=== PATIENT | male | born 1950 | race Caucasian/White ===

== ENCOUNTER 2018-01-26 15:20 | Observation (INO) | payer OTHER ==
[~2018-01-26] VITALS: Ht 182.9 cm; Wt 95.2 kg
[~2018-01-26 15:20] MED LIST: ALBU90OI INH; AMLO10 PO; ASPI81CH PO; BIOTIN5000 MCG PO; BUDE6HFA INH; CALCA400CH PO; CYAN1000I IM; CYCL10 PO; Calcium + Vita1 EACH PO; Ferosul325 MG PO; GUAI600T33 PO; Hair, Skin & N1 EACH PO; MIRT15 PO; Norco 10-325 T1 EACH PO; SERT100 PO; SILD50TA; SIMV40 PO; TOCO1000 PO; TRAZ100 PO; VENL75ER PO; ZYRTEC10 M1 PO; Zanaflex4 M1 PO
[2018-01-26 15:56] LABS: BASOPHILS ABSOLUTE AUTO 0.12 K/mm3 (0.00-0.23); BASOPHILS PERCENT AUTO 1 % (0-2); EOSINOPHILS ABSOLUTE AUTO 0.51 K/mm3 (0.00-0.68); EOSINOPHILS PERCENT AUTO 5 % (0-6); Hematocrit 38.9 % (37.0-53.0); Hemoglobin 13.7 g/dL (13.5-17.5); IMMATURE GRAN ABSOLUTE AUTO 0.05 K/mm3 (0.00-0.10); IMMATURE GRAN PERCENT AUTO 1 % (0-1); LYMPHOCYTES PERCENT AUTO 22 % (21-46); MONOCYTES ABSOLUTE AUTO 0.86 K/mm3 (0.16-1.47); MONOCYTES PERCENT AUTO 9 % (4-13); Mean Corpuscular HGB 34.3 pg (26.0-34.0); Mean Corpuscular HGB Conc 35.2 g/dL (31.5-36.5); Mean Corpuscular Volume 98 fL (80-100); NEUTROPHILS ABSOLUTE AUTO 5.82 K/mm3 (1.96-9.15); NEUTROPHILS PERCENT AUTO 62 % (41-73); Platelet Count 236 K/mm3 (150-400); RDW Coefficient Variation 14.5 % (11.7-14.2); RDW Standard Deviation 51.6 fL (35.1-46.3); Red Blood Cell Count 3.99 M/mm3 (4.30-5.90); White Blood Cell Count 9.46 K/mm3 (4.00-11.30)
[2018-01-26 16:11] LABS: Alanine Aminotransfer (ALT/SGP 28 U/L (12-78); Albumin, Blood 4.1 g/dL (3.4-5.0); Albumin/Globulin Ratio 1.2 (0.8-1.8); Alk Phos 76 U/L (50-136); Anion Gap 10 mmol/L (6-16); Aspartate Aminotrans (AST/SGOT 26 U/L (12-37); Bilirubin, Total 0.3 mg/dL (0.1-1.0); Blood Urea Nitrogen 21 mg/dL (8-24); Bun/Creatinine Ratio 23.1 (12.0-20.0); CO2, Blood 24 mmol/L (21-32); Calcium, Blood 8.9 mg/dL (8.5-10.1); Chloride, Blood 108 mmol/L (98-108); Creatinine, Blood 0.91 mg/dL (0.60-1.20); Ethanol (Alcohol), Blood, Med 243 mg/dL; Globulin, Blood 3.3 g/dL (2.2-4.0); Glomerular Filtration Rate >60 (60-); Glucose, Blood 99 mg/dL (70-99); Potassium, Blood 4.2 mmol/L (3.5-5.5); Salicylate 3.5 mg/dL (2.8-20.0); Sodium, Blood 142 mmol/L (136-145); Thyroxine (T4) 10.5 ug/dL (4.5-12.1); Total Protein, Blood 7.4 g/dL (6.4-8.2)
[2018-01-26 16:14] LABS: Thyroid Stimulating Hormone 0.916 uIU/mL (0.360-4.800)
[2018-01-26 16:19] LABS: Acetaminophen, Random <2.0 ug/mL (10.0-30.0)
[2018-01-26] MEDS ORDERED: DULO60 PO (17:04)
[2018-01-26] MEDS ORDERED: ACETAMINOPHEN500 MG PO (17:04)
[2018-01-26] MEDS ORDERED: MELA3 PO (17:05)
[2018-01-26] MEDS ORDERED: Advil200 M1 PO (17:05)
[2018-01-26] MEDS ORDERED: THIA100 PO (17:06)
[2018-01-26] MEDS ORDERED: METCAR500 PO (17:06)
[2018-01-26 23:21] LABS: Source, Urine Clean Catch
[2018-01-26 23:23] LABS: Appearance, Urine Clear (Clear); Bilirubin, Urine Neg (Neg); Blood, Urine Neg (Neg); Color, Urine Yellow (P-Yellow); Glucose Qualitative, Urine Neg (Neg); Ketones, Urine Neg (Neg); Leukocyte Esterase, Urine Neg (Neg); Nitrite, Urine Neg (Neg); Protein, Urine 1+ (Neg); Specific Gravity, Urine 1.025 (1.003-1.022); Urobilinogen, Urine NORM (Normal)
[2018-01-26 23:35] LABS: U Amphetamine Screen Not Detected; U Barbituate Screen Not Detected; U Benzodiazapine Screen Not Detected; U Buprenorphine Screen Not Detected; U Cannabinoids Screen Not Detected; U Cocaine Screen Not Detected; U Methadone Screen Not Detected; U Methamphetamine Screen Not Detected; U Opiates Screen Not Detected; U Oxycodone Screen Not Detected; U Phencyclidine Screen Not Detected; U Propoxyphene Screen Not Detected
[2018-01-27 00:26] LABS: BASOPHILS ABSOLUTE AUTO 0.05 K/mm3 (0.00-0.23); BASOPHILS PERCENT AUTO 1 % (0-2); EOSINOPHILS ABSOLUTE AUTO 0.34 K/mm3 (0.00-0.68); EOSINOPHILS PERCENT AUTO 5 % (0-6); Hematocrit 35.9 % (37.0-53.0); Hemoglobin 12.4 g/dL (13.5-17.5); IMMATURE GRAN ABSOLUTE AUTO 0.01 K/mm3 (0.00-0.10); IMMATURE GRAN PERCENT AUTO 0 % (0-1); LYMPHOCYTES PERCENT AUTO 23 % (21-46); MONOCYTES PERCENT AUTO 9 % (4-13); Mean Corpuscular HGB 34.2 pg (26.0-34.0); Mean Corpuscular HGB Conc 34.5 g/dL (31.5-36.5); Mean Corpuscular Volume 99 fL (80-100); Mean Platelet Volume 9.5 fL (9.1-12.4); NEUTROPHILS ABSOLUTE AUTO 3.97 K/mm3 (1.96-9.15); NEUTROPHILS PERCENT AUTO 61 % (41-73); Platelet Count 184 K/mm3 (150-400); RDW Coefficient Variation 14.4 % (11.7-14.2); RDW Standard Deviation 52.8 fL (35.1-46.3); Red Blood Cell Count 3.63 M/mm3 (4.30-5.90); White Blood Cell Count 6.47 K/mm3 (4.00-11.30)
[2018-01-27 00:48] LABS: Alanine Aminotransfer (ALT/SGP 24 U/L (12-78); Albumin, Blood 3.6 g/dL (3.4-5.0); Albumin/Globulin Ratio 1.2 (0.8-1.8); Alk Phos 66 U/L (50-136); Anion Gap 11 mmol/L (6-16); Aspartate Aminotrans (AST/SGOT 19 U/L (12-37); Bilirubin, Total 0.4 mg/dL (0.1-1.0); Blood Urea Nitrogen 23 mg/dL (8-24); Bun/Creatinine Ratio 24.9 (12.0-20.0); CO2, Blood 24 mmol/L (21-32); Calcium, Blood 8.3 mg/dL (8.5-10.1); Chloride, Blood 107 mmol/L (98-108); Creatinine, Blood 0.92 mg/dL (0.60-1.20); Ethanol (Alcohol), Blood, Med 39 mg/dL; Globulin, Blood 2.9 g/dL (2.2-4.0); Glomerular Filtration Rate >60 (60-); Glucose, Blood 106 mg/dL (70-99); Potassium, Blood 3.7 mmol/L (3.5-5.5); Sodium, Blood 142 mmol/L (136-145); Total Protein, Blood 6.5 g/dL (6.4-8.2)
== END 2018-01-27 11:00 | disposition home or self-care (01) ==
LOC: ER 15:20 → EOR 15:21
PROVIDERS: Emergency Medicine
DX: T48.1X2A Poisoning by skeletal muscle relaxants [neuromuscular blocking agents], intentional self-harm, initial encounter (principal); F32.9 Major depressive disorder, single episode, unspecified; J44.9 Chronic obstructive pulmonary disease, unspecified; I10 Essential (primary) hypertension; F17.200 Nicotine dependence, unspecified, uncomplicated; Z79.899 Other long term (current) drug therapy; Z88.8 Allergy status to other drugs, medicaments and biological substances
CPT/HCPCS: 80053; 84436; 84443; 85025; 93005; 93010; 99285; G0378; G0480

== ENCOUNTER 2019-04-23 07:59 | Emergency (ER) | payer SELFPAY ==
[~2019-04-23] VITALS: Ht 182.9 cm; Wt 79.4 kg
[~2019-04-23 07:59] MED LIST changes: +ACET500 PO; +ACETAMINOPHEN500 MG PO; +ANTABUSE PO; +ASCO500 PO; +Advil200 M1 PO; +Aspir 8181 MG PO; +BUDE.25 NEB; +CELE200 PO; +CHOL10002 PO; +Clotrimazole15 GM TOP; +DOCU100 PO; +DULO60 PO; +ERGO400 PO; +FISH OIL 500 M1 EAC2 PO; -Hair, Skin & N1 EACH PO; +Hydroxyzine HCl50 MG PO; +Inderal 20 mg T20 MG PO; +LIDO700A20 TOP; +LITH300C PO; +MAGOXI400 PO; +MELA3 PO; +METCAR500 PO; +Naltrexone HCl50 MG PO; +POLY500 PO; +POTCHL10ER PO; +PSYSENPA PO; +Prilosec Otc20 MG PO; +SENN187 PO; -SILD50TA; +SILD50TA PO; +SULI150 PO; +THERA1 EACH PO; +THIA100 PO; +Tessalon200 MG; +Triamcinolone A15 GM TOP; +ZYRTEC10 MG PO; +[UNRECOGNIZED DRUG - OTHER] TOP
[2019-04-23 08:35] LABS: BASOPHILS ABSOLUTE AUTO 0.04 K/mm3 (0.00-0.23); BASOPHILS PERCENT AUTO 1 % (0-2); EOSINOPHILS ABSOLUTE AUTO 0.18 K/mm3 (0.00-0.68); EOSINOPHILS PERCENT AUTO 3 % (0-6); Hematocrit 30.8 % (37.0-53.0); Hemoglobin 10.2 g/dL (13.5-17.5); IMMATURE GRAN ABSOLUTE AUTO 0.01 K/mm3 (0.00-0.10); IMMATURE GRAN PERCENT AUTO 0 % (0-1); LYMPHOCYTES ABSOLUTE AUTO 0.65 K/mm3 (0.84-5.20); LYMPHOCYTES PERCENT AUTO 11 % (21-46); MONOCYTES ABSOLUTE AUTO 0.51 K/mm3 (0.16-1.47); MONOCYTES PERCENT AUTO 9 % (4-13); Mean Corpuscular HGB 32.2 pg (26.0-34.0); Mean Corpuscular HGB Conc 33.1 g/dL (31.5-36.5); Mean Corpuscular Volume 97 fL (80-100); Mean Platelet Volume 9.9 fL (9.1-12.4); NEUTROPHILS ABSOLUTE AUTO 4.48 K/mm3 (1.96-9.15); NEUTROPHILS PERCENT AUTO 76 % (41-73); Platelet Count 206 K/mm3 (150-400); RDW Coefficient Variation 13.1 % (11.7-14.2); RDW Standard Deviation 47.2 fL (35.1-46.3); Red Blood Cell Count 3.17 M/mm3 (4.30-5.90); White Blood Cell Count 5.87 K/mm3 (4.00-11.30)
[2019-04-23 08:47] LABS: U Amphetamine Screen Not Detected; U Barbituate Screen Not Detected; U Benzodiazapine Screen DETECTED; U Buprenorphine Screen Not Detected; U Cannabinoids Screen DETECTED; U Cocaine Screen Not Detected; U Methadone Screen Not Detected; U Methamphetamine Screen Not Detected; U Opiates Screen Not Detected; U Oxycodone Screen DETECTED; U Phencyclidine Screen Not Detected; U Propoxyphene Screen Not Detected
[2019-04-23] MEDS ORDERED: MUSE1000 MCG UR (08:54)
[2019-04-23] MEDS ORDERED: DISU250 PO (08:55)
[2019-04-23 09:15] LABS: Acetaminophen, Random <2.0 ug/mL (10.0-30.0); Ethanol (Alcohol), Blood, Med <3 mg/dL; Salicylate 3.5 mg/dL (2.8-20.0)
[2019-04-23 09:16] LABS: Alanine Aminotransfer (ALT/SGP 31 U/L (12-78); Albumin, Blood 3.5 g/dL (3.4-5.0); Albumin/Globulin Ratio 1.4 (0.8-1.8); Alk Phos 58 U/L (50-136); Anion Gap 5 mmol/L (6-16); Aspartate Aminotrans (AST/SGOT 23 U/L (12-37); Bilirubin, Total 0.9 mg/dL (0.1-1.0); Blood Urea Nitrogen 12 mg/dL (8-24); Bun/Creatinine Ratio 10.5 (12.0-20.0); CO2, Blood 28 mmol/L (21-32); Calcium, Blood 8.5 mg/dL (8.5-10.1); Chloride, Blood 103 mmol/L (98-108); Creatinine, Blood 1.14 mg/dL (0.60-1.20); Globulin, Blood 2.5 g/dL (2.2-4.0); Glomerular Filtration Rate >60 (60-); Glucose, Blood 130 mg/dL (70-99); Potassium, Blood 3.5 mmol/L (3.5-5.5); Sodium, Blood 136 mmol/L (136-145)
[2019-04-23 09:20] LABS: Thyroid Stimulating Hormone 0.901 uIU/mL (0.360-4.800)
[2019-04-23] MEDS ORDERED: FERSU300 PO (10:27)
[2019-04-23] MEDS ORDERED: Metamucil Smooth1 EA PO (10:29)
[2019-04-23] MEDS ORDERED: SENN187 PO (10:29)
[2019-04-23] MEDS ORDERED: Viagra100 MG PO (10:30)
== END 2019-04-23 14:46 | disposition short-term general hospital (02) ==
LOC: ER 07:59
PROVIDERS: Emergency Medicine
DX: T39.392A Poisoning by other nonsteroidal anti-inflammatory drugs [NSAID], intentional self-harm, initial encounter (principal); T42.4X2A Poisoning by benzodiazepines, intentional self-harm, initial encounter; F32.9 Major depressive disorder, single episode, unspecified; J44.9 Chronic obstructive pulmonary disease, unspecified; I10 Essential (primary) hypertension; F17.200 Nicotine dependence, unspecified, uncomplicated
CPT/HCPCS: 80053; 84443; 85025; 93005; 93010; 99285-25; G0480

== ENCOUNTER 2019-05-19 19:17 | Observation (INO) | payer OTHER, SELFPAY ==
[~2019-05-19] VITALS: Ht 182.9 cm; Wt 79.0 kg
[~2019-05-19 19:17] MED LIST changes: +DISU250 PO; +FERSU300 PO; +MUSE1000 MCG UR; +Metamucil Smooth1 EA PO; +Viagra100 MG PO
[2019-05-19 20:05] LABS: BASOPHILS ABSOLUTE AUTO 0.06 K/mm3 (0.00-0.23); BASOPHILS PERCENT AUTO 1 % (0-2); EOSINOPHILS ABSOLUTE AUTO 0.26 K/mm3 (0.00-0.68); EOSINOPHILS PERCENT AUTO 3 % (0-6); Hematocrit 36.3 % (37.0-53.0); Hemoglobin 12.1 g/dL (13.5-17.5); IMMATURE GRAN ABSOLUTE AUTO 0.02 K/mm3 (0.00-0.10); IMMATURE GRAN PERCENT AUTO 0 % (0-1); LYMPHOCYTES ABSOLUTE AUTO 1.57 K/mm3 (0.84-5.20); LYMPHOCYTES PERCENT AUTO 20 % (21-46); MONOCYTES ABSOLUTE AUTO 0.65 K/mm3 (0.16-1.47); MONOCYTES PERCENT AUTO 8 % (4-13); Mean Corpuscular HGB 33.2 pg (26.0-34.0); Mean Corpuscular HGB Conc 33.3 g/dL (31.5-36.5); Mean Corpuscular Volume 100 fL (80-100); NEUTROPHILS ABSOLUTE AUTO 5.42 K/mm3 (1.96-9.15); NEUTROPHILS PERCENT AUTO 68 % (41-73); Platelet Count 254 K/mm3 (150-400); RDW Coefficient Variation 14.6 % (11.7-14.2); RDW Standard Deviation 54.1 fL (35.1-46.3); Red Blood Cell Count 3.64 M/mm3 (4.30-5.90); White Blood Cell Count 7.98 K/mm3 (4.00-11.30)
[2019-05-19 20:28] LABS: Alanine Aminotransfer (ALT/SGP 16 U/L (12-78); Albumin, Blood 3.9 g/dL (3.4-5.0); Albumin/Globulin Ratio 1.3 (0.8-1.8); Alk Phos 70 U/L (50-136); Anion Gap 9 mmol/L (6-16); Aspartate Aminotrans (AST/SGOT 15 U/L (12-37); Bilirubin, Total 0.5 mg/dL (0.1-1.0); Blood Urea Nitrogen 12 mg/dL (8-24); Bun/Creatinine Ratio 11.2 (12.0-20.0); CO2, Blood 25 mmol/L (21-32); Calcium, Blood 8.8 mg/dL (8.5-10.1); Chloride, Blood 111 mmol/L (98-108); Creatinine, Blood 1.07 mg/dL (0.60-1.20); Glomerular Filtration Rate >60 (60-); Glucose, Blood 124 mg/dL (70-99); Lithium <0.20 mmol/L (0.60-1.20); Potassium, Blood 3.2 mmol/L (3.5-5.5); Salicylate 4.2 mg/dL (2.8-20.0); Sodium, Blood 145 mmol/L (136-145); Total Protein, Blood 6.9 g/dL (6.4-8.2)
[2019-05-19 21:19] LABS: International Normalized Ratio 1.03; Prothrombin Time Results 10.9 Sec (9.7-11.5)
[2019-05-19] MEDS ORDERED: Vivitrol380 MG INJ (21:21)
--- NOTE | 2019-05-19 23:10 | NUR ---
ADMIT RECEIVED FROM ER VIA GURNEY. PT IS ABLE TO AMBULATE FROM GURNEY TO BED WITHOUT DIFFICULTY. ORIENTED AND COOPERATIVE. FLAT AFFECT NOTED. DENIES SUICIDE IDEATION AT THIS TIME. STATES "I FEEL SAFE HERE WITH YOU GUYS." PT INFORMED OF THE FACT THAT THE CAMERA IS ON IN THE ROOM. DENIES C/O NAUSEA. DENIES C/O ACUTE PAIN. STATES "I ALWAYS HURT ALL OVER." DENIES NEED FOR PAIN MANAGEMENT AT THIS TIME. MONITOR SHOWS NSR, RATE 70s. BP STABLE. RESPIRATIONS EVEN AND UNLABORED. 96% ON RA. OCCASIONAL MOIST NPC. SEE ADMIT ASSESSMENT FOR FULL ASSESSMENT.
[2019-05-19 23:26] LABS: U Amphetamine Screen Not Detected; U Barbituate Screen Not Detected; U Benzodiazapine Screen Not Detected; U Buprenorphine Screen Not Detected; U Cannabinoids Screen DETECTED; U Cocaine Screen Not Detected; U Methadone Screen Not Detected; U Methamphetamine Screen Not Detected; U Opiates Screen Not Detected; U Oxycodone Screen Not Detected; U Phencyclidine Screen Not Detected; U Propoxyphene Screen Not Detected
[2019-05-19 23:47] LABS: International Normalized Ratio 1.14; Prothrombin Time Results 11.9 Sec (9.7-11.5)
[2019-05-20 00:07] LABS: Acetaminophen, Random 86.3 ug/mL (10.0-30.0)
[2019-05-20 00:08] LABS: Albumin, Blood 3.4 g/dL (3.4-5.0); Albumin/Globulin Ratio 1.2 (0.8-1.8); Bilirubin, Direct 0.1 mg/dL (0.0-0.3); Bilirubin, Indirect 0.2 mg/dL (0.1-0.7); Bilirubin, Total 0.3 mg/dL (0.1-1.0); Globulin, Blood 2.9 g/dL (2.2-4.0); Total Protein, Blood 6.3 g/dL (6.4-8.2)
[2019-05-20] MEDS ORDERED: ASCO500 PO (03:19)
[2019-05-20] MEDS ORDERED: PSYSENPA PO (03:31)
[2019-05-20] MEDS ORDERED: DOCU100 PO (03:32)
[2019-05-20 04:27] LABS: Albumin, Blood 3.1 g/dL (3.4-5.0); Albumin/Globulin Ratio 1.1 (0.8-1.8); Bilirubin, Direct 0.1 mg/dL (0.0-0.3); Bilirubin, Indirect 0.4 mg/dL (0.1-0.7); Bilirubin, Total 0.5 mg/dL (0.1-1.0); Globulin, Blood 2.8 g/dL (2.2-4.0); Total Protein, Blood 5.9 g/dL (6.4-8.2)
[2019-05-20 05:28] LABS: Acetaminophen, Random 28.9 ug/mL (10.0-30.0); Salicylate 3.5 mg/dL (2.8-20.0)
--- NOTE | 2019-05-20 06:11 | NUR ---
SHIFT SUMMARY NO ACUTE CHANGES DURING NOC. SLEPT INTERMITTENTLY. UP WITH STANDBY ASSIST- TOLERATES WELL. DENIES C/O NAUSEA OR ACUTE PAIN. CONTINUES WITH C/O CHRONIC JOINT PAIN. VSS. RESPIRATIONS EVEN AND UNLABORED. ACETYLCYSTEINE INFUSING PER ORDER. POISON CONTROL HAS CALLED TWICE DURING SHIFT FOR UPDATES AND RECOMMENDATIONS. VOIDING WITHOUT DIFFICULTY. TAKING PO WITHOUT DIFFICULTY. CONTINUES TO DENY SUICIDAL IDEATION AT THIS TIME. WILL REPORT TO DAY SHIFT RN WHEN AVAILABLE.
--- NOTE | 2019-05-20 07:38 | NUR ---
ASSUMED CARE OF PT. PT IS ALERT AND ORIENTED. DENIES PAIN AT THIS TIME. WHEN ASKED IF HE STILL HAS SUICIDAL IDEATION PT STATED " I DON'T KNOW." PT LOOKED SAD WHEN ASKED ABOUT HOW HIS MOM IS DOING. HE STATED IT TAKES ABOUT [address] TO SEE HIS MOTHER AND THEN HE DOESN'T LIKE TO "FLY" PT IS FOLLOWING COMMANDS.
--- NOTE | 2019-05-20 08:03 | NUR ---
PT SEEN BY DR. ROSALES. UPDATED HIM OF PT'S STATUS. PT WILL BE TRANSFERED TO MEDICAL FLOOR ON SUICIDAL WATCH AND ON TELEMETRY.
[2019-05-20 08:30] LABS: International Normalized Ratio 1.22; Prothrombin Time Results 12.7 Sec (9.7-11.5)
[2019-05-20 08:40] LABS: Alanine Aminotransfer (ALT/SGP 17 U/L (12-78); Albumin, Blood 3.1 g/dL (3.4-5.0); Albumin/Globulin Ratio 1.1 (0.8-1.8); Alk Phos 58 U/L (50-136); Anion Gap 8 mmol/L (6-16); Aspartate Aminotrans (AST/SGOT 14 U/L (12-37); Bilirubin, Direct 0.2 mg/dL (0.0-0.3); Bilirubin, Indirect 0.4 mg/dL (0.1-0.7); Bilirubin, Total 0.6 mg/dL (0.1-1.0); Blood Urea Nitrogen 12 mg/dL (8-24); Bun/Creatinine Ratio 13.8 (12.0-20.0); CO2, Blood 25 mmol/L (21-32); Calcium, Blood 8.2 mg/dL (8.5-10.1); Chloride, Blood 112 mmol/L (98-108); Creatinine, Blood 0.87 mg/dL (0.60-1.20); Globulin, Blood 2.7 g/dL (2.2-4.0); Glomerular Filtration Rate >60 (60-); Glucose, Blood 109 mg/dL (70-99); Potassium, Blood 3.5 mmol/L (3.5-5.5); Salicylate 3.5 mg/dL (2.8-20.0); Sodium, Blood 145 mmol/L (136-145); Total Protein, Blood 5.8 g/dL (6.4-8.2)
--- NOTE | 2019-05-20 09:41 | NUR ---
DR. ROSALES WAS CALLED REGARDING PT'S POTASSIUM LEVEL OF 3.1 AFTER RECEIVING 40MEQ PO AROUND 2 AM THIS MORNING. ORDERS RECEIVED. PT HAD STATED AFTER HAVING A BM THIS MORNING THAT HE HAD DIARRHEA.
--- NOTE | 2019-05-20 11:18 | NUR ---
PT HAD REFUSED BREAKFAST THIS MORNING. PT SOMEWHAT TEARFUL WHEN ASKED IF HE WANTS TO TALK TO HIS MOTHER OVER THE PHONE. INSTRUCTIED PATIENT TO COLLECT URINE AND STOOL SPECIMEN FOR UC-TOX & C-DIFF. PT HAD 3 BMs SINCE THIS MORNING.
[2019-05-20 12:23] LABS: U Amphetamine Screen Not Detected; U Barbituate Screen Not Detected; U Benzodiazapine Screen DETECTED; U Buprenorphine Screen Not Detected; U Cannabinoids Screen DETECTED; U Cocaine Screen Not Detected; U Methadone Screen Not Detected; U Methamphetamine Screen Not Detected; U Opiates Screen Not Detected; U Oxycodone Screen Not Detected; U Phencyclidine Screen Not Detected; U Propoxyphene Screen Not Detected
--- NOTE | 2019-05-20 16:16 | NUR ---
PT COMPLAINTS OF R/L SHOULDER PAIN & KNEES. PT STATED HE USES 3 LIDOCAINE PATCHES FOR 12 HOURS AND "POT" DR. ROSALES WAS NOTIFIED REGARDING PT'S COMPLAINTS. ORDERS RECEIVED.
[2019-05-20 16:18] LABS: Acetaminophen, Random <2.0 ug/mL (10.0-30.0); Alanine Aminotransfer (ALT/SGP 14 U/L (12-78); Aspartate Aminotrans (AST/SGOT 15 U/L (12-37)
--- NOTE | 2019-05-20 17:34 | NUR ---
RECIEVED TELEPHONE REPORT FROM PROJECT DEVELOPMENT COORDINATOR. PER REPORT PT STATED HIS MOTHER IS DYING AND IS MOVING TO BE WITH ANOTHER RELATIVE AND THE PT CAN NOT BE WITH HER, THE PT DECIDED TO TAKE 25 500MG TYLENOL WITH THE INTENT OF SELF TERMINATION (PER REPORT). PT ALERT AND ORIENTED AND HAS BEEN GOING TO THE BATHROOM INDEPENDENTLY. PT IS ON SI PRECAUTIONS, ROOM CHECK COMPLETE WITH PIG MACHINE OPERATOR ALEX. WAITING FOR PT ARRIVAL ON MEDICAL FLOOR.
--- NOTE | 2019-05-20 18:07 | NUR ---
SHIFT SUMMARY: DR. ROSALES WAS NOTIFIED PT IS NOT ON A 2MD HOLD. PT HAS EXPRESSED TO NIGHT NURSE THAT HE MIGT COMMIT SUICIDE WHEN HE IS ALONE AT HOME. PT HAS NOT EXPRESSED THIS INFO TO THIS NURSE. PT HAS NOT EXPRESSED ANY THOUGHTS OF SUICIDE TODAY. TYLENOL LEVEL IS <2.0. AST 15, ALT 14. ACETYLCYSTEINE INFUSION WAS DISCONTINUED PER POISON CONTROL RECOMMENDATION. PLAN IS TO PLACE PT ON 2MD HOLD PER DR. ROSALES UNTIL DR. SALAZAR OR ADRIAN BRIONES SEE'S PT ON THURSDAY. PT WAS TO ROOM 344. REPORT GIVEN TO FERNANDA SALAZAR IN MEDICAL FLOOR.
--- NOTE | 2019-05-20 18:17 | NUR ---
SPOKE TO CS ASSOCIATE- THEY ARE AWARE OF THE PT MOVE FROM ICU AND HE IS ON THE MONITORS. PT IS AWARE OF THE MONITOR AND REASON FOR IT. PT ASSISTED TO THE BATHROOM UPON ARRIVAL NO C/O PAIN.
--- NOTE | 2019-05-21 05:36 | NUR ---
PATIENT SLEPT WELL IS POSSIBLE THIS SHIFT, HE DID COMPLAIN OF SHOULDER AND KNEE PAIN AND RN APPLIED THE OINTMENT PER EMAR. PATIENT RECEIVED SLEEP AIDES PER EMAR ALSO. LATER HER REQUESTED EAR PLUGS. PATIENT HAS BEEN PLEASANT AND COOPERATIVE AND HAS AGREED NOT TO HARM HIMSELF THIS SHIFT AND HAS KEPT HIS WORD. HE WS UP TO THE BRP SEVERAL TIMES AND IS VOIDING WELL. SI ASSESSMENTS WERE COMPLETED; CALL GUNN AT BEDSIDE.
--- NOTE | 2019-05-21 16:51 | NUR ---
PATIENT A/OX4, REMAINS TEARFUL AT TIMES THIS SHIFT. AWAITING TELEPSYCH CONSULT THIS EVENING. PATIENT ON SI PRECUATIONS WITH VIDEO MONITORING. LIDOCAINE OINTMENT Q6 HOURS TO TREAT CHRONIC KNEE AND SHOULDER PAIN. CALLS APPROPRIATELY FOR ASSISTANCE. UP INDEPENDENTLY IN ROOM. CALM AND COOPERATIVE WITH CARE.
--- NOTE | 2019-05-22 06:38 | NUR ---
PATIENT IS PLEASANT AND COOPERATIVE TONIGHT, PATIENT HAD TELECONSULT W PSYCH WHICH HAD TECHNICAL PROBLEMS AND WILL BE RESCHEDULED IT COULD NOT BE COMPLETED. PATIENT WAS UPSET ABOUT THE MISCOMMUNICATION AND HAD TROUBLE SLEEPING AFTER THIS . PER PCU TECH PATIENT REMAINS IN NSR @83 BPM THIS MORNIG. PASSED REPORT TO DAY NURSE.
--- NOTE | 2019-05-22 16:53 | NUR ---
PATIENT HAD TELEPSYCH CONSULT TODAY AND WAS CLEARED OF SI PRECAUTIONS. PATIENT LIVES AT [facility] AND PLANS TO D/C BACK THERE SOON TOMORROW. PATIENT IS A/OX4, UP INDEPENDENTLY IN ROOM. LIDOCAINE OINTMENT QID TO SHOULDERS AND KNEES. VSS THIS SHIFT, ON RA. PATIENT REMAINS TEARFUL AT TIMES WHEN TALKING ABOUT HIS PAST AND HIS MOTHER, BUT DENIES ANY THOUGHTS OF HARMING HIMSELF.
--- NOTE | 2019-05-22 20:11 | NUR ---
PATIENT RESTING IN BED AND IN GOOD SPIRITS TONIGHT; LOPOKING FORWARD TO D/C TOMORROW. ASSESSMENTS COMPLETE AND BEDTIME MEDS GIVEN; LIDOCAINE OINTMENT APPLIED PER EMAR. CALL GUNN WITHIN REACH
--- NOTE | 2019-05-23 14:08 | NUR ---
LATE ENTRY: PATIENT EVALUATED BY TELEPSYCH ON 05/22/19 AT 1245. TELEPHONE ORDER RECEIVED FROM DR. ROSALES ON 05/22/19 AT 1552 TO D/C HIGH RISK SI PRECAUTIONS. ORDERS WERE COMPLETED ON PROCESS INTERVENTION, BUT ACTUAL DC HIGH RISK PRECAUTIONS WERE ENTERED NEXT DAY.
--- NOTE | 2019-05-23 16:40 | NUR ---
DISCHARGE NOTE ZEYAD DENIED SI THIS SHIFT. SI PRECAUTIONS DISCONTINUED EARLY THIS MORNING BY DR ROSALES, HH DISCONTINUED PRIOR TO DC. GOING HOME [facility]IA [employer]. INDEP IN ROOM. PIV REMOVED, NO NEW MEDS. PCP APPT MADE FOR PT. HE IS RETURNING TO [facility]. PAINFUL JOINTS, LIDOCAINE PATCHES APPLIED. INDEP TO BR. TOOK PILLS PRESCRIBED. DISCHARGE PAPERWORK REVIEWED.
== END 2019-05-23 15:02 | disposition home or self-care (01) ==
LOC: ER 19:17 → ICUW 19:18 → MEDS 05-20 18:12 → ENPENDDIS 05-23 14:16 → MEDS 05-23 15:02
PROVIDERS: Hospitalist; Internal Medicine; Physician Assistant; ADMIT Hospitalist
DX: T39.1X2A Poisoning by 4-Aminophenol derivatives, intentional self-harm, initial encounter (principal); F43.12 Post-traumatic stress disorder, chronic; J44.9 Chronic obstructive pulmonary disease, unspecified; F12.10 Cannabis abuse, uncomplicated; E87.6 Hypokalemia; F17.210 Nicotine dependence, cigarettes, uncomplicated; Z88.8 Allergy status to other drugs, medicaments and biological substances; Z88.6 Allergy status to analgesic agent; Z79.899 Other long term (current) drug therapy; Z79.51 Long term (current) use of inhaled steroids
CPT/HCPCS: 36415; 80048; 80053; 80076; 80178; 84132; 84450; 84460; 85025; 85610; 93005; 93010; 94640; 94760; 96365; 96376; 99285-25; G0378; G0480; J0132; J7060; J7070

== ENCOUNTER 2019-12-25 16:26 | Observation (INO) | payer OTHER ==
[~2019-12-25] VITALS: Ht 182.9 cm; Wt 81.7 kg
[~2019-12-25 16:26] MED LIST changes: -ALBU90OI INH; -Aspir 8181 MG PO; -BUDE6HFA INH; -CHOL10002 PO; -FISH OIL 500 M1 EAC2 PO; -MAGOXI400 PO; -Prilosec Otc20 MG PO; -SULI150 PO; -THERA1 EACH PO; -TRAZ100 PO; -Triamcinolone A15 GM TOP; +Vivitrol380 MG INJ; -ZYRTEC10 MG PO; -[UNRECOGNIZED DRUG - OTHER] TOP
[2019-12-25 16:55] LABS: Source, Urine Clean Catch
[2019-12-25 17:02] LABS: Bilirubin, Urine Neg (Neg); Blood, Urine Neg (Neg); Glucose Qualitative, Urine Neg (Neg); Ketones, Urine Neg (Neg); Leukocyte Esterase, Urine Neg (Neg); Nitrite, Urine Neg (Neg); Protein, Urine Neg (Neg); Specific Gravity, Urine 1.005 (1.003-1.022); Urobilinogen, Urine NORM (Normal)
[2019-12-25 17:04] LABS: BASOPHILS ABSOLUTE AUTO 0.07 K/mm3 (0.00-0.23); BASOPHILS PERCENT AUTO 1 % (0-2); EOSINOPHILS ABSOLUTE AUTO 0.18 K/mm3 (0.00-0.68); EOSINOPHILS PERCENT AUTO 3 % (0-6); Hematocrit 37.8 % (37.0-53.0); IMMATURE GRAN ABSOLUTE AUTO 0.02 K/mm3 (0.00-0.10); IMMATURE GRAN PERCENT AUTO 0 % (0-1); LYMPHOCYTES ABSOLUTE AUTO 0.94 K/mm3 (0.84-5.20); LYMPHOCYTES PERCENT AUTO 14 % (21-46); MONOCYTES ABSOLUTE AUTO 0.48 K/mm3 (0.16-1.47); MONOCYTES PERCENT AUTO 7 % (4-13); Mean Corpuscular HGB 33.8 pg (26.0-34.0); Mean Corpuscular HGB Conc 34.4 g/dL (31.5-36.5); Mean Corpuscular Volume 98 fL (80-100); Mean Platelet Volume 9.5 fL (9.1-12.4); NEUTROPHILS ABSOLUTE AUTO 4.95 K/mm3 (1.96-9.15); NEUTROPHILS PERCENT AUTO 75 % (41-73); Platelet Count 221 K/mm3 (150-400); RDW Coefficient Variation 13.6 % (11.7-14.2); RDW Standard Deviation 49.4 fL (35.1-46.3); Red Blood Cell Count 3.85 M/mm3 (4.30-5.90); White Blood Cell Count 6.64 K/mm3 (4.00-11.30)
[2019-12-25 17:16] LABS: U Amphetamine Screen Not Detected; U Barbituate Screen Not Detected; U Benzodiazapine Screen Not Detected; U Buprenorphine Screen Not Detected; U Cannabinoids Screen DETECTED; U Cocaine Screen Not Detected; U Methadone Screen Not Detected; U Methamphetamine Screen Not Detected; U Opiates Screen Not Detected; U Oxycodone Screen Not Detected; U Phencyclidine Screen Not Detected; U Propoxyphene Screen Not Detected
[2019-12-25 17:19] LABS: Appearance, Urine Clear (Clear); Color, Urine Yellow (P-Yellow)
[2019-12-25 17:30] LABS: Acetaminophen, Random <2.0 ug/mL (10.0-30.0); Alanine Aminotransfer (ALT/SGP 22 U/L (12-78); Albumin, Blood 3.9 g/dL (3.4-5.0); Albumin/Globulin Ratio 1.2 (0.8-1.8); Alk Phos 76 U/L (50-136); Anion Gap 5 mmol/L (6-16); Aspartate Aminotrans (AST/SGOT 23 U/L (12-37); Bilirubin, Total 0.3 mg/dL (0.1-1.0); Blood Urea Nitrogen 13 mg/dL (8-24); Bun/Creatinine Ratio 14.1 (12.0-20.0); CO2, Blood 29 mmol/L (21-32); Calcium, Blood 8.6 mg/dL (8.5-10.1); Chloride, Blood 106 mmol/L (98-108); Creatinine, Blood 0.92 mg/dL (0.60-1.20); Ethanol (Alcohol), Blood, Med 108 mg/dL; Globulin, Blood 3.2 g/dL (2.2-4.0); Glomerular Filtration Rate >60 (60-); Glucose, Blood 102 mg/dL (70-99); Potassium, Blood 3.6 mmol/L (3.5-5.5); Salicylate 4.5 mg/dL (2.8-20.0); Sodium, Blood 140 mmol/L (136-145); Thyroxine (T4) 8.1 ug/dL (4.5-12.1); Total Protein, Blood 7.1 g/dL (6.4-8.2)
[2019-12-25 17:33] LABS: Thyroid Stimulating Hormone 0.359 uIU/mL (0.360-4.800)
[2019-12-25] MEDS ORDERED: TRAZ100 PO (19:20)
[2019-12-25] MEDS ORDERED: ALBU90OI INH (19:20)
[2019-12-25] MEDS ORDERED: THERA1 EACH PO (19:20)
[2019-12-25] MEDS ORDERED: BUDE6HFA INH (19:21)
[2019-12-25] MEDS ORDERED: Aspir 8181 MG PO (19:22)
[2019-12-25] MEDS ORDERED: VITAMIN D325 MCG PO (19:22)
[2019-12-25] MEDS ORDERED: Prilosec Otc20 MG PO (19:23)
[2019-12-25] MEDS ORDERED: Fish Oil 10001000 MG PO (19:23)
[2019-12-25] MEDS ORDERED: SULI150 PO (19:24)
[2019-12-25] MEDS ORDERED: Aqua Care237 ML TOP (19:24)
[2019-12-25] MEDS ORDERED: MAGOXI400 PO (19:25)
[2019-12-25] MEDS ORDERED: Triamcinolone A15 GM TOP (19:26)
[2019-12-25] MEDS ORDERED: SENN187 PO (19:27)
[2019-12-25] MEDS ORDERED: ASCO500 PO (19:28)
[2019-12-25] MEDS ORDERED: ZYRTEC10 MG PO (19:28)
[2019-12-25] MEDS ORDERED: MELA3 PO (19:29)
[2019-12-25] MEDS ORDERED: LIDO5TO TOP (19:30)
== END 2019-12-25 19:50 | disposition home or self-care (01) ==
LOC: ER 16:26 → EOR 16:27
PROVIDERS: Emergency Medicine; ADMIT Emergency Medicine
DX: R45.851 Suicidal ideations (principal); F32.9 Major depressive disorder, single episode, unspecified; L03.116 Cellulitis of left lower limb; J44.9 Chronic obstructive pulmonary disease, unspecified; I10 Essential (primary) hypertension; E03.9 Hypothyroidism, unspecified; F17.200 Nicotine dependence, unspecified, uncomplicated; Z79.899 Other long term (current) drug therapy; Z79.82 Long term (current) use of aspirin; Z88.6 Allergy status to analgesic agent; Z88.8 Allergy status to other drugs, medicaments and biological substances; I25.10 Atherosclerotic heart disease of native coronary artery without angina pectoris; F43.10 Post-traumatic stress disorder, unspecified
CPT/HCPCS: 80053; 81003; 84436; 84443; 85025; 99285; A9270-GY; G0378; G0480

== ENCOUNTER 2020-01-19 18:39 | Emergency (ER) | payer OTHER ==
[~2020-01-19] VITALS: Ht 182.9 cm; Wt 77.1 kg
[~2020-01-19 18:39] MED LIST changes: +ALBU90OI INH; +Aqua Care237 ML TOP; +Aspir 8181 MG PO; +BUDE6HFA INH; +Fish Oil 10001000 MG PO; +LIDO5TO TOP; +MAGOXI400 PO; +Prilosec Otc20 MG PO; +SULI150 PO; +THERA1 EACH PO; +TRAZ100 PO; +Triamcinolone A15 GM TOP; +VITAMIN D325 MCG PO; +ZYRTEC10 MG PO
[2020-01-19 19:16] LABS: BASOPHILS ABSOLUTE AUTO 0.07 K/mm3 (0.00-0.23); BASOPHILS PERCENT AUTO 1 % (0-2); EOSINOPHILS ABSOLUTE AUTO 0.41 K/mm3 (0.00-0.68); EOSINOPHILS PERCENT AUTO 4 % (0-6); Hematocrit 35.8 % (37.0-53.0); Hemoglobin 12.3 g/dL (13.5-17.5); IMMATURE GRAN ABSOLUTE AUTO 0.03 K/mm3 (0.00-0.10); IMMATURE GRAN PERCENT AUTO 0 % (0-1); LYMPHOCYTES ABSOLUTE AUTO 1.96 K/mm3 (0.84-5.20); LYMPHOCYTES PERCENT AUTO 21 % (21-46); MONOCYTES ABSOLUTE AUTO 0.66 K/mm3 (0.16-1.47); MONOCYTES PERCENT AUTO 7 % (4-13); Mean Corpuscular HGB 34.7 pg (26.0-34.0); Mean Corpuscular HGB Conc 34.4 g/dL (31.5-36.5); Mean Corpuscular Volume 101 fL (80-100); Mean Platelet Volume 9.6 fL (9.1-12.4); NEUTROPHILS ABSOLUTE AUTO 6.18 K/mm3 (1.96-9.15); NEUTROPHILS PERCENT AUTO 66 % (41-73); Platelet Count 242 K/mm3 (150-400); RDW Coefficient Variation 13.6 % (11.7-14.2); RDW Standard Deviation 50.9 fL (35.1-46.3); Red Blood Cell Count 3.54 M/mm3 (4.30-5.90); White Blood Cell Count 9.31 K/mm3 (4.00-11.30)
[2020-01-19 19:37] LABS: Alanine Aminotransfer (ALT/SGP 17 U/L (12-78); Albumin, Blood 3.7 g/dL (3.4-5.0); Albumin/Globulin Ratio 1.3 (0.8-1.8); Alk Phos 58 U/L (50-136); Anion Gap 9 mmol/L (6-16); Aspartate Aminotrans (AST/SGOT 14 U/L (12-37); Bilirubin, Total 0.3 mg/dL (0.1-1.0); Blood Urea Nitrogen 12 mg/dL (8-24); Bun/Creatinine Ratio 12.2 (12.0-20.0); CO2, Blood 23 mmol/L (21-32); Calcium, Blood 8.9 mg/dL (8.5-10.1); Chloride, Blood 110 mmol/L (98-108); Creatinine, Blood 0.98 mg/dL (0.60-1.20); Globulin, Blood 2.9 g/dL (2.2-4.0); Glomerular Filtration Rate >60 (60-); Glucose, Blood 101 mg/dL (70-99); Potassium, Blood 3.5 mmol/L (3.5-5.5); Sodium, Blood 142 mmol/L (136-145); Total Protein, Blood 6.6 g/dL (6.4-8.2); Troponin I <0.015 ng/mL (0.000-0.040)
[2020-01-19] MEDS ORDERED: BENZ100A PO (20:58)
== END 2020-01-19 21:14 | disposition home or self-care (01) ==
LOC: ER 18:39
PROVIDERS: Emergency Medicine
DX: J06.9 Acute upper respiratory infection, unspecified (principal); Z88.8 Allergy status to other drugs, medicaments and biological substances; Z79.899 Other long term (current) drug therapy; Z79.82 Long term (current) use of aspirin; F31.9 Bipolar disorder, unspecified; F43.10 Post-traumatic stress disorder, unspecified; I10 Essential (primary) hypertension; J44.9 Chronic obstructive pulmonary disease, unspecified; E03.9 Hypothyroidism, unspecified; I25.10 Atherosclerotic heart disease of native coronary artery without angina pectoris; F17.200 Nicotine dependence, unspecified, uncomplicated
CPT/HCPCS: 36415; 71045; 80053; 83880; 84484; 85025; 93005; 93010; 99284-25

== ENCOUNTER 2020-07-13 15:48 | Emergency (ER) | payer OTHER, MEDICARE ==
[~2020-07-13] VITALS: Ht 182.9 cm; Wt 81.7 kg
[~2020-07-13 15:48] MED LIST changes: +BENZ100A PO
== END 2020-07-13 21:31 | disposition home or self-care (01) ==
LOC: ER 15:48
DX: F32.9 Major depressive disorder, single episode, unspecified (principal); F43.10 Post-traumatic stress disorder, unspecified; I10 Essential (primary) hypertension; J44.9 Chronic obstructive pulmonary disease, unspecified; E03.9 Hypothyroidism, unspecified; I25.10 Atherosclerotic heart disease of native coronary artery without angina pectoris; Z88.8 Allergy status to other drugs, medicaments and biological substances; Z79.51 Long term (current) use of inhaled steroids; Z79.82 Long term (current) use of aspirin; Z79.899 Other long term (current) drug therapy
CPT/HCPCS: 99284

== ENCOUNTER 2020-08-23 06:57 | Emergency (ER) | payer OTHER, MEDICARE ==
[~2020-08-23] VITALS: Ht 182.9 cm; Wt 83.9 kg
[2020-08-23 07:55] LABS: BASOPHILS ABSOLUTE AUTO 0.05 K/mm3 (0.00-0.23); BASOPHILS PERCENT AUTO 1 % (0-2); EOSINOPHILS ABSOLUTE AUTO 0.24 K/mm3 (0.00-0.68); EOSINOPHILS PERCENT AUTO 3 % (0-6); Hemoglobin 10.6 g/dL (13.5-17.5); IMMATURE GRAN ABSOLUTE AUTO 0.02 K/mm3 (0.00-0.10); IMMATURE GRAN PERCENT AUTO 0 % (0-1); LYMPHOCYTES PERCENT AUTO 10 % (21-46); MONOCYTES ABSOLUTE AUTO 0.58 K/mm3 (0.16-1.47); MONOCYTES PERCENT AUTO 8 % (4-13); Mean Corpuscular HGB 32.5 pg (26.0-34.0); Mean Corpuscular HGB Conc 33.1 g/dL (31.5-36.5); Mean Corpuscular Volume 98 fL (80-100); Mean Platelet Volume 9.6 fL (9.1-12.4); NEUTROPHILS ABSOLUTE AUTO 5.75 K/mm3 (1.96-9.15); NEUTROPHILS PERCENT AUTO 78 % (41-73); Platelet Count 199 K/mm3 (150-400); RDW Coefficient Variation 13.9 % (11.7-14.2); RDW Standard Deviation 50.6 fL (35.1-46.3); Red Blood Cell Count 3.26 M/mm3 (4.30-5.90); White Blood Cell Count 7.34 K/mm3 (4.00-11.30)
[2020-08-23 08:16] LABS: Alanine Aminotransfer (ALT/SGP 21 U/L (12-78); Albumin, Blood 3.6 g/dL (3.4-5.0); Albumin/Globulin Ratio 1.3 (0.8-1.8); Alk Phos 69 U/L (50-136); Anion Gap 5 mmol/L (6-16); Aspartate Aminotrans (AST/SGOT 17 U/L (12-37); Bilirubin, Total 0.3 mg/dL (0.1-1.0); Blood Urea Nitrogen 16 mg/dL (8-24); Bun/Creatinine Ratio 15.2 (12.0-20.0); CO2, Blood 29 mmol/L (21-32); Calcium, Blood 8.4 mg/dL (8.5-10.1); Chloride, Blood 111 mmol/L (98-108); Creatinine, Blood 1.05 mg/dL (0.60-1.20); Globulin, Blood 2.7 g/dL (2.2-4.0); Glomerular Filtration Rate >60 (60-); Glucose, Blood 97 mg/dL (70-99); Sodium, Blood 145 mmol/L (136-145); Total Protein, Blood 6.3 g/dL (6.4-8.2)
[2020-08-23 08:31] LABS: Source, Urine Clean Catch
[2020-08-23 08:40] LABS: Bilirubin, Urine Neg (Neg); Blood, Urine Neg (Neg); Glucose Qualitative, Urine Neg (Neg); Ketones, Urine Neg (Neg); Leukocyte Esterase, Urine Neg (Neg); Nitrite, Urine Neg (Neg); Protein, Urine Neg (Neg); Urobilinogen, Urine NORM (Normal)
[2020-08-23 08:41] LABS: Appearance, Urine Clear (Clear); Color, Urine Yellow (P-Yellow)
[2020-08-23 08:56] LABS: U Amphetamine Screen Not Detected; U Barbituate Screen Not Detected; U Benzodiazapine Screen Not Detected; U Buprenorphine Screen Not Detected; U Cannabinoids Screen DETECTED; U Cocaine Screen Not Detected; U Methadone Screen Not Detected; U Methamphetamine Screen Not Detected; U Opiates Screen Not Detected; U Oxycodone Screen Not Detected; U Phencyclidine Screen Not Detected; U Propoxyphene Screen Not Detected
== END 2020-08-23 11:28 | disposition short-term general hospital (02) ==
LOC: ER 06:57
PROVIDERS: Emergency Medicine
DX: F32.9 Major depressive disorder, single episode, unspecified (principal); I10 Essential (primary) hypertension; J44.9 Chronic obstructive pulmonary disease, unspecified; Z88.8 Allergy status to other drugs, medicaments and biological substances; Z79.82 Long term (current) use of aspirin; Z79.899 Other long term (current) drug therapy
CPT/HCPCS: 80053; 81003; 85025; 99285; G0480

== ENCOUNTER 2020-09-23 16:58 | Observation (INO) | payer OTHER, MEDICARE ==
[~2020-09-23] VITALS: Ht 182.9 cm; Wt 81.7 kg
[2020-09-23 17:56] LABS: BASOPHILS ABSOLUTE AUTO 0.09 K/mm3 (0.00-0.23); BASOPHILS PERCENT AUTO 1 % (0-2); EOSINOPHILS ABSOLUTE AUTO 0.21 K/mm3 (0.00-0.68); EOSINOPHILS PERCENT AUTO 2 % (0-6); Hematocrit 36.5 % (37.0-53.0); Hemoglobin 12.1 g/dL (13.5-17.5); IMMATURE GRAN ABSOLUTE AUTO 0.02 K/mm3 (0.00-0.10); IMMATURE GRAN PERCENT AUTO 0 % (0-1); LYMPHOCYTES ABSOLUTE AUTO 1.89 K/mm3 (0.84-5.20); LYMPHOCYTES PERCENT AUTO 21 % (21-46); MONOCYTES PERCENT AUTO 9 % (4-13); Mean Corpuscular HGB 32.4 pg (26.0-34.0); Mean Corpuscular HGB Conc 33.2 g/dL (31.5-36.5); Mean Corpuscular Volume 98 fL (80-100); Mean Platelet Volume 9.6 fL (9.1-12.4); NEUTROPHILS PERCENT AUTO 67 % (41-73); Platelet Count 270 K/mm3 (150-400); RDW Coefficient Variation 13.9 % (11.7-14.2); RDW Standard Deviation 50.3 fL (35.1-46.3); Red Blood Cell Count 3.74 M/mm3 (4.30-5.90); White Blood Cell Count 9.01 K/mm3 (4.00-11.30)
[2020-09-23 18:25] LABS: Alanine Aminotransfer (ALT/SGP 21 U/L (12-78); Albumin, Blood 4.1 g/dL (3.4-5.0); Albumin/Globulin Ratio 1.3 (0.8-1.8); Alk Phos 74 U/L (50-136); Anion Gap 10 mmol/L (6-16); Aspartate Aminotrans (AST/SGOT 25 U/L (12-37); Bilirubin, Total 0.3 mg/dL (0.1-1.0); Blood Urea Nitrogen 25 mg/dL (8-24); Bun/Creatinine Ratio 21.9 (12.0-20.0); CO2, Blood 21 mmol/L (21-32); Calcium, Blood 9.2 mg/dL (8.5-10.1); Chloride, Blood 111 mmol/L (98-108); Creatinine, Blood 1.14 mg/dL (0.60-1.20); Globulin, Blood 3.1 g/dL (2.2-4.0); Glomerular Filtration Rate >60 (60-); Glucose, Blood 81 mg/dL (70-99); Potassium, Blood 3.9 mmol/L (3.5-5.5); Sodium, Blood 142 mmol/L (136-145); Total Protein, Blood 7.2 g/dL (6.4-8.2)
[2020-09-23 18:28] LABS: Thyroid Stimulating Hormone 0.624 uIU/mL (0.360-4.800)
[2020-09-23 18:48] LABS: Influenza A, PCR Negative (NEGATIVE); Influenza B, PCR Negative (NEGATIVE); Resp Syncytial Virus, PCR Negative (NEGATIVE); SARS-Cov-2 (COVID-19) PCR, MMC Negative (NEGATIVE)
[2020-09-24 10:07] LABS: U Amphetamine Screen Not Detected; U Barbituate Screen Not Detected; U Benzodiazapine Screen Not Detected; U Buprenorphine Screen Not Detected; U Cannabinoids Screen DETECTED; U Cocaine Screen Not Detected; U Methadone Screen Not Detected; U Methamphetamine Screen Not Detected; U Opiates Screen Not Detected; U Oxycodone Screen Not Detected; U Phencyclidine Screen Not Detected; U Propoxyphene Screen Not Detected
== END 2020-09-24 13:00 ==
LOC: ER 16:58 → EOR 16:59
PROVIDERS: ADMIT Emergency Medicine
DX: F31.9 Bipolar disorder, unspecified (principal); F43.10 Post-traumatic stress disorder, unspecified; F17.210 Nicotine dependence, cigarettes, uncomplicated; R45.851 Suicidal ideations; I10 Essential (primary) hypertension; J44.9 Chronic obstructive pulmonary disease, unspecified; E03.9 Hypothyroidism, unspecified; I25.10 Atherosclerotic heart disease of native coronary artery without angina pectoris; F10.10 Alcohol abuse, uncomplicated; Z20.828 Contact with and (suspected) exposure to other viral communicable diseases; Z79.82 Long term (current) use of aspirin; Z79.899 Other long term (current) drug therapy; Z88.8 Allergy status to other drugs, medicaments and biological substances; Z96.612 Presence of left artificial shoulder joint; Y90.6 Blood alcohol level of 120-199 mg/100 ml
CPT/HCPCS: 0241U; 36415; 80053; 84443; 85025; 99285; G0378; G0480

== ENCOUNTER 2022-03-12 10:00 | Observation (INO) | payer OTHER ==
[~2022-03-12] VITALS: Ht 182.9 cm; Wt 77.1 kg
[2022-03-12] MEDS ORDERED: SILDENAFIL CITR50 MG PO (11:27)
[2022-03-12] MEDS ORDERED: ALBU90OI INH (11:28)
[2022-03-12] MEDS ORDERED: Sen-O-Tab8.6 MG PO (11:28)
[2022-03-12] MEDS ORDERED: ZYRTEC10 M2 PO (11:29)
[2022-03-12] MEDS ORDERED: VITAMIN D5000 UNIT PO (11:29)
[2022-03-12] MEDS ORDERED: FAMO40 PO (11:29)
[2022-03-12] MEDS ORDERED: Hair, Skin & N1 EACH PO (11:30)
[2022-03-12] MEDS ORDERED: TAMS.4ER PO (11:30)
[2022-03-12] MEDS ORDERED: FLUT1DIS5 INH (11:30)
[2022-03-12] MEDS ORDERED: GORMEL TEN228 G1 TOP (11:37)
[2022-03-12] MEDS ORDERED: MAGNESIUM OXID400 M1 PO (11:38)
[2022-03-12] MEDS ORDERED: ZOLOFT100 M1 PO (11:38)
[2022-03-12] MEDS ORDERED: Trazodone HCl300 MG PO (11:39)
[2022-03-12] MEDS ORDERED: Acetaminophen650 M1 PO (11:39)
[2022-03-12] MEDS ORDERED: DISU250 PO (11:39)
[2022-03-12] MEDS ORDERED: IBUP600 PO (11:40)
[2022-03-12] MEDS ORDERED: Vitamin B Comple1 EA PO (11:40)
[2022-03-12] MEDS ORDERED: BUPRENORPHINE TD (11:40)
[2022-03-12 11:44] LABS: BASOPHILS ABSOLUTE AUTO 0.05 K/mm3 (0.00-0.23); BASOPHILS PERCENT AUTO 1 % (0-2); EOSINOPHILS ABSOLUTE AUTO 0.17 K/mm3 (0.00-0.68); EOSINOPHILS PERCENT AUTO 2 % (0-6); Hematocrit 39.9 % (37.0-53.0); Hemoglobin 13.5 g/dL (13.5-17.5); IMMATURE GRAN ABSOLUTE AUTO 0.01 K/mm3 (0.00-0.10); IMMATURE GRAN PERCENT AUTO 0 % (0-1); LYMPHOCYTES PERCENT AUTO 18 % (21-46); MONOCYTES ABSOLUTE AUTO 0.59 K/mm3 (0.16-1.47); MONOCYTES PERCENT AUTO 8 % (4-13); Mean Corpuscular HGB 31.8 pg (26.0-34.0); Mean Corpuscular HGB Conc 33.8 g/dL (31.5-36.5); Mean Corpuscular Volume 94 fL (80-100); Mean Platelet Volume 9.4 fL (9.1-12.4); NEUTROPHILS ABSOLUTE AUTO 5.55 K/mm3 (1.96-9.15); NEUTROPHILS PERCENT AUTO 72 % (41-73); Platelet Count 215 K/mm3 (150-400); RDW Coefficient Variation 13.6 % (11.7-14.2); RDW Standard Deviation 47.2 fL (35.1-46.3); Red Blood Cell Count 4.25 M/mm3 (4.30-5.90); White Blood Cell Count 7.77 K/mm3 (4.00-11.30)
[2022-03-12 12:13] LABS: Ethanol (Alcohol), Blood, Med <3 mg/dL; Salicylate 4.8 mg/dL (2.8-20.0)
[2022-03-12 12:23] LABS: Alanine Aminotransfer (ALT/SGP 16 U/L (12-78); Albumin, Blood 3.9 g/dL (3.4-5.0); Albumin/Globulin Ratio 1.4 (0.8-1.8); Alk Phos 66 U/L (50-136); Anion Gap 6 mmol/L (6-16); Aspartate Aminotrans (AST/SGOT 11 U/L (12-37); Bilirubin, Total 0.4 mg/dL (0.1-1.0); Blood Urea Nitrogen 20 mg/dL (8-24); Bun/Creatinine Ratio 19.8 (12.0-20.0); CO2, Blood 25 mmol/L (21-32); Calcium, Blood 9.5 mg/dL (8.5-10.1); Chloride, Blood 109 mmol/L (98-108); Creatinine, Blood 1.01 mg/dL (0.60-1.20); Globulin, Blood 2.8 g/dL (2.2-4.0); Glomerular Filtration Rate 78 (60-); Glucose, Blood 121 mg/dL (70-99); Potassium, Blood 4.4 mmol/L (3.5-5.5); Sodium, Blood 140 mmol/L (136-145); Total Protein, Blood 6.7 g/dL (6.4-8.2)
[2022-03-12 12:26] LABS: Acetaminophen, Random <2.0 ug/mL (10.0-30.0)
[2022-03-12 12:27] LABS: Influenza A, PCR NEGATIVE (NEGATIVE); Influenza B, PCR NEGATIVE (NEGATIVE); Resp Syncytial Virus, PCR NEGATIVE (NEGATIVE); SARS-Cov-2 (COVID-19) PCR, MMC NEGATIVE (NEGATIVE)
[2022-03-12 12:43] LABS: Source, Urine Clean Catch
[2022-03-12 12:48] LABS: Appearance, Urine Clear (Clear); Bilirubin, Urine Neg (Neg); Blood, Urine Neg (Neg); Color, Urine Yellow (P-Yellow); Glucose Qualitative, Urine Neg (Neg); Ketones, Urine Neg (Neg); Leukocyte Esterase, Urine Neg (Neg); Nitrite, Urine Neg (Neg); Protein, Urine 1+ (Neg); Specific Gravity, Urine 1.025 (1.003-1.022); Urobilinogen, Urine NORM (Normal)
[2022-03-12 13:03] LABS: U Amphetamine Screen Not Detected; U Barbituate Screen Not Detected; U Benzodiazapine Screen Not Detected; U Buprenorphine Screen Not Detected; U Cannabinoids Screen DETECTED; U Cocaine Screen Not Detected; U Methadone Screen Not Detected; U Methamphetamine Screen Not Detected; U Opiates Screen Not Detected; U Oxycodone Screen Not Detected; U Phencyclidine Screen Not Detected; U Propoxyphene Screen Not Detected
== END 2022-03-12 20:51 ==
LOC: ER 10:00 → EOR 10:01
PROVIDERS: Physician Assistant; Student in an Organized Health Care Education/Training Program; ADMIT Emergency Medicine
DX: F32.2 Major depressive disorder, single episode, severe without psychotic features (principal); F43.12 Post-traumatic stress disorder, chronic; J44.9 Chronic obstructive pulmonary disease, unspecified; I10 Essential (primary) hypertension; F17.210 Nicotine dependence, cigarettes, uncomplicated; G89.4 Chronic pain syndrome; Z88.8 Allergy status to other drugs, medicaments and biological substances; Z79.899 Other long term (current) drug therapy; Z20.822 Contact with and (suspected) exposure to COVID-19
CPT/HCPCS: 0241U; 36415; 80053; 85025; 93005; 93010; 99285-25; A9270; G0378; G0480; Q3014

== ENCOUNTER 2022-03-18 15:54 | Observation (INO) | payer OTHER ==
[~2022-03-18] VITALS: Ht 182.9 cm; Wt 76.2 kg
[~2022-03-18 15:54] MED LIST changes: +Acetaminophen650 M1 PO; +BUPRENORPHINE TD; +FAMO40 PO; +FLUT1DIS5 INH; +GORMEL TEN228 G1 TOP; +Hair, Skin & N1 EACH PO; +IBUP600 PO; +MAGNESIUM OXID400 M1 PO; +SILDENAFIL CITR50 MG PO; +Sen-O-Tab8.6 MG PO; +TAMS.4ER PO; +Trazodone HCl300 MG PO; +VITAMIN D5000 UNIT PO; +Vitamin B Comple1 EA PO; +ZOLOFT100 M1 PO; +ZYRTEC10 M2 PO
[2022-03-18 17:44] LABS: BASOPHILS ABSOLUTE AUTO 0.04 K/mm3 (0.00-0.23); BASOPHILS PERCENT AUTO 1 % (0-2); EOSINOPHILS ABSOLUTE AUTO 0.16 K/mm3 (0.00-0.68); EOSINOPHILS PERCENT AUTO 3 % (0-6); Hematocrit 34.5 % (37.0-53.0); IMMATURE GRAN ABSOLUTE AUTO 0.02 K/mm3 (0.00-0.10); IMMATURE GRAN PERCENT AUTO 0 % (0-1); LYMPHOCYTES ABSOLUTE AUTO 1.38 K/mm3 (0.84-5.20); LYMPHOCYTES PERCENT AUTO 24 % (21-46); MONOCYTES ABSOLUTE AUTO 0.47 K/mm3 (0.16-1.47); MONOCYTES PERCENT AUTO 8 % (4-13); Mean Corpuscular HGB Conc 34.8 g/dL (31.5-36.5); Mean Corpuscular Volume 92 fL (80-100); NEUTROPHILS ABSOLUTE AUTO 3.74 K/mm3 (1.96-9.15); NEUTROPHILS PERCENT AUTO 64 % (41-73); Platelet Count 197 K/mm3 (150-400); RDW Coefficient Variation 13.6 % (11.7-14.2); Red Blood Cell Count 3.75 M/mm3 (4.30-5.90); White Blood Cell Count 5.81 K/mm3 (4.00-11.30)
[2022-03-18 18:04] LABS: Acetaminophen, Random <2.0 ug/mL (10.0-30.0); Salicylate 4.4 mg/dL (2.8-20.0)
[2022-03-18 18:12] LABS: Magnesium, Blood 2.1 mg/dL (1.6-2.4); Phosphorus, Blood 3.8 mg/dL (2.5-4.9)
[2022-03-18 18:42] LABS: Alanine Aminotransfer (ALT/SGP 18 U/L (12-78); Albumin, Blood 3.8 g/dL (3.4-5.0); Albumin/Globulin Ratio 1.4 (0.8-1.8); Alk Phos 61 U/L (50-136); Anion Gap 5 mmol/L (6-16); Aspartate Aminotrans (AST/SGOT 14 U/L (12-37); Bilirubin, Total 0.2 mg/dL (0.1-1.0); Blood Urea Nitrogen 17 mg/dL (8-24); Bun/Creatinine Ratio 18.6 (12.0-20.0); CO2, Blood 26 mmol/L (21-32); Calcium, Blood 9.3 mg/dL (8.5-10.1); Chloride, Blood 112 mmol/L (98-108); Creatinine, Blood 0.91 mg/dL (0.60-1.20); Ethanol (Alcohol), Blood, Med <3 mg/dL; Globulin, Blood 2.7 g/dL (2.2-4.0); Glomerular Filtration Rate 88 (60-); Glucose, Blood 112 mg/dL (70-99); Potassium, Blood 3.8 mmol/L (3.5-5.5); Sodium, Blood 143 mmol/L (136-145); Total Protein, Blood 6.5 g/dL (6.4-8.2)
[2022-03-18 20:13] LABS: Influenza A Negative (NEGATIVE); Influenza B Negative (NEGATIVE)
[2022-03-18 20:18] LABS: SARS-Cov-2 (COVID-19) PCR, MMC NEGATIVE (NEGATIVE)
[2022-03-19 03:33] LABS: Source, Urine Clean Catch
[2022-03-19 03:41] LABS: Bilirubin, Urine Neg (Neg); Blood, Urine Neg (Neg); Glucose Qualitative, Urine Neg (Neg); Ketones, Urine Neg (Neg); Leukocyte Esterase, Urine Neg (Neg); Nitrite, Urine Neg (Neg); Protein, Urine Neg (Neg); Specific Gravity, Urine 1.015 (1.003-1.022); Urobilinogen, Urine NORM (Normal)
[2022-03-19 03:42] LABS: Appearance, Urine Clear (Clear); Color, Urine Yellow (P-Yellow)
[2022-03-19 03:53] LABS: U Amphetamine Screen Not Detected; U Barbituate Screen Not Detected; U Benzodiazapine Screen Not Detected; U Buprenorphine Screen Not Detected; U Cannabinoids Screen Not Detected; U Cocaine Screen Not Detected; U Methadone Screen Not Detected; U Methamphetamine Screen Not Detected; U Opiates Screen Not Detected; U Oxycodone Screen Not Detected; U Phencyclidine Screen Not Detected; U Propoxyphene Screen Not Detected
== END 2022-03-19 21:26 | disposition home or self-care (01) ==
LOC: ER 15:54 → EOR 15:55
PROVIDERS: Physician Assistant; ADMIT Student in an Organized Health Care Education/Training Program
DX: F32.9 Major depressive disorder, single episode, unspecified (principal); T43.592A Poisoning by other antipsychotics and neuroleptics, intentional self-harm, initial encounter; F34.1 Dysthymic disorder; F10.10 Alcohol abuse, uncomplicated; I10 Essential (primary) hypertension; F43.10 Post-traumatic stress disorder, unspecified; F17.200 Nicotine dependence, unspecified, uncomplicated; Z88.8 Allergy status to other drugs, medicaments and biological substances; Z79.899 Other long term (current) drug therapy; Z20.822 Contact with and (suspected) exposure to COVID-19
CPT/HCPCS: 36415; 51701; 80053; 81003; 83690; 83735; 84100; 85025; 87804; 87807; 99285-25; A9270; G0378; G0480; Q3014; U0004

== ENCOUNTER 2022-08-26 15:28 | Inpatient (IN) | payer OTHER ==
[~2022-08-26] VITALS: Ht 177.8 cm; Wt 79.0 kg
[2022-08-26 17:45] LABS: BASOPHILS ABSOLUTE AUTO 0.03 K/mm3 (0.00-0.23); BASOPHILS PERCENT AUTO 0 % (0-2); EOSINOPHILS ABSOLUTE AUTO 0.03 K/mm3 (0.00-0.68); EOSINOPHILS PERCENT AUTO 0 % (0-6); Hematocrit 32.3 % (37.0-53.0); Hemoglobin 11.5 g/dL (13.5-17.5); IMMATURE GRAN ABSOLUTE AUTO 0.03 K/mm3 (0.00-0.10); IMMATURE GRAN PERCENT AUTO 0 % (0-1); LYMPHOCYTES ABSOLUTE AUTO 0.59 K/mm3 (0.84-5.20); LYMPHOCYTES PERCENT AUTO 5 % (21-46); MONOCYTES ABSOLUTE AUTO 0.65 K/mm3 (0.16-1.47); MONOCYTES PERCENT AUTO 6 % (4-13); Mean Corpuscular HGB Conc 35.6 g/dL (31.5-36.5); Mean Corpuscular Volume 93 fL (80-100); Mean Platelet Volume 9.8 fL (9.1-12.4); NEUTROPHILS ABSOLUTE AUTO 9.69 K/mm3 (1.96-9.15); NEUTROPHILS PERCENT AUTO 88 % (41-73); Platelet Count 188 K/mm3 (150-400); RDW Coefficient Variation 13.2 % (11.7-14.2); RDW Standard Deviation 44.6 fL (35.1-46.3); Red Blood Cell Count 3.48 M/mm3 (4.30-5.90); White Blood Cell Count 11.02 K/mm3 (4.00-11.30)
[2022-08-26 18:07] LABS: Albumin, Blood 3.9 g/dL (3.4-5.0); Albumin/Globulin Ratio 1.4 (0.8-1.8); Bilirubin, Total 0.5 mg/dL (0.1-1.0); Bun/Creatinine Ratio 18.9 (12.0-20.0); Calcium, Blood 9.5 mg/dL (8.5-10.1); Creatinine, Blood 1.06 mg/dL (0.60-1.20); Globulin, Blood 2.8 g/dL (2.2-4.0); Potassium, Blood 4.8 mmol/L (3.5-5.5); Total Protein, Blood 6.7 g/dL (6.4-8.2)
[2022-08-27 00:38] LABS: Source, Urine Foley catheter
[2022-08-27 00:40] LABS: Blood, Urine Neg (Neg); Glucose Qualitative, Urine Neg (Neg); Ketones, Urine 3+ (Neg); Leukocyte Esterase, Urine 1+ (Neg); Nitrite, Urine Neg (Neg); Protein, Urine 2+ (Neg); Urobilinogen, Urine 1+ (Normal)
[2022-08-27 00:55] LABS: Appearance, Urine Clear (Clear); Bacteria Not Seen /hpf; Bilirubin, Urine 1+ (Neg); Calcium Oxalate Crystals Few /hpf; Color, Urine Amber (P-Yellow); Red Blood Cells, Urine Not Seen /hpf (0-2); Squamous Epithelial Cells Rare /hpf (Few); White Blood Cells, Urine 0-2 /hpf (0-5)
[2022-08-27 05:08] LABS: Hematocrit 31.4 % (37.0-53.0); Hemoglobin 10.6 g/dL (13.5-17.5); Mean Corpuscular HGB 31.9 pg (26.0-34.0); Mean Corpuscular HGB Conc 33.8 g/dL (31.5-36.5); Mean Corpuscular Volume 95 fL (80-100); Mean Platelet Volume 9.5 fL (9.1-12.4); Platelet Count 150 K/mm3 (150-400); RDW Standard Deviation 45.1 fL (35.1-46.3); Red Blood Cell Count 3.32 M/mm3 (4.30-5.90); White Blood Cell Count 6.86 K/mm3 (4.00-11.30)
[2022-08-27 05:36] LABS: Calcium, Blood 8.8 mg/dL (8.5-10.1); Creatinine, Blood 1.09 mg/dL (0.60-1.20)
--- NOTE | 2022-08-27 05:58 | NUR ---
NEW ADMIT--SIDER SUMMARY PT ADMIT F/RT HIP FX. ASSUMED CARE AT 2200 AFTER PT ARRIVAL. FOUND PT AOX/4; PLEASANT AND COOPERATIVE. PT PEPORTED 05/28 PAIN R/T RT HIP FX, BONE ON BONE JOINTS IN KNEES/LEFT SHOULDER, AND RIGHT ELBOW. ORTHO CONSULT CALLED BY ED. PT HAS BEEN NPO SINCE MIDNIGHT. COVID SWAB COMPLETE. PT C/O NAUSEA--NEW ORDER FOR ZOFRAN; IMPROVED W/MEDS. MED PAIN P/EMAR. PT REQUESTED NEWMAN CATH BECAUSE TOO PAINFUL TO USE URINAL TO VOID. INSERTED CATH; SENT SAMPLE TO LAB; CULT NOT INDICATED. PT ORIENTED TO ROOM. CALL LIGHT IN REACH
[2022-08-27 06:21] LABS: Influenza A, PCR NEGATIVE (NEGATIVE); Influenza B, PCR NEGATIVE (NEGATIVE); Resp Syncytial Virus, PCR NEGATIVE (NEGATIVE); SARS-Cov-2 (COVID-19) PCR, MMC NEGATIVE (NEGATIVE)
--- NOTE | 2022-08-27 15:02 | NUR ---
PT TO SURG @ THIS TIME
--- NOTE | 2022-08-27 17:33 | NUR ---
POST OP ARRIVAL TO ROOM 217. ALERT, ORIENTED, PLEASANT & RESPECTFUL. MILD PAIN TO R HIP & R ELBOW. LUNGS CLEAR. VSS w/ LOW GRADE TEMP. PPP. R HIP w/ GAUZE & FOAM TAPE x 2. NO DRNG NOTED. R HIP SOFT. WILL MEDICATE FOR PAIN.
--- NOTE | 2022-08-27 18:15 | NUR ---
2L NC APPLIED AFTER IV PAIN MEDS ADMINISTERED. FEELING NAUSEATED BUT HAD ZOFRAN IN OR/PACU.
[2022-08-28 04:44] LABS: BASOPHILS ABSOLUTE AUTO 0.03 K/mm3 (0.00-0.23); BASOPHILS PERCENT AUTO 0 % (0-2); EOSINOPHILS ABSOLUTE AUTO 0.06 K/mm3 (0.00-0.68); EOSINOPHILS PERCENT AUTO 1 % (0-6); Hematocrit 26.5 % (37.0-53.0); Hemoglobin 8.9 g/dL (13.5-17.5); IMMATURE GRAN ABSOLUTE AUTO 0.04 K/mm3 (0.00-0.10); IMMATURE GRAN PERCENT AUTO 1 % (0-1); LYMPHOCYTES ABSOLUTE AUTO 0.97 K/mm3 (0.84-5.20); LYMPHOCYTES PERCENT AUTO 12 % (21-46); MONOCYTES ABSOLUTE AUTO 0.89 K/mm3 (0.16-1.47); MONOCYTES PERCENT AUTO 11 % (4-13); Mean Corpuscular HGB 31.9 pg (26.0-34.0); Mean Corpuscular HGB Conc 33.6 g/dL (31.5-36.5); Mean Corpuscular Volume 95 fL (80-100); Mean Platelet Volume 9.7 fL (9.1-12.4); NEUTROPHILS ABSOLUTE AUTO 6.09 K/mm3 (1.96-9.15); NEUTROPHILS PERCENT AUTO 75 % (41-73); Platelet Count 139 K/mm3 (150-400); RDW Standard Deviation 45.2 fL (35.1-46.3); Red Blood Cell Count 2.79 M/mm3 (4.30-5.90); White Blood Cell Count 8.08 K/mm3 (4.00-11.30)
[2022-08-28 05:05] LABS: Bun/Creatinine Ratio 20.7 (12.0-20.0); Calcium, Blood 8.8 mg/dL (8.5-10.1); Creatinine, Blood 1.16 mg/dL (0.60-1.20); Magnesium, Blood 1.9 mg/dL (1.6-2.4); Potassium, Blood 4.4 mmol/L (3.5-5.5)
--- NOTE | 2022-08-28 05:18 | NUR ---
COVERING MACHINE OPERATOR SUMMARY PT IS POD 0 FOR R HIP REPAIR. DRESSINGS C/D/I. PT AAOX4. PT REFUSING TO GET OUT OF BED OR DO ANY RANGE OF MOTION EXERCISES. WHEN ASKED WHY PT REPLIES "I DONT WANT TO RISK FALLING AGAIN". EDUCATED PT ON NEED TO AMBULATE AFTER SURGERY AND POSSIBLE COMPLICATIONS THAT CAN COME FROM NOT GETTING OUT OF BED POST OP. PT REPLIES "YEAH THATS WHAT EVERYONE HAS SAID". ENCOURAGED PT TO WORK WITH PHYSICAL THERAPY LATER TODAY WHEN THE COME TO WORK WITH HIM AND REASSURED HIM THAT THEY WILL TAKE ALL PRECAUTIONS NECESSARY SO THAT HE DOES NOT FALL AND INJURY HIMSELF MORE. PT A LITTLE MORE RECEPTIVE TO ATTEMPTING TO AMBULATE LATER TODAY. CONTINUING IV ABX. MEDICATED FOR PAIN X3 WITH OXYCODONE 5 MG. VSS, WILL CONTINUE TO MONITOR.
--- NOTE | 2022-08-28 17:50 | NUR ---
SHIFT SUMMARY POD 1 R HIP NAILING. X2 AQUACELS IN PLACE, CHANGED THIS AM, C/D/I. PATIENT WORKED WITH PT & OT TODAY, TOLERATED FAIRLY. 1P MOD ASSIST TO CHAIR/BSC W/ FWW & GB, TTWB R LEG. PATIENT REPORTS MODERATE PAIN, MEDICATED PER EMAR WITH RELIEF. EATING & DRINKING WELL. NEWMAN IN PLACE, DRAINING TO GRAVITY. CALLS APPROPRIATLY, WILL REPORT TO ONCOMING RN AT 1900.
[2022-08-29 04:43] LABS: BASOPHILS ABSOLUTE AUTO 0.03 K/mm3 (0.00-0.23); BASOPHILS PERCENT AUTO 1 % (0-2); EOSINOPHILS PERCENT AUTO 3 % (0-6); Hematocrit 23.5 % (37.0-53.0); Hemoglobin 8.2 g/dL (13.5-17.5); IMMATURE GRAN ABSOLUTE AUTO 0.01 K/mm3 (0.00-0.10); IMMATURE GRAN PERCENT AUTO 0 % (0-1); LYMPHOCYTES ABSOLUTE AUTO 1.12 K/mm3 (0.84-5.20); LYMPHOCYTES PERCENT AUTO 19 % (21-46); MONOCYTES ABSOLUTE AUTO 0.63 K/mm3 (0.16-1.47); MONOCYTES PERCENT AUTO 11 % (4-13); Mean Corpuscular HGB 32.4 pg (26.0-34.0); Mean Corpuscular HGB Conc 34.9 g/dL (31.5-36.5); Mean Corpuscular Volume 93 fL (80-100); Mean Platelet Volume 9.8 fL (9.1-12.4); NEUTROPHILS ABSOLUTE AUTO 3.89 K/mm3 (1.96-9.15); NEUTROPHILS PERCENT AUTO 66 % (41-73); Platelet Count 132 K/mm3 (150-400); RDW Coefficient Variation 12.7 % (11.7-14.2); RDW Standard Deviation 43.6 fL (35.1-46.3); Red Blood Cell Count 2.53 M/mm3 (4.30-5.90); White Blood Cell Count 5.88 K/mm3 (4.00-11.30)
--- NOTE | 2022-08-29 05:06 | NUR ---
POD2 FOR A RIGHT HIP PINNING. AQUACEL DRESSINGS ARE C/D/I. SENSATION AND CIRCULATION REMAIN INTACT. PT CAN MOVE RLE ON COMMAND BUT REPORTS INTENSE PAIN. VSS. PT SLEPT WELL T/O THE NIGHT. MEDICATED FOR PAIN WITH PRN'S AND COLD THERAPY. NEWMAN REMAINS IN PLACE PER ORDER AND PT REQUEST, THE PT STATES HE IS TOO PAINFUL TO USE THE URINAL AT THIS TIME. MINIMAL PO INTAKE T/O THE NIGHT, NO N/V REPORTED. REPORTS PASSING FLATTUS AND NEEDING TO HAVE A BM "SOON". PT REPORTS FEELING DECONDITIONED. PLAN FOR PT TO WORK WITH PT/OT UNTIL DISCHARGE TO SNF. THE PATIENT IS CURRENTLY SLEEPING, IN NO DISTRESS, CALL LIGHT IN REACH.
--- NOTE | 2022-08-29 16:10 | NUR ---
DISCUSSED REMOVAL OF NEWMAN CATHETER. PT STATES THAT HE IS IN TOO MUCH PAIN TO USE URINAL AND WILL NOT LET ME REMOVE AT THIS TIME. PT UNRECEPTIVE TO ANY DISCUSSION
[2022-08-29 16:55] LABS: Hematocrit 23.9 % (37.0-53.0); Hemoglobin 8.2 g/dL (13.5-17.5)
--- NOTE | 2022-08-29 17:01 | NUR ---
PT OOB TO CHAIR WITH 2 PERSON ASSIST. PT DECLINED PT THIS SHIFT- STATES HE AGREED TO WORK WITH OT ONLY. PT RESISTIVE TO ATTEMPTS OF EDUCATION -POLITELY DECLINES INFORMATION AND STATES "I SAID NO". PT REPORTS PAIN IS CONSISTENTLY 5/10 AND STATES THAT LEVEL IS ACCEPTABLE FOR HIM. NEWMAN WITH CLEAR YELLOW OUTPUT
--- NOTE | 2022-08-30 04:54 | NUR ---
SHIFT SUMMARY NO ACUTE CHANGES TO REPORT THIS SHIFT, PT HAS RESTED T/O THE SHIFT. POD 2 R HIP PINNING, DRESSING CLEAN AND INTACT. PT MEDICATED FOR PAIN PER EMAR. PT DENIES NEEDS T/O THE SHIFT. PT REFUSING NEWMAN REMOVAL POST OP. CATHETER PATENT AND DRAINING. BED IN LOWEST POSITION, CALL LIGHT WITHIN REACH.
[2022-08-30 05:31] LABS: Hematocrit 23.8 % (37.0-53.0); Hemoglobin 8.4 g/dL (13.5-17.5)
--- NOTE | 2022-08-30 15:56 | NUR ---
SHIFT SUMMARY PT A&OX4, VSS/RA. POD3 R HIP NAILING, AQUACEL DRY/INTACT. NEWMAN REMOVED THIS AM/STILL AWAITING POST-OP VOID/BLADDER SCAN 30 MLS-ENC PO FLUIDS AND RESTARTED IVF. MINERVA PO. AMB SBA FWW/GB. UP TO CHAIR, AMB TO BRP. PAIN MANAGED WELL WITH OXY 10 MG/TYLENOL/TORADOL. WILL REPORT TO ONCOMING NOC FERNANDA.
--- NOTE | 2022-08-30 17:25 | NUR ---
ASSUMED CARE OF PATIENT AND RECEIVED REPORT. VSS, PAIN MANAGED PER EMR. NEWMAN REMOVED EARLIER TODAY, HE HAS YET TO VOID. PUSHING FLUIDS, HE IS NOW RECEIVING IV FLUIDS AND WILL MONITOR FOR OUTPUT.
--- NOTE | 2022-08-30 19:03 | NUR ---
BLADDER MANAGEMENT PT HAS BEEN UNABLE TO VOID SINCE NEWMAN CATH WAS REMOVED THIS AM. FLUIDS ENCOURAGED. BLADDER SCAN VOLUME THIS EVENING IS 153ML, DR. PALMA NOTIFIED. FLUID BOLUS ORDERED AND CONTINUOUS NORMAL SALINE ORDERED. WILL CONTINUE TO PUSH FLUIDS.
--- NOTE | 2022-08-31 06:05 | NUR ---
SHIFT SUMMARY PT A&OX4, AND COOPERATIVE. MEDICATING FOR PAIN PER EMAR. 500ML BOLUS ORDERED AT BEGINNING OF SHIFT TO ENCOURAGE POST NEWMAN REMOVAL VOID; PT VOIDING YELLOW/CLEAR NOW. TOLERATING PO INTAKE, ENCOURAGING FLUIDS. AQUACEL X2 C/D/I. CALLS APPROPRIATELY, CALL LIGHT WITHIN REACH.
--- NOTE | 2022-08-31 15:45 | NUR ---
SHIFT SUMMARY PT A&OX4, VSS/RA. POD4 R HIP NAILING, AQUACEL DRY/INTACT. PAIN MANAGED WITH OXY 10 MG, TYLENOL, TORADOL. AMB SBA FWW/GB, UP TO CHAIR, AMB TO BRP. MINERVA PO, INTAKE IMPROVED TODAY. VOIDING WELL. WILL REPORT TO ONCOMING NOC RN.
--- NOTE | 2022-09-01 05:38 | NUR ---
SHIFT SUMMARY PT A&OX4, PLEASANT AND COOPERATIVE. NO ACUTE CHANGES, VSS. MEDICATING FOR PAIN PER EMAR. TOLERATIVE PO INTAKE. VOIDING WITHOUT ISSUE. SBA FWW/GB. AQUACEL X2 C/D/I. CALLS APPROPRIATELY, CALL LIGHT WITHIN REACH.
--- NOTE | 2022-09-01 17:22 | NUR ---
SHIFT SUMMARY NO ACUTE CHANGES THIS SHIFT. POD 5 RIGHT HIP NAILING. X2 AQUACELS IN PLACE, C/D/I. PATIENT AMBULATING WELL W/ FWW & GB, 1 ASSIST, TO BATHROOM & UP IN CHAIR T/O SHIFT. PAIN MANAGED PER EMAR. EATING, DRINKING, & VOIDING WELL. CALLS APPROPRIATELY, WILL REPORT TO ONCOMNG RN AT 1900.
--- NOTE | 2022-09-01 18:16 | NUR ---
PATIENT REMOVED ANA HOSE, REFUSES TO WEAR THEM AT THIS TIME.
--- NOTE | 2022-09-02 05:05 | NUR ---
POD6 FOR A RIGHT HIP NAILING. DRESSINGS ARE C/D/I. SENSATION AND CIRCULATION REMAIN INTACT IN THE RLE. VSS. MEDICATED FOR PAIN WITH OXY AND TYLENOL. THE PT SLEPT VERY LITTLE T/O THE NIGHT DUE TO DISCOMFORT, OFFERED NONPHARMACOLOGICAL METHODS FOR COMFORT WITH NO IMPROVEMENT. AMBULATED TO THE BATHROOM MULTIPLE TIMES T/O THE NIGHT, VOIDING W/O DIFFICULTY. TOLLERATING PO INTAKE, PASSING FLATTUS. PLAN FOR PT TO DISCHARGE EITHER TO SNF OR [facility]. AWAITING FOR AVAILABILITY. THE PATIENT IS CURRENTLY RESTING IN HIS ROOM, IN NO DISTRESS, CALL LIGHT IN REACH.
--- NOTE | 2022-09-02 18:39 | NUR ---
SHIFT SUMMARY NO ACUTE CHANGES THIS SHIFT. POD 6 RIGHT HIP PINNING, AQUACELS IN LPACE, LIGHT SHADOWING, DRY & INTACT. 1P ASSIST W/ FWW & GB. ETING, DRINKING, & VOIDING WELL. PAIN MANAGED PER EMAR. AWAITING SNF PLACEMENT. WARREN APPROPRIATELY, CALL LIGHT IN REACH.
--- NOTE | 2022-09-03 04:53 | NUR ---
POD7 FOR A RIGHT HIP NAILING. CIRCULATION AND SENSATION REMAINS INTACT IN THE RLE. VSS. THE PT HAS SLEPT WELL T/O THE NIGHT, NO ACUTE EVENTS NOTED. MEDICATED FOR PAIN WITH OXY AND TYLENOL T/O THE NIGHT. AMBULATED MULTIPLE TIMES TO THE BATHROOM TO VOID AND PASS FLATTUS, NO BM'S NOTED. TOLLERTING PO INTAKE W/O N/V. PLAN FOR PT TO DISCHARGE TO SNF/[facility]. THE PATIENT IS CURRENTLY SLEEPING, IN NO DISTRESS, CALL LIGHT IN REACH.
--- NOTE | 2022-09-04 05:01 | NUR ---
SHIFT SUMMARY NO ACUTE CHANGES OVERNIGHT, PT HAS RESTED T/O SHIFT. PT IS A LITTLE BIT ANXIOUS, BUT OTHERWISE HE IS COOPERATIVE WITH CARE. DRESSING INTACT TO RIGHT HIP. VITALS STABLE. PT IS STILL WAITING FOR PLACEMENT AT THIS TIME.
--- NOTE | 2022-09-04 16:32 | NUR ---
SHIFT SUMMARY PT A&OX4, VSS/RA, MINERVA PO-INTAKE IMPROVED, VOIDING, AMB SBA/FWW/GB IN ROOM/TO BRP/IN HALLWAY (X5 TODAY), UP TO CHAIR T/O SHIFT. PAIN MANAGED WITH 10 MG OXY AND TYLENOL. TCDB & I.S. EDU/ENC/PT DEMONSTRATED. BOWEL CARE PROVIDED, PT REP PASSING FLATUS, DENIES BM TODAY. POD8 R HIP NAILING, AQUACEL DRESSING CHANGED TODAY, TTWB. WILL REPORT TO ONCOMING NOC RN.
--- NOTE | 2022-09-05 05:25 | NUR ---
DEGREASING WHEEL OPERATOR SUMMARY NO ACUTE CHANGES THIS SHIFT. PT AAOX4 AND PLEASANT. CALLS APPROPRIATELY FOR ASSISTANCE. MEDICATED FOR R HIP PAIN X2 WITH 2 TABS OXYCODONE. PT HAS BEEN ABLE TO REST WELL THROUGH THE NIGHT. PT DOING WELL WITH AMBULATION, ABLE TO WALK WITH FWW AND STANDBY ASSIST. PT STILL HAS NOT HAD A BM TONIGHT BUT DOES REPORT PASSING GAS. PT DENIED ADDITIONAL BOWEL MEDS ASIDE FROM WHAT IS SCHEDULED TONIGHT. STATED "I MIGHT TRY MORE STUFF TOMORROW". VSS, WILL CONTINUE TO MONITOR.
--- NOTE | 2022-09-05 11:20 | NUR ---
0830 PT DECLINES BOWEL CARE OTHER THAN COLACE AT THIS TIME. PT STATES HE IS PASSING A LOT OF GAS AND DOES NOT WANT TO TAKE ANYTHING FURTHER AT THIS TIME
--- NOTE | 2022-09-05 12:49 | NUR ---
pt up to restroom, states he is passing lots of gas but no bm. pt declines any bowel care prn meds or prune juice at this time
--- NOTE | 2022-09-05 15:37 | NUR ---
PT REQUESTS ZOFRAN FOR NAUSEA. PT BELCHING AND STATES HE IS PASSING FLATUS. DISCUSSED BOWEL CARE WITH PATIENT AND PATIENT ADAMANTLY DECLINES AND TELLS ME HE DISCUSSED IT WITH HIS PHYSICIAN THIS MORNING AND HE IS "ABSOLUTELY NOT GOING TO TAKE ANYTHING AT THIS TIME, WILL WAIT UNTIL HIS DOCTOR RETURNS TO DISCUSS IT WITH HIM"
--- NOTE | 2022-09-05 18:00 | NUR ---
PT UP IN CHAIR MUCH OF SHIFT, REPORTS PAIN TO RIGHT HIP AND CHRONIC PAIN OF BACK. PT PLEASANT, DECCLINES EDUCATION REGARDING BOWEL CARE AND DECLINES OFFERS OF MEDS OR PRUNE JUICE FOR BOWEL CARE. RIGHT HIP DRESSING CLEAN, DRY AND INTACT. PT AWAITING PLACEMENT
--- NOTE | 2022-09-06 04:44 | NUR ---
SHIFT SUMMARY POD 10-R HIP REPAIR, AQUACEL DRESSING C/D/I. AOX4. PLEASENT [facility]. REPORTS 6/10 PAIN IN R HIP, BACK, SHOULDERS & T/O BODY-MEDICATED 2X c 10MG ROXICODONE & PT ABLE TO REST SOUNDLY. REPORTS MILD UPSET STOMACH, DENIES N/V STATES NO BM IN ROUGHLY 1 WK, MEDICATED c SCHEDULED BOWEL CARE MEDS. HYPOACTIVE BT. REPORTS PASSING GAS. VSS. AWAITING SAFE DC PLAN. WILL MONITOR UNTIL DAY NURSE ASSUMES CARE.
--- NOTE | 2022-09-06 19:47 | NUR ---
SHIFT SUMMARY POD10 R HIP REPAIR, A/O X4, VSS, TOLERATING PO, SBA c FWW/GB, PAIN MANAGED PER EMAR. PT REPORTED NOT HAVING A BM FOR 11 DAYS TODAY, AGGRESSIVE BOWEL CARE PROVIDED THOUGH PT WAS UNABLE TO HAVE A BM TODAY, OIL ENEMA ORDERED WHICH WAS CHANGED TO PRN SO THAT IT REMAINS AVAILABLE THE PATIENT HAS REPORTED WANTED TO HOLD OFF AT THIS TIME. NO OTHER EVENTS THIS SHIFT, CALL LIGHT IN REACH, REPORT GIVEN TO LUZ RN
--- NOTE | 2022-09-07 04:46 | NUR ---
POD11 FOR A RIGHT HIP NAILING. AQUACELS ARE C/D/I. UPPER AQUACEL CHANGED. CIRCULATION AND SENSATION REMAINS INTACT IN RLE. PT AMBULATED TO THE BATHROOM MULTIPLE TIMES, VOIDING W/O DIFFICULTY, PASSING FLATTUS. NO BM NOTED. PT THUROGHLY EDUCATED ABOUT BOWEL CARE AND THE RISK THAT IS POSED IF HE DOES NOT HAVE A BM. PT REFUSED ENNEMA AND SUPOSITIORY, OFFERED FOR PT TO TRY THESE TX ON DAY SHIFT WITH A MALE NURSE. TOLLERATED MINIMAL PO INTAKE. DENIES N/V, BUT REPORTS BURPING EXCESSIVELY. PAIN MANAGED WITH PATCH AND TYLENOL. PLAN FOR PT TO D/C TO SNF, AWAITING BED OPENING. THE PATIENT IS CURRENTLY SLEEPING, IN NO DISTRESS, CALL LIGHT IN REACH
--- NOTE | 2022-09-07 19:15 | NUR ---
SHIFT SUMMARY POD11 R HIP FX REPAIR, A/OX4, VSS, TOLERATING PO, AMBULATING c FWW/GB/SBA, MULTIPLE LARGE BM THIS SHIFT. PT REPORTED INCREASE IN PAIN, DISCUSSED WITH AND ULTRAM ADDED ORDERED. NO OTHER EVENTS THIS SHIFT, CALL LIGHT IN REACH, REPORT GIVEN TO LUZ MICHAEL.
--- NOTE | 2022-09-08 04:06 | NUR ---
POD11 FOR A RIGHT HIP NAILING. AQUACEL DRESSINGS ARE C/D/I. CIRCULATION AND SENSATION REMAINS INTACT IN THE RLE. VSS. THE PT SLEPT ON AND OFF TONIGHT. MEDICATED FOR PAIN WITH ULTRAM, C/O NAUSEA WITH THIS. MEDICATED PER EMAR. THE PT AMBULATED TO THE BATHROOM MULTIPLE TIMES TO VOID. PASSING FLATTUS W/O DIFFICULTY. NO BM'S NOTED THIS SHIFT. TOLLERATING PO INTAKE. PLAN FOR PT TO D/C TO SNF WHEN A BED IS AVAILABLE. THE PT IS CURRENTLY SLEEPING, IN NO DISTRESS, CALL LIGHT IN REACH.
[2022-09-08 10:38] LABS: SARS-Cov-2 (COVID-19) PCR, MMC NEGATIVE (NEGATIVE)
--- NOTE | 2022-09-08 15:27 | NUR ---
DISCHARGE SUMMARY PATIENT ALERT AND ORIENTED. SBA WITH FWW TO AMBULATE TO TOILET AND IN VALLES. AQUACELS TO RIGHT HIP C/D/I. PAIN CONTROLLED WITH PO PAIN MEDS AND HOME TOPICAL PATCH. SEE EMAR. TOLERATING REGULAR DIET AND LIQUIDS. VOIDING WELL. BM THIS SHIFT. REPORT CALLED TO [facility] RN. MEDICAL TRANSPORT IS SCHEDULED FOR 1600.
--- NOTE | 2022-09-08 17:45 | NUR ---
PATIENT LEFT UNIT AT 1730 VIA [facility] TRANSPORT FOR [facility].
== END 2022-09-08 17:41 | DRG 481 ==
LOC: ER 15:28 → SURS 18:21 → MEDS 18:21 → SURS 18:21 → MEDS 21:52 → SURS 08-27 15:21
PROVIDERS: Emergency Medicine; Family Medicine; Internal Medicine; Orthopaedic Surgery; Student in an Organized Health Care Education/Training Program; ADMIT Internal Medicine
PROC: 0QS634Z Reposition Right Upper Femur with Internal Fixation Device, Percutaneous Approach (ICD-10-PCS; principal; 2022-08-27 15:30)
DX: M80.051A Age-related osteoporosis with current pathological fracture, right femur, initial encounter for fracture (principal); D68.62 Lupus anticoagulant syndrome; S72.141A Displaced intertrochanteric fracture of right femur, initial encounter for closed fracture; N40.0 Benign prostatic hyperplasia without lower urinary tract symptoms; F43.12 Post-traumatic stress disorder, chronic; M19.90 Unspecified osteoarthritis, unspecified site; K59.00 Constipation, unspecified; D63.8 Anemia in other chronic diseases classified elsewhere; J44.9 Chronic obstructive pulmonary disease, unspecified; M25.521 Pain in right elbow; F31.9 Bipolar disorder, unspecified; I10 Essential (primary) hypertension; F17.210 Nicotine dependence, cigarettes, uncomplicated; Z20.822 Contact with and (suspected) exposure to COVID-19; W10.8XXA Fall (on) (from) other stairs and steps, initial encounter; F12.10 Cannabis abuse, uncomplicated; Z96.612 Presence of left artificial shoulder joint; Z96.653 Presence of artificial knee joint, bilateral; Z79.51 Long term (current) use of inhaled steroids; Z88.8 Allergy status to other drugs, medicaments and biological substances; Z79.899 Other long term (current) drug therapy; Z79.52 Long term (current) use of systemic steroids
CPT/HCPCS: 0241U; 36415; 73502; 80048; 80053; 81001; 83735; 85014; 85018; 85025; 85027; 93005; 93010; 94640; 94664; 94667; 94760; 96374; 96375; 96376; 97110; 97116; 97162; 97166; 97530; 97535; 98960; 99285-25; A9270; C1713; C1769; J0690; J1100; J1170; J1885; J2250; J2270; J2405; J2704; J3010; J3370; J7030; J7120; U0004

== ENCOUNTER 2022-09-19 05:17 | Observation (INO) | payer OTHER ==
[~2022-09-19] VITALS: Ht 182.9 cm; Wt 74.8 kg
[2022-09-19 05:39] LABS: BASOPHILS ABSOLUTE AUTO 0.04 K/mm3 (0.00-0.23); BASOPHILS PERCENT AUTO 1 % (0-2); EOSINOPHILS PERCENT AUTO 1 % (0-6); Hematocrit 31.1 % (37.0-53.0); Hemoglobin 10.8 g/dL (13.5-17.5); IMMATURE GRAN ABSOLUTE AUTO 0.02 K/mm3 (0.00-0.10); IMMATURE GRAN PERCENT AUTO 0 % (0-1); LYMPHOCYTES ABSOLUTE AUTO 0.75 K/mm3 (0.84-5.20); LYMPHOCYTES PERCENT AUTO 10 % (21-46); MONOCYTES ABSOLUTE AUTO 0.73 K/mm3 (0.16-1.47); MONOCYTES PERCENT AUTO 10 % (4-13); Mean Corpuscular HGB 33.1 pg (26.0-34.0); Mean Corpuscular HGB Conc 34.7 g/dL (31.5-36.5); Mean Corpuscular Volume 95 fL (80-100); Mean Platelet Volume 9.4 fL (9.1-12.4); NEUTROPHILS ABSOLUTE AUTO 6.07 K/mm3 (1.96-9.15); NEUTROPHILS PERCENT AUTO 79 % (41-73); Platelet Count 258 K/mm3 (150-400); RDW Coefficient Variation 14.1 % (11.7-14.2); RDW Standard Deviation 49.4 fL (35.1-46.3); Red Blood Cell Count 3.26 M/mm3 (4.30-5.90); White Blood Cell Count 7.71 K/mm3 (4.00-11.30)
[2022-09-19 06:12] LABS: Acetaminophen, Random <2.0 ug/mL (10.0-30.0); Ethanol (Alcohol), Blood, Med <3 mg/dL
[2022-09-19 06:20] LABS: Alanine Aminotransfer (ALT/SGP 17 U/L (12-78); Albumin, Blood 3.7 g/dL (3.4-5.0); Albumin/Globulin Ratio 1.3 (0.8-1.8); Alk Phos 145 U/L (50-136); Anion Gap 9 mmol/L (6-16); Aspartate Aminotrans (AST/SGOT 19 U/L (12-37); Bilirubin, Total 0.8 mg/dL (0.1-1.0); Blood Urea Nitrogen 17 mg/dL (8-24); Bun/Creatinine Ratio 17.9 (12.0-20.0); CO2, Blood 20 mmol/L (21-32); Calcium, Blood 9.4 mg/dL (8.5-10.1); Chloride, Blood 110 mmol/L (98-108); Creatinine, Blood 0.95 mg/dL (0.60-1.20); Globulin, Blood 2.9 g/dL (2.2-4.0); Glomerular Filtration Rate 84 (60-); Glucose, Blood 103 mg/dL (70-99); Potassium, Blood 3.6 mmol/L (3.5-5.5); Salicylate 3.8 mg/dL (2.8-20.0); Sodium, Blood 139 mmol/L (136-145); Total Protein, Blood 6.6 g/dL (6.4-8.2)
[2022-09-19 06:22] LABS: Influenza A, PCR NEGATIVE (NEGATIVE); Influenza B, PCR NEGATIVE (NEGATIVE); Resp Syncytial Virus, PCR NEGATIVE (NEGATIVE); SARS-Cov-2 (COVID-19) PCR, MMC NEGATIVE (NEGATIVE)
[2022-09-19 23:02] LABS: Source, Urine Voided
[2022-09-19 23:08] LABS: Appearance, Urine Clear (Clear); Bilirubin, Urine Neg (Neg); Blood, Urine Neg (Neg); Color, Urine Yellow (P-Yellow); Glucose Qualitative, Urine Neg (Neg); Ketones, Urine 2+ (Neg); Leukocyte Esterase, Urine Neg (Neg); Nitrite, Urine Neg (Neg); Protein, Urine 2+ (Neg); Specific Gravity, Urine 1.025 (1.003-1.022); Urobilinogen, Urine NORM (Normal)
[2022-09-19 23:21] LABS: U Amphetamine Screen Not Detected; U Barbituate Screen Not Detected; U Benzodiazapine Screen Not Detected; U Buprenorphine Screen DETECTED; U Cannabinoids Screen DETECTED; U Cocaine Screen Not Detected; U Methadone Screen Not Detected; U Methamphetamine Screen Not Detected; U Opiates Screen Not Detected; U Oxycodone Screen Not Detected; U Phencyclidine Screen Not Detected; U Propoxyphene Screen Not Detected
[2022-09-19 23:31] LABS: Granular Casts 0-2 /lpf (0); Hyaline Casts 0-2 /lpf (0-2)
[2022-09-19 23:32] LABS: Bacteria Few /hpf; Red Blood Cells, Urine 0-2 /hpf (0-2); Squamous Epithelial Cells Rare /hpf (Few); White Blood Cells, Urine 0-2 /hpf (0-5)
== END 2022-09-20 22:53 | disposition short-term general hospital (02) ==
LOC: ER 05:17 → EOR 05:18
PROVIDERS: Emergency Medicine; ADMIT Student in an Organized Health Care Education/Training Program
DX: F32.A Depression, unspecified (principal); F10.91 Alcohol use, unspecified, in remission; F43.10 Post-traumatic stress disorder, unspecified; I10 Essential (primary) hypertension; J44.9 Chronic obstructive pulmonary disease, unspecified; F17.200 Nicotine dependence, unspecified, uncomplicated; Z88.8 Allergy status to other drugs, medicaments and biological substances; Z79.899 Other long term (current) drug therapy; Z20.822 Contact with and (suspected) exposure to COVID-19
CPT/HCPCS: 0241U; 51798; 80053; 81001; 83690; 85025; 96372-59; 96374; 99285-25; A9270; G0378; G0480; J1885; J2405; J7030; Q3014

== ENCOUNTER → 2023-01-09 | Outpatient (CLI) | payer OTHER ==
[2023-01-09 15:56] LABS: BASOPHILS ABSOLUTE AUTO 0.05 K/mm3 (0.00-0.23); BASOPHILS PERCENT AUTO 1 % (0-2); EOSINOPHILS ABSOLUTE AUTO 0.21 K/mm3 (0.00-0.68); EOSINOPHILS PERCENT AUTO 3 % (0-6); Hematocrit 33.9 % (37.0-53.0); Hemoglobin 11.3 g/dL (13.5-17.5); IMMATURE GRAN ABSOLUTE AUTO 0.04 K/mm3 (0.00-0.10); IMMATURE GRAN PERCENT AUTO 1 % (0-1); LYMPHOCYTES ABSOLUTE AUTO 0.74 K/mm3 (0.84-5.20); LYMPHOCYTES PERCENT AUTO 10 % (21-46); MONOCYTES ABSOLUTE AUTO 0.64 K/mm3 (0.16-1.47); MONOCYTES PERCENT AUTO 9 % (4-13); Mean Corpuscular HGB 31.6 pg (26.0-34.0); Mean Corpuscular HGB Conc 33.3 g/dL (31.5-36.5); Mean Corpuscular Volume 95 fL (80-100); Mean Platelet Volume 9.6 fL (9.1-12.4); NEUTROPHILS ABSOLUTE AUTO 5.72 K/mm3 (1.96-9.15); NEUTROPHILS PERCENT AUTO 77 % (41-73); Platelet Count 300 K/mm3 (150-400); RDW Coefficient Variation 13.4 % (11.7-14.2); RDW Standard Deviation 47.1 fL (35.1-46.3); Red Blood Cell Count 3.58 M/mm3 (4.30-5.90)
[2023-01-09 17:09] LABS: Lithium <0.20 mmol/L (0.60-1.20)
[2023-01-09 17:42] LABS: Alanine Aminotransfer (ALT/SGP 19 U/L (12-78); Albumin/Globulin Ratio 0.8 (0.8-1.8); Alk Phos 83 U/L (50-136); Anion Gap 2 mmol/L (6-16); Aspartate Aminotrans (AST/SGOT 15 U/L (12-37); Bilirubin, Total 0.5 mg/dL (0.1-1.0); Blood Urea Nitrogen 15 mg/dL (8-24); Bun/Creatinine Ratio 18.7 (12.0-20.0); CHOL/HDL RATIO 3.8; CO2, Blood 30 mmol/L (21-32); Calcium, Blood 9.3 mg/dL (8.5-10.1); Chloride, Blood 104 mmol/L (98-108); Cholesterol 126 mg/dL (50-200); Globulin, Blood 3.7 g/dL (2.2-4.0); Glomerular Filtration Rate 93 (60-); Glucose, Blood 111 mg/dL (70-99); HDL Cholesterol 33 mg/dL (>39); LDL/HDL RATIO 2.3; Low Density Lipoprotein Chol 77 mg/dL (0-110); Potassium, Blood 4.3 mmol/L (3.5-5.5); Sodium, Blood 136 mmol/L (136-145); Thyroid Stimulating Hormone 0.219 uIU/mL (0.360-4.800); Total Protein, Blood 6.7 g/dL (6.4-8.2); Triglycerides 80 mg/dL (30-160); Very Low Density Lipoprot Chol 16 mg/dL (6-32)
== END | disposition home or self-care (01) ==
LOC: LAB SHORT 14:49
PROVIDERS: Family Medicine
DX: Z13.6 Encounter for screening for cardiovascular disorders (principal); E55.9 Vitamin D deficiency, unspecified; Z79.899 Other long term (current) drug therapy
CPT/HCPCS: 80053; 80061; 80178; 82306; 84443; 85025

== ENCOUNTER 2023-01-21 12:57 | Observation (INO) | payer OTHER ==
[~2023-01-21] VITALS: Ht 182.9 cm; Wt 74.8 kg
[2023-01-21 15:10] LABS: BASOPHILS ABSOLUTE AUTO 0.07 K/mm3 (0.00-0.23); BASOPHILS PERCENT AUTO 1 % (0-2); EOSINOPHILS ABSOLUTE AUTO 0.05 K/mm3 (0.00-0.68); EOSINOPHILS PERCENT AUTO 1 % (0-6); Hematocrit 33.4 % (37.0-53.0); Hemoglobin 11.3 g/dL (13.5-17.5); IMMATURE GRAN ABSOLUTE AUTO 0.06 K/mm3 (0.00-0.10); IMMATURE GRAN PERCENT AUTO 1 % (0-1); LYMPHOCYTES ABSOLUTE AUTO 1.11 K/mm3 (0.84-5.20); LYMPHOCYTES PERCENT AUTO 10 % (21-46); MONOCYTES ABSOLUTE AUTO 0.68 K/mm3 (0.16-1.47); MONOCYTES PERCENT AUTO 6 % (4-13); Mean Corpuscular HGB 31.1 pg (26.0-34.0); Mean Corpuscular HGB Conc 33.8 g/dL (31.5-36.5); Mean Corpuscular Volume 92 fL (80-100); NEUTROPHILS ABSOLUTE AUTO 8.67 K/mm3 (1.96-9.15); NEUTROPHILS PERCENT AUTO 81 % (41-73); Platelet Count 485 K/mm3 (150-400); RDW Coefficient Variation 14.2 % (11.7-14.2); RDW Standard Deviation 47.8 fL (35.1-46.3); Red Blood Cell Count 3.63 M/mm3 (4.30-5.90); White Blood Cell Count 10.64 K/mm3 (4.00-11.30)
[2023-01-21 15:48] LABS: Alanine Aminotransfer (ALT/SGP 28 U/L (12-78); Albumin/Globulin Ratio 0.8 (0.8-1.8); Alk Phos 85 U/L (50-136); Anion Gap 16 mmol/L (6-16); Aspartate Aminotrans (AST/SGOT 32 U/L (12-37); Bilirubin, Total 0.6 mg/dL (0.1-1.0); Blood Urea Nitrogen 19 mg/dL (8-24); Bun/Creatinine Ratio 23.8 (12.0-20.0); CO2, Blood 17 mmol/L (21-32); Calcium, Blood 9.6 mg/dL (8.5-10.1); Chloride, Blood 106 mmol/L (98-108); Globulin, Blood 3.8 g/dL (2.2-4.0); Glomerular Filtration Rate 93 (60-); Glucose, Blood 85 mg/dL (70-99); Potassium, Blood 4.3 mmol/L (3.5-5.5); Sodium, Blood 139 mmol/L (136-145); Total Protein, Blood 6.8 g/dL (6.4-8.2)
[2023-01-21 15:49] LABS: Ethanol (Alcohol), Blood, Med <3 mg/dL
[2023-01-21 15:58] LABS: Creatine Kinase MB 6.2 ng/mL (0.0-3.6); Creatine Kinase MB Index 2.7 (0.0-4.0)
[2023-01-21 16:24] LABS: Source, Urine Clean Catch
[2023-01-21 16:29] LABS: Appearance, Urine Clear (Clear); Bilirubin, Urine Neg (Neg); Blood, Urine 2+ (Neg); Color, Urine Yellow (P-Yellow); Glucose Qualitative, Urine Neg (Neg); Ketones, Urine 4+ (Neg); Leukocyte Esterase, Urine Neg (Neg); Nitrite, Urine Neg (Neg); Protein, Urine 2+ (Neg); Urobilinogen, Urine NORM (Normal)
[2023-01-21 17:02] LABS: Squamous Epithelial Cells Rare /hpf (Few); White Blood Cells, Urine 0-2 /hpf (0-5)
[2023-01-21 17:03] LABS: Bacteria Few /hpf; Hyaline Casts 0-2 /lpf (0-2)
[2023-01-21 17:07] LABS: U Amphetamine Screen Not Detected; U Barbituate Screen Not Detected; U Benzodiazapine Screen Not Detected; U Buprenorphine Screen DETECTED; U Cannabinoids Screen Not Detected; U Cocaine Screen Not Detected; U Methadone Screen Not Detected; U Methamphetamine Screen Not Detected; U Opiates Screen Not Detected; U Oxycodone Screen Not Detected; U Phencyclidine Screen Not Detected; U Propoxyphene Screen Not Detected
[2023-01-21 17:13] LABS: Influenza A, PCR NEGATIVE (NEGATIVE); Influenza B, PCR NEGATIVE (NEGATIVE); Resp Syncytial Virus, PCR NEGATIVE (NEGATIVE); SARS-Cov-2 (COVID-19) PCR, MMC NEGATIVE (NEGATIVE)
[2023-01-22] MEDS ORDERED: BUPRENO-NALOX1 EAC2 SL (17:08)
[2023-01-22] MEDS ORDERED: DULO30 PO (17:08)
[2023-01-22] MEDS ORDERED: MIRT15 PO (17:12)
[2023-01-22] MEDS ORDERED: TRAZ100 PO (17:13)
[2023-01-22] MEDS ORDERED: NICOTINE LOZENGE2 MG MM (17:20)
[2023-01-22] MEDS ORDERED: MIRALAX11910 PO (17:21)
[2023-01-22] MEDS ORDERED: HYDHCL25 PO (17:22)
[2023-01-22] MEDS ORDERED: GUAI600T33 PO (17:22)
[2023-01-22] MEDS ORDERED: TOPICAINE113 GM TOP (17:27)
[2023-01-22] MEDS ORDERED: Aspir 8181 MG PO (17:28)
[2023-01-22] MEDS ORDERED: ASCO500 PO (17:29)
[2023-01-22] MEDS ORDERED: THERA-D2000 UNIT PO (17:30)
[2023-01-23 09:36] LABS: Influenza A, PCR NEGATIVE (NEGATIVE); Influenza B, PCR NEGATIVE (NEGATIVE); Resp Syncytial Virus, PCR NEGATIVE (NEGATIVE); SARS-Cov-2 (COVID-19) PCR, MMC NEGATIVE (NEGATIVE)
== END 2023-01-23 14:38 ==
LOC: ER 12:57 → EOR 12:58
PROVIDERS: Emergency Medicine; ADMIT Student in an Organized Health Care Education/Training Program
DX: F41.9 Anxiety disorder, unspecified (principal); F31.9 Bipolar disorder, unspecified; J44.9 Chronic obstructive pulmonary disease, unspecified; I10 Essential (primary) hypertension; F17.200 Nicotine dependence, unspecified, uncomplicated; Z20.822 Contact with and (suspected) exposure to COVID-19
CPT/HCPCS: 0241U; 80053; 81001; 82140; 82550; 82553; 85025; 99285; A9270; G0378; G0480; J0572; Q3014

== ENCOUNTER 2024-04-29 09:47 | Observation (INO) | payer OTHER ==
[~2024-04-29] VITALS: Ht 182.9 cm; Wt 81.7 kg
[~2024-04-29 09:47] MED LIST changes: +BUPRENO-NALOX1 EAC2 SL; +DULO30 PO; +HYDHCL25 PO; +MIRALAX11910 PO; +NICOTINE LOZENGE2 MG MM; +THERA-D2000 UNIT PO; +TOPICAINE113 GM TOP
[2024-04-29] MEDS ORDERED: Ipratropium/Albuterol SulF 2.5-0.5MG/3 ML Amp INH ONE (10:25)
[2024-04-29 10:40] LABS: BASOPHILS ABSOLUTE AUTO 0.06 K/mm3 (0.00-0.23); BASOPHILS PERCENT AUTO 1 % (0-2); EOSINOPHILS PERCENT AUTO 3 % (0-6); Hematocrit 34.6 % (37.0-53.0); Hemoglobin 11.4 g/dL (13.5-17.5); IMMATURE GRAN ABSOLUTE AUTO 0.02 K/mm3 (0.00-0.10); IMMATURE GRAN PERCENT AUTO 0 % (0-1); LYMPHOCYTES ABSOLUTE AUTO 0.74 K/mm3 (0.84-5.20); LYMPHOCYTES PERCENT AUTO 9 % (21-46); MONOCYTES ABSOLUTE AUTO 0.82 K/mm3 (0.16-1.47); MONOCYTES PERCENT AUTO 10 % (4-13); Mean Corpuscular HGB 32.2 pg (26.0-34.0); Mean Corpuscular HGB Conc 32.9 g/dL (31.5-36.5); Mean Corpuscular Volume 98 fL (80-100); NEUTROPHILS ABSOLUTE AUTO 6.18 K/mm3 (1.96-9.15); NEUTROPHILS PERCENT AUTO 77 % (41-73); Platelet Count 195 K/mm3 (150-400); RDW Coefficient Variation 15.1 % (11.7-14.2); RDW Standard Deviation 54.7 fL (35.1-46.3); Red Blood Cell Count 3.54 M/mm3 (4.30-5.90); White Blood Cell Count 8.02 K/mm3 (4.00-11.30)
[2024-04-29 10:57] LABS: Albumin, Blood 3.5 g/dL (3.4-5.0); Albumin/Globulin Ratio 1.1 (0.8-1.8); Bilirubin, Total 0.5 mg/dL (0.1-1.0); Bun/Creatinine Ratio 8.5 (12.0-20.0); Calcium, Blood 8.9 mg/dL (8.5-10.1); Creatinine, Blood 0.71 mg/dL (0.60-1.20); Globulin, Blood 3.2 g/dL (2.2-4.0); Total Protein, Blood 6.7 g/dL (6.4-8.2)
[2024-04-29 11:14] LABS: Influenza A, PCR NEGATIVE (NEGATIVE); Influenza B, PCR NEGATIVE (NEGATIVE); Resp Syncytial Virus, PCR NEGATIVE (NEGATIVE); SARS-Cov-2 (COVID-19) PCR, MMC NEGATIVE (NEGATIVE)
[2024-04-29] MEDS ORDERED: PredniSONE 20 MG Tab PO ONE (12:45)
[2024-04-29] MEDS ORDERED: Prednisone20 MG PO (13:52)
[2024-04-29] MEDS ORDERED: Acetaminophen 325 MG TABLET PO PRN (15:20)
[2024-04-29] MEDS ORDERED: Famotidine 20 MG Tab PO PRN (15:20)
[2024-04-29] MEDS ORDERED: HyDROXyzine HCl 25 MG Tab PO PRN (15:25)
[2024-04-29] MEDS ORDERED: Mometasone/Formoterol MDI 200/5 mcg 13 GM INH SCH (15:35)
[2024-04-29 16:46] VITALS: BP 141/82
[2024-04-29] MEDS ORDERED: ChlordiazePOXIDE 25 MG Cap PO PRN ×2 (17:05)
[2024-04-29] MEDS ORDERED: LORazepam 2 MG/ML 1ML Injection IV PRN ×2 (17:05)
[2024-04-29] MEDS ORDERED: Ipratropium/Albuterol SulF 2.5-0.5MG/3 ML Amp INH SCH (17:35)
[2024-04-29] MEDS ORDERED: Albuterol 2.5 MG/3 ML VIAL INH PRN (17:40)
[2024-04-29 19:34] VITALS: BP 146/83
[2024-04-29] MEDS ORDERED: Magnesium Oxide 400 MG Tab PO SCH (21:00)
[2024-04-29] MEDS ORDERED: Tamsulosin HCl 0.4 MG Cap PO SCH (21:00)
[2024-04-29] MEDS ORDERED: DULoxetine HCL 30 MG Cap DR PO SCH (21:00)
[2024-04-29] MEDS ORDERED: GuaiFENesin 600 MG TabCR PO SCH (21:00)
[2024-04-29] MEDS ORDERED: Buprenorphine HCL/Naloxone HCL 2-0.5MG 1 EA SL SCH (21:00)
[2024-04-29] MEDS ORDERED: Sennosides 8.6 MG Tab PO SCH (21:00)
[2024-04-29] MEDS ORDERED: TraZODone HCl 100 MG Tab PO SCH (21:00)
[2024-04-30 03:11] VITALS: BP 142/84
--- NOTE | 2024-04-30 06:11 | NUR ---
Shift Summary Pt AOx4, cooperative with care, pleasant, 1 SBA with FWW. Pt states he has no intention of hurting himself while here but he feels that he is tired of life and when he goes back home he feels he will immediatly turn back to alcohol and drugs. He slept well t/o the night, no c/o of pain or discomfort. He was able to void without issues even though he declined his Flomax. Per report he needed to be straight cathed in ED d/t retention.
[2024-04-30 08:19] VITALS: BP 117/76
[2024-04-30] MEDS ORDERED: Enoxaparin 40 MG/0.4 ML SYR SC SCH (09:00)
[2024-04-30] MEDS ORDERED: Aspirin 81 MG TabEC PO SCH (09:00)
[2024-04-30] MEDS ORDERED: Polyethylene Glycol 3350 17 gm PO SCH (09:00)
[2024-04-30] MEDS ORDERED: Thiamine HCl 100 MG Tab PO SCH (09:00)
[2024-04-30] MEDS ORDERED: Cholecalciferol 1000 Unit Tablet (=25MCG) PO SCH (09:00)
[2024-04-30] MEDS ORDERED: Loratadine 10 MG Tab PO SCH (09:00)
[2024-04-30] MEDS ORDERED: Nicotine 14 MG PATCH TOP SCH (09:00)
[2024-04-30] MEDS ORDERED: Folic Acid 1 MG TAB PO SCH (09:00)
[2024-04-30] MEDS ORDERED: Ascorbic Acid 500 MG Tab PO SCH (09:00)
[2024-04-30] MEDS ORDERED: Multivitamins/Minerals TAB PO SCH (09:00)
--- NOTE | 2024-04-30 12:24 | NUR ---
PATIENT SAYS HE WANTS TO KILL HIMSELF IF FORCED TO RETURN HOME BY HIMSELF. SAYS HE HAS A PLAN BUT REFUSES TO DISCUSS WITH THIS RN. 1;1 SITTER OUTSIDE OF ROOM.
[2024-04-30 15:48] VITALS: BP 134/79
[2024-04-30 19:33] VITALS: BP 133/75
[2024-05-01 03:36] VITALS: BP 146/94
--- NOTE | 2024-05-01 04:10 | NUR ---
NOC SHIFT SUMMARY PT APPEARED TO SLEEP WELL. SITTER AT BEDSIDE FOR SUICIDE PRECAUTIONS. PT COOPERATIVE WITH CARES. NO S/S OF ALCOHOL WITHDRAWL. FALL PRECAUTIONS IN PLACE, BED ALARM ON, CALL LIGHT WITHIN REACH.
[2024-05-01 07:50] VITALS: BP 157/100
[2024-05-01 07:54] VITALS: BP 150/82
--- NOTE | 2024-05-01 08:54 | NUR ---
PATIENT HAS FLAT AFFECT THIS AM.
[2024-05-01 16:24] VITALS: BP 115/76
--- NOTE | 2024-05-01 19:09 | NUR ---
SHIFT SUMMARY; PATEINT HAD NO ACUTE CHANGES IN CONDITION TODAY. HIS VS ARE STABLE. HE STILLS HAS SUICIDAL THOUGHTS. [facility] IN [place] TURNED HIM DOWN HE WAS ON O2 AND WOULD NEED A 1:1 SITTER.
[2024-05-01 20:30] VITALS: BP 132/73
--- NOTE | 2024-05-02 04:28 | NUR ---
NOC SHIFT SUMMMARY PT APPEARED TO SLEEP WELL ON BRICKLAYER PAVING BRICK. 1:[address] FOR SI PRECAUTIONS. NO S/S OF ALCOHOL WITHDRAWL. FALL PRECAUTIONS IN PLACE, CALL LIGHT WITHIN REACH.
[2024-05-02 05:24] VITALS: BP 149/90
[2024-05-02 07:27] VITALS: BP 147/88
--- NOTE | 2024-05-02 11:00 | NUR ---
PT STATES BOTHERS HIM TO KEEP ASKING QUESTIONS, STATES WOULD NOT KILL SELF AND DO THIS TO US.
[2024-05-02 11:09] LABS: Source, Urine Clean Catch
[2024-05-02 11:15] LABS: Appearance, Urine Clear (Clear); Bilirubin, Urine Neg (Neg); Blood, Urine Neg (Neg); Color, Urine Yellow (P-Yellow); Glucose Qualitative, Urine Neg (Neg); Ketones, Urine Neg (Neg); Leukocyte Esterase, Urine Neg (Neg); Nitrite, Urine Neg (Neg); Protein, Urine Neg (Neg); Specific Gravity, Urine 1.015 (1.003-1.022); Urobilinogen, Urine 1+ (Normal)
--- NOTE | 2024-05-02 11:31 | NUR ---
PT STATES SHOULD BE RECEIVING [address] TOVAR, VERIFY DOSING FROM MD FOR SUBOXONE. CALLED [facility]. STATES LAST DOSING OF DECEMBER 2023 WAS 4/1.0 MG SUBOXONE, SUBLINGUAL TABLETS. TID. CALLED DR TOVAR BACK. OKAY USE HOME DOSE GIVEN AT 4 MG. PLACED ORDERS
[2024-05-02 11:50] LABS: U Amphetamine Screen Not Detected; U Barbituate Screen Not Detected; U Benzodiazapine Screen Not Detected; U Buprenorphine Screen DETECTED; U Cannabinoids Screen Not Detected; U Cocaine Screen Not Detected; U Methadone Screen Not Detected; U Methamphetamine Screen Not Detected; U Opiates Screen Not Detected; U Oxycodone Screen Not Detected; U Phencyclidine Screen Not Detected
[2024-05-02] MEDS ORDERED: Buprenorphine HCL/Naloxone HCL 2-0.5MG 1 EA SL SCH (14:00)
[2024-05-02] MEDS ORDERED: LORazepam 1 MG Tab PO PRN (15:15)
[2024-05-02 15:52] VITALS: BP 140/90
--- NOTE | 2024-05-02 17:41 | NUR ---
PT PLEASANT TODAY. REFUSED TO DISCUSS THE S/I WITH ME TODAY. DID GET HIS SABOXONE INCREASED TO HIS BASELINE TODAY. FEELS IS BETTER. VSS. NO NEW CONCERNS NOTED. HAS BEEN UP WATCHING TV THIS AFTERNOON. BED IN LOW POSITION, CALL LITE IN REACH, CALLS APPROP
[2024-05-02 20:58] VITALS: BP 128/89
--- NOTE | 2024-05-03 04:32 | NUR ---
SHIFT SUMMARY ADMITTED FOR SI. DNR CODE. [facility]. HX OF ETOH. A&O X3-4. HIGH SI, SITTER IN PLACE. 3 LPM O2 IS BASELINE. 1 ASSIST W/FWW. NO IV ACCESS. CARDIAC DIET. SUBOXONE IS SCHEDULED. [facility] PATIENT. NO NEW CONCERNS THIS SHIFT.
[2024-05-03 04:57] VITALS: BP 134/85
[2024-05-03 07:32] VITALS: BP 129/84
[2024-05-03 15:21] VITALS: BP 137/84
--- NOTE | 2024-05-03 17:26 | NUR ---
PT HAS HAD NO ACUTE CHANGES AT THIS TIME. PT CONTINUES TO NEEDS SITTER FOR SI IDEATIONS. PT IS AOX4 AND COOPERATIVE OF CARE. PT ABLE TO USE URINAL AND IS A ONE ASSIST WITH FRONT WHEEL WALKER. PT REPORTS FEELING VERY SAD. WILL CONTINUE TO MONITOR.
[2024-05-03 20:01] VITALS: BP 138/78
[2024-05-03] MEDS ORDERED: GuaiFENesin 600 MG TabCR PO SCH (21:00)
[2024-05-04 04:17] VITALS: BP 146/84
--- NOTE | 2024-05-04 05:15 | NUR ---
SHIFT SUMMARY 74 YR M ADMITTED ON 04/29/24. DNR. NO ACUTE CHANGES THIS SHIFT. PT IS PLEASANT AND COOPERATIVE WITH CARE. PLAN IS FOR PT TO HAVE A [place] TRANSFER TODAY. COVID TEST DONE AND SENT TO LAB. PT CURRENTLY HAS A 1:1 SITTER FOR SI.
[2024-05-04 05:36] LABS: Influenza A, PCR NEGATIVE (NEGATIVE); Influenza B, PCR NEGATIVE (NEGATIVE); Resp Syncytial Virus, PCR NEGATIVE (NEGATIVE); SARS-Cov-2 (COVID-19) PCR, MMC NEGATIVE (NEGATIVE)
[2024-05-04 07:38] VITALS: BP 166/88
[2024-05-04 08:49] VITALS: BP 166/88
[2024-05-04 11:57] VITALS: BP 166/88
[2024-05-04 16:12] VITALS: BP 154/81
--- NOTE | 2024-05-04 16:13 | NUR ---
PT AOX4 AND COOPERATIVE OF CARE. PT DID NOT WANT TO BE ASKED ABOUT IF HE STILL FELT HE WAS A DANGER TO HIMSELF. LATER IN THE DAY HE SAID HE DID NOT FEEL HE WAS GOING TO HARM HIMSELF OR ACT ON IT HE DID SAY HE HAS THOUGHT ABOUT IT AND THAT IS WHY HE IS HERE. PT ALSO SAID HE JUST FEELS REALLY SAD. PT HAS BEEN COOPERATIVE. DISCHARGE TO A PSYCH FACILITY. PLANS GOT DELAYED DUE TO PT NEEDING O2 AND NEEDING SECURE TRANSPORT. [facility] WORKING [facility] GET [facility] TO [place] TOMORROW. PT IS FEELING A LITTLE FRUSTRATED WITH ALL OF THE DELAYS. PT ABLE TO MAKE HIS NEEDS KNOWN AND IS ABLE TO USE URINAL INDEPENDENTLY AND HAS BEEN UP IN CHAIR FOR MEALS. CALL LIGHT IS WITHIN REACH AND SITTER IS MONITORING.
[2024-05-04 19:52] VITALS: BP 138/77
--- NOTE | 2024-05-05 03:31 | NUR ---
SHIFT SUMMARY 74 YR M ADMITTED ON 04/29/24. DNR. NO ACUTE CHANGES THIS SHIFT. PT HAS BEEN CALM AND COOPERATIVE ALL SHIFT. AFTER 2100 MED PASS HE WENT TO SLEEP AND HAS SLEPT FOR MOST OF THIS SHIFT. NO C/O PAIN OR DISCOMFORT. PLAN IS FOR SECURE TRANSPORT TO PSYCHE FACILITY TODAY. PT IS HOPEFUL TRANSPORTATION WILL GO THROUGH AND TRANSFER CAN BE COMPLETED.
[2024-05-05 05:14] VITALS: BP 143/89
[2024-05-05 07:12] VITALS: BP 158/83
--- NOTE | 2024-05-05 11:55 | NUR ---
PT D/C @1145 VIA WHEELCHAIR WITH [facility] IN [place]. TRANSPORT ONLY HAD HALF 02 TANK FOR TRANSPORT. [facility] PROVIDED TRANSPORT WITH FULL TANK AND INSTRUCTED TO BE BROUGHT BACK AT EARLIEST CONVENIENCE. 1:1 SITTER BUBBLE SHEETS PLACED IN FRONT OF CHART. ALL BELONGINGS SENT WITH PT. NO QUESTIONS AT TIME OF D/C.
== END 2024-05-05 11:45 ==
LOC: ER 09:47 → MEDS 09:48 → ENPENDDIS 05-04 11:59 → MEDS 05-05 11:45
PROVIDERS: Emergency Medicine; Internal Medicine; ADMIT Family Medicine
DX: R45.851 Suicidal ideations (principal); F33.9 Major depressive disorder, recurrent, unspecified; J44.9 Chronic obstructive pulmonary disease, unspecified; I10 Essential (primary) hypertension; F43.10 Post-traumatic stress disorder, unspecified; F17.210 Nicotine dependence, cigarettes, uncomplicated; F10.10 Alcohol abuse, uncomplicated; Z99.89 Dependence on other enabling machines and devices; Z88.8 Allergy status to other drugs, medicaments and biological substances
CPT/HCPCS: 0241U; 51701; 71045; 80053; 81003; 83880; 84484; 85025; 93005; 93010; 94640; 94664; 94760; 96372; 99285-25; A9270; G0378; J0572; J1650; J7512

== ENCOUNTER 2024-05-28 18:26 | Observation (INO) | payer OTHER ==
[~2024-05-28] VITALS: Ht 182.9 cm; Wt 83.9 kg
[~2024-05-28 18:26] MED LIST changes: +FAMO20 PO; -FAMO40 PO; +MIRT30 PO; +Prednisone20 MG PO
[2024-05-28] MEDS ORDERED: ASCO500 PO (19:49)
[2024-05-28] MEDS ORDERED: BUPRENORPHN-NA1 EAC2 PO (19:51)
[2024-05-28] MEDS ORDERED: Seroquel Xr50 MG (19:52)
[2024-05-28 20:14] LABS: Influenza A, PCR NEGATIVE (NEGATIVE); Influenza B, PCR NEGATIVE (NEGATIVE); Resp Syncytial Virus, PCR NEGATIVE (NEGATIVE); SARS-Cov-2 (COVID-19) PCR, MMC NEGATIVE (NEGATIVE)
[2024-05-28 20:38] LABS: Source, Urine Clean Catch
[2024-05-28 20:41] LABS: BASOPHILS ABSOLUTE AUTO 0.06 K/mm3 (0.00-0.23); BASOPHILS PERCENT AUTO 1 % (0-2); EOSINOPHILS ABSOLUTE AUTO 0.31 K/mm3 (0.00-0.68); EOSINOPHILS PERCENT AUTO 5 % (0-6); Hematocrit 30.7 % (37.0-53.0); Hemoglobin 10.1 g/dL (13.5-17.5); IMMATURE GRAN ABSOLUTE AUTO 0.02 K/mm3 (0.00-0.10); IMMATURE GRAN PERCENT AUTO 0 % (0-1); LYMPHOCYTES ABSOLUTE AUTO 0.83 K/mm3 (0.84-5.20); LYMPHOCYTES PERCENT AUTO 12 % (21-46); MONOCYTES ABSOLUTE AUTO 0.49 K/mm3 (0.16-1.47); MONOCYTES PERCENT AUTO 7 % (4-13); Mean Corpuscular HGB 31.6 pg (26.0-34.0); Mean Corpuscular HGB Conc 32.9 g/dL (31.5-36.5); Mean Corpuscular Volume 96 fL (80-100); NEUTROPHILS ABSOLUTE AUTO 5.01 K/mm3 (1.96-9.15); NEUTROPHILS PERCENT AUTO 75 % (41-73); Platelet Count 205 K/mm3 (150-400); RDW Coefficient Variation 14.3 % (11.7-14.2); RDW Standard Deviation 50.5 fL (35.1-46.3); White Blood Cell Count 6.72 K/mm3 (4.00-11.30)
[2024-05-28 20:49] LABS: Appearance, Urine Clear (Clear); Bilirubin, Urine Neg (Neg); Blood, Urine Neg (Neg); Glucose Qualitative, Urine Neg (Neg); Ketones, Urine Neg (Neg); Leukocyte Esterase, Urine Neg (Neg); Nitrite, Urine Neg (Neg); Protein, Urine Neg (Neg); Urobilinogen, Urine NORM (Normal)
[2024-05-28 20:53] LABS: Acetaminophen, Random <2.0 ug/mL (10.0-30.0); Alanine Aminotransfer (ALT/SGP 27 U/L (12-78); Albumin, Blood 3.3 g/dL (3.4-5.0); Albumin/Globulin Ratio 1.1 (0.8-1.8); Alk Phos 96 U/L (50-136); Anion Gap 10 mmol/L (3-11); Aspartate Aminotrans (AST/SGOT 19 U/L (12-37); Bilirubin, Total 0.3 mg/dL (0.1-1.0); Blood Urea Nitrogen 7 mg/dL (8-24); Bun/Creatinine Ratio 10.6 (12.0-20.0); CO2, Blood 28 mmol/L (21-32); Calcium, Blood 8.3 mg/dL (8.5-10.1); Chloride, Blood 104 mmol/L (98-108); Creatinine, Blood 0.66 mg/dL (0.60-1.20); Ethanol (Alcohol), Blood, Med 47 mg/dL; Glomerular Filtration Rate 97 (60-); Glucose, Blood 104 mg/dL (70-99); Potassium, Blood 4.5 mmol/L (3.5-5.5); Salicylate 4.1 mg/dL (2.8-20.0); Sodium, Blood 137 mmol/L (136-145); Total Protein, Blood 6.3 g/dL (6.4-8.2)
[2024-05-28 20:55] LABS: Color, Urine Pale Yellow (P-Yellow)
[2024-05-28] MEDS ORDERED: Mirtazapine 15 MG SoluTab PO SCH (21:00)
[2024-05-28] MEDS ORDERED: QUEtiapine Fumarate 50 MG TAB PO SCH (21:00)
[2024-05-28] MEDS ORDERED: Acetaminophen 325 MG TABLET PO PRN (21:00)
[2024-05-28] MEDS ORDERED: Magnesium Oxide 400 MG Tab PO SCH (21:00)
[2024-05-28] MEDS ORDERED: Buprenorphine HCL/Naloxone HCL 2-0.5MG 1 EA SL SCH (21:00)
[2024-05-28] MEDS ORDERED: GuaiFENesin 600 MG TabCR PO SCH (21:00)
[2024-05-28] MEDS ORDERED: Sennosides 8.6 MG Tab PO SCH (21:00)
[2024-05-28] MEDS ORDERED: Mometasone/Formoterol MDI 200/5 mcg 13 GM INH SCH (21:05)
[2024-05-28] MEDS ORDERED: Albuterol HFA200 ACT/6.7 GM INH INH PRN (21:05)
[2024-05-28 21:07] LABS: U Amphetamine Screen Not Detected; U Barbituate Screen Not Detected; U Benzodiazapine Screen Not Detected; U Buprenorphine Screen DETECTED; U Cannabinoids Screen Not Detected; U Cocaine Screen Not Detected; U Methadone Screen Not Detected; U Methamphetamine Screen Not Detected; U Opiates Screen Not Detected; U Oxycodone Screen Not Detected; U Phencyclidine Screen Not Detected
[2024-05-28 23:34] VITALS: BP 131/87
--- NOTE | 2024-05-29 02:16 | NUR ---
PT ARRIVED TO THE FLOOR WITH NO SUICIDE PRECAUTION ORDER OR [address] TOUSSAINT'S NOTE IN THE ED STATED THAT THE PT WAS TO BE PLACED ON AN INVOLUNTARY PSYCHIATRIC HOLD, THERE WAS ALSO NO 2MD HOLD PAPERWORK. I CALLED DR. NOONAN TO INFORM HIM OF THE SITUATION, HE PUT IN AN ORDER FOR MODERATE SUICIDE PRECAUTIONS AND SUGGESTED WE WAIT ON DOING A HOLD UNTIL EVALUATED BY PSYCHIATRY. I ALSO FOLLOWED UP WITH THE NURSE WHO HAD THE PT IN THE ED TO SEE IF SHE HAD ANY KNOWLEDGE OF HOLD PAPER WORK; SHE SAID THAT SHE DID NOT.
[2024-05-29 04:19] VITALS: BP 173/96
--- NOTE | 2024-05-29 05:01 | NUR ---
SHIFT SUMMARY PT ARRIVED VIA GURNEY AND TRANSPORTER STAFF FROM THE ER AT 2322 TO MEDICAL FLOOR ROOM#350. PHONE HANDOFF REPORT RECEIVED AT 2300 FROM ER NURSE TRICIA. INITIAL ASSESSMENT AT ADMISSION COMPLETED BY GIULIANA NELSON RN. PT'S ROOM CLEARED, CHECKED FOR SAFETY, AND PT IS WEARING PAPER SCUB TOP. CIGARETTE PACK AND CHUCKING MACHINE OPERATOR, PLUS TWO HOME MEDICATION INHALERS LOCKED IN PT'S PERSONAL DRAWER OUTSIDE THE HOSPITAL ROOM. PT'S WALLET IS IN THE ROOM'S CLOSET AND LOCKED. PT IS INDEPENDENT AT BASELINE, NOW WEAKER WITH SOB AND STANDBY ASSIST. PT REQUESTS TO STANDUP BY THE BEDSIDE TO USE URINAL D/T OCCATIONAL RETENTION. PT IS A&O X4, ABLE TO MAKE HIS NEEDS KNOWN. PT DENIES ANXIETY, SI/HI/AVH. PT HAS 1:1 SITTER D/T DX SI. PT STATED TO THIS CONTENT PRODUCTION SPECIALIST:" I JUST WANT TO END IT ALL, I DON'T WANT TO LIVE." PT DID NOT ELLABORATE ABOUT PLAN. PT IS ON O2 4L VIA NC. O2 SAT'S >94%. PER ER NURSE REPORT, AT HOME 2L VIA NC, BUT D/T "LONG CORD WITHIN THE ROOMS, 4LITERS SO THE O2 REACHES THE NOSTRILS"(PT REPORT TO ER NURSE.) PT REFUSED THE MEDICATION RECONCILIATION, D/T " I CAN'T REMEMBER MY MEDICATIONS OR WHEN I TOOK THEM." NO ACUTE EVENTS DURING THIS SHIFT. PT RESTING IN BED, EYES CLOSED. UP TO URINATE X1-2 BY THE BEDSIDE URINAL. CONTINUING 1:1 OBSERVATION. BED AT THE LOWEST POSITION, SHORT CORD CALL LIGHT BY THE BEDSIDE PLUGIN.
[2024-05-29 07:28] LABS: BASOPHILS ABSOLUTE AUTO 0.04 K/mm3 (0.00-0.23); BASOPHILS PERCENT AUTO 1 % (0-2); EOSINOPHILS PERCENT AUTO 5 % (0-6); Hematocrit 31.2 % (37.0-53.0); Hemoglobin 10.3 g/dL (13.5-17.5); IMMATURE GRAN ABSOLUTE AUTO 0.04 K/mm3 (0.00-0.10); IMMATURE GRAN PERCENT AUTO 1 % (0-1); LYMPHOCYTES ABSOLUTE AUTO 0.71 K/mm3 (0.84-5.20); LYMPHOCYTES PERCENT AUTO 11 % (21-46); MONOCYTES ABSOLUTE AUTO 0.49 K/mm3 (0.16-1.47); MONOCYTES PERCENT AUTO 8 % (4-13); Mean Corpuscular HGB 31.9 pg (26.0-34.0); Mean Corpuscular Volume 97 fL (80-100); Mean Platelet Volume 9.6 fL (9.1-12.4); NEUTROPHILS ABSOLUTE AUTO 4.91 K/mm3 (1.96-9.15); NEUTROPHILS PERCENT AUTO 76 % (41-73); Platelet Count 181 K/mm3 (150-400); RDW Coefficient Variation 14.3 % (11.7-14.2); Red Blood Cell Count 3.23 M/mm3 (4.30-5.90); White Blood Cell Count 6.49 K/mm3 (4.00-11.30)
[2024-05-29 07:31] VITALS: BP 123/91
[2024-05-29 08:00] LABS: Albumin, Blood 3.3 g/dL (3.4-5.0); Albumin/Globulin Ratio 1.2 (0.8-1.8); Bilirubin, Total 0.6 mg/dL (0.1-1.0); Bun/Creatinine Ratio 11.1 (12.0-20.0); Calcium, Blood 8.6 mg/dL (8.5-10.1); Creatinine, Blood 0.72 mg/dL (0.60-1.20); Globulin, Blood 2.8 g/dL (2.2-4.0); Potassium, Blood 4.4 mmol/L (3.5-5.5); Thyroid Stimulating Hormone 0.705 uIU/mL (0.360-4.800); Total Protein, Blood 6.1 g/dL (6.4-8.2)
--- NOTE | 2024-05-29 08:45 | NUR ---
PATIENT FLAT AFFECT. SAYS HE IS TIRED OF LIVING. CANNOT DO ANYTHING AND HAS NOT BEEN EATING. SAYS HE DOESN'T FEEL LIKE EATING. HAS PLAN TO USE SCISSORS IF SENT HOME TO COMMIT SUICIDE. PATIENT SAYS HE HAS NO PLANS LONG HE IS HERE IN HOSPITAL BUT WILL KILL HIMSELF IF HE GOES HOME.
[2024-05-29] MEDS ORDERED: Aspirin 81 MG Chew PO SCH (09:00)
[2024-05-29] MEDS ORDERED: Polyethylene Glycol 3350 17 gm PO SCH (09:00)
[2024-05-29] MEDS ORDERED: Loratadine 5 MG/5 ML 5MLUDC PO SCH (09:00)
[2024-05-29] MEDS ORDERED: Folic Acid 1 MG TAB PO SCH (09:00)
[2024-05-29] MEDS ORDERED: Tamsulosin HCl 0.4 MG Cap PO SCH (09:00)
[2024-05-29] MEDS ORDERED: Ascorbic Acid 500 MG Tab PO SCH (09:00)
[2024-05-29] MEDS ORDERED: Multivitamins/Minerals TAB PO SCH (09:00)
[2024-05-29] MEDS ORDERED: Thiamine HCl 100 MG Tab PO SCH (09:00)
[2024-05-29] MEDS ORDERED: DULoxetine HCL 30 MG Cap DR PO SCH (09:00)
[2024-05-29] MEDS ORDERED: Cholecalciferol 1000 Unit Tablet (=25MCG) PO SCH (09:00)
[2024-05-29] MEDS ORDERED: Nicotine Polacrilex 2 MG Gum PO PRN ×2 (10:10→13:37)
--- NOTE | 2024-05-29 15:55 | NUR ---
SHIFT SUMMARY; PATIENT REMAINS ON SI WATCH. PER PATIENT HE WILL NOT DO ANYTHING AT HOSPOITAL BUT PLANS TO USE SCISSORS AT HOME TO COMMIT SUICIDE. HE SAYS HE FEELS DEPRESSED AND CANNOT GERMÁN ANYMORE TIME ON THIS EARTH. PATIENT COMPLAINS OF NICOTINE WITHDRAWL AND ASKS FOR NICORETTE GUM. OK PER . PATIENT IS COOPERATIVE WITH CARE USES CALL LIGHT APPROPRIATELY. NO ACUTE CHANGE IN CONDITION NOTED DURING DAY.
[2024-05-29 17:11] VITALS: BP 109/77
[2024-05-29 20:21] VITALS: BP 156/82
[2024-05-29] MEDS ORDERED: Albuterol 2.5 MG/3 ML VIAL INH PRN (20:35)
[2024-05-30 02:58] VITALS: BP 116/76
[2024-05-30] MEDS ORDERED: Vitamin B-12100 MCG PO (04:09)
[2024-05-30] MEDS ORDERED: [UNRECOGNIZED DRUG - OTHER] PO (04:11)
[2024-05-30] MEDS ORDERED: FINA5 PO (04:13)
[2024-05-30] MEDS ORDERED: FLONASE ALLERG9.9 M2 (04:14)
[2024-05-30] MEDS ORDERED: Vitamin B Comple1 EA PO (04:16)
[2024-05-30] MEDS ORDERED: NICOTINE LOZENGE2 MG MM (04:17)
[2024-05-30] MEDS ORDERED: NARCAN4 M1 (04:17)
[2024-05-30] MEDS ORDERED: MIRALAX17 GM PO (04:18)
[2024-05-30] MEDS ORDERED: PRED20 PO (04:18)
[2024-05-30] MEDS ORDERED: QUET25 PO (04:19)
[2024-05-30] MEDS ORDERED: SPIRIVA RESPIMAT4 G3 INH (04:20)
--- NOTE | 2024-05-30 05:42 | NUR ---
SHIFT SUMMARY PT A&OX4 AND ANSWERS QUESTIONS APPROPRIATELY. PT RECEIVED HS MEDICATIONS ALONG WITH PRN MEDS. PT HAS 1:1 SITTER FOR SUICIDE RISK. PT STATES DURING ASSESSMENT THAT HE STILL FELT SUICIDAL, BUT DID NOT HAVE A PLAN TO ENACT. NO IMMEDIATE RISK ASSESSED AT THIS TIME. PT SPENT PART OF SHIFT IN BED BEFORE MOVING TO A RECLINER. PT RESPIRATIONS EVEN AND UNLABORED. VSS, NO COMPLAINTS OF CP/PRESSURE OR SOB. PT REPOSITIONED INDEPENDENTLY. PT LEFT IN A POSITION OF SAFETY WITH PROPER FALL PRECAUTIONS, CALL LIGHT IN REACH.
[2024-05-30 07:24] VITALS: BP 134/75
[2024-05-30] MEDS ORDERED: Loratadine 10 MG Tab PO SCH (09:00)
[2024-05-30 15:33] VITALS: BP 159/80
--- NOTE | 2024-05-30 17:33 | NUR ---
SHIFT SUMMARY: PT IS A/O X 4, SBA, PLEASANT AND COOPERATIVE WITH CARE. PT REPORTS "I ALWAYS HAVE THOUGHTS OF SUICIDE." PT DENIES HAVING A PLAN OR WANTING TO ACT ON A PLAN OF SUICIDE. PT REPORTED " LONG I AM HERE SAFE AND BEING TAKEN CARE OF I DON'T FEEL THE NEED TO KILL MYSELF." PT CHRONIC PAIN MANAGED WITH CURRENT SUBOXONE DOSE. PT UTILIZIZING NICORETTE GUM FOR NICOTINE REPLACEMENT. CIGARETTES AND OPERATIONS ADMINISTRATOR LOCKED UP IN DRAWER. PT DID NOT HAVE VISITORS. REMAINS WITH A 1:1 SITTER. SI ASSESSMENT WAS LOW SI THIS MORNING.
[2024-05-30 19:20] VITALS: BP 116/77
[2024-05-31 03:45] VITALS: BP 122/82
--- NOTE | 2024-05-31 06:09 | NUR ---
SHIFT SUMMARY PT A&OX4 AND ANSWERS QUESTIONS APPROPRIATELY. VSS, NO COMPLAINTS OF CP.PRESSURE OR SOB. PT RECEIVED HS MEDICATIONS. WHEN COMPLETING THE SUICIDE RISK ASSESSMENT, PT REPORTS NO CHANGE IN QUESTIONS. PT IS COOPERATIVE WITH CARE. PT SPENT MOST OF SHIFT IN BED WITH RESPIRATIONS EVEN AND UNLABORED. NO ACUTE EVENTS AT THIS TIME. PT LEFT IN A POSITION OF SAFETY WITH FALL PRECAUTIONS IN PLACE. PT INDEPENDENTLY REPOSITIONED. CALL LIGHT IN REACH.
[2024-05-31 07:32] VITALS: BP 132/82
[2024-05-31 15:18] VITALS: BP 108/76
[2024-05-31] MEDS ORDERED: ATOR40TA PO (16:18)
--- NOTE | 2024-05-31 18:30 | NUR ---
SHIFT SUMMARY: PT IS A/O X 4 SBA, PLEASANT AND COOPERATIVE. PT ON 3 LPM VIA NC WHICH IS HIS BASELINE O2 NEEDS. PAIN MANAGED WITH CURRENT DOSE OF SUBOXONE. PT RESTED IN BED THROUGHOUT THE DAY. OFFERED TO TAKE PT ON WALK IN SCU UNIT BUT HE REFUSED. PT HAS HAD NO SIGNS OF SUICIDE IDEATION.
[2024-05-31 19:34] VITALS: BP 109/68
--- NOTE | 2024-05-31 20:04 | NUR ---
PT SITTING UP IN BED WATCHING TV. 1:1 SITTER, PT DENIES HAVING A PLAN FOR SUICIDE AT THIS TIME. REPORTS "FEELING SAFE" WHILE IN FACILITY.
[2024-05-31] MEDS ORDERED: GuaiFENesin 600 MG TabCR PO SCH (21:00)
[2024-06-01 02:21] VITALS: BP 123/87
--- NOTE | 2024-06-01 04:49 | NUR ---
SUMMARY NO ACUTE CHANGES THIS SHIFT. PT IS CALM AND COOPERATIVE WITH CARES. PLEASANT AND POLITE. 3L NC AT BASELINE PT DID C/O SOB WITH AMBULATION TO BATHROOM, SAT 82% WHEN BACK AT REST. REMINDED PT TO BREATH THROUGH NOSE PT SAT RETURNED TO 95% AFTER 5-7 BREATHS, PT DECLINED NEED FOR RT TREATMENT, PT REPORTED NO LONGER SOB. SBA TO BATHROOM, BM THIS SHIFT, ORIENTED X4, ABLE TO MAKE NEEDS KNOWN. REPORTS CHRONIC PAIN AT 6/10 TO NECK AND BACK TREATED PER EMAR. 1:1 SITTER CONTINUED
[2024-06-01 07:41] VITALS: BP 133/93
[2024-06-01 14:45] VITALS: BP 107/67
--- NOTE | 2024-06-01 17:49 | NUR ---
SHIFT SUMMARY PT A&OX4, VSS, ON 3LO2 NC, SBA, TOLERATING PO, VOIDING, AND DENIED PAIN. NO ACUTE CHANGES THIS SHIFT. SHORT CALL LIGHT WITHIN REACH AND 1:1 SITTER PRESENT.
[2024-06-01 19:54] VITALS: BP 118/71
--- NOTE | 2024-06-01 22:03 | NUR ---
PT IS ALERT AND ORIENTED X4, CURRENTLY LYING IN BED WATCHING TV, DENIES CHEST PAIN OR PRESSURE, PT STATES " I ALWAYS FEEL LIKE KILLING MYSELF BUT I WOULD NEVER DO IT HERE" PT REPORTS THAT HE IS AFRAID OF LEAVING FACILITY FOR FEAR OF IDEATION WITH PLAN REOCCURRING. REPORTS SOME NUMBNESS/TINGLING IN BLE. SBA TO BATHROOM. 3L NC, THIS IS HIS BASELINE. REPORTS INTERMITTENT SOB, THAT IS RELIEVED BY FOCUSED BREATHING IN THOUGH NOSE AND OUT OF MOUTH. PT IS CALM AND COOPERATIVE, PLEASANT. 1:1 SITTER CONTINUED
[2024-06-02 02:59] VITALS: BP 117/81
[2024-06-02 07:18] VITALS: BP 131/81
--- NOTE | 2024-06-02 13:52 | NUR ---
THIS NURSE CALLED [facility] AND GAVE NURSE TO NURSE REPORT TO FLORA.
[2024-06-02 14:18] LABS: SARS-Cov-2 (COVID-19) PCR, MMC NEGATIVE (NEGATIVE)
[2024-06-02 14:37] VITALS: BP 131/81
[2024-06-02 16:18] VITALS: BP 128/79
--- NOTE | 2024-06-02 16:40 | NUR ---
DISCHARGE NOTE PT DIS[facility] TO [facility] AT 1635. PT A&OX4, VSS, AMB W/ SBA, ON 3L O2 NC, TOLERATING PO, VOIDING, AND DENIED PAIN. BELONGINGS AND DISCHARGE PACKET GIVEN TO SECURE TRANSPORT. PT ESCOURTED OUT VIA GURNEY BY TRANSPORT.
== END 2024-06-02 16:38 ==
LOC: ER 18:26 → EOR 18:27 → MEDS 18:27
PROVIDERS: Emergency Medicine; ADMIT Internal Medicine
DX: R45.851 Suicidal ideations (principal); F10.20 Alcohol dependence, uncomplicated; K59.00 Constipation, unspecified; G89.29 Other chronic pain; J44.9 Chronic obstructive pulmonary disease, unspecified; I10 Essential (primary) hypertension; N40.0 Benign prostatic hyperplasia without lower urinary tract symptoms; F17.210 Nicotine dependence, cigarettes, uncomplicated; Z11.52 Encounter for screening for COVID-19; Z99.81 Dependence on supplemental oxygen; Z66 Do not resuscitate; Z88.8 Allergy status to other drugs, medicaments and biological substances; Y90.2 Blood alcohol level of 40-59 mg/100 ml
CPT/HCPCS: 0241U; 36415; 71045; 80053; 80320; 81003; 84443; 85025; 93005; 93010; 94640; 94664; 94760; 99285-25; A9270; G0378; G0480; J0572; U0002

== ENCOUNTER 2024-06-15 06:56 | Observation (INO) | payer OTHER ==
[~2024-06-15] VITALS: Ht 175.3 cm; Wt 83.0 kg
[~2024-06-15 06:56] MED LIST changes: +ATOR40TA PO; +BUPRENORPHN-NA1 EAC2 PO; +FINA5 PO; +FLONASE ALLERG9.9 M2; +MIRALAX17 GM PO; +NARCAN4 M1; +PRED20 PO; +QUET25 PO; +SPIRIVA RESPIMAT4 G3 INH; +Seroquel Xr50 MG; +Vitamin B-12100 MCG PO; +[UNRECOGNIZED DRUG - OTHER] PO
[2024-06-15] MEDS ORDERED: Ipratropium/Albuterol SulF 2.5-0.5MG/3 ML Amp INH ONE (07:20)
[2024-06-15] MEDS ORDERED: NS 1,000 ML IV SCH (07:20)
[2024-06-15 07:27] LABS: Base Excess Venous 1.8 mmol/L; Bicarbonate Venous 25.5 mmol/L (24.0-30.0); PCO2 Venous 49.1 mmHg (38-42); pH Blood Venous 7.36 (7.34-7.37)
[2024-06-15 07:34] LABS: BASOPHILS ABSOLUTE AUTO 0.06 K/mm3 (0.00-0.23); BASOPHILS PERCENT AUTO 1 % (0-2); EOSINOPHILS ABSOLUTE AUTO 0.33 K/mm3 (0.00-0.68); EOSINOPHILS PERCENT AUTO 6 % (0-6); Hematocrit 30.9 % (37.0-53.0); Hemoglobin 10.5 g/dL (13.5-17.5); IMMATURE GRAN ABSOLUTE AUTO 0.01 K/mm3 (0.00-0.10); IMMATURE GRAN PERCENT AUTO 0 % (0-1); LYMPHOCYTES ABSOLUTE AUTO 0.98 K/mm3 (0.84-5.20); LYMPHOCYTES PERCENT AUTO 19 % (21-46); MONOCYTES ABSOLUTE AUTO 0.55 K/mm3 (0.16-1.47); MONOCYTES PERCENT AUTO 11 % (4-13); Mean Corpuscular HGB 32.3 pg (26.0-34.0); Mean Corpuscular Volume 95 fL (80-100); Mean Platelet Volume 9.4 fL (9.1-12.4); NEUTROPHILS ABSOLUTE AUTO 3.26 K/mm3 (1.96-9.15); NEUTROPHILS PERCENT AUTO 63 % (41-73); Platelet Count 214 K/mm3 (150-400); RDW Standard Deviation 49.2 fL (35.1-46.3); Red Blood Cell Count 3.25 M/mm3 (4.30-5.90); White Blood Cell Count 5.19 K/mm3 (4.00-11.30)
[2024-06-15 07:56] LABS: Albumin, Blood 3.6 g/dL (3.4-5.0); Albumin/Globulin Ratio 1.2 (0.8-1.8); Bilirubin, Total 0.3 mg/dL (0.1-1.0); Bun/Creatinine Ratio 14.9 (12.0-20.0); Calcium, Blood 8.4 mg/dL (8.5-10.1); Creatinine, Blood 0.8 mg/dL (0.60-1.20); Globulin, Blood 2.9 g/dL (2.2-4.0); Magnesium, Blood 2.3 mg/dL (1.6-2.4); Potassium, Blood 4.6 mmol/L (3.5-5.5); Total Protein, Blood 6.5 g/dL (6.4-8.2)
[2024-06-15 09:08] LABS: Source, Urine Clean Catch
[2024-06-15 09:25] LABS: Appearance, Urine Clear (Clear); Bilirubin, Urine Neg (Neg); Blood, Urine Neg (Neg); Color, Urine Yellow (P-Yellow); Glucose Qualitative, Urine Neg (Neg); Ketones, Urine Neg (Neg); Leukocyte Esterase, Urine Neg (Neg); Nitrite, Urine Neg (Neg); Protein, Urine Neg (Neg); Specific Gravity, Urine 1.015 (1.003-1.022); Urobilinogen, Urine NORM (Normal)
--- NOTE | 2024-06-15 12:57 | NUR ---
Pt resting on gurney. Affect flat minimal response. Expresses wanting to . HE drifts off during review of his needs. Pt states he has been falling more frequently. Review of pt with clinical social worker and physician. pt Needs hold. awaiting psyciatric assessment.
[2024-06-15] MEDS ORDERED: Nicotine Polacrilex 2 MG Gum PO PRN (13:15)
[2024-06-15] MEDS ORDERED: Acetaminophen 500 MG Tab PO PRN (13:55)
[2024-06-15] MEDS ORDERED: Buprenorphine HCL/Naloxone HCL 2-0.5MG 1 EA SL SCH (14:00)
[2024-06-15] MEDS ORDERED: Polyethylene Glycol 3350 17 gm PO PRN (14:00)
[2024-06-15 14:09] LABS: Influenza A, PCR NEGATIVE (NEGATIVE); Influenza B, PCR NEGATIVE (NEGATIVE); Resp Syncytial Virus, PCR NEGATIVE (NEGATIVE); SARS-Cov-2 (COVID-19) PCR, MMC NEGATIVE (NEGATIVE)
--- NOTE | 2024-06-15 20:55 | NUR ---
NEW ADMIT. PATIENT ADMITTED TO ROOM 350. PATIENT ARRIVED TO ROOM 350 BY WHEELCHAIR AND 1 PERSON TRANSPORT. PATIENT ABLE TO AMBULATE FROM WHEEL CHAIR TO HOSPITAL BED WITH SBA AND FWW. THIS RN TO ASSUME PATIENT CARE.
[2024-06-15 20:59] VITALS: BP 115/84
[2024-06-15] MEDS ORDERED: Docusate Sodium/Senna 1 Tab PO SCH (21:00)
[2024-06-15] MEDS ORDERED: DULoxetine HCL 30 MG Cap DR PO SCH (21:00)
[2024-06-15] MEDS ORDERED: Mirtazapine 30 MG Tab PO SCH (21:00)
[2024-06-15] MEDS ORDERED: QUEtiapine Fumarate 50 MG TAB PO SCH (21:00)
[2024-06-15] MEDS ORDERED: Albuterol HFA200 ACT/6.7 GM INH INH PRN (21:45)
[2024-06-15] MEDS ORDERED: Tiotropium Bromide 2.5 MCG/ACT MIST INHAL (10 ACT/4 GM) INH SCH (21:50)
[2024-06-15] MEDS ORDERED: Mometasone/Formoterol MDI 200/5 mcg 13 GM INH SCH (21:50)
[2024-06-16 03:10] VITALS: BP 128/85
--- NOTE | 2024-06-16 04:23 | NUR ---
SHIFT SUMMARY. PATIENT IS A&OX4. PATIENT IS ABLE TO MAKE HIS NEEDS KNOWN. PATIENT HAS 1:1 SITTER FOR HIGH SI. PATIENT IS PLEASANT AND COOPERATIVE WITH CARE-CAN BE SHORT AT TIMES. PATIENT IS ABLE TO MAKE HIS NEEDS KNOWN. PATIENT HAS BEEN RESTING T/O NIGHT WITH RESPIRATIONS EQUAL AND UNLABORED. PATIENT TAKES PILL WHOLE WITH WATER W/O DIFFICULTY. PATIENT HAS CIWAS-REPORTS DRINKING AROUND 11 BEERS A DAY. PATIENT IS IN PAPER SCRUBS AND HIS PERSONAL SHIRT. ROOM MITIGATED FOR SI. BED IS LOCKED IN THE LOWEST POSITION WITH CALL LIGHT IN REACH. CARE IS ONGOING.
[2024-06-16 07:31] VITALS: BP 143/81
[2024-06-16] MEDS ORDERED: Aspirin 325 MG Tab PO SCH (09:00)
[2024-06-16] MEDS ORDERED: Multivitamins 1 Tab PO SCH (09:00)
[2024-06-16] MEDS ORDERED: Tamsulosin HCl 0.4 MG Cap PO SCH (09:00)
[2024-06-16] MEDS ORDERED: Enoxaparin 40 MG/0.4 ML SYR SC SCH (09:00)
[2024-06-16] MEDS ORDERED: Thiamine HCl 100 MG Tab PO SCH (09:00)
[2024-06-16 15:20] VITALS: BP 130/99
--- NOTE | 2024-06-16 18:28 | NUR ---
SHIFT SUMMARY PT IS A&O X4 AND INDEPENDENT IN ROOM. PT HAS A 1:1 SITTER IN ROOM D/T SUICIDAL IDEALTATIONS. PT STATED TO THIS NURSE THAT HE WANTED TO LEAVE. THIS NURSE CALLED PHYSICAN AND RECIEVED A HOLD ORDER D/T PT MENTAL ISSUE AT THE TIME. PAPER WORK WAS SIGNED BY PHYSICIAN AND GONE OVER WITH THE PT GETACHEWUN 1750. PT STATES TO THIS NURSE THAT HE ALWAYS HAS THOUGHTS OF SUICIDE BUT IS TO MUCH OF A COWARD TO GO THROUGH WITH THEM OTHERWISE HE WOULD OF BEEN YEARS AGO.
[2024-06-16 20:12] VITALS: BP 139/88
[2024-06-17 03:34] VITALS: BP 140/85
--- NOTE | 2024-06-17 04:42 | NUR ---
SHIFT SUMMARY. PATIENT A&OX4, INDEPENDENT IN ROOM AND ABLE TO MAKE HIS NEEDS KNOWN. PATIENT HAS 1:1 SITTER FOR SI. PATIENT CALLS AND MAKES HIS NEEDS KNOWN. PATIENT UP TO RESTROOM TONIGHT. SLEPT OFF AND ON T/O NIGHT. PATIENT C/O NOT GETTING ENOUGH OXYGEN TONIGHT-O2 SET AT 3L'S VIA NASAL CANNULA; 3L'S IS PATIENTS BASELINE. NO ACUTE CHANGES NOTED. BED IS LOCKED IN THE LOWEST POSITION WITH SHORT CALL IN PLACE. CARE IS ONGOING.
[2024-06-17 07:39] VITALS: BP 136/86
[2024-06-17 15:45] VITALS: BP 122/81
--- NOTE | 2024-06-17 17:26 | NUR ---
SHIFT SUMMARY PT CONT LEVEL OF CARE WITH NO ACUTE CHANGES NOTED. PT IS A&O X4 AND INDEPENDENT IN ROOM. PT CONT WITH 1:1 SITTER D/T SUICIDAL IDEALTATIONS. PT STATED TO THIS NURSE THAT HE CONSTANTLY HAS THOUGHTS OF SUICIDE BUT IS TO MUCH OF A COWARD TO FINISH OUT THE THOUGHTS. PT HAS BEEN COORAPATIVE WITH CARE THIS SHIFT.
[2024-06-17 19:46] VITALS: BP 107/77
[2024-06-18 04:46] VITALS: BP 127/75
--- NOTE | 2024-06-18 06:49 | NUR ---
NO ACUTE CHANGES. PT SLEPT MOST OF SHIFT. SITTER IN PLACE. PT IS RESPECTUFL AND PLEASANT DURING INTERACTIONS, IND WITH CARES. PT ASKED QUESTIONS REGARDING HIS DNR STATUS AND WHAT IT MEANT, WHEN ASKED IF HE WOULD LIKE TO CHANGE HIS STATUS HE SAID HE WOULD THINK ABOUT IT.
[2024-06-18 07:47] VITALS: BP 139/85
[2024-06-18] MEDS ORDERED: Aspirin 81 MG TabEC PO SCH (09:00)
[2024-06-18 15:44] VITALS: BP 116/83
--- NOTE | 2024-06-18 17:58 | NUR ---
SHIFT SUMMARY: PT A/O X4. PLEASANT AND COOPERATIVE WITH CARE. PT C/O MUCOUS AND WET COUGH. DR. DYSON AWARE AND ORDERED MUCINEX TO START TONIGHT. 1:[address] SUICIDE PRECAUTIONS IN PLACE. CALL LIGHT IN REACH.
[2024-06-18 19:40] VITALS: BP 112/80
[2024-06-18] MEDS ORDERED: GuaiFENesin 600 MG TabCR PO SCH (21:00)
[2024-06-19 03:03] VITALS: BP 113/70
--- NOTE | 2024-06-19 06:54 | NUR ---
NO ACUTE CHANGES DURING SHIFT. SI PRECAUTIONS FOLLOWED. TALKING WITH PT HE STATES SI IS ALWAYS IN HIS THOUGHTS BUT LACKS THE COURAGE TO DO SO.
[2024-06-19 07:57] VITALS: BP 134/94
[2024-06-19] MEDS ORDERED: Buprenorphine HCL/Naloxone HCL 2-0.5MG 1 EA SL SCH ×2 (14:30→21:00)
[2024-06-19 15:39] VITALS: BP 122/89
--- NOTE | 2024-06-19 18:29 | NUR ---
SHIFT SUMMARY: PT A/O X4. PLEASANT AND COOPERATIVE WITH CARE. PT C/O INCREASED PAIN THIS SHIFT. [facility] NOT OPEN TODAY OR TOMORROW TO CONFIRM DOSAGE. NURSE NOTIFY IN PLACE TO CALL FOR VERIFICATION ON THURSDAY D/T THURSDAY BEING A HOLIDAY. SPOKE WITH PT FRIEND/PRACTICE LEAD WHO HELPS WITH MEDICATIONS. STATES PT WAS ON 8MG OF SUBOXONE A "[facility]." SUBOXONE DOSAGE INCREASED TO 6MG TID. SPOKE WITH JESSY AIR THIS SHIFT FACILITY SPOKE WITH STAFF ON MASTER CONTROL SUPERVISOR ASKING FOR DAILY BEHAVIORAL NOTES. PROVIDEBETHELE STATED NOTES NEEDED TO COME FROM PARTS DESIGNER OR HIGHER. NO NOTES IN CHART SINCE 06/15. 1:[address] CALL LIGHT IN REACH.
[2024-06-19 19:32] VITALS: BP 116/85
[2024-06-20 03:34] VITALS: BP 134/83
--- NOTE | 2024-06-20 04:34 | NUR ---
Pt awake alert and oriented x4 at this time. Pt stated, "I slept a little off and on." pt c/o pain. Medicated with tylenol per orders. affect pleasant. no distress noted.
[2024-06-20 07:34] VITALS: BP 125/77
[2024-06-20 14:49] VITALS: BP 134/84
--- NOTE | 2024-06-20 18:01 | NUR ---
SHIFT SUMMARY: PT A/O X4. PLEASANT AND COOPERATIVE. NO ACUTE CHANGES THIS SHIFT. 1:[address] FOR SI. CALL LIGHT IN REACH.
[2024-06-20 20:38] VITALS: BP 115/59
[2024-06-21 01:49] VITALS: BP 122/85
--- NOTE | 2024-06-21 06:02 | NUR ---
SHIFT SUMMARY PATIENT IS ON SI. APPEARED IN POSITIVE MOOD, VERY POLITE AND SOCIAL. ALERT AND ORIENTATED TIMES 4. AND ABLE TO MAKE NEEDS KNOWN. REQUESTED HIS NICOTINE GUM. LATER IN THE NIGHT ASKED FOR A POP-TART AND ABOUT AN HOUR LATER A DIET PEPSI. WHILE ENTERING ROOMO TO DO SI ASSESSMENT PATIENT APPEARED TO BE SLEEPING SITTING AT THE END OF HIS BED. WHEN I TURNED ON THE BATHROOM LIGHT HE AWOKE AND STATED THAT HE WAS VERY TIRED AND WANTED TO LAY DOWN FOR THE NIGHT. ASSISTED PATIENT WITH SHEETS AND BLANKET. BED IN LOW POSITION, RAILS TIMES TWO, AND CALL LIGHT WITHIN REACH.
--- NOTE | 2024-06-21 06:46 | NUR ---
SUICIDE RISK ASSESSMENT PT STATES HE HAS THOUGHTS ABOUT SUICIDE BUT DOES NOT HAVE A PLAN. HE FURTHER MORE STATED HE HASNT PLANNED OR STARTED ANY PLAN BECAUSE HE DOES NOT KNOW WHAT HIS PLAN WOULD BE OR IF HE COULD CARRY IT OUT. STATED HE SLEPT WELL. NOTIFIED PROVIDER OF CHANGE FROM HIGH TO MODERATE LEVEL.
[2024-06-21 06:57] VITALS: BP 137/91
[2024-06-21 15:14] VITALS: BP 112/81
--- NOTE | 2024-06-21 18:37 | NUR ---
SHIFT SUMMARY: PT A/O X4. PLEASANT AND COOPERATIVE WITH CARE. PT C/O SOB THROUGHOUT SHIFT. RT CALLED AND ASSESSED PT. PT RECEIVED INHALER AND BREATHING TREATMENT THIS SHIFT. REMAINS ON 3L NC. PT REQUESTING XRAYS OF BOTH KNEES AND SHOULDER. 1:[address] CALL LIGHT IN REACH.
[2024-06-21 19:33] VITALS: BP 127/82
[2024-06-22 04:20] VITALS: BP 122/93
[2024-06-22 07:33] VITALS: BP 111/77
--- NOTE | 2024-06-22 07:52 | NUR ---
SIFT SUMMARY WAS AWAKE SEVERAL TIMES. GAVE A PRN TYLENOL FOR MUSCLE PAIN. 1:1 SITTER ALL NIGHT.
--- NOTE | 2024-06-22 14:11 | NUR ---
SUICIDE ASSESSMENT RISK LEVEL LOW PATIENT ASSESSED SUICIDE RISK PER PROTOCOL. SCORED LOW ON SCALE. STATES HAS HAD SUICIDAL IDEATION WITH NO PLAN AND NO INTENTIONS OF ENDING LIFE SINCE LAST ASSESSED. WILL NOTIFY PROVIDER.
[2024-06-22 15:57] VITALS: BP 134/80
--- NOTE | 2024-06-22 16:27 | NUR ---
SHIFT SUMMARY PATIENT A/OX2, ABLE TO MAKE NEEDS KNOWN. SCORED LOW ON SUICIDE ASSESSMENT THIS AFTERNOON. PATIENT BECOMES EASILY AGITATE WITH QUESTIONING, BUT COOPERATIVE WITH STAFF. COMPLAINING OF CHRONIC BACK AND SHOULDER PAIN, MEDICATED PER DEC. MEDICALLY STABLE, 1:1 SITTER AT BEDSIDE. NO OTHER CONCERNS THIS SHIFT.
[2024-06-22 19:51] VITALS: BP 104/68
[2024-06-23 03:57] VITALS: BP 135/73
--- NOTE | 2024-06-23 05:33 | NUR ---
FOR MY SHIFT AND THE SHIFT BEFORE ME. WE GOT A LOWER SCORE ON HIS RISK LEVEL. PER PROTOCOL, I NOTIFIED HOSPITALIST DR. COLLINS. NO NEW ORDERS GIVEN.
--- NOTE | 2024-06-23 06:00 | NUR ---
SHIFT SUMMARY PATIENT WAS AWAKE MOST OF THE NIGHT, IS NOW ASKING FOR SOMETHING TO HELP HIM SLEEP. 1:1 SITTER ALL SHIFT. HAD 2 USES OF INHALER BY RT.
[2024-06-23 07:21] VITALS: BP 114/81
--- NOTE | 2024-06-23 08:56 | NUR ---
PLEASANT TO CARE, STEADY GAIT TO BATHROOM, 1:1 AT BEDSIDE, CALL LIGHT WITH IN REACH
[2024-06-23 14:15] VITALS: BP 101/81
--- NOTE | 2024-06-23 18:14 | NUR ---
PLEASANT AND COOPERATIVE TO CARE, 1:1 AT BEDSIDE, DENEIS WANTING TO ACT ON SI THOUGHTS, DENEIS HAVING A PLAN. MEDICATED WITH NICOTINE GUM, CLEARLY MAKES NEEDS KNOWN, 2 MD HOLD TO STOP TOMORROW. GOOD APPETITE THROUGH OUT THE DAY, REFUSED DINNER THIS PM, CALL LIGHT WITH IN REACH, WILL RELAY TO PM RN
[2024-06-23 19:40] VITALS: BP 125/88
[2024-06-24 05:05] VITALS: BP 117/69
--- NOTE | 2024-06-24 06:05 | NUR ---
Shift Summary No acute changes. Pt still endorses thinking about suicide which he says is his basline, but he has no plans to carry it out. He is content to wait for inpt placement for now. AOx4, moves independently in the room, 1:[address] t/o the shift.
[2024-06-24 07:51] VITALS: BP 131/93
[2024-06-24 14:59] VITALS: BP 115/77
--- NOTE | 2024-06-24 17:48 | NUR ---
PATIENT IS ALERT AND ORIENTED AND COOPERATIVE WITH CARE, MODERATE SI. WAITING FOR PLACEMENT TO INPATIENT PSYCH. THE PATIENT'S HOLD IS UP TODAY. NO NEW CONCERNS.
[2024-06-24 21:13] VITALS: BP 110/88
[2024-06-25 05:58] VITALS: BP 123/82
--- NOTE | 2024-06-25 06:15 | NUR ---
Shift Summary Pt woke up tonight with a sore throat, no fever. His productive cough was more frequent tonight than last night. Otherwise no new concerns, awaiting placement at in psych. Per dayshift his involuntary hold is over but pt has no desire to leave at this time.
[2024-06-25 07:22] VITALS: BP 126/77
[2024-06-25] MEDS ORDERED: DEXTROMETHORPHAN/BENZOCAINE 1 EACH LOZENGE MT PRN (12:30)
[2024-06-25 14:12] LABS: SARS-Cov-2 (COVID-19) PCR, MMC POSITIVE (NEGATIVE)
[2024-06-25 15:35] VITALS: BP 126/74
--- NOTE | 2024-06-25 17:01 | NUR ---
THE PATIENT IS ALERT AND ORIENTED AND COOPERATIVE WITH CARE. 1:[address] THE PSYCHIATRIST SAW THE PATIENT TODAY. APPARENTLY THE PLAN IS TO WAIT FOR INPATIENT PSYCH, IF THATS POSSIBLE. THE PATIENT TESTED POSITIVE FOR COVID TODAY. C/O SORE THROAT AND GENERALIZED WEAKNESS. ON 3L O2 VIA NC WHICH IS HIS BASELINE. WILL CONTINUE TO MONITOR
[2024-06-25 19:44] VITALS: BP 121/87
[2024-06-26 02:41] VITALS: BP 99/72
[2024-06-26 07:16] VITALS: BP 112/79
[2024-06-26 15:43] VITALS: BP 129/81
--- NOTE | 2024-06-26 17:42 | NUR ---
VSS, A-Ox4, denies SOB, states 8 out of 10 pain that was well managed with prn tylenol, ambulates independently, 1-1 sitter for SI, on 3L NC home setting. Lungs clear, heart regular, bowel sounds normative. Pt can make needs known, call lei in hand, bed in lowest position.
[2024-06-26 20:01] VITALS: BP 127/81
[2024-06-27 03:49] VITALS: BP 119/79
[2024-06-27 07:33] VITALS: BP 131/81
[2024-06-27] MEDS ORDERED: Acetaminophen 325 MG TABLET PO PRN (11:40)
[2024-06-27 15:37] VITALS: BP 145/83
[2024-06-27] MEDS ORDERED: Naproxen 500 MG Tab PO SCH (17:00)
--- NOTE | 2024-06-27 18:23 | NUR ---
VSS, A-Ox4, denies SOB, states 8 out of 10 pain that was well managed with prn tylenol and scheduled naproxen, ambulates independently, on 3L NC home setting, 1-1 sitter for SI. Lung diminished with inspirotory wheeze, heart regular, bowel sounds normative. Pt can make needs known, call lei in hand, bed in lowest position.
[2024-06-27 20:59] VITALS: BP 129/68
[2024-06-27 22:44] VITALS: BP 113/77
--- NOTE | 2024-06-28 05:38 | NUR ---
SHIFT SUMMARY. PATIENT IS A&OX4. PATIENT SBA THIS SHIFT DUE TO UNSTEADY GAIT R/T PATIENT BEING TIRED. PATIENT REPORTS THAT HE IS TIRED, FALLING ASLEEP WHILE SITTING UP-PATIENT DID NOT WANT TO LAY DOWN-THIS RN EDUCATED PATIENT ABOUT RISK FOR INJURY IF HE WAS TO FALL ASLEEP WHILE SITTING UP AND FALLS OFF THE BED, INTO SIDE TABLE-PATIENT LAYED DOWN AND WAS ABLE TO REST FOR 1 HOUR. PATIENT IS PLEASAT AND COOPERATIVE WITH CARE. PATIENT IS ON 2L'S O2 VIA NASAL CANNULA. PATIENT HAS COUGH-COVID POSITIVE. PATIENT IS IN ISOLATION. PATIENT HAS A 1:1 SITTER FOR SI. PATIENT IS AWAITING AVALIABILITY FOR INPATIENT PSYCH TREATMENT-PATIENTS PREFERENCE IS IN [place]. BED IS LOCKED IN THE LOWEST POSITION WITH CALL LIGHT IN REACH. CARE IS ONGOING.
[2024-06-28 09:01] VITALS: BP 128/77
[2024-06-28 15:26] VITALS: BP 140/94
--- NOTE | 2024-06-28 18:13 | NUR ---
VSS, A-Ox4, denies SOB, states 7 out of 10 pain that was well managed with prn tylenol and scheduled naproxen, ambulates independently, 2L NC home setting. Lung diminished with inspirotry wheeze, heart regular, bowel sounds normative. Pt can make needs known, call lei in hand, bed in lowest position.
[2024-06-28 19:29] VITALS: BP 154/83
[2024-06-29 02:21] VITALS: BP 107/67
--- NOTE | 2024-06-29 04:59 | NUR ---
SHIFT SUMMARY PATIENT HAD NO ACUTE CHANGES. AXOX 4 AND INDEPENDENT IN ROOM. PIV INTACT. DENIES CHEST PAIN, SOB, AND N/V. VSS/AFEBRILE. RT IN ROOM TO ASSESS PATIENT. CEPACOL LOZENGER GIVEN X ONE PER EMAR. SITTER 1:1 FOR SI. NO EVENTS. ON 2L O2 NC AND BASELINE. COOPERATIVE WITH CARE. CALL LIGHT IN REACH. BED IN LOWEST POSITION. WILL CONTINUE TO MONITOR UNTIL DAY SHIFT NURSE ASSUMES CARE.
[2024-06-29 07:58] VITALS: BP 148/76
[2024-06-29 16:05] VITALS: BP 152/82
--- NOTE | 2024-06-29 17:23 | NUR ---
SUMMARY- PT A/O X4, INDEPENDANT IN ROOM. 1:1 SUPERVISION FOR S.I, ADMITS TO ALWAYS HAVING SUICIDAL THOUGHTS BUT STATES HE WOULDN'T EVER TAKE HIS OWN LIFE.PT IS PLEASANT, VERBAL AND COMMUNICATIVE WITH STAFF. MAKES NEEDS KNOWN. VOIDING IN THE BATHROOM. TOLERATING FOOD AND FLUIDS. CEPACHOL FOR SORE THROAT. SUBAOXONE TID FOR SORE CHRONIC JOINT MUSCLE PAIN. PT HAS CRACKLES IN LUNG BASES, ON OXYGEN 2L WHICH IS PT'S BASELINE. PLAN FOR DC [facility] [place] [facility] [place].
[2024-06-29 19:33] VITALS: BP 136/97
[2024-06-30 03:27] VITALS: BP 125/93
--- NOTE | 2024-06-30 05:02 | NUR ---
SHIFT SUMMARY ALERT AND ORIENTED TIMES 4. INDEPENDANT AND ABLE TO AMBULATE TO USE BATHROOM. ABLE TO MAKE NEEDS KNOWN. COVID POSITIVE AND ACCEPTED TO [facility] BUT NEEDS TO BE CLEAR OF COVID. BED ON HOLD FOR NOW. BED IN LOW POSITION, RAILS TIMES 2, SITTER AT ROOM ENTRANCE
[2024-06-30 07:48] VITALS: BP 133/81
[2024-06-30 16:38] VITALS: BP 126/73
--- NOTE | 2024-06-30 17:21 | NUR ---
SHIFT SUMMARY: PT IS A&OX4/INDEPENDENT, 1:1 SITTER FOR SI, PATIENT CONTINUES TO HAVE SI, HE SAYS THAT HE WANTS AND IS READY TO . HE SAYS THAT HE HAS ATTEMPTED SUICIDE 15 TIMES AND IS A COWARD FOR TO FOLLOWING THOUGH AND CALLING. HE IS PLEASANT AND COOPERATIVE WITH CARE. HE IS SITTING ON THE SIDE OF HIS BED, CALL LIGHT AVAILABLE, BUT MAKES HIS NEEDS KNOWN BY LETTING THE SITTER OR STAFF KNOW. NO SIGNS OR SYMPTOMS OF DISTRESS, PLAN IS TO GET HIM TO [facility] POSSIBILY TOMORROW 07/01/24. AWAITING A BED AND THEN A PCR COVID TEST, PLAN OF CARE ONGOING.
[2024-06-30] MEDS ORDERED: ARIPiprazole 5 MG Tab PO SCH ×2 (18:00)
[2024-06-30 20:34] VITALS: BP 139/90
[2024-06-30] MEDS ORDERED: QUEtiapine Fumarate 25 MG Tab PO SCH (21:00)
[2024-07-01 05:26] VITALS: BP 139/93
--- NOTE | 2024-07-01 05:52 | NUR ---
SHIFT SUMMARY PATIENT IS ALERT AND ORIENTED TIMES 4. PATIENT IS POLITE AND RECEPTIVE TO CARE. PATIENT TOOK HS MEDICATIONS PER EMAR. HE APPEARED TO SLEEP THROUGH THE NIGHT WITHOUT ISSUE. WAS ABLE TO MAKE NEEDS KNOWN TO STAFF. PATIENT DENIED PAIN. BED IN LOW POSITION, RAILS TIMES 3, AND CALL LIGHT WITHIN REACH.
[2024-07-01 07:20] VITALS: BP 111/64
[2024-07-01 08:53] VITALS: BP 113/71
[2024-07-01 15:28] VITALS: BP 110/72
--- NOTE | 2024-07-01 18:20 | NUR ---
SHIFT SUMMARY: NO EVENTS OR CHANGES WITH THE PATIENT THROUGHOUT THE SHIFT. NO BEDS AVAILABLE AT [facility]. HE IS SITTING ON EDGE OF BED, 1:1 SITTER, MAKES NEEDS KNOWN, PLEASANT AND COOPERATIVE, NO SIGNS OR SYMPTOMS OF DISTRESS, PLAN OF CARE ONGOING.
[2024-07-01 19:27] VITALS: BP 113/85
[2024-07-02 04:36] VITALS: BP 141/89
--- NOTE | 2024-07-02 05:52 | NUR ---
SHIFT SUMMARY PATIENT IS ALERT AND ORIENTED TIMES 4. PATIENT TOOK HS MEDICATION PER EMAR. PATIENT RECEPTIVE TO CARE. PATIENT REQUESTED MORE COUGH DROPS AND TALKED TO NURSE ABOUT BOOKS HE ENJOYED READING. ABLE TO AMBULATE TO BATHROOM ON HIS OWN. PATIENT HAS TENDENCY TO FALL ASLEEP WHILE SITTING ON THE SIDE OF HIS BED., BUT IS EASILY REDIRECTED TO LAY BACK DOWN SAFELY. BED IN LOW POSITION, WITH RAILS TIMES TWO. SITTER AT ROOM ENTRANCE.
[2024-07-02 07:34] VITALS: BP 125/79
[2024-07-02 15:45] VITALS: BP 132/69
--- NOTE | 2024-07-02 16:44 | NUR ---
SHIFT SUMMARY: NO EVENTS OR CHANGES WITH THE PATIENT THROUGHOUT THE SHIFT. HE CONTINUES TO HAVE SI, PENDING PLACEMENT FOR BED AVAILABLITY AT [facility]. PATIENT SITTING OF EDGE OF BED, MAKES HIS NEED KNOWN BY INTERACTING WITH 1:1 SITTER, NO SIGNS OR SYMPTOMS OF DISTRESS, PLAN OF CARE ONGOING.
[2024-07-02 19:25] VITALS: BP 105/81
--- NOTE | 2024-07-02 22:18 | NUR ---
PT CONTINUES ON 1:1 OBSERVATION AT THE SCU UNIT/MEDICAL FLOOR [id number]. PT STATES: "I ALWAYS HAVE"- WHEN THIS WOOD CAR BUILDER ASKED THE PT IF HE HAS SUICIDAL IDEATION. PT DENIES HI/AVH DURING THIS SHIFT.
--- NOTE | 2024-07-03 03:28 | NUR ---
SHIFT SUMMARY PT CONTINUES ON CLOSE OBSERVATION, AND HAS 1:1 NON-CLINICAL SITTER FOR SAFETY. PT DENIES HI/AVH, AND WHEN ASKED ABOUT CURRENT THOUGHTS OF SI, PT STATES " I ALWAYS HAVE THEM," TO THIS AGENT CONTRACT CLERK. ROOM SAFETY CHECKS DONE DURING THIS SHIFT. O2 @2LITERS VIA NASAL CANNULA. SOME COUGHING NOTED AT HS. LUNG SOUNDS CLEAR FOR AUSCULTATION RUL AND RLL, DIMINISHED LL'S. 2100 SCHEDULED SUBUXONE IS EFFECTIVE FOR CHRONIC PAIN "TAKES IT DOWN TO 01/26," PER PT REPORT. PT AWAKE SITTING BY THE SIDE OF THE BED MOST OF THE NIGHT. THEN NODDING OFF/NAPPING AND LEANING UPPER BODY SIDEWAYS TOWARDS HEAD OF THE BED. NO ACUTE DISTRESS/EVENTS DURING THIS SHIFT. BED AT THE LOWEST POSITION, PT ABLE TO MAKE HIS NEEDS KNOWN. SITTER BY THE DOORWAY.
[2024-07-03 04:43] VITALS: BP 127/86
[2024-07-03 05:18] LABS: Hematocrit 29.9 % (37.0-53.0); Hemoglobin 9.9 g/dL (13.5-17.5)
[2024-07-03 05:45] LABS: Bun/Creatinine Ratio 15.3 (12.0-20.0); Calcium, Blood 9.4 mg/dL (8.5-10.1); Creatinine, Blood 0.92 mg/dL (0.60-1.20); Potassium, Blood 4.5 mmol/L (3.5-5.5)
[2024-07-03 07:09] VITALS: BP 134/83
[2024-07-03 15:55] VITALS: BP 121/89
--- NOTE | 2024-07-03 17:07 | NUR ---
SHIFT SUMMARY PATIENT IS ALERT AND ORIENTED. PATIENT HAS HAD NO ACUTE EVENTS THIS SHIFT. VITAL SIGNS REVIEWED. PATIENT HAS REMAINED IN SI PRECAUTIONS THIS SHIFT. PATIENT HAS COMPLAINED OF PAIN, MEDICATED PER EMAR. PATIENT HAS NOT COMPLAINED OF SOB, NAUSEA, OR VOMITTING THIS SHIFT. PATIENT HAS BEEN IND IN ROOM WITH NO ISSUES.
[2024-07-03] MEDS ORDERED: ARIPiprazole 10 MG Tab PO SCH (18:00)
[2024-07-03 20:59] VITALS: BP 141/75
--- NOTE | 2024-07-03 21:40 | NUR ---
SUICIDE RISK ASSESSMENT COMPLETED FOR THIS SHIFT. SEE INTERVENTIONS. 1:1 SITTER/CLOSE OBSERVATION CONTINUING DURING THIS SHIFT.
[2024-07-04 05:48] VITALS: BP 151/84
[2024-07-04 07:17] VITALS: BP 123/83
[2024-07-04 14:49] VITALS: BP 132/81
--- NOTE | 2024-07-04 19:21 | NUR ---
[id number] SUMMARY: A&Ox4. PLEASANT AND COOPERATIVE WITH CARE. CALLS APPROPRIATELY AND IS ABLE TO ADVOCATE NEEDS EFFECTIVELY. CONTINUES TO C/O DIETARY CHOICES AND REFUSING MOST MEALS. DID REQUEST RICE CRISPY CEREAL TODAY. MEDS WHOLE WITH FLUIDS. IV ABx DCd. ANTICIPATE DC TO U TOMORROW ONCE BED BECOMES AVAILABLE HE IS MEDICALLY STABLE FOR DC. BLEs STILL WITH SCRATCHES; BACITRACIN APPLIED. NO ACUTE CONCERNS T/O THE DAY. BED IN LOWEST POSITION. CALL LIGHT WITHIN REACH. ALL NEEDS MET. REPORT TO ONCOMING RN.
--- NOTE | 2024-07-04 19:24 | NUR ---
[id number] REPORT A&Ox4. PLEASANT AND COOPERATIVE WITH CARE. CALLS APPROPRIATELY AND IS ABLE TO ADVOCATE NEEDS EFFECTIVELY. 1:1 SITTER FOR CONTINUED SUICIDAL IDEATION. PRECAUTIONS IN PLACE. MEDS WHOLE WITH FLUIDS. CONTINENT OF BOTH BOWEL AND BLADDER. NO ACUTE CONCERNS OR EVENTS THIS SHIFT. BED IN LOWEST POSITION. CALL LIGHT WITHIN REACH. ALL NEEDS MET. REPORT TO ONCOMING RN.
[2024-07-04 20:52] VITALS: BP 138/86
[2024-07-05 05:22] VITALS: BP 117/76
--- NOTE | 2024-07-05 06:03 | NUR ---
SUMMARY: PT A/OX4, CALLS APPROPRIATELY TO SPECIFY NEEDS AND IS PLEASANT AND COOPERATIVE W/CARE. HE REMAINS ON SI PRECAUTIONS W/1:1 SITTER IN PROGRESS BUT DENIES CURRENT PLAN OR IDEATION. HE'S UP AD TIM IN ROOM W/TOILET ASSIST PROVIDED PER PROTOCOL. PT REMAINS ON 2L O2 VIA NC PER HOME SETTING AND NO S/S RESP DISTRESS. TYLENOL AND CEPACOL LOZANGES RECEIVED PRN FOR RELIEF OF SHOULDER PAIN AND SORE THROAT. NO ACUTE CHANGES, VSS/AFEBRILE. PLAN FOR INPATIENT PSYCH AT [facility] [place] UPON D/C. [place] AND REPORT TO DAY RN.
[2024-07-05 07:40] VITALS: BP 134/91
[2024-07-05 15:27] VITALS: BP 136/89
--- NOTE | 2024-07-05 18:23 | NUR ---
PATIENT A&OX4 AND COOPERATIVE OF CARES. HE IS ABLE TO VERBALIZE HIS NEEDS. PATIENT REQUESTS PRN CEPACOL Q4H. AMBULATES INDEPENDENTLY IN ROOM. PATIENT HAS 1:1 SITTER FOR SI. PATIENT C/O PAIN TO SHOULDERS AND BACK, PAIN TREATED PER EMAR. PATIENT ON 2L NC. BED IS IN LOW POSITION AND CALL LIGHT IS WITHIN REACH.
[2024-07-05 19:21] VITALS: BP 152/94
[2024-07-05 19:23] VITALS: BP 133/91
[2024-07-05] MEDS ORDERED: Saline Nasal Spray 45 ML PRN (22:10)
[2024-07-05] MEDS ORDERED: LISI5 PO (23:20)
[2024-07-06 02:13] VITALS: BP 126/76
--- NOTE | 2024-07-06 04:19 | NUR ---
SUMMARY: PT ALERT ORIENTED X 4. ABLE TO VERBALIZE NEEDS. GETS UP INDEPENDENTLY TO THE BATHROOM WITH A 1:1 SITTER. VSS AT THIS TIME. REMAINS ON O2 AT 2L VIA NC. C/O GENERALIZED PAIN. MEDICATED WITH TYLENOL. SLEEPING AT THIS TIME
[2024-07-06 07:30] VITALS: BP 159/85
[2024-07-06 15:25] VITALS: BP 119/85
[2024-07-06] MEDS ORDERED: NICO2 PO (15:31)
[2024-07-06] MEDS ORDERED: ABILIFY MYCITE15 M2 PO (15:34)
[2024-07-06] MEDS ORDERED: B-1100 M1 PO (15:35)
--- NOTE | 2024-07-06 18:34 | NUR ---
DAY SHIFT SUMMARY A&Ox4. PLEASANT AND COOPERATIVE WITH CARE. CALLS APPROPRIATELY AND IS ABLE TO ADVOCATE NEEDS EFFECTIVELY. NO IV ACCESS. MAINTAINING SPO2 >92% ON 2LPM/NC. CONTINUES WITH 1:1 SITTER FOR HIGH SI RISK. CALL WITH [facility] TODAY; ANTICIPATE DC TOMORROW. CONTINUES TO REQUEST APAP q4h AND COUGH DROPS q4h ROUTINELY. CONTINENT OF BOWEL AND BLADDER. INDEPENDENT WITH AMBULATION. NO ACUTE CONCERNS THIS SHIFT. BED IN LOWEST POSITION. CALL LIGHT WITHIN REACH. ALL NEEDS MET. [id number] AT ALL TIMES WITH 1:1 SITTER AT DOOR. REPORT TO ONCOMING RN.
[2024-07-06 19:20] VITALS: BP 131/81
[2024-07-07 03:34] VITALS: BP 125/91
--- NOTE | 2024-07-07 06:47 | NUR ---
SHIFT SUMMARY: Pt is admitted for SI and is a DNR. is alert and able to make needs known. ADLs have been IND. Pain has been managed with scheduled and PRN medication. Currently a 1:[address] for SI precautions. During conversation with him he states that he has ideations all the time but does not have a plan.
--- NOTE | 2024-07-07 15:10 | NUR ---
DISCHARGE SUMMARY: PT DISCHARGED AT 1436. [facility]. WENT HOME WITH AN O2 TANK AT 3L. SELF AMBULATED INTO RESTROOM AND CHANGED INTO CLOTHES, PACKED UP ALL BELONGINGS. EDUCATED ON CURRENT PLAN OF CARE AND TO FOLLOW UP [facility]CP OR [facility] IF [facility] AN [facility]ERGENCY. PT WAS AOX4, NO LABORED BREATHING, AND HEART S1S2 AUDIBLE REGULAR RHYTHM. SELF AMBULATED INTO WHEELCHAIR.
--- NOTE | 2024-07-07 15:18 | NUR ---
THIS SUPERVISOR WATERWORKS HAS REVIEWED AND AGREES WITH ALL NOTES AND ASSESSMENTS BY FERNANDA KHALIL.
== END 2024-07-07 14:40 | disposition home health service (06) ==
LOC: ER 06:56 → MEDS 06:57 → ER 19:31 → EOR 19:31 → MEDS 19:31 → EOR 20:58 → MEDS 20:58 → ENPENDDIS 07-06 18:36 → MEDS 07-07 14:40
PROVIDERS: Internal Medicine; Student in an Organized Health Care Education/Training Program; ADMIT Internal Medicine
DX: F33.9 Major depressive disorder, recurrent, unspecified (principal); F43.12 Post-traumatic stress disorder, chronic; F10.20 Alcohol dependence, uncomplicated; J44.9 Chronic obstructive pulmonary disease, unspecified; I10 Essential (primary) hypertension; G89.29 Other chronic pain; J96.11 Chronic respiratory failure with hypoxia; N40.0 Benign prostatic hyperplasia without lower urinary tract symptoms; F17.210 Nicotine dependence, cigarettes, uncomplicated; Z66 Do not resuscitate; D68.62 Lupus anticoagulant syndrome; Z88.8 Allergy status to other drugs, medicaments and biological substances; Z79.82 Long term (current) use of aspirin; Z79.899 Other long term (current) drug therapy
CPT/HCPCS: 0241U; 36415; 51701; 51798; 70450; 71046; 80048; 80053; 80320; 81003; 82803; 83735; 84145; 85014; 85018; 85025; 93005; 93010; 94640; 94664; 94760; 94762; 96360; 96372; 97161; 99285-25; A9270; G0378; J0572; J1650; J7030; U0002

== ENCOUNTER 2024-07-25 10:07 | Observation (INO) | payer OTHER ==
[~2024-07-25] VITALS: Ht 177.8 cm; Wt 76.6 kg
[~2024-07-25 10:07] MED LIST changes: +ABILIFY MYCITE15 M2 PO; +B-1100 M1 PO; +LISI5 PO; +NICO2 PO
[2024-07-25] MEDS ORDERED: Ipratropium/Albuterol SulF 2.5-0.5MG/3 ML Amp INH ONE ×2 (12:35→16:00)
[2024-07-25 13:34] LABS: U Amphetamine Screen Not Detected; U Barbituate Screen Not Detected; U Benzodiazapine Screen Not Detected; U Buprenorphine Screen DETECTED; U Cannabinoids Screen Not Detected; U Cocaine Screen Not Detected; U Methadone Screen Not Detected; U Methamphetamine Screen Not Detected; U Opiates Screen Not Detected; U Oxycodone Screen Not Detected; U Phencyclidine Screen Not Detected
[2024-07-25 14:52] LABS: BASOPHILS ABSOLUTE AUTO 0.03 K/mm3 (0.00-0.23); BASOPHILS PERCENT AUTO 1 % (0-2); EOSINOPHILS ABSOLUTE AUTO 0.22 K/mm3 (0.00-0.68); EOSINOPHILS PERCENT AUTO 5 % (0-6); Hematocrit 31.2 % (37.0-53.0); Hemoglobin 10.8 g/dL (13.5-17.5); IMMATURE GRAN ABSOLUTE AUTO 0.02 K/mm3 (0.00-0.10); IMMATURE GRAN PERCENT AUTO 0 % (0-1); LYMPHOCYTES ABSOLUTE AUTO 0.89 K/mm3 (0.84-5.20); LYMPHOCYTES PERCENT AUTO 19 % (21-46); MONOCYTES ABSOLUTE AUTO 0.48 K/mm3 (0.16-1.47); MONOCYTES PERCENT AUTO 10 % (4-13); Mean Corpuscular HGB 32.6 pg (26.0-34.0); Mean Corpuscular HGB Conc 34.6 g/dL (31.5-36.5); Mean Corpuscular Volume 94 fL (80-100); Mean Platelet Volume 9.3 fL (9.1-12.4); NEUTROPHILS ABSOLUTE AUTO 3.16 K/mm3 (1.96-9.15); NEUTROPHILS PERCENT AUTO 66 % (41-73); Platelet Count 188 K/mm3 (150-400); RDW Coefficient Variation 14.3 % (11.7-14.2); RDW Standard Deviation 49.1 fL (35.1-46.3); Red Blood Cell Count 3.31 M/mm3 (4.30-5.90)
[2024-07-25 15:15] LABS: Albumin, Blood 3.6 g/dL (3.4-5.0); Albumin/Globulin Ratio 1.3 (0.8-1.8); Bilirubin, Total 0.5 mg/dL (0.1-1.0); Bun/Creatinine Ratio 10.7 (12.0-20.0); Calcium, Blood 8.8 mg/dL (8.5-10.1); Creatinine, Blood 0.75 mg/dL (0.60-1.20); Globulin, Blood 2.8 g/dL (2.2-4.0); Potassium, Blood 4.7 mmol/L (3.5-5.5); Total Protein, Blood 6.4 g/dL (6.4-8.2)
[2024-07-25] MEDS ORDERED: PredniSONE 20 MG Tab PO ONE (16:00)
[2024-07-25 17:41] LABS: Influenza A, PCR NEGATIVE (NEGATIVE); Influenza B, PCR NEGATIVE (NEGATIVE); Resp Syncytial Virus, PCR NEGATIVE (NEGATIVE); SARS-Cov-2 (COVID-19) PCR, MMC NEGATIVE (NEGATIVE)
[2024-07-25] MEDS ORDERED: Guaifenesin/Dextromethorphan Syrup 5 ML UDC PO PRN (18:30)
[2024-07-25] MEDS ORDERED: FLU VACC TS2024-25(6MOS UP)/PF 45 MCG/0.5 ML SYRINGE IM SCH (18:30)
[2024-07-25] MEDS ORDERED: Albuterol 2.5 MG/3 ML VIAL INH PRN (18:30)
[2024-07-25] MEDS ORDERED: Acetaminophen 325 MG TABLET PO PRN (18:30)
[2024-07-25] MEDS ORDERED: Ipratropium/Albuterol SulF 2.5-0.5MG/3 ML Amp INH SCH (18:35)
[2024-07-25] MEDS ORDERED: Ondansetron HCl 2 MG / ML 2ML Vial IV PRN (18:35)
[2024-07-25] MEDS ORDERED: Tiotropium Bromide 2.5 MCG/ACT MIST INHAL (10 ACT/4 GM) INH SCH (18:35)
[2024-07-25] MEDS ORDERED: Ibuprofen 600 MG Tab PO PRN (18:40)
[2024-07-25] MEDS ORDERED: Mometasone/Formoterol MDI 200/5 mcg 13 GM INH SCH (18:45)
[2024-07-25] MEDS ORDERED: Buprenorphine HCL/Naloxone HCL 2-0.5MG 1 EA SL SCH (21:00)
[2024-07-25] MEDS ORDERED: ARIPiprazole 5 MG Tab PO SCH (21:00)
[2024-07-25] MEDS ORDERED: Mirtazapine 30 MG Tab PO SCH (21:00)
[2024-07-26 05:53] VITALS: BP 122/78
[2024-07-26] MEDS ORDERED: Enoxaparin 40 MG/0.4 ML SYR SC SCH (09:00)
[2024-07-26] MEDS ORDERED: Multivitamins 1 Tab PO SCH (09:00)
[2024-07-26] MEDS ORDERED: Aspirin 81 MG Chew PO SCH (09:00)
[2024-07-26] MEDS ORDERED: Tamsulosin HCl 0.4 MG Cap PO SCH (09:00)
[2024-07-26] MEDS ORDERED: Folic Acid 1 MG TAB PO SCH (09:00)
[2024-07-26] MEDS ORDERED: DULoxetine HCL 60 MG Capsule DR PO SCH (09:00)
[2024-07-26] MEDS ORDERED: Thiamine HCl 100 MG Tab PO SCH (09:00)
[2024-07-26] MEDS ORDERED: Loratadine 10 MG Tab PO SCH (09:00)
[2024-07-26 09:39] VITALS: BP 114/78
[2024-07-26] MEDS ORDERED: Buprenorphine HCL/Naloxone HCL 2-0.5MG 1 EA SL ONE (10:05)
[2024-07-26] MEDS ORDERED: GuaiFENesin 600 MG TabCR PO SCH ×2 (12:31→21:00)
[2024-07-26] MEDS ORDERED: Buprenorphine HCL/Naloxone HCL 2-0.5MG 1 EA SL SCH (14:00)
--- NOTE | 2024-07-26 16:49 | NUR ---
Report called to [facility] hunter.
--- NOTE | 2024-07-26 17:03 | NUR ---
TRANSFER SUMMARY PT A&O X4, ABLE TO MAKE NEEDS KNOWN. CAN BE PLEASENT AT TIME BUT WHEN THINGS ARE NOT DONE TO HIS EXPECTATIONS HE DID BECOME AGITATED, DURING AN EPISODE PT STATED HE WANTED TO LEAVE, PT WAS DE-ESCALATED BY STAFF. DURING HISTORY ASSESMENT PT BECAME NONCOMPLIANT AND WOULD NO LONGER ANSWER QUESTION STATING " I AM DONE" "I WILL NOT BE ANSWERING ANY MORE QUESTION". PT WAS ON BASELINE O2 AT 3L NC, LUNGS SOUND CLEAR, NO RESPIRTORY DISTRESS. PT DENIED CHEST P/P, BP WNL, HR 70-80'S THROUGHOUT SHIFT. PT WAS ABLE TO WALK AROUND IN ROOM WITHOUT ABULATORY AID. PT SAW PSYCH DOCTOR THIS AM. PT HAD 1:1 SITTER T/O WHOLE SHIFT. REPORT GIVEN TO [facility] RN. TRANSPORTED VIA MEDICAL STAFF.
== END 2024-07-26 16:48 ==
LOC: ER 10:07 → ERHOLD 10:08 → PCU 10:08
PROVIDERS: Student in an Organized Health Care Education/Training Program; ADMIT Internal Medicine
DX: F31.9 Bipolar disorder, unspecified (principal); R45.851 Suicidal ideations; F43.10 Post-traumatic stress disorder, unspecified; J44.1 Chronic obstructive pulmonary disease with (acute) exacerbation; I25.10 Atherosclerotic heart disease of native coronary artery without angina pectoris; G89.4 Chronic pain syndrome; N40.0 Benign prostatic hyperplasia without lower urinary tract symptoms; F10.20 Alcohol dependence, uncomplicated; F17.210 Nicotine dependence, cigarettes, uncomplicated; Z79.899 Other long term (current) drug therapy; Z79.82 Long term (current) use of aspirin; Z88.8 Allergy status to other drugs, medicaments and biological substances; Z99.81 Dependence on supplemental oxygen; Z86.16 Personal history of COVID-19
CPT/HCPCS: 0241U; 71046; 80053; 83735; 83880; 84443; 84484; 85025; 93005; 93010; 94640; 94664; 94760; 94762; 99285-25; A9270; G0378; J0572; J1650; J7512

== ENCOUNTER 2024-09-24 03:23 | Inpatient (IN) | payer OTHER ==
[~2024-09-24] VITALS: Ht 182.9 cm; Wt 84.6 kg
[2024-09-24] MEDS ORDERED: MethylPREDNISolone Sod Succ 125 MG Vial IV ONE (03:30)
[2024-09-24] MEDS ORDERED: Ipratropium/Albuterol SulF 2.5-0.5MG/3 ML Amp INH ONE ×2 (03:30→04:35)
[2024-09-24 03:49] LABS: BASOPHILS ABSOLUTE AUTO 0.04 K/mm3 (0.00-0.23); BASOPHILS PERCENT AUTO 0 % (0-2); EOSINOPHILS ABSOLUTE AUTO 0.23 K/mm3 (0.00-0.68); EOSINOPHILS PERCENT AUTO 2 % (0-6); Hematocrit 33.9 % (37.0-53.0); Hemoglobin 11.5 g/dL (13.5-17.5); IMMATURE GRAN ABSOLUTE AUTO 0.05 K/mm3 (0.00-0.10); IMMATURE GRAN PERCENT AUTO 1 % (0-1); LYMPHOCYTES ABSOLUTE AUTO 0.68 K/mm3 (0.84-5.20); LYMPHOCYTES PERCENT AUTO 7 % (21-46); MONOCYTES PERCENT AUTO 10 % (4-13); Mean Corpuscular HGB 33.5 pg (26.0-34.0); Mean Corpuscular HGB Conc 33.9 g/dL (31.5-36.5); Mean Corpuscular Volume 99 fL (80-100); Mean Platelet Volume 9.5 fL (9.1-12.4); NEUTROPHILS ABSOLUTE AUTO 8.46 K/mm3 (1.96-9.15); NEUTROPHILS PERCENT AUTO 81 % (41-73); Platelet Count 188 K/mm3 (150-400); RDW Coefficient Variation 13.9 % (11.7-14.2); RDW Standard Deviation 50.6 fL (35.1-46.3); Red Blood Cell Count 3.43 M/mm3 (4.30-5.90); White Blood Cell Count 10.46 K/mm3 (4.00-11.30)
[2024-09-24 04:05] LABS: Bun/Creatinine Ratio 10.9 (12.0-20.0); Calcium, Blood 9.2 mg/dL (8.5-10.1); Creatinine, Blood 0.74 mg/dL (0.60-1.20); Potassium, Blood 4.3 mmol/L (3.5-5.5)
[2024-09-24] MEDS ORDERED: FLU VACC TS2024-25(6MOS UP)/PF 45 MCG/0.5 ML SYRINGE IM ONE (05:55)
[2024-09-24] MEDS ORDERED: Acetaminophen 325 MG TABLET PO PRN (05:55)
[2024-09-24] MEDS ORDERED: Ondansetron HCl 2 MG / ML 2ML Vial IV PRN (05:55)
[2024-09-24] MEDS ORDERED: Ipratropium/Albuterol SulF 2.5-0.5MG/3 ML Amp INH PRN (05:55)
[2024-09-24] MEDS ORDERED: Doxycycline Hyclate 200 MG in Dextrose 5% 500 ML IV ONE (05:55)
[2024-09-24] MEDS ORDERED: CefTRIAXone Sodium 1,000 MG in NS 100 ML IV SCH (06:25)
[2024-09-24 07:02] LABS: Influenza A, PCR NEGATIVE (NEGATIVE); Influenza B, PCR NEGATIVE (NEGATIVE); Resp Syncytial Virus, PCR NEGATIVE (NEGATIVE); SARS-Cov-2 (COVID-19) PCR, MMC NEGATIVE (NEGATIVE)
[2024-09-24] MEDS ORDERED: Tiotropium Bromide 2.5 MCG/ACT MIST INHAL (10 ACT/4 GM) INH SCH (07:55)
[2024-09-24] MEDS ORDERED: MethylPREDNISolone Sod Succ 125 MG Vial IV SCH (08:00)
[2024-09-24] MEDS ORDERED: Mometasone/Formoterol MDI 200/5 mcg 13 GM INH SCH (08:40)
[2024-09-24] MEDS ORDERED: Albuterol HFA200 ACT/6.7 GM INH INH PRN (08:40)
[2024-09-24] MEDS ORDERED: DULoxetine HCL 60 MG Capsule DR PO SCH (09:00)
[2024-09-24] MEDS ORDERED: Aspirin 81 MG Chew PO SCH (09:00)
[2024-09-24] MEDS ORDERED: Enoxaparin 40 MG/0.4 ML SYR SC SCH (09:00)
[2024-09-24] MEDS ORDERED: Buprenorphine HCL/Naloxone HCL 8MG-2MG Tab SL SCH (09:00)
[2024-09-24] MEDS ORDERED: Nicotine Polacrilex 2 MG Gum PO PRN (11:00)
[2024-09-24] MEDS ORDERED: Guaifenesin/Dextromethorphan Syrup 5 ML UDC PO PRN (11:55)
[2024-09-24 16:51] VITALS: BP 121/88
--- NOTE | 2024-09-24 18:14 | NUR ---
NEW ADMIT, CALL LIGHT WITH IN REACH, CLEARLY MAKES NEEDS KNOWN, EASILY SOB WITH ANY ACTIVITY, 1-2PA WITH FWW TO STAND AT EDGE OF BED DUE TO SOB AND WEAKNESS. PSY CONSULT CALLED IN, SPUTUMN CULTURE SENT, SL, ALERT AND ORIENTED TO ALL, CALL LIGHT WITH IN REACH
[2024-09-24] MEDS ORDERED: GuaiFENesin 600 MG TabCR PO SCH (21:00)
[2024-09-24] MEDS ORDERED: Mirtazapine 30 MG Tab PO SCH (21:00)
[2024-09-24] MEDS ORDERED: ARIPiprazole 5 MG Tab PO SCH (21:00)
[2024-09-24] MEDS ORDERED: Tamsulosin HCl 0.4 MG Cap PO SCH (21:00)
[2024-09-24 21:19] VITALS: BP 141/74
[2024-09-25 04:42] VITALS: BP 148/92
--- NOTE | 2024-09-25 05:04 | NUR ---
SHIFT SUMMARY PT A&Ox4. NO C/O PAIN. REMAINS ON 3L OF OXYGEN DURING THE NIGHT. SLEPT UP RIGHT IN BED ON AND OFF T/O NIGHT. PT DOES REPORT BREATHING FEELS A LITTLE IMPROVED BUT LUNGS COURSE THROUGH OUT. NO EVENTS ON TELE. VSS. BED ALARM ON. BED IN LOWEST POSITION AND CALL LIGHT IN REACH.
[2024-09-25 05:10] LABS: BASOPHILS ABSOLUTE AUTO 0.02 K/mm3 (0.00-0.23); BASOPHILS PERCENT AUTO 0 % (0-2); EOSINOPHILS PERCENT AUTO 0 % (0-6); Hematocrit 35.1 % (37.0-53.0); IMMATURE GRAN ABSOLUTE AUTO 0.13 K/mm3 (0.00-0.10); IMMATURE GRAN PERCENT AUTO 1 % (0-1); LYMPHOCYTES ABSOLUTE AUTO 0.58 K/mm3 (0.84-5.20); LYMPHOCYTES PERCENT AUTO 3 % (21-46); MONOCYTES ABSOLUTE AUTO 0.77 K/mm3 (0.16-1.47); MONOCYTES PERCENT AUTO 4 % (4-13); Mean Corpuscular HGB 33.1 pg (26.0-34.0); Mean Corpuscular HGB Conc 34.2 g/dL (31.5-36.5); Mean Corpuscular Volume 97 fL (80-100); NEUTROPHILS ABSOLUTE AUTO 15.92 K/mm3 (1.96-9.15); NEUTROPHILS PERCENT AUTO 92 % (41-73); RDW Coefficient Variation 13.7 % (11.7-14.2); RDW Standard Deviation 48.7 fL (35.1-46.3); Red Blood Cell Count 3.62 M/mm3 (4.30-5.90); White Blood Cell Count 17.42 K/mm3 (4.00-11.30)
[2024-09-25 05:18] LABS: Albumin, Blood 3.1 g/dL (3.4-5.0); Albumin/Globulin Ratio 0.9 (0.8-1.8); Bilirubin, Total 0.4 mg/dL (0.1-1.0); Bun/Creatinine Ratio 24.5 (12.0-20.0); Calcium, Blood 9.4 mg/dL (8.5-10.1); Creatinine, Blood 0.74 mg/dL (0.60-1.20); Globulin, Blood 3.4 g/dL (2.2-4.0); Potassium, Blood 4.5 mmol/L (3.5-5.5); Total Protein, Blood 6.5 g/dL (6.4-8.2)
[2024-09-25 05:31] LABS: Mean Platelet Volume 10.3 fL (9.1-12.4); Platelet Count 226 K/mm3 (150-400)
[2024-09-25 07:08] VITALS: BP 148/89
[2024-09-25] MEDS ORDERED: Tamsulosin HCl 0.4 MG Cap PO SCH (09:00)
[2024-09-25] MEDS ORDERED: LORazepam 2 MG/ML 1ML Injection IV PRN (13:10)
[2024-09-25] MEDS ORDERED: ChlordiazePOXIDE 25 MG Cap PO PRN (13:10)
[2024-09-25] MEDS ORDERED: Buprenorphine HCL/Naloxone HCL 8MG-2MG Tab SL SCH (14:00)
[2024-09-25 14:49] VITALS: BP 124/88
--- NOTE | 2024-09-25 16:38 | NUR ---
ALERT ANDORIENTED X4, CLEARLY MAKES NEEDS KNWON, SOB EASILY WITH INTERACTION, EXERTION TOLERANCE IMRPOVED WITH SOB, 4L O2 WITH EXERTION, 3L O2 AT REST, LS CRACKLES THROUGH OUT, CLEARS CONGESTION. CIWA STARTED 10-02, CALL LIGHT WITH IN REACH, WILL RELAY TO PM RN
--- NOTE | 2024-09-25 19:40 | NUR ---
RECEIVED BEDSIDE REPORT FROM DAYSHIFT RN. NO NEEDS AT THIS TIME. CALL LT IN REACH.
[2024-09-25] MEDS ORDERED: MethylPREDNISolone Sod Succ 125 MG Vial IV SCH (21:00)
[2024-09-25 21:18] VITALS: BP 134/87
--- NOTE | 2024-09-25 23:56 | NUR ---
PT AWAKENS TO NAME, REPLACED A TELE LEAD, ENCOURAGED PT TO WEAR HIS OXYGEN WHILE SLEEPING. NO OTHER NEEDS. CALL LT IN REACH.
--- NOTE | 2024-09-26 02:40 | NUR ---
PT RESTING, EYES CLOSED, RESP EVEN, 4L NC, CALL LT IN REACH.
[2024-09-26 03:48] VITALS: BP 119/83
--- NOTE | 2024-09-26 04:11 | NUR ---
SHIFT SUMMARY: PT ALERT, ORIENTED AND COOPERATIVE WITH CARE. ABLE TO MAKE NEEDS KNOWN. USES CALL LT APPROPRIATELY. ON 4L NC. SINUS RHYTHM AT 75 WITH BBB PER BIBLE TEACHER. NO REPORTS OF CHEST PAIN OR CHEST PRESSURE. CIWA SCORE 3, DENIES WITHDRAWAL SYMPTOMS. ABLE TO TRANSFER SELF INDEPENDENTLY TO [facility]. CONTINUES TO HAVE SOB WHEN UP. RESTED WELL. NO ACUTE CHANGES. WILL CONTINUE TO PROIDE CARE UNTIL SHIFT REPORT TO ONCOMING NURSE. CALL LT IN REACH.
[2024-09-26 05:23] LABS: Hematocrit 33.2 % (37.0-53.0); Mean Corpuscular HGB Conc 33.1 g/dL (31.5-36.5); Mean Corpuscular Volume 100 fL (80-100); Mean Platelet Volume 9.8 fL (9.1-12.4); Platelet Count 231 K/mm3 (150-400); RDW Coefficient Variation 13.8 % (11.7-14.2); RDW Standard Deviation 49.6 fL (35.1-46.3); Red Blood Cell Count 3.33 M/mm3 (4.30-5.90); White Blood Cell Count 12.98 K/mm3 (4.00-11.30)
[2024-09-26 06:02] LABS: Calcium, Blood 9.6 mg/dL (8.5-10.1); Creatinine, Blood 0.75 mg/dL (0.60-1.20); Magnesium, Blood 2.4 mg/dL (1.6-2.4); Potassium, Blood 4.5 mmol/L (3.5-5.5)
--- NOTE | 2024-09-26 06:02 | NUR ---
PT RESTING QUIETLY. 4L VIA NC IN PLACE. CALL LT IN REACH.
[2024-09-26 07:15] VITALS: BP 145/100
[2024-09-26] MEDS ORDERED: NS 250 ML IV PRN (08:45)
[2024-09-26] MEDS ORDERED: Vancomycin HCL 2,000 MG in NS 500 ML IV SCH (11:00)
[2024-09-26 15:46] VITALS: BP 113/85
--- NOTE | 2024-09-26 18:03 | NUR ---
SHIFT SUMMARY PT CONT LEVEL OF CARE WITH NO ACUTE CHANGES NOTED. PT DID VOICE C/O DIFFICULTY BREATHING X1 THIS SHIFT WITH PRN TX GIVEN. PT IS A&O X4 AND ASSIST X1 WITH FWW. PT CONT TO REMAIN ON 4L/NC.
[2024-09-26 19:36] VITALS: BP 107/76
[2024-09-26] MEDS ORDERED: Vancomycin HCL 1,250 MG in NS 250 ML IV SCH (23:00)
--- NOTE | 2024-09-27 04:34 | NUR ---
WELDING MACHINE SETTER SUMMARY: PT A&O X4, X1 ASSIST WITH FWW. MAKES NEEDS KNOWN, USES CALL LIGHT APPROPRIATELY. NO ACUTE CHANGES NOTED T/O SHIFT. PRN ROBITUSSIN DM AND NICOTINE JORGE GIVEN PER ORDERS IN EMAR; EFFECTIVE. NO ADVERSE SIDE EFFECTS NOTED TO IV VANCOMYCIN TX. CWA: 1. SINUS RHYTHM AT 60'S BPM WITH BBB PER SECURITY COMPLIANCE ENGINEER; DENIES CHEST PAIN / CHEST PRESSURE. CIWA SCORE: 1. LAST BM DOCUMENTED ON 09/23/24; TO REPORT TO ONCOMIMG NURSE IN AM. CALL LIGHT IN REACH.
[2024-09-27 05:37] VITALS: BP 132/79
[2024-09-27 07:19] VITALS: BP 130/91
[2024-09-27] MEDS ORDERED: MIRT30 PO (15:31)
[2024-09-27 15:58] VITALS: BP 118/97
--- NOTE | 2024-09-27 18:20 | NUR ---
SHIFT SUMMARY PT AWAKE AT START OF SHIFT, WATCHING TV. A&O, ABLE TO MAKE NEEDS KNOWN. DR CRUZ HERE THIS AM TO SEE PT. PT ADMITTED FOR COPD EXAC, NOW WAITING PLACEMENT. CALLS FOR SNACKS. INDEPENDENT TO BSC NEEDED. DENIES FURTHERS NEEDS AT THIS TIME. CALL LT IN REACH.
[2024-09-27 19:50] VITALS: BP 116/80
[2024-09-28 02:28] VITALS: BP 140/95
--- NOTE | 2024-09-28 04:38 | NUR ---
ACQUISITIONS LOGISTICS ANALYST SUMMARY: PT A&O X4, MAKES NEEDS KNOWN. INDEPENDENT IN ROOM WITH TOILETING NEEDS TO BSC. USES CALL LIGHT APPROPRIATELY. NO ACUTE CHANGES NOTED DURING SHIFT. NO ASE TO ANTIBIOTIC THERAPY FOR COPD EXACERBATION. PT ON CONTINUOUS OXYGEN VIA NC AT 3.5L/MIN. NO S/S OR C/O RESPIRATORY DISTRESS. AWAITING BEHAVIORAL HEALTH PLACEMENT. CALL LIGHT IN REACH.
[2024-09-28 07:29] VITALS: BP 126/84
[2024-09-28] MEDS ORDERED: Amoxicillin/Clavulanate K 875 MG Tab PO SCH (09:00)
[2024-09-28] MEDS ORDERED: PredniSONE 20 MG Tab PO SCH (12:00)
[2024-09-28] MEDS ORDERED: Pantoprazole Sodium 20 MG Tab PO SCH (12:00)
[2024-09-28 14:48] VITALS: BP 131/94
--- NOTE | 2024-09-28 18:06 | NUR ---
SHIFT SUMMARY PATIENT ALERT AND INTERACTIVE. PATIENT UP INDEPENDENTLY IN THE ROOM. PATIENT FREQUENTLY METALLURGICAL LAB TECHNICIAN LIGHT REQUESTING TO ONLY SPEAK TO ME. PATIENT EDUCATED THAT CO WORKERS ARE CAPABLE OF HELPING WITH HIS NEEDS AND CAN REACH ME IF THERE IS A QUESTION. PATIENT COOPERATIVE WITH TAKING HIS MEDICATIONS. PATIENT STATES THAT HE STILL FEELS SHORT OF BREATH WITH ACTIVITY BUT STATES THAT IT IS LIKE THE WAY HE IS AT HOME. PATIENT RESTING MORE AND LESS USE OF CALL LIGHT DURING SECOND HALF OF SHIFT.
[2024-09-28 20:29] VITALS: BP 149/85
[2024-09-29 02:13] VITALS: BP 150/89
--- NOTE | 2024-09-29 04:26 | NUR ---
SHIFT SUMMARY PATIENT HAD NO ACUTE CHANGES. AXOX 4 AND INDEPENDENT IN ROOM. ON 3L O2 NC AND BASELINE. DENIES CHEST PAIN, SOB, AND N/V. VSS/AFEBRILE. PIV INTACT. RT IN FOR BREATHING TX. WATCHED TV FIRST PART OF SHIFT. CALL LIGHT IN REACH. BED IN LOWEST POSITION. WILL CONTINUE TO MONITOR UNTIL DAY SHIFT NURSE ASSUMES CARE.
[2024-09-29 07:03] VITALS: BP 132/85
[2024-09-29 15:06] VITALS: BP 130/83
--- NOTE | 2024-09-29 17:56 | NUR ---
SHIFT SUMMARY PATIENT ALERT AND INTERACTIVE. PATIENT ABLE TO AMBULATE IN ROOM WITH WALKER INDEPENDENTLY. PATIENT CONTINUES TO HAVE PAIN BUT STATES THAT IT IS WELL CONTROLLED WITH CURRENT PAIN REGIMINE. PATIENT HAD SOME NAUSEA AT START OF SHIFT. PATIENT MEDICATED WITH ZOFRAN AND ENCOURAGED TO DO SOME STRONG COUGHING TO GET PHLEM OUT OF THROAT. PATIENT SUCCESSFUL AND STATED THAT IT HELPED. PATIENT ON BASELINE LEVEL OF O2. PSYCHIATRY TO EVALUATE IF PATIENT SAFE TO DISCHARGE HOME. PATIENT HAS HX OF MENTAL HEALTH ISSUES.
[2024-09-29 19:44] VITALS: BP 115/81
[2024-09-30 03:43] VITALS: BP 137/95
--- NOTE | 2024-09-30 04:28 | NUR ---
SHIFT SUMMARY PATIENT HAD NO ACUTE CHANGES. AXOX 4 AND INDEPENDENT IN ROOM. ON 3L O2 NC AND BASELINE. NO RT BREATHING TX NEEDED THIS SHIFT. DENIES CHEST PAIN, SOB, AND N/V. VSS/AFEBRILE. WATCHED TV FIRST PART OF SHIFT. CALL LIGHT IN REACH. BED IN LOWEST POSITION. WILL CONTINUE TO MONITOR UNTIL DAY SHIFT NURSE ASSUMES CARE.
[2024-09-30 06:07] LABS: Hematocrit 34.6 % (37.0-53.0); Hemoglobin 11.3 g/dL (13.5-17.5); Mean Corpuscular HGB 32.8 pg (26.0-34.0); Mean Corpuscular HGB Conc 32.7 g/dL (31.5-36.5); Mean Corpuscular Volume 101 fL (80-100); Mean Platelet Volume 9.5 fL (9.1-12.4); Platelet Count 227 K/mm3 (150-400); RDW Coefficient Variation 13.5 % (11.7-14.2); RDW Standard Deviation 50.3 fL (35.1-46.3); Red Blood Cell Count 3.44 M/mm3 (4.30-5.90); White Blood Cell Count 7.93 K/mm3 (4.00-11.30)
[2024-09-30 06:26] LABS: Bun/Creatinine Ratio 22.2 (12.0-20.0); Calcium, Blood 9.1 mg/dL (8.5-10.1); Creatinine, Blood 0.95 mg/dL (0.60-1.20)
[2024-09-30 07:32] VITALS: BP 149/91
[2024-09-30] MEDS ORDERED: AMOCLA875 PO (11:43)
[2024-09-30] MEDS ORDERED: Q-Tussin100 MG/5 M PO (11:54)
[2024-09-30] MEDS ORDERED: PRED20 PO (11:54)
[2024-09-30] MEDS ORDERED: BUPRENORPHN-NA1 EACH SL (11:54)
[2024-09-30] MEDS ORDERED: PANT20 PO (11:54)
--- NOTE | 2024-09-30 13:03 | NUR ---
DISCHARGE NOTE PATIENT A/OX4, ABLE TO MAKE NEEDS KNOWN. PLEASANT AND COOPERATIVE WITH CARE. CONTINUES WITH CHRONIC O2 USE VIA NASAL CANNULA AT 3LPM, TOLERATING WELL. PRODUCTIVE COUGH NOTED, PRN COUGH SYRUP ADMINISTERED X2 THIS SHIFT. COMPLAINING OF BACK, BILATERAL SHOULDER, AND BILATERAL KNEE PAIN. SCHEDULED SUBOXONE EFFECTIVE IN PAIN MANAGEMENT. DISCHARGE INSTRUCTIONS PROVIDED AND EDUCATED TO ATTEND ALL HOSPITAL FOLLOW APPTS AND TAKE MEDICATIONS PRESRCIBED. PATIENT WITH NO QUESTIONS AT TIME OF DISCHARGE. TRANSPORTATION ARRIVED TO 3RD GRADE TEACHER PATIENT. PIV REMOVED PRIOR TO DISCHARGE. MEDS FAXED TO [facility]. NO OTHER CONCERNS.
== END 2024-09-30 12:54 | disposition home or self-care (01) | DRG 871 ==
LOC: ER 03:23 → MEDS 05:57 → ERHOLD 05:57 → MEDS 15:15 → ENPENDDIS 09-30 10:59 → MEDS 09-30 12:54
PROVIDERS: Emergency Medicine; Internal Medicine; ADMIT Internal Medicine
DX: A41.9 Sepsis, unspecified organism (principal); J18.9 Pneumonia, unspecified organism; J96.21 Acute and chronic respiratory failure with hypoxia; J96.22 Acute and chronic respiratory failure with hypercapnia; J44.1 Chronic obstructive pulmonary disease with (acute) exacerbation; J44.0 Chronic obstructive pulmonary disease with (acute) lower respiratory infection; R45.851 Suicidal ideations; D68.62 Lupus anticoagulant syndrome; G89.29 Other chronic pain; I25.10 Atherosclerotic heart disease of native coronary artery without angina pectoris; E03.9 Hypothyroidism, unspecified; N40.0 Benign prostatic hyperplasia without lower urinary tract symptoms; F31.9 Bipolar disorder, unspecified; I45.10 Unspecified right bundle-branch block; F43.12 Post-traumatic stress disorder, chronic; F10.20 Alcohol dependence, uncomplicated; Z96.612 Presence of left artificial shoulder joint; Z66 Do not resuscitate; F17.210 Nicotine dependence, cigarettes, uncomplicated; B96.3 Hemophilus influenzae [H. influenzae] as the cause of diseases classified elsewhere; B95.61 Methicillin susceptible Staphylococcus aureus infection as the cause of diseases classified elsewhere; Z99.81 Dependence on supplemental oxygen; Z79.82 Long term (current) use of aspirin; Z79.899 Other long term (current) drug therapy; Z88.8 Allergy status to other drugs, medicaments and biological substances; Z71.6 Tobacco abuse counseling; Z98.890 Other specified postprocedural states; Z23 Encounter for immunization
CPT/HCPCS: 0241U; 36415; 71045; 71260; 80048; 80053; 83735; 83880; 84484; 85025; 85027; 85379; 87070; 87077; 87147; 87185; 87186; 87205; 90656; 93005; 93010; 94640; 94664; 94760; 96374-59; 99285-25; A9270; J0696; J1650; J2405; J2470; J2919; J3370; J7040; J7050; J7060; J7512; Q9967

== ENCOUNTER 2024-11-24 07:32 | Inpatient (IN) | payer OTHER ==
[~2024-11-24] VITALS: Ht 182.9 cm; Wt 91.1 kg
[~2024-11-24 07:32] MED LIST changes: +AMOCLA875 PO; +BUPRENORPHN-NA1 EACH SL; +PANT20 PO; +Q-Tussin100 MG/5 M PO
[2024-11-24] MEDS ORDERED: Albuterol 2.5 MG/3 ML VIAL INH ONE (07:40)
[2024-11-24 07:59] LABS: BASOPHILS ABSOLUTE AUTO 0.02 K/mm3 (0.00-0.23); BASOPHILS PERCENT AUTO 0 % (0-2); EOSINOPHILS ABSOLUTE AUTO 0.19 K/mm3 (0.00-0.68); EOSINOPHILS PERCENT AUTO 2 % (0-6); Hematocrit 28.8 % (37.0-53.0); Hemoglobin 9.7 g/dL (13.5-17.5); IMMATURE GRAN ABSOLUTE AUTO 0.04 K/mm3 (0.00-0.10); IMMATURE GRAN PERCENT AUTO 0 % (0-1); LYMPHOCYTES ABSOLUTE AUTO 0.51 K/mm3 (0.84-5.20); LYMPHOCYTES PERCENT AUTO 5 % (21-46); MONOCYTES ABSOLUTE AUTO 0.89 K/mm3 (0.16-1.47); MONOCYTES PERCENT AUTO 9 % (4-13); Mean Corpuscular HGB Conc 33.7 g/dL (31.5-36.5); Mean Corpuscular Volume 98 fL (80-100); Mean Platelet Volume 9.6 fL (9.1-12.4); NEUTROPHILS ABSOLUTE AUTO 7.94 K/mm3 (1.96-9.15); NEUTROPHILS PERCENT AUTO 83 % (41-73); Platelet Count 195 K/mm3 (150-400); RDW Coefficient Variation 13.4 % (11.7-14.2); RDW Standard Deviation 47.8 fL (35.1-46.3); Red Blood Cell Count 2.94 M/mm3 (4.30-5.90); White Blood Cell Count 9.59 K/mm3 (4.00-11.30)
[2024-11-24 08:23] LABS: Ethanol (Alcohol), Blood, Med <3 mg/dL
[2024-11-24 08:24] LABS: Alanine Aminotransfer (ALT/SGP 23 U/L (12-78); Albumin/Globulin Ratio 0.9 (0.8-1.8); Alk Phos 100 U/L (50-136); Anion Gap 10 mmol/L (3-11); Aspartate Aminotrans (AST/SGOT 21 U/L (12-37); Bilirubin, Total 0.7 mg/dL (0.1-1.0); Blood Urea Nitrogen 9 mg/dL (8-24); Bun/Creatinine Ratio 11.9 (12.0-20.0); CO2, Blood 29 mmol/L (21-32); Calcium, Blood 8.6 mg/dL (8.5-10.1); Chloride, Blood 99 mmol/L (98-108); Creatinine, Blood 0.76 mg/dL (0.60-1.20); Globulin, Blood 3.3 g/dL (2.2-4.0); Glomerular Filtration Rate 93 (60-); Glucose, Blood 106 mg/dL (70-99); Potassium, Blood 4.2 mmol/L (3.5-5.5); Sodium, Blood 134 mmol/L (136-145); Total Protein, Blood 6.3 g/dL (6.4-8.2)
[2024-11-24 09:05] LABS: Influenza A, PCR NEGATIVE (NEGATIVE); Influenza B, PCR NEGATIVE (NEGATIVE); Resp Syncytial Virus, PCR NEGATIVE (NEGATIVE); SARS-Cov-2 (COVID-19) PCR, MMC NEGATIVE (NEGATIVE)
[2024-11-24] MEDS ORDERED: CefTRIAXone Sodium 1,000 MG in NS 100 ML IV ONE (09:10)
[2024-11-24] MEDS ORDERED: Azithromycin 500 MG in NS 250 ML IV ONE (09:10)
[2024-11-24] MEDS ORDERED: FLU VACC TS2024-25(6MOS UP)/PF 45 MCG/0.5 ML SYRINGE IM SCH (09:35)
[2024-11-24] MEDS ORDERED: Ondansetron HCl 2 MG / ML 2ML Vial IV PRN (10:25)
[2024-11-24] MEDS ORDERED: ChlordiazePOXIDE 25 MG Cap PO PRN ×2 (10:30)
[2024-11-24] MEDS ORDERED: LORazepam 2 MG/ML 1ML Injection IV PRN (10:30)
[2024-11-24] MEDS ORDERED: Thiamine HCl 100 MG in NS 50 ML IV SCH (11:00)
[2024-11-24] MEDS ORDERED: Folic Acid 1 MG in NS 50 ML IV SCH (11:00)
[2024-11-24] MEDS ORDERED: Acetaminophen 325 MG TABLET PO PRN (11:40)
[2024-11-24] MEDS ORDERED: Ipratropium/Albuterol SulF 2.5-0.5MG/3 ML Amp INH SCH (12:30)
[2024-11-24] MEDS ORDERED: Albuterol 2.5 MG/3 ML VIAL INH PRN (12:50)
[2024-11-24] MEDS ORDERED: Mometasone/Formoterol MDI 200/5 mcg 13 GM INH SCH (12:50)
[2024-11-24 13:39] VITALS: BP 112/79
[2024-11-24 14:08] VITALS: BP 160/91
--- NOTE | 2024-11-24 15:58 | NUR ---
NOTIFIED DR. BANKS THAT THE PATIENT'S SUICIDE ASSESSMENT IS AT LOW RISK AT THIS TIME.
[2024-11-24 16:37] VITALS: BP 108/70
--- NOTE | 2024-11-24 17:58 | NUR ---
PATIENT IS ALERT AND ORIENTED TO SELF AND PLACE. HE THOUGHT THE MONTH WAS MARCH. C/O DIAPHORESIS AND ACHES AND PAINS. STATES HE HAS BEEN BEDBOUND AT HOME FOR NEARLY A WEEK. PATIENT STATES HE HAS CHRONIC SI, LOW RISK AT THIS TIME. INCONTINENT OF URINE, PT ATTEMPTED TO USE THE URINAL AND MISSED. BLE EDEMA, AND TENDERNESS. LAST CIWA AT 1610 WAS 7. ON 4L O2 NC. PATIENT DOESNT WANT HIS DINNER. HE HAS SLEPT BETWEEN VISITS FROM STAFF SINCE HE ARRIVED ON THE UNIT. WILL CONTINUE TO MONITOR
[2024-11-24 20:29] VITALS: BP 136/73
[2024-11-24] MEDS ORDERED: Lactobacil 2-S.Thermo-Bifido 1 1 Cap PO SCH (21:00)
[2024-11-25 04:09] VITALS: BP 120/76
[2024-11-25 06:02] LABS: BASOPHILS ABSOLUTE AUTO 0.03 K/mm3 (0.00-0.23); BASOPHILS PERCENT AUTO 0 % (0-2); EOSINOPHILS ABSOLUTE AUTO 0.06 K/mm3 (0.00-0.68); EOSINOPHILS PERCENT AUTO 1 % (0-6); Hematocrit 28.7 % (37.0-53.0); Hemoglobin 9.8 g/dL (13.5-17.5); IMMATURE GRAN ABSOLUTE AUTO 0.12 K/mm3 (0.00-0.10); IMMATURE GRAN PERCENT AUTO 1 % (0-1); LYMPHOCYTES ABSOLUTE AUTO 0.36 K/mm3 (0.84-5.20); LYMPHOCYTES PERCENT AUTO 3 % (21-46); MONOCYTES ABSOLUTE AUTO 1.03 K/mm3 (0.16-1.47); MONOCYTES PERCENT AUTO 8 % (4-13); Mean Corpuscular HGB 33.7 pg (26.0-34.0); Mean Corpuscular HGB Conc 34.1 g/dL (31.5-36.5); Mean Corpuscular Volume 99 fL (80-100); Mean Platelet Volume 9.6 fL (9.1-12.4); NEUTROPHILS ABSOLUTE AUTO 10.71 K/mm3 (1.96-9.15); NEUTROPHILS PERCENT AUTO 87 % (41-73); Platelet Count 211 K/mm3 (150-400); RDW Coefficient Variation 13.3 % (11.7-14.2); RDW Standard Deviation 48.6 fL (35.1-46.3); Red Blood Cell Count 2.91 M/mm3 (4.30-5.90); White Blood Cell Count 12.31 K/mm3 (4.00-11.30)
--- NOTE | 2024-11-25 06:11 | NUR ---
SHIFT SUMMARY PATIENT HAS BEEN SLEEPING INTERMITTANTLY THROUGHOUT THE NIGHT. VITAL SIGNS HAVE BEEN STABLE. PATIENT ORIENTED X2. HE IS BEING MONITORED FOR ALCOHOL WITHDRAWEL AND HAS SCORED 2 ON THE CIWA SCALE THROUGHOUT THE SHIFT. PATIENT HAS HIS CALL LIGHT WITHIN REACH AND HIS BED ALARM IS SET. ABOUT 0500, HE CALLED TO EXPRESS HIS DESIRE TO CHANGE HIS CODE STATUS FROM DNR TO FULL CODE. PALLIATIVE CARE CONSULT WILL BE ARRANGED. SAFETY PRECAUTIONS ARE BEING MAINTAINED.
[2024-11-25 06:30] LABS: Bun/Creatinine Ratio 12.3 (12.0-20.0); Calcium, Blood 9.2 mg/dL (8.5-10.1); Creatinine, Blood 0.73 mg/dL (0.60-1.20); Potassium, Blood 4.3 mmol/L (3.5-5.5)
[2024-11-25 07:43] VITALS: BP 117/78
[2024-11-25] MEDS ORDERED: CefTRIAXone Sodium 1,000 MG in NS 100 ML IV SCH (09:00)
[2024-11-25] MEDS ORDERED: PredniSONE 20 MG Tab PO SCH (09:00)
[2024-11-25] MEDS ORDERED: Azithromycin 500 MG in NS 250 ML IV SCH (09:00)
[2024-11-25] MEDS ORDERED: Enoxaparin 40 MG/0.4 ML SYR SC SCH (09:00)
--- NOTE | 2024-11-25 09:53 | NUR ---
Spiritual care visit attempted. Entered room and asked pt if it was a good time for a visit with a civil service clerk. Pt declined visit. Promptly exited and wished pt well.
[2024-11-25] MEDS ORDERED: Ibuprofen 600 MG Tab PO PRN (10:55)
[2024-11-25] MEDS ORDERED: DULoxetine HCL 60 MG Capsule DR PO SCH (11:00)
[2024-11-25] MEDS ORDERED: Tiotropium Bromide 2.5 MCG/ACT MIST INHAL (10 ACT/4 GM) INH SCH (11:00)
[2024-11-25] MEDS ORDERED: Pantoprazole Sodium 20 MG Tab PO SCH (11:00)
[2024-11-25] MEDS ORDERED: Buprenorphine HCL/Naloxone HCL 2-0.5MG 1 EA SL SCH (14:00)
[2024-11-25 15:19] VITALS: BP 111/72
[2024-11-25] MEDS ORDERED: Ipratropium/Albuterol SulF 2.5-0.5MG/3 ML Amp INH PRN (19:10)
--- NOTE | 2024-11-25 19:54 | NUR ---
PATIENT REPORTED TO THIS LEATHER COVERER NOT HAVING SI ISSUES TODAY AND IN FACT WANTS TO BE A FULL CODE AT THIS TIME AND DOES NOT WANT TO . PATIENT WITH NO ACUTE EVENTS DURING SHIFT. HE IS ORIENTED TO SELF, SITUATION AND LOCATION, AWARE OF LIMITATIONS. BED IN LOW POSITION, CALL LIGHT IN REACH. HE IS ABLE TO MAKE HIS NEEDS KNOWN.
[2024-11-25 20:26] VITALS: BP 101/71
[2024-11-25] MEDS ORDERED: ARIPiprazole 5 MG Tab PO SCH (21:00)
[2024-11-25] MEDS ORDERED: Mirtazapine 30 MG Tab PO SCH (21:00)
[2024-11-25] MEDS ORDERED: Tamsulosin HCl 0.4 MG Cap PO SCH (21:00)
--- NOTE | 2024-11-26 04:41 | NUR ---
Pt slept well, vs wnl. has not voided this shift, explained to him that if he can't urinate that I could scan him, BS 384, gave him 1 hr to void before i would have to straight cath him. Pt A&O x3, remains on 3.5L of O2, which is his BL, refuses to where continuous oxcimetry. Pt found to be 84% on 3.5L, O2 increased to 5L, now 92%. 78% on RA. BM noted on 11/25, awaiting psych consult. will continue to monitor.
[2024-11-26 04:44] VITALS: BP 131/89
[2024-11-26 05:13] LABS: BASOPHILS ABSOLUTE AUTO 0.02 K/mm3 (0.00-0.23); BASOPHILS PERCENT AUTO 0 % (0-2); EOSINOPHILS ABSOLUTE AUTO 0.03 K/mm3 (0.00-0.68); EOSINOPHILS PERCENT AUTO 0 % (0-6); Hemoglobin 9.6 g/dL (13.5-17.5); IMMATURE GRAN ABSOLUTE AUTO 0.09 K/mm3 (0.00-0.10); IMMATURE GRAN PERCENT AUTO 1 % (0-1); LYMPHOCYTES ABSOLUTE AUTO 0.56 K/mm3 (0.84-5.20); LYMPHOCYTES PERCENT AUTO 5 % (21-46); MONOCYTES ABSOLUTE AUTO 1.04 K/mm3 (0.16-1.47); MONOCYTES PERCENT AUTO 10 % (4-13); Mean Corpuscular HGB 32.8 pg (26.0-34.0); Mean Corpuscular HGB Conc 33.1 g/dL (31.5-36.5); Mean Corpuscular Volume 99 fL (80-100); Mean Platelet Volume 9.4 fL (9.1-12.4); NEUTROPHILS ABSOLUTE AUTO 8.81 K/mm3 (1.96-9.15); NEUTROPHILS PERCENT AUTO 83 % (41-73); Platelet Count 227 K/mm3 (150-400); RDW Coefficient Variation 13.2 % (11.7-14.2); RDW Standard Deviation 47.7 fL (35.1-46.3); Red Blood Cell Count 2.93 M/mm3 (4.30-5.90); White Blood Cell Count 10.55 K/mm3 (4.00-11.30)
[2024-11-26 05:40] LABS: Bun/Creatinine Ratio 19.7 (12.0-20.0); Calcium, Blood 9.3 mg/dL (8.5-10.1); Creatinine, Blood 0.76 mg/dL (0.60-1.20); Potassium, Blood 3.9 mmol/L (3.5-5.5)
[2024-11-26 07:26] VITALS: BP 115/75
[2024-11-26] MEDS ORDERED: Aspirin 81 MG Chew PO SCH (09:00)
[2024-11-26] MEDS ORDERED: Loratadine 10 MG Tab PO SCH (09:00)
[2024-11-26] MEDS ORDERED: Fluticasone 0.05% Nasal Spray SCH (09:00)
[2024-11-26 16:32] VITALS: BP 116/83
--- NOTE | 2024-11-26 17:04 | NUR ---
no changes in pt status. pt was lethargic all day with no c/o pain or sob
[2024-11-26 19:57] VITALS: BP 120/84
[2024-11-27 00:51] VITALS: BP 115/76
[2024-11-27 03:04] VITALS: BP 108/80
[2024-11-27 04:28] LABS: Base Excess Venous 6.4 mmol/L; Bicarbonate Venous 29.5 mmol/L (24.0-30.0); PCO2 Venous 47.3 mmHg (38-42); pH Blood Venous 7.42 (7.34-7.37)
[2024-11-27 05:47] LABS: BASOPHILS ABSOLUTE AUTO 0.01 K/mm3 (0.00-0.23); BASOPHILS PERCENT AUTO 0 % (0-2); EOSINOPHILS ABSOLUTE AUTO 0.04 K/mm3 (0.00-0.68); EOSINOPHILS PERCENT AUTO 0 % (0-6); Hematocrit 30.4 % (37.0-53.0); Hemoglobin 9.9 g/dL (13.5-17.5); IMMATURE GRAN ABSOLUTE AUTO 0.06 K/mm3 (0.00-0.10); IMMATURE GRAN PERCENT AUTO 1 % (0-1); LYMPHOCYTES ABSOLUTE AUTO 0.78 K/mm3 (0.84-5.20); LYMPHOCYTES PERCENT AUTO 7 % (21-46); MONOCYTES ABSOLUTE AUTO 0.89 K/mm3 (0.16-1.47); MONOCYTES PERCENT AUTO 8 % (4-13); Mean Corpuscular HGB 32.8 pg (26.0-34.0); Mean Corpuscular HGB Conc 32.6 g/dL (31.5-36.5); Mean Corpuscular Volume 101 fL (80-100); Mean Platelet Volume 9.4 fL (9.1-12.4); NEUTROPHILS ABSOLUTE AUTO 8.93 K/mm3 (1.96-9.15); NEUTROPHILS PERCENT AUTO 83 % (41-73); Platelet Count 242 K/mm3 (150-400); RDW Coefficient Variation 13.1 % (11.7-14.2); RDW Standard Deviation 49.1 fL (35.1-46.3); Red Blood Cell Count 3.02 M/mm3 (4.30-5.90); White Blood Cell Count 10.71 K/mm3 (4.00-11.30)
--- NOTE | 2024-11-27 05:58 | NUR ---
PT A&O X4, SLEPT WELL, PT WITH NO VOID THROUGH NIGHT, BS COMPLETED SHOWED 389 @ APPROXIMATELY 0130, ENCOURAGED TO DRINK MORE FLUIDS, WHICH HE DID, THEN AT 0430 ATTEMPTED TO VOID STANDING AT BS WITH WATER RUNNING, WAS UNABLE TO VOID, STRAIGHT CATHED FOR 600 ML'S. PT IN BETTER MOOD THIS AM, AND ASKED FOR MORE FLUIDS AND FOOD. O2 @ 3L, ATTEMPTED TO WEAN, BUT PANICKED, SO ULTIMATELY INCREASED BACK TO THE 3L. STILL AWAITING PSYCH EVAL.
[2024-11-27 06:02] LABS: Bun/Creatinine Ratio 24.1 (12.0-20.0); Calcium, Blood 9.6 mg/dL (8.5-10.1); Creatinine, Blood 0.87 mg/dL (0.60-1.20); Potassium, Blood 4.2 mmol/L (3.5-5.5)
[2024-11-27 07:37] VITALS: BP 101/68
[2024-11-27] MEDS ORDERED: Tamsulosin HCl 0.4 MG Cap PO SCH (11:00)
[2024-11-27] MEDS ORDERED: tadalafiL 5 MG Tab PO SCH (12:00)
[2024-11-27 15:28] VITALS: BP 151/87
--- NOTE | 2024-11-27 17:52 | NUR ---
NO CHANGE IS PT STATUS TODAY. PT WAS ABLE TO VOID BY HIMSELF THIS AFTERNOON WITH NO INTERVENTION ON STRAIGHT CATH. PT HAD NO C/O PAIN DURING THE SHIFT. PT HAS NO QUESTIONS OR CONCERNS AT THIS TIME
[2024-11-27 19:07] VITALS: BP 108/74
--- NOTE | 2024-11-27 22:00 | NUR ---
NURSING NOTE PT DEMANDED NICOTINE GUM OR LOZENGE. PT WAS ANXIOUS AND GETTING OUT OF BED. CALLED HOSPITALIST FOR ORDER AND RN RECIEVED ORDER.
[2024-11-27] MEDS ORDERED: Nicotine Polacrilex 2 MG Gum PO PRN (22:10)
[2024-11-28 03:14] VITALS: BP 158/95
[2024-11-28 05:46] LABS: BASOPHILS ABSOLUTE AUTO 0.02 K/mm3 (0.00-0.23); BASOPHILS PERCENT AUTO 0 % (0-2); EOSINOPHILS ABSOLUTE AUTO 0.05 K/mm3 (0.00-0.68); EOSINOPHILS PERCENT AUTO 1 % (0-6); Hematocrit 29.7 % (37.0-53.0); Hemoglobin 9.9 g/dL (13.5-17.5); IMMATURE GRAN ABSOLUTE AUTO 0.11 K/mm3 (0.00-0.10); IMMATURE GRAN PERCENT AUTO 1 % (0-1); LYMPHOCYTES ABSOLUTE AUTO 0.99 K/mm3 (0.84-5.20); LYMPHOCYTES PERCENT AUTO 12 % (21-46); MONOCYTES ABSOLUTE AUTO 0.85 K/mm3 (0.16-1.47); MONOCYTES PERCENT AUTO 10 % (4-13); Mean Corpuscular HGB 32.8 pg (26.0-34.0); Mean Corpuscular HGB Conc 33.3 g/dL (31.5-36.5); Mean Corpuscular Volume 98 fL (80-100); NEUTROPHILS ABSOLUTE AUTO 6.34 K/mm3 (1.96-9.15); NEUTROPHILS PERCENT AUTO 76 % (41-73); Platelet Count 220 K/mm3 (150-400); RDW Coefficient Variation 12.8 % (11.7-14.2); RDW Standard Deviation 46.3 fL (35.1-46.3); Red Blood Cell Count 3.02 M/mm3 (4.30-5.90); White Blood Cell Count 8.36 K/mm3 (4.00-11.30)
[2024-11-28 06:50] LABS: Bun/Creatinine Ratio 20.1 (12.0-20.0); Calcium, Blood 9.5 mg/dL (8.5-10.1); Creatinine, Blood 0.84 mg/dL (0.60-1.20); Potassium, Blood 3.8 mmol/L (3.5-5.5)
[2024-11-28 07:26] VITALS: BP 149/70
--- NOTE | 2024-11-28 07:34 | NUR ---
SHIFT SUMMARY OVERNIGHT, PT HAS BEEN OVERALL PLEASANT AND COOPERATIVE. AT AROUND 2100, HE STARTED PACING ANXIOUSLY AND GETTING OUT OF BED WITHOUT CALLING. HE DEMANDED NICOTINE GUM. RN WAS ABLE TO GET ORDERS FROM HOSPITALIST FOR GUM. PT WAS SATISFIED AND BECAME MORE COMPLIANT AFTERWARDS. HOWEVER, PT REMAINED FORGETFUL, OFTEN GETTING OUT OF BED WITHOUT CALLING. PT HAS BEEN COOPERATIVE ONCE UP, ALLOWING STAFF TO USE GAIT BELT ON HIM. OTHERWISE, PT HAD AN UNEVENTFUL NIGHT.
--- NOTE | 2024-11-28 08:48 | NUR ---
ROUNDING WITH DR. AGUIRRE, DISCUSSING PT'S BLOOD PRESSURE WITH FLOMAX AND TADALAFIL. DR. AGUIRRE WITH ORDERS TO GIVE ONLY THE FLOMAX TODAY, HOLD THE TADALAFIL.
[2024-11-28] MEDS ORDERED: DULoxetine HCL 30 MG Cap DR PO SCH (09:00)
--- NOTE | 2024-11-28 11:04 | NUR ---
LATE ENTRY: PT'S IV INFILTRATED TO THE RIGHT ARM. ARM IS ELEVATED ON THREE PILLOWS, WARM COMPRESS APPLIED. THIS WAS RE-EVALUATED BY RN AND SWELLING HAS REDUCED.FOLIC ACID WAS INFUSING.
[2024-11-28] MEDS ORDERED: GUAI200 PO (12:21)
[2024-11-28] MEDS ORDERED: TADA10TA PO (12:22)
[2024-11-28] MEDS ORDERED: CEFP200 PO (12:23)
--- NOTE | 2024-11-28 15:11 | NUR ---
DISCHARGED WITH [facility]. PT DISCHARGED ON OXYGEN AT 4 LITERS
--- NOTE | 2024-11-28 17:00 | NUR ---
LATE ENTRY: RN COMPLETED DISCHARGE EDUCATION REGARDING MEDICATIONS TO TAKE, APPTS TO KEEP. PT WAS DISCHARGED TO [facility] TRANSP[facility], TO HOME. PERSONAL BELONGINGS RETURNED TO PT. IV'S REMOVED BY HOTEL REGISTRATION CLERK. PT TOLERATED PROCEDURE WELL.
== END 2024-11-28 15:11 | disposition home health service (06) | DRG 871 ==
LOC: ER 07:32 → MEDS 07:33
PROVIDERS: Emergency Medicine; Family Medicine; Student in an Organized Health Care Education/Training Program; ADMIT Internal Medicine
DX: A41.9 Sepsis, unspecified organism (principal); J18.9 Pneumonia, unspecified organism; J96.21 Acute and chronic respiratory failure with hypoxia; J96.22 Acute and chronic respiratory failure with hypercapnia; F10.239 Alcohol dependence with withdrawal, unspecified; J44.0 Chronic obstructive pulmonary disease with (acute) lower respiratory infection; J44.1 Chronic obstructive pulmonary disease with (acute) exacerbation; R45.851 Suicidal ideations; Z66 Do not resuscitate; N40.0 Benign prostatic hyperplasia without lower urinary tract symptoms; G47.00 Insomnia, unspecified; F10.229 Alcohol dependence with intoxication, unspecified; R60.9 Edema, unspecified; F32.9 Major depressive disorder, single episode, unspecified; I10 Essential (primary) hypertension; G89.29 Other chronic pain; F43.10 Post-traumatic stress disorder, unspecified; E03.9 Hypothyroidism, unspecified; I25.10 Atherosclerotic heart disease of native coronary artery without angina pectoris; Z96.612 Presence of left artificial shoulder joint; Z96.653 Presence of artificial knee joint, bilateral; F17.210 Nicotine dependence, cigarettes, uncomplicated; F12.10 Cannabis abuse, uncomplicated; D63.8 Anemia in other chronic diseases classified elsewhere; Z88.8 Allergy status to other drugs, medicaments and biological substances; Z79.899 Other long term (current) drug therapy; Z79.51 Long term (current) use of inhaled steroids; Z79.1 Long term (current) use of non-steroidal anti-inflammatories (NSAID); Z79.82 Long term (current) use of aspirin; Z79.891 Long term (current) use of opiate analgesic; Z79.2 Long term (current) use of antibiotics; Z79.52 Long term (current) use of systemic steroids; Z98.890 Other specified postprocedural states; Z99.81 Dependence on supplemental oxygen; Z90.89 Acquired absence of other organs; Z71.6 Tobacco abuse counseling
CPT/HCPCS: 0241U; 36415; 71045; 80048; 80053; 80320; 82803; 83605; 83735; 83880; 84145; 85025; 87040; 93005; 93010; 93970; 94640; 94644; 94664; 94760; 94762; 96365; 96367; 96372; 96375; 96376; 97116; 97162; 97530; 99285-25; A9270; G0378; J0456; J0572; J0696; J1650; J2060; J2470; J3411; J7050; J7512

== ENCOUNTER 2025-01-01 19:42 | Emergency (ER) | payer OTHER ==
[~2025-01-01] VITALS: Ht 182.9 cm; Wt 93.0 kg
[~2025-01-01 19:42] MED LIST changes: +CEFP200 PO; +GUAI200 PO; +TADA10TA PO
[2025-01-01 19:46] VITALS: BP 130/95
[2025-01-01 20:09] LABS: BASOPHILS ABSOLUTE AUTO 0.05 K/mm3 (0.00-0.23); BASOPHILS PERCENT AUTO 1 % (0-2); EOSINOPHILS ABSOLUTE AUTO 0.33 K/mm3 (0.00-0.68); EOSINOPHILS PERCENT AUTO 5 % (0-6); Hematocrit 31.3 % (37.0-53.0); Hemoglobin 10.7 g/dL (13.5-17.5); IMMATURE GRAN ABSOLUTE AUTO 0.03 K/mm3 (0.00-0.10); IMMATURE GRAN PERCENT AUTO 1 % (0-1); LYMPHOCYTES ABSOLUTE AUTO 1.66 K/mm3 (0.84-5.20); LYMPHOCYTES PERCENT AUTO 25 % (21-46); MONOCYTES ABSOLUTE AUTO 0.75 K/mm3 (0.16-1.47); MONOCYTES PERCENT AUTO 11 % (4-13); Mean Corpuscular HGB 32.4 pg (26.0-34.0); Mean Corpuscular HGB Conc 34.2 g/dL (31.5-36.5); Mean Corpuscular Volume 95 fL (80-100); Mean Platelet Volume 9.2 fL (9.1-12.4); NEUTROPHILS PERCENT AUTO 57 % (41-73); Platelet Count 198 K/mm3 (150-400); RDW Coefficient Variation 13.2 % (11.7-14.2); RDW Standard Deviation 46.3 fL (35.1-46.3); White Blood Cell Count 6.62 K/mm3 (4.00-11.30)
[2025-01-01 20:36] LABS: Albumin, Blood 3.3 g/dL (3.4-5.0); Bilirubin, Total 0.4 mg/dL (0.1-1.0); Bun/Creatinine Ratio 6.7 (12.0-20.0); Calcium, Blood 8.6 mg/dL (8.5-10.1); Creatinine, Blood 0.75 mg/dL (0.60-1.20); Globulin, Blood 3.4 g/dL (2.2-4.0); Potassium, Blood 3.8 mmol/L (3.5-5.5); Total Protein, Blood 6.7 g/dL (6.4-8.2)
== END 2025-01-02 02:25 | disposition home or self-care (01) ==
LOC: ER 19:42
PROVIDERS: Student in an Organized Health Care Education/Training Program
DX: J96.21 Acute and chronic respiratory failure with hypoxia (principal); Z99.81 Dependence on supplemental oxygen; R53.81 Other malaise; F10.129 Alcohol abuse with intoxication, unspecified; I10 Essential (primary) hypertension; Z88.5 Allergy status to narcotic agent; Z88.8 Allergy status to other drugs, medicaments and biological substances; Z88.9 Allergy status to unspecified drugs, medicaments and biological substances; Z79.899 Other long term (current) drug therapy; Z79.51 Long term (current) use of inhaled steroids; Z79.83 Long term (current) use of bisphosphonates; Z79.1 Long term (current) use of non-steroidal anti-inflammatories (NSAID); Z79.82 Long term (current) use of aspirin
CPT/HCPCS: 71045; 80053; 80320; 85025; 99285-25

== ENCOUNTER 2025-02-17 19:45 | Observation (INO) | payer OTHER ==
[~2025-02-17] VITALS: Ht 182.9 cm; Wt 88.8 kg
[2025-02-17 21:11] LABS: Salicylate 3.4 mg/dL (2.8-20.0)
[2025-02-17 21:21] LABS: Acetaminophen, Random 74.9 ug/mL (10.0-30.0); Albumin, Blood 3.2 g/dL (3.4-5.0); Albumin/Globulin Ratio 0.9 (0.8-1.8); Bilirubin, Total 0.7 mg/dL (0.1-1.0); Bun/Creatinine Ratio 10.9 (12.0-20.0); Calcium, Blood 8.8 mg/dL (8.5-10.1); Creatinine, Blood 0.64 mg/dL (0.60-1.20); Globulin, Blood 3.4 g/dL (2.2-4.0); Potassium, Blood 3.6 mmol/L (3.5-5.5); Total Protein, Blood 6.6 g/dL (6.4-8.2)
[2025-02-17 21:27] LABS: BASOPHILS ABSOLUTE AUTO 0.03 K/mm3 (0.00-0.23); BASOPHILS PERCENT AUTO 0 % (0-2); EOSINOPHILS ABSOLUTE AUTO 0.13 K/mm3 (0.00-0.68); EOSINOPHILS PERCENT AUTO 2 % (0-6); Hematocrit 30.7 % (37.0-53.0); Hemoglobin 10.2 g/dL (13.5-17.5); IMMATURE GRAN ABSOLUTE AUTO 0.03 K/mm3 (0.00-0.10); IMMATURE GRAN PERCENT AUTO 0 % (0-1); LYMPHOCYTES ABSOLUTE AUTO 0.76 K/mm3 (0.84-5.20); LYMPHOCYTES PERCENT AUTO 9 % (21-46); MONOCYTES PERCENT AUTO 14 % (4-13); Mean Corpuscular HGB 31.2 pg (26.0-34.0); Mean Corpuscular HGB Conc 33.2 g/dL (31.5-36.5); Mean Corpuscular Volume 94 fL (80-100); Mean Platelet Volume 9.8 fL (9.1-12.4); NEUTROPHILS ABSOLUTE AUTO 6.22 K/mm3 (1.96-9.15); NEUTROPHILS PERCENT AUTO 74 % (41-73); Platelet Count 238 K/mm3 (150-400); RDW Coefficient Variation 13.6 % (11.7-14.2); Red Blood Cell Count 3.27 M/mm3 (4.30-5.90); White Blood Cell Count 8.37 K/mm3 (4.00-11.30)
[2025-02-17 23:56] LABS: Acetaminophen, Random 38.1 ug/mL (10.0-30.0); Albumin, Blood 3.1 g/dL (3.4-5.0); Bilirubin, Total 0.6 mg/dL (0.1-1.0); Bun/Creatinine Ratio 7.6 (12.0-20.0); Calcium, Blood 8.6 mg/dL (8.5-10.1); Creatinine, Blood 0.79 mg/dL (0.60-1.20); Globulin, Blood 3.1 g/dL (2.2-4.0); Potassium, Blood 3.4 mmol/L (3.5-5.5); Salicylate 3.2 mg/dL (2.8-20.0); Total Protein, Blood 6.2 g/dL (6.4-8.2)
[2025-02-18 10:06] LABS: U Amphetamine Screen Not Detected; U Barbituate Screen Not Detected; U Benzodiazapine Screen Not Detected; U Buprenorphine Screen DETECTED; U Cannabinoids Screen Not Detected; U Cocaine Screen Not Detected; U Methadone Screen Not Detected; U Methamphetamine Screen Not Detected; U Opiates Screen Not Detected; U Oxycodone Screen Not Detected; U Phencyclidine Screen Not Detected
[2025-02-18] MEDS ORDERED: MAGNESIUM OXID500 MG PO (12:48)
[2025-02-18] MEDS ORDERED: PHENobarbital Sodium 65MG / ML 1ML Vial IM ONE (13:05)
[2025-02-18] MEDS ORDERED: PHENobarbitaL sodium 130 MG/ML VIAL IV ONE (17:50)
[2025-02-18] MEDS ORDERED: ChlordiazePOXIDE 25 MG Cap PO PRN (18:35)
[2025-02-18] MEDS ORDERED: Ondansetron HCl 2 MG / ML 2ML Vial IV PRN (18:35)
[2025-02-18] MEDS ORDERED: HydrALAZINE HCl 20 MG / ML 1ML Vial IV PRN (18:40)
[2025-02-18] MEDS ORDERED: LORazepam 2 MG/ML 1ML Injection IV PRN (18:40)
[2025-02-18] MEDS ORDERED: Buprenorphine HCL/Naloxone HCL 2-0.5MG 1 EA SL PRN (18:50)
[2025-02-18] MEDS ORDERED: Tiotropium Bromide 2.5 MCG/ACT MIST INHAL (10 ACT/4 GM) INH SCH (18:55)
[2025-02-18] MEDS ORDERED: Ibuprofen 600 MG Tab PO PRN (18:55)
[2025-02-18] MEDS ORDERED: LORazepam 1 MG Tab PO PRN (19:40)
[2025-02-18] MEDS ORDERED: Loperamide HCl 2 MG Cap PO ONE (20:35)
[2025-02-18 20:53] LABS: BASOPHILS ABSOLUTE AUTO 0.02 K/mm3 (0.00-0.23); BASOPHILS PERCENT AUTO 0 % (0-2); EOSINOPHILS ABSOLUTE AUTO 0.31 K/mm3 (0.00-0.68); EOSINOPHILS PERCENT AUTO 4 % (0-6); Hematocrit 29.3 % (37.0-53.0); IMMATURE GRAN ABSOLUTE AUTO 0.02 K/mm3 (0.00-0.10); IMMATURE GRAN PERCENT AUTO 0 % (0-1); LYMPHOCYTES ABSOLUTE AUTO 0.85 K/mm3 (0.84-5.20); LYMPHOCYTES PERCENT AUTO 12 % (21-46); MONOCYTES PERCENT AUTO 13 % (4-13); Mean Corpuscular HGB 31.9 pg (26.0-34.0); Mean Corpuscular HGB Conc 34.1 g/dL (31.5-36.5); Mean Corpuscular Volume 94 fL (80-100); Mean Platelet Volume 9.7 fL (9.1-12.4); NEUTROPHILS ABSOLUTE AUTO 4.98 K/mm3 (1.96-9.15); NEUTROPHILS PERCENT AUTO 70 % (41-73); Platelet Count 225 K/mm3 (150-400); RDW Coefficient Variation 13.9 % (11.7-14.2); RDW Standard Deviation 47.5 fL (35.1-46.3); Red Blood Cell Count 3.13 M/mm3 (4.30-5.90); White Blood Cell Count 7.08 K/mm3 (4.00-11.30)
[2025-02-18] MEDS ORDERED: Magnesium Oxide 400 MG Tab PO SCH (21:00)
[2025-02-18] MEDS ORDERED: Ascorbic Acid 500 MG Tab PO SCH (21:00)
[2025-02-18] MEDS ORDERED: ARIPiprazole 5 MG Tab PO SCH (21:00)
[2025-02-18] MEDS ORDERED: Docusate Sodium 100 MG Cap PO SCH (21:00)
[2025-02-18 21:11] VITALS: BP 149/91
[2025-02-18 21:14] LABS: Bilirubin, Total 0.6 mg/dL (0.1-1.0); Bun/Creatinine Ratio 12.9 (12.0-20.0); Creatinine, Blood 0.7 mg/dL (0.60-1.20); Globulin, Blood 3.1 g/dL (2.2-4.0); Potassium, Blood 3.7 mmol/L (3.5-5.5); Total Protein, Blood 6.1 g/dL (6.4-8.2)
[2025-02-18] MEDS ORDERED: Albuterol HFA200 ACT/6.7 GM INH INH PRN (21:20)
[2025-02-18] MEDS ORDERED: GuaiFENesin 600 MG TabCR PO SCH (21:21)
[2025-02-18] MEDS ORDERED: Mometasone/Formoterol MDI 200/5 mcg 13 GM INH SCH (21:25)
[2025-02-18] MEDS ORDERED: BUPRENORPHN-NA1 EACH PO (22:14)
[2025-02-19 03:26] VITALS: BP 137/88
[2025-02-19 04:08] VITALS: BP 115/74
[2025-02-19 05:21] LABS: BASOPHILS ABSOLUTE AUTO 0.04 K/mm3 (0.00-0.23); BASOPHILS PERCENT AUTO 1 % (0-2); EOSINOPHILS ABSOLUTE AUTO 0.31 K/mm3 (0.00-0.68); EOSINOPHILS PERCENT AUTO 5 % (0-6); Hematocrit 29.7 % (37.0-53.0); Hemoglobin 9.9 g/dL (13.5-17.5); IMMATURE GRAN ABSOLUTE AUTO 0.02 K/mm3 (0.00-0.10); IMMATURE GRAN PERCENT AUTO 0 % (0-1); LYMPHOCYTES ABSOLUTE AUTO 0.83 K/mm3 (0.84-5.20); LYMPHOCYTES PERCENT AUTO 14 % (21-46); MONOCYTES PERCENT AUTO 16 % (4-13); Mean Corpuscular HGB 31.3 pg (26.0-34.0); Mean Corpuscular HGB Conc 33.3 g/dL (31.5-36.5); Mean Corpuscular Volume 94 fL (80-100); Mean Platelet Volume 9.4 fL (9.1-12.4); NEUTROPHILS ABSOLUTE AUTO 3.65 K/mm3 (1.96-9.15); NEUTROPHILS PERCENT AUTO 64 % (41-73); Platelet Count 221 K/mm3 (150-400); RDW Coefficient Variation 13.8 % (11.7-14.2); RDW Standard Deviation 47.4 fL (35.1-46.3); Red Blood Cell Count 3.16 M/mm3 (4.30-5.90); White Blood Cell Count 5.75 K/mm3 (4.00-11.30)
[2025-02-19 05:54] LABS: Albumin, Blood 2.9 g/dL (3.4-5.0); Bilirubin, Total 0.6 mg/dL (0.1-1.0); Bun/Creatinine Ratio 14.1 (12.0-20.0); Calcium, Blood 8.7 mg/dL (8.5-10.1); Creatinine, Blood 0.71 mg/dL (0.60-1.20); Magnesium, Blood 2.1 mg/dL (1.6-2.4); Potassium, Blood 3.5 mmol/L (3.5-5.5); Total Protein, Blood 5.9 g/dL (6.4-8.2)
--- NOTE | 2025-02-19 05:54 | NUR ---
SHIFT SUMMARY PT ADMITTED LAST EVENING AT 2100 FOR ETOH WITHDRAWAL AND SI. SI SITTER AT BEDSIDE. CIWA SCORES 4, 3, 2. PT COOPERATIVE WITH CARE. 3LNC ON PER BASELINE. PT STATES VOID PRIOR TO LEAVING ED- NO VOID SINCE 2099. PT TOOK ONLY A COUPLE OF SIPS OF WATER SINCE COMING TO FLOOR AND PT DENIES FEELING THE URGE TO VOID. BED IN LOWEST POSITION, CALL LIGHT WITHIN REACH, SIDERAILS UP X2.
[2025-02-19 07:52] VITALS: BP 152/83
[2025-02-19] MEDS ORDERED: NS 250 ML IV PRN (08:05)
[2025-02-19] MEDS ORDERED: Aspirin 81 MG Chew PO SCH (09:00)
[2025-02-19] MEDS ORDERED: Tamsulosin HCl 0.4 MG Cap PO SCH (09:00)
[2025-02-19] MEDS ORDERED: Cyanocobalamin 100 MCG Tab PO SCH (09:00)
[2025-02-19] MEDS ORDERED: Folic Acid 1 MG in NS 50 ML IV SCH (09:00)
[2025-02-19] MEDS ORDERED: DULoxetine HCL 30 MG Cap DR PO SCH (09:00)
[2025-02-19] MEDS ORDERED: Thiamine HCl 100 MG in NS 50 ML IV SCH (09:00)
[2025-02-19] MEDS ORDERED: Multivitamins/Minerals TAB PO SCH (09:00)
[2025-02-19] MEDS ORDERED: Enoxaparin 40 MG/0.4 ML SYR SC SCH (09:00)
[2025-02-19] MEDS ORDERED: Loratadine 10 MG Tab PO SCH (09:00)
[2025-02-19] MEDS ORDERED: Fluticasone 0.05% Nasal Spray SCH (09:00)
[2025-02-19] MEDS ORDERED: Potassium Chloride 10 Meq Tablet SA PO ONE (12:25)
[2025-02-19] MEDS ORDERED: Nicotine 7 MG PATCH TOP SCH (13:00)
[2025-02-19 16:07] VITALS: BP 147/79
--- NOTE | 2025-02-19 16:11 | NUR ---
PER COREMAKER EXPERIMENTAL PATIENT WAS REFERRED TO [facility] IN [place] FOR GERIATRIC PSYCHE. PATIENT WAS DENIED DUE TO BEING ON OXYGEN.
--- NOTE | 2025-02-19 16:26 | NUR ---
[facility] TO REPORT PATIENT WAS DENIED INPT PSYCHE DUE TO BEING ON OXYGEN AT BASELINE.
--- NOTE | 2025-02-19 19:53 | NUR ---
SUMMARY BLADDER SCAN COMPLETED EARLY THIS AM, VOLUME GREATER THAN 600. STRAIGHT CATH COMPLETED PER BLADDER MANAGEMENT PROTOCOL. PT WAS CATH'D ONCE IN ER WELL. PT DID HAVE ONE UNMEASURED VOID THIS AFTERNOON. UP TO CHAIR WITH ASSISTANCE. PRN SUBOXONE GIVEN TWICE TODAY BUT PATIENT STATES HE TAKES THIS REGULARLY TID AT HOME. CIWA ASSESSED BUT BELOW 5 T/O DAY. CIWA INTERVENTIONS COMPLETED. PT PENDING PLACEMENT TO GERIATRIC PSYCHE. TWO PLACES HAVE DENIED HIM DUE TO PATIENT BASELINE OXYGEN REQUIREMENT.
[2025-02-19 19:54] VITALS: BP 140/101
[2025-02-20 02:50] VITALS: BP 144/100
--- NOTE | 2025-02-20 05:08 | NUR ---
SHIFT SUMMARY; PATIENT SLEPT IN SHORT INTERVALS, ABLE TO STAND WITH 1 ASSIST USING FWW TO BR WHERE HE HAS HAD MULTIPLE VOIDINGS ALL NIGHT LONG, NO BM'S TONIGHT.1:1 SITTER ALL NIGHT. O2/3L/NC BASELINE. PLEASANT AND COOPERATIVE.
[2025-02-20 05:29] LABS: Hematocrit 27.9 % (37.0-53.0); Hemoglobin 9.5 g/dL (13.5-17.5); Mean Corpuscular HGB Conc 34.1 g/dL (31.5-36.5); Mean Corpuscular Volume 91 fL (80-100); Mean Platelet Volume 9.2 fL (9.1-12.4); Platelet Count 237 K/mm3 (150-400); RDW Coefficient Variation 13.6 % (11.7-14.2); RDW Standard Deviation 45.9 fL (35.1-46.3); Red Blood Cell Count 3.06 M/mm3 (4.30-5.90); White Blood Cell Count 5.77 K/mm3 (4.00-11.30)
[2025-02-20 05:56] LABS: Albumin, Blood 2.9 g/dL (3.4-5.0); Anion Gap 9 mmol/L (3-11); Blood Urea Nitrogen 10 mg/dL (8-24); Bun/Creatinine Ratio 13.4 (12.0-20.0); CO2, Blood 27 mmol/L (21-32); Calcium, Blood 8.8 mg/dL (8.5-10.1); Chloride, Blood 99 mmol/L (98-108); Creatinine, Blood 0.75 mg/dL (0.60-1.20); Glomerular Filtration Rate 94 (60-); Glucose, Blood 121 mg/dL (70-99); Magnesium, Blood 1.8 mg/dL (1.6-2.4); Phosphorus, Blood 2.5 mg/dL (2.5-4.9); Potassium, Blood 3.8 mmol/L (3.5-5.5); Sodium, Blood 131 mmol/L (136-145)
[2025-02-20 06:13] VITALS: BP 152/88
[2025-02-20 07:19] VITALS: BP 138/92
[2025-02-20 11:01] LABS: CORONAVIRUS COVID-19 AG Negative (NEGATIVE)
[2025-02-20 11:05] VITALS: BP 138/92
--- NOTE | 2025-02-20 11:54 | NUR ---
LATE DISCHARGE NOTE: PT WAS TRANSPORTED VIA SECURE TRANSPORT TO [facility]. CHALK EXTRUDING MACHINE OPERATOR II L.S. REMOVED PT'S IV. PT ON 3LPM OXYGEN VIA GA. NO SIGNIFIGANT CIWA CRITERIA NOTED. [facility], DISCHARGE PROCESS TOLERATED WELL. RN CALLED [facility] TO GIVE REPORT [phone]. REPORT GIVEN TO FERNANDA EVANS.
[2025-02-20 12:11] VITALS: BP 138/92
== END 2025-02-20 11:26 ==
LOC: ER 19:45 → EOR 19:46 → MEDS 19:46
PROVIDERS: Internal Medicine; Student in an Organized Health Care Education/Training Program; ADMIT Student in an Organized Health Care Education/Training Program
DX: T39.1X2A Poisoning by 4-Aminophenol derivatives, intentional self-harm, initial encounter (principal); T50.7X2A Poisoning by analeptics and opioid receptor antagonists, intentional self-harm, initial encounter; J44.9 Chronic obstructive pulmonary disease, unspecified; J96.11 Chronic respiratory failure with hypoxia; F31.9 Bipolar disorder, unspecified; I25.10 Atherosclerotic heart disease of native coronary artery without angina pectoris; E87.6 Hypokalemia; E87.1 Hypo-osmolality and hyponatremia; N40.0 Benign prostatic hyperplasia without lower urinary tract symptoms; G89.29 Other chronic pain; F10.239 Alcohol dependence with withdrawal, unspecified; F43.10 Post-traumatic stress disorder, unspecified; F17.210 Nicotine dependence, cigarettes, uncomplicated; Z79.899 Other long term (current) drug therapy; Z88.8 Allergy status to other drugs, medicaments and biological substances; Z99.81 Dependence on supplemental oxygen
CPT/HCPCS: 36415; 51701; 80053; 80069; 80320; 83735; 85025; 85027; 87426-QW; 93005; 93010; 94640; 94664; 94760; 94762; 99285-25; A9270; G0378; G0480; J0572; J1650; J3411

== ENCOUNTER 2025-04-17 06:18 | Emergency (ER) | payer OTHER ==
[~2025-04-17] VITALS: Ht 175.3 cm; Wt 83.9 kg
[~2025-04-17 06:18] MED LIST changes: +MAGNESIUM OXID500 MG PO
[2025-04-17 06:56] LABS: BASOPHILS ABSOLUTE AUTO 0.04 K/mm3 (0.00-0.23); BASOPHILS PERCENT AUTO 1 % (0-2); EOSINOPHILS ABSOLUTE AUTO 0.11 K/mm3 (0.00-0.68); EOSINOPHILS PERCENT AUTO 1 % (0-6); Hematocrit 32.4 % (37.0-53.0); Hemoglobin 10.7 g/dL (13.5-17.5); IMMATURE GRAN ABSOLUTE AUTO 0.04 K/mm3 (0.00-0.10); IMMATURE GRAN PERCENT AUTO 1 % (0-1); LYMPHOCYTES ABSOLUTE AUTO 0.34 K/mm3 (0.84-5.20); LYMPHOCYTES PERCENT AUTO 4 % (21-46); MONOCYTES ABSOLUTE AUTO 0.56 K/mm3 (0.16-1.47); MONOCYTES PERCENT AUTO 6 % (4-13); Mean Corpuscular HGB 30.5 pg (26.0-34.0); Mean Corpuscular Volume 92 fL (80-100); Mean Platelet Volume 9.2 fL (9.1-12.4); NEUTROPHILS ABSOLUTE AUTO 7.76 K/mm3 (1.96-9.15); NEUTROPHILS PERCENT AUTO 88 % (41-73); Platelet Count 247 K/mm3 (150-400); RDW Coefficient Variation 13.9 % (11.7-14.2); RDW Standard Deviation 47.5 fL (35.1-46.3); Red Blood Cell Count 3.51 M/mm3 (4.30-5.90); White Blood Cell Count 8.85 K/mm3 (4.00-11.30)
[2025-04-17 07:14] LABS: Albumin, Blood 3.4 g/dL (3.4-5.0); Albumin/Globulin Ratio 0.9 (0.8-1.8); Bilirubin, Total 0.7 mg/dL (0.1-1.0); Bun/Creatinine Ratio 10.9 (12.0-20.0); Calcium, Blood 9.1 mg/dL (8.5-10.1); Creatinine, Blood 0.91 mg/dL (0.60-1.20); Globulin, Blood 3.7 g/dL (2.2-4.0); Potassium, Blood 4.3 mmol/L (3.5-5.5); Total Protein, Blood 7.1 g/dL (6.4-8.2)
[2025-04-17] MEDS ORDERED: Furosemide 10 MG/ML 4ML Vial IV ONE (07:20)
[2025-04-17 07:59] LABS: Source, Urine Foley catheter
[2025-04-17 08:02] LABS: Appearance, Urine Clear (Clear); Bilirubin, Urine Neg (Neg); Blood, Urine 3+ (Neg); Color, Urine Yellow (P-Yellow); Glucose Qualitative, Urine Neg (Neg); Ketones, Urine 1+ (Neg); Leukocyte Esterase, Urine Neg (Neg); Nitrite, Urine Neg (Neg); Protein, Urine 2+ (Neg); Specific Gravity, Urine 1.015 (1.003-1.022); Urobilinogen, Urine NORM (Normal)
[2025-04-17 08:15] LABS: U Amphetamine Screen Not Detected; U Barbituate Screen Not Detected; U Benzodiazapine Screen Not Detected; U Buprenorphine Screen DETECTED; U Cannabinoids Screen Not Detected; U Cocaine Screen Not Detected; U Methadone Screen Not Detected; U Methamphetamine Screen Not Detected; U Opiates Screen Not Detected; U Oxycodone Screen Not Detected; U Phencyclidine Screen Not Detected
[2025-04-17 08:19] LABS: Bacteria Not Seen /hpf; Squamous Epithelial Cells Rare /hpf (Few); White Blood Cells, Urine 0-2 /hpf (0-5)
[2025-04-17 08:23] LABS: Ethanol (Alcohol), Blood, Med 3 mg/dL; Magnesium, Blood 2.2 mg/dL (1.6-2.4); Salicylate 3.1 mg/dL (2.8-20.0)
[2025-04-17 08:37] LABS: Acetaminophen, Random <2.0 ug/mL (10.0-30.0)
[2025-04-17 15:53] VITALS: BP 133/83
== END 2025-04-17 16:02 | disposition home or self-care (01) ==
LOC: ER 06:18
PROVIDERS: Student in an Organized Health Care Education/Training Program
DX: R60.0 Localized edema (principal); F10.20 Alcohol dependence, uncomplicated; F32.A Depression, unspecified; R45.851 Suicidal ideations; J44.9 Chronic obstructive pulmonary disease, unspecified; J96.10 Chronic respiratory failure, unspecified whether with hypoxia or hypercapnia; I10 Essential (primary) hypertension; E03.9 Hypothyroidism, unspecified; I25.10 Atherosclerotic heart disease of native coronary artery without angina pectoris; N40.0 Benign prostatic hyperplasia without lower urinary tract symptoms; F17.210 Nicotine dependence, cigarettes, uncomplicated; Z91.51 Personal history of suicidal behavior; Z99.81 Dependence on supplemental oxygen; Z88.8 Allergy status to other drugs, medicaments and biological substances; Z79.82 Long term (current) use of aspirin; Z79.51 Long term (current) use of inhaled steroids; Z79.899 Other long term (current) drug therapy
CPT/HCPCS: 51702; 80053; 80320; 81001; 83735; 83880; 84484; 85025; 93005; 93010; 96374-59; 99285-25; G0480; J1938

== ENCOUNTER 2025-04-20 08:53 | Emergency (ER) | payer OTHER ==
[~2025-04-20] VITALS: Ht 180.3 cm; Wt 86.2 kg
[2025-04-20 10:27] LABS: BASOPHILS ABSOLUTE AUTO 0.04 K/mm3 (0.00-0.23); BASOPHILS PERCENT AUTO 0 % (0-2); EOSINOPHILS ABSOLUTE AUTO 0.06 K/mm3 (0.00-0.68); EOSINOPHILS PERCENT AUTO 1 % (0-6); Hematocrit 32.1 % (37.0-53.0); Hemoglobin 10.7 g/dL (13.5-17.5); IMMATURE GRAN ABSOLUTE AUTO 0.06 K/mm3 (0.00-0.10); IMMATURE GRAN PERCENT AUTO 1 % (0-1); LYMPHOCYTES ABSOLUTE AUTO 0.37 K/mm3 (0.84-5.20); LYMPHOCYTES PERCENT AUTO 3 % (21-46); MONOCYTES ABSOLUTE AUTO 0.73 K/mm3 (0.16-1.47); MONOCYTES PERCENT AUTO 7 % (4-13); Mean Corpuscular HGB Conc 33.3 g/dL (31.5-36.5); Mean Corpuscular Volume 94 fL (80-100); NEUTROPHILS ABSOLUTE AUTO 9.50 K/mm3 (1.96-9.15); NEUTROPHILS PERCENT AUTO 88 % (41-73); NRBC ABSOLUTE 0.00 K/mm3 (0.00-0.02); NRBC Auto 0.0 /100 WBC (0.0-0.2); Platelet Count 240 K/mm3 (150-400); RDW Coefficient Variation 13.7 % (11.7-14.2); RDW Standard Deviation 46.3 fL (35.1-46.3)
[2025-04-20 10:58] LABS: Alanine Aminotransfer (ALT/SGP 44.0 U/L (12-78); Albumin, Blood 3.5 g/dL (3.4-5.0); Albumin/Globulin Ratio 1.0 (0.8-1.8); Anion Gap 7.0 mmol/L (3-11); Aspartate Aminotrans (AST/SGOT 93.0 U/L (12-37); Bilirubin, Total 0.7 mg/dL (0.1-1.0); Blood Urea Nitrogen 11.0 mg/dL (8-24); CO2, Blood 30.0 mmol/L (21-32); Calcium, Blood 9.5 mg/dL (8.5-10.1); Chloride, Blood 102.0 mmol/L (98-108); Creatinine, Blood 0.8 mg/dL (0.60-1.20); Globulin, Blood 3.6 g/dL (2.2-4.0); Glucose, Blood 119.0 mg/dL (70-99); Potassium, Blood 4.2 mmol/L (3.5-5.5); Sodium, Blood 135.0 mmol/L (136-145); Total Protein, Blood 7.1 g/dL (6.4-8.2)
[2025-04-20 11:23] LABS: Prothrombin Time Results 11.8 Sec (9.7-11.5)
[2025-04-20 11:55] VITALS: BP 128/75
[2025-05-02] MEDS ORDERED: SENN187 PO (10:03)
== END 2025-04-20 16:46 | disposition home or self-care (01) ==
LOC: ER 08:53
PROVIDERS: Physician Assistant
DX: R60.0 Localized edema (principal); Z88.8 Allergy status to other drugs, medicaments and biological substances; Z88.1 Allergy status to other antibiotic agents; Z79.899 Other long term (current) drug therapy; Z79.82 Long term (current) use of aspirin; J44.9 Chronic obstructive pulmonary disease, unspecified; F43.10 Post-traumatic stress disorder, unspecified; F17.210 Nicotine dependence, cigarettes, uncomplicated
CPT/HCPCS: 71046; 80053; 83880; 85025; 85610; 93005; 93010; 96374; 99284-25; J1938

== ENCOUNTER 2025-04-20 23:38 | Emergency (ER) | payer OTHER ==
[~2025-04-20] VITALS: Ht 182.9 cm; Wt 83.9 kg
[2025-04-21 02:15] LABS: Source, Urine Clean Catch
[2025-04-21 02:22] LABS: BASOPHILS ABSOLUTE AUTO 0.04 K/mm3 (0.00-0.23); BASOPHILS PERCENT AUTO 1 % (0-2); Bilirubin, Urine Neg (Neg); EOSINOPHILS ABSOLUTE AUTO 0.16 K/mm3 (0.00-0.68); EOSINOPHILS PERCENT AUTO 2 % (0-6); Glucose Qualitative, Urine Neg (Neg); Hematocrit 33.3 % (37.0-53.0); Hemoglobin 11.1 g/dL (13.5-17.5); IMMATURE GRAN ABSOLUTE AUTO 0.05 K/mm3 (0.00-0.10); IMMATURE GRAN PERCENT AUTO 1 % (0-1); Ketones, Urine Neg (Neg); LYMPHOCYTES ABSOLUTE AUTO 0.89 K/mm3 (0.84-5.20); LYMPHOCYTES PERCENT AUTO 10 % (21-46); Leukocyte Esterase, Urine Neg (Neg); MONOCYTES ABSOLUTE AUTO 0.71 K/mm3 (0.16-1.47); MONOCYTES PERCENT AUTO 8 % (4-13); Mean Corpuscular HGB Conc 33.3 g/dL (31.5-36.5); Mean Corpuscular Volume 93 fL (80-100); NEUTROPHILS ABSOLUTE AUTO 6.98 K/mm3 (1.96-9.15); NEUTROPHILS PERCENT AUTO 79 % (41-73); NRBC ABSOLUTE 0.00 K/mm3 (0.00-0.02); NRBC Auto 0.0 /100 WBC (0.0-0.2); Platelet Count 252 K/mm3 (150-400); Protein, Urine 1+ (Neg); RDW Coefficient Variation 14.0 % (11.7-14.2); RDW Standard Deviation 48.2 fL (35.1-46.3); Specific Gravity, Urine 1.015 (1.003-1.022); Urobilinogen, Urine NORM (Normal)
[2025-04-21 02:36] LABS: Color, Urine Yellow (P-Yellow)
[2025-04-21 02:43] LABS: Alanine Aminotransfer (ALT/SGP 49.0 U/L (12-78); Albumin, Blood 3.6 g/dL (3.4-5.0); Albumin/Globulin Ratio 0.9 (0.8-1.8); Anion Gap 5.0 mmol/L (3-11); Aspartate Aminotrans (AST/SGOT 106.0 U/L (12-37); Bilirubin, Total 0.8 mg/dL (0.1-1.0); Blood Urea Nitrogen 12.0 mg/dL (8-24); CO2, Blood 34.0 mmol/L (21-32); Calcium, Blood 9.4 mg/dL (8.5-10.1); Chloride, Blood 99.0 mmol/L (98-108); Creatinine, Blood 1.03 mg/dL (0.60-1.20); Globulin, Blood 4.0 g/dL (2.2-4.0); Glucose, Blood 113.0 mg/dL (70-99); Magnesium, Blood 2.0 mg/dL (1.6-2.4); Potassium, Blood 3.7 mmol/L (3.5-5.5); Sodium, Blood 134.0 mmol/L (136-145); Total Protein, Blood 7.6 g/dL (6.4-8.2)
[2025-04-21 05:41] VITALS: BP 101/73
== END 2025-04-21 06:49 | disposition home or self-care (01) ==
LOC: ER 23:38
PROVIDERS: Student in an Organized Health Care Education/Training Program
DX: R53.1 Weakness (principal); R62.7 Adult failure to thrive; F43.10 Post-traumatic stress disorder, unspecified; F17.210 Nicotine dependence, cigarettes, uncomplicated; J44.9 Chronic obstructive pulmonary disease, unspecified; Z88.8 Allergy status to other drugs, medicaments and biological substances; Z79.2 Long term (current) use of antibiotics; Z79.899 Other long term (current) drug therapy
CPT/HCPCS: 70450; 80053; 83735; 85025; 99284

== ENCOUNTER 2025-05-01 23:29 | Inpatient (IN) | payer OTHER ==
[~2025-05-01] VITALS: Ht 182.9 cm; Wt 92.7 kg
[2025-05-01 23:41] LABS: BASOPHILS ABSOLUTE AUTO 0.02 K/mm3 (0.00-0.23); BASOPHILS PERCENT AUTO 0 % (0-2); EOSINOPHILS ABSOLUTE AUTO 0.36 K/mm3 (0.00-0.68); EOSINOPHILS PERCENT AUTO 6 % (0-6); Hematocrit 29.0 % (37.0-53.0); Hemoglobin 9.5 g/dL (13.5-17.5); IMMATURE GRAN ABSOLUTE AUTO 0.03 K/mm3 (0.00-0.10); IMMATURE GRAN PERCENT AUTO 1 % (0-1); LYMPHOCYTES ABSOLUTE AUTO 0.89 K/mm3 (0.84-5.20); LYMPHOCYTES PERCENT AUTO 14 % (21-46); MONOCYTES ABSOLUTE AUTO 0.61 K/mm3 (0.16-1.47); MONOCYTES PERCENT AUTO 10 % (4-13); Mean Corpuscular HGB Conc 32.8 g/dL (31.5-36.5); Mean Corpuscular Volume 93 fL (80-100); NEUTROPHILS ABSOLUTE AUTO 4.33 K/mm3 (1.96-9.15); NEUTROPHILS PERCENT AUTO 69 % (41-73); NRBC ABSOLUTE 0.00 K/mm3 (0.00-0.02); NRBC Auto 0.0 /100 WBC (0.0-0.2); Platelet Count 241 K/mm3 (150-400); RDW Coefficient Variation 14.1 % (11.7-14.2); RDW Standard Deviation 47.9 fL (35.1-46.3)
[2025-05-02 00:06] LABS: Ethanol (Alcohol), Blood, Med <3 mg/dL; Salicylate 2.5 mg/dL (2.8-20.0)
[2025-05-02 00:08] LABS: Acetaminophen, Random 79.0 ug/mL (10.0-30.0); Alanine Aminotransfer (ALT/SGP 22 U/L (12-78); Albumin, Blood 3.0 g/dL (3.4-5.0); Albumin/Globulin Ratio 0.8 (0.8-1.8); Anion Gap 8 mmol/L (3-11); Aspartate Aminotrans (AST/SGOT 20 U/L (12-37); Bilirubin, Total 0.3 mg/dL (0.1-1.0); Blood Urea Nitrogen 7 mg/dL (8-24); CO2, Blood 28 mmol/L (21-32); Calcium, Blood 8.8 mg/dL (8.5-10.1); Chloride, Blood 101 mmol/L (98-108); Creatinine, Blood 0.85 mg/dL (0.60-1.20); Globulin, Blood 3.6 g/dL (2.2-4.0); Glucose, Blood 116 mg/dL (70-99); Potassium, Blood 4.1 mmol/L (3.5-5.5); Sodium, Blood 133 mmol/L (136-145); Total Protein, Blood 6.6 g/dL (6.4-8.2)
[2025-05-02 02:23] LABS: Salicylate 2.4 mg/dL (2.8-20.0)
[2025-05-02 02:26] LABS: Acetaminophen, Random 64.4 ug/mL (10.0-30.0)
[2025-05-02] MEDS ORDERED: NS 1,000 ML IV SCH (04:45)
[2025-05-02] MEDS ORDERED: Ipratropium/Albuterol SulF 2.5-0.5MG/3 ML Amp INH SCH (04:55)
[2025-05-02 06:57] VITALS: BP 136/87
[2025-05-02 07:01] LABS: BASOPHILS ABSOLUTE AUTO 0.03 K/mm3 (0.00-0.23); BASOPHILS PERCENT AUTO 1 % (0-2); EOSINOPHILS ABSOLUTE AUTO 0.25 K/mm3 (0.00-0.68); EOSINOPHILS PERCENT AUTO 4 % (0-6); Hematocrit 31.3 % (37.0-53.0); Hemoglobin 10.3 g/dL (13.5-17.5); IMMATURE GRAN ABSOLUTE AUTO 0.04 K/mm3 (0.00-0.10); IMMATURE GRAN PERCENT AUTO 1 % (0-1); LYMPHOCYTES ABSOLUTE AUTO 0.70 K/mm3 (0.84-5.20); LYMPHOCYTES PERCENT AUTO 12 % (21-46); MONOCYTES ABSOLUTE AUTO 0.50 K/mm3 (0.16-1.47); MONOCYTES PERCENT AUTO 9 % (4-13); Mean Corpuscular HGB Conc 32.9 g/dL (31.5-36.5); Mean Corpuscular Volume 93 fL (80-100); NEUTROPHILS ABSOLUTE AUTO 4.26 K/mm3 (1.96-9.15); NEUTROPHILS PERCENT AUTO 74 % (41-73); NRBC ABSOLUTE 0.00 K/mm3 (0.00-0.02); NRBC Auto 0.0 /100 WBC (0.0-0.2); Platelet Count 245 K/mm3 (150-400); RDW Coefficient Variation 14.1 % (11.7-14.2); RDW Standard Deviation 47.8 fL (35.1-46.3)
[2025-05-02 07:43] LABS: U Amphetamine Screen Not Detected; U Barbituate Screen Not Detected; U Benzodiazapine Screen Not Detected; U Buprenorphine Screen DETECTED; U Cannabinoids Screen Not Detected; U Cocaine Screen Not Detected; U Methadone Screen Not Detected; U Methamphetamine Screen Not Detected; U Opiates Screen Not Detected; U Oxycodone Screen Not Detected; U Phencyclidine Screen Not Detected
--- NOTE | 2025-05-02 08:53 | NUR ---
md wooding md flores in room discussing plan of care with patient. patient at this time expressing thoughts of harming self and plan to take more tylenol. md flores discussed another docotor, a psychologist coming in to talk and to determine the best plan of action moving forward. md discussing why the patient feels this way and patient stating "pain, both mental and physical". this rn discussed home medications are not done at this time, but this rn [place] [facility] [place].
[2025-05-02] MEDS ORDERED: Enoxaparin 40 MG/0.4 ML SYR SC SCH (09:00)
--- NOTE | 2025-05-02 09:38 | NUR ---
AM NOTE this rn assumed care at 0700. vital signs stable. tele sinus rhythm 70s. patient is alert and oriented x4. patient will fall back asleep quikcxly but awakes with verbal stimuli. patient denies pain, chest pain/pressure or shortness of breath. patient is able to make needs known. patient used bedside urinal to void and is continent. patient lung sounds clear upper lobes and dim lower lobes. see admit shift assesment for further detials. see md rounding note for further detials.
[2025-05-02] MEDS ORDERED: Seroquel25 MG PO (09:51)
[2025-05-02] MEDS ORDERED: Seroquel Xr50 MG PO (09:53)
[2025-05-02] MEDS ORDERED: WIXELA 250-501 EAC1 INH (09:56)
[2025-05-02] MEDS ORDERED: THERA-D2000 UNIT PO (10:00)
[2025-05-02] MEDS ORDERED: FINA5 PO (10:01)
[2025-05-02] MEDS ORDERED: MAGNESIUM OXID500 MG PO (10:02)
[2025-05-02] MEDS ORDERED: SENN187 PO ×2 (10:03→10:04)
[2025-05-02] MEDS ORDERED: NICOTINE LOZENGE2 MG MM (10:03)
[2025-05-02] MEDS ORDERED: MULTI-VITAMIN1 EAC2 PO (10:03)
--- NOTE | 2025-05-02 10:10 | NUR ---
HOME MED LIST home med list complete and updated md flores
[2025-05-02 11:25] VITALS: BP 126/84
[2025-05-02 12:16] LABS: Alanine Aminotransfer (ALT/SGP 36.0 U/L (12-78); Albumin, Blood 3.2 g/dL (3.4-5.0); Albumin/Globulin Ratio 0.9 (0.8-1.8); Anion Gap 13.0 mmol/L (3-11); Aspartate Aminotrans (AST/SGOT 42.0 U/L (12-37); Bilirubin, Total 0.4 mg/dL (0.1-1.0); Blood Urea Nitrogen 11.0 mg/dL (8-24); CO2, Blood 27.0 mmol/L (21-32); Calcium, Blood 8.9 mg/dL (8.5-10.1); Chloride, Blood 99.0 mmol/L (98-108); Creatinine, Blood 0.94 mg/dL (0.60-1.20); Globulin, Blood 3.5 g/dL (2.2-4.0); Glucose, Blood 149.0 mg/dL (70-99); Potassium, Blood 4.6 mmol/L (3.5-5.5); Sodium, Blood 134.0 mmol/L (136-145); Total Protein, Blood 6.7 g/dL (6.4-8.2)
--- NOTE | 2025-05-02 15:50 | NUR ---
1515- PT ARRIVED ON MEDICAL FLOOR IN STABLE CONDITION ON 2L VIA NC. THIS RN RECEIVED REPORT FROM CAMRYN HAND PATCHER. TWO RN SKIN CHECK PERFORMED WITH EDGAR ADAMS RN.
--- NOTE | 2025-05-02 16:05 | NUR ---
report to medical floor rn this rn gave beside report to medical floor rn at approx 1515. patient left with all belongings and with one on one sitter. patient left in no distress.
[2025-05-02] MEDS ORDERED: Albuterol HFA200 ACT/6.7 GM INH INH PRN (16:25)
[2025-05-02 16:39] VITALS: BP 147/76
--- NOTE | 2025-05-02 17:20 | NUR ---
SUMMARY- NO ACUTE EVENTS THIS SHIFT SINCE PT ARRIVED TO MEDICAL FLOOR THIS EVENING. PT IS CALM AND COOPERATIVE. ROOM WAS MITIGATED AND PT HAS 1:1 SITTER. PT IS ON 2L O2 VIA NC. X1 SBA. NO COMPLAINTS OF PAIN.
[2025-05-02 19:45] VITALS: BP 159/80
[2025-05-02] MEDS ORDERED: Buprenorphine HCL/Naloxone HCL 2-0.5MG 1 EA SL SCH (21:00)
[2025-05-03 02:29] VITALS: BP 153/78
--- NOTE | 2025-05-03 02:39 | NUR ---
PATIENT HAVING RATTLING BREATH SOUNDS. RT NOTIFIED AND HAD PATIENT COUGH WITH GOOD RESULTS AND FOLLOWED WITH THIRD BREATHING TX OF NIGHT. PATIENT NEXT ABLE TO COUGH UP GREEN SPUTUM PER SITTER. RESTING IN BED ON 4L O2 NC STATING 91% ON CONTINUOUS PULSE OXIMETRY. PATIENT MENTATION HAS SLIGHTLY CHANGED SINCE SHIFT CHANGE WITH SOME CONFUSION. WCTM.
--- NOTE | 2025-05-03 04:05 | NUR ---
SHIFT SUMMARY PATIENT HAD NO SI IDEATION. SITTER 1:1. DENIES CHEST PAIN, SOB, AND N/V. VSS/AFEBRILE. PIV INTACT. NS FINISHED INFUSING X ONE BAG. TELE MONITOR NSR 86. RT IN FOR BREATHING TX'S X 3 AND FLUTTER VALVE USED. ON 4L O2 NC AND 2L O2 BASELINE STATING 91% ON CONTINUOUS PULSE OXIMETRY. CIWA PRN AT 2 WITH MILD ANXIETY. USES URINAL AT BEDSIDE. SBA FWW TO BR SUPERVISED. CALL LIGHT IN REACH. BED IN LOWEST POSITION. WILL CONTINUE TO MONITOR UNTIL DAY SHIFT NURSE ASSUMES CARE.
[2025-05-03 04:45] VITALS: BP 151/83
[2025-05-03 06:26] LABS: BASOPHILS ABSOLUTE AUTO 0.05 K/mm3 (0.00-0.23); BASOPHILS PERCENT AUTO 1 % (0-2); EOSINOPHILS ABSOLUTE AUTO 0.11 K/mm3 (0.00-0.68); EOSINOPHILS PERCENT AUTO 1 % (0-6); Hematocrit 30.2 % (37.0-53.0); Hemoglobin 10.2 g/dL (13.5-17.5); IMMATURE GRAN ABSOLUTE AUTO 0.03 K/mm3 (0.00-0.10); IMMATURE GRAN PERCENT AUTO 0 % (0-1); LYMPHOCYTES ABSOLUTE AUTO 0.41 K/mm3 (0.84-5.20); LYMPHOCYTES PERCENT AUTO 5 % (21-46); MONOCYTES ABSOLUTE AUTO 0.49 K/mm3 (0.16-1.47); MONOCYTES PERCENT AUTO 5 % (4-13); Mean Corpuscular HGB Conc 33.8 g/dL (31.5-36.5); Mean Corpuscular Volume 93 fL (80-100); NEUTROPHILS ABSOLUTE AUTO 8.12 K/mm3 (1.96-9.15); NEUTROPHILS PERCENT AUTO 88 % (41-73); NRBC ABSOLUTE 0.00 K/mm3 (0.00-0.02); NRBC Auto 0.0 /100 WBC (0.0-0.2); Platelet Count 236 K/mm3 (150-400); RDW Coefficient Variation 14.4 % (11.7-14.2); RDW Standard Deviation 49.2 fL (35.1-46.3)
[2025-05-03 07:09] VITALS: BP 141/79
[2025-05-03 07:25] LABS: Anion Gap 7.0 mmol/L (3-11); Blood Urea Nitrogen 12.0 mg/dL (8-24); CO2, Blood 28.0 mmol/L (21-32); Calcium, Blood 8.8 mg/dL (8.5-10.1); Chloride, Blood 103.0 mmol/L (98-108); Creatinine, Blood 0.81 mg/dL (0.60-1.20); Glucose, Blood 114.0 mg/dL (70-99); Potassium, Blood 4.4 mmol/L (3.5-5.5); Sodium, Blood 134.0 mmol/L (136-145)
[2025-05-03] MEDS ORDERED: NS 250 ML IV PRN (08:15)
[2025-05-03] MEDS ORDERED: Cholecalciferol 1000 Unit Tablet (=25MCG) PO SCH (09:00)
[2025-05-03] MEDS ORDERED: DULoxetine HCL 30 MG Cap DR PO SCH (09:00)
--- NOTE | 2025-05-03 13:43 | NUR ---
1315- THIS RN NOTIFIED MD GUERRERO REGARDING CONCERNS FOR INCREASED O2 DEMAND AND DECREASED LOC. PT DISORIENTED TO PLACE AND DATE. PT'S O2 INCREASED TO 5L ON OXYMASK FROM 4L ON NC. PT'S O2 SATS RANGING FROM 86-91. PT HAS LABORED BREATHING. RN INFORMED MD GUERRERO CONCERNS FOR POSSIBLY NEEDING A CXR. PT IS COUGHING UP THICK, GREEN SPUTUM. RN TOOK A CHEM BG FOR CONCERNS OF LOW BLOOD GLUCOSE; RESULT WAS 114. MD GUERRERO GAVE VERBAL TO PLACE STAT VBG AND STATED HE WILL "LOOK OVER PATIENT AND PLACE ORDERS. CXR MAY BE WARRANTED."
[2025-05-03] MEDS ORDERED: CefTRIAXone Sodium 1,000 MG in NS 100 ML IV SCH (14:00)
[2025-05-03 14:24] LABS: pH Blood Venous 7.43 (7.34-7.37)
--- NOTE | 2025-05-03 14:39 | NUR ---
PT REPORTS INCREASE IN SOB, MOIST SOUNDING RESPIRATIONS. LUNGS WITH FIINE CRACKELS. PT STARING STRAIGHT AHEAD WITH BLANK GAXE, MOANING NOT ANSWERING QUESTIONS, DOES SAY YEAS ROGER AND GIVE BIRTHDATE
--- NOTE | 2025-05-03 16:53 | NUR ---
5450- RT JASON CALLED MD GUERRERO AND REPORTED PT HAD RESPIRATIONS OF 30 AND LUNGS WERE MORE WET AND HE WAS CONCERNED FOR A RAPID RESPONSE LATER. RT JASON INFORMED THIS RN THAT MD GUERRERO WAS GOING TO COME BY BEDSIDE.
--- NOTE | 2025-05-03 17:11 | NUR ---
1600- THIS RN SPOKE WITH MD GUERRERO AT BEDSIDE REGARDING CONCERNS FOR PT'S CONTINUING DECLINING STATUS. MD GUERRERO GAVE VERBAL TO SEND PT TO PCU.
[2025-05-03 18:03] VITALS: BP 110/75
--- NOTE | 2025-05-03 18:11 | NUR ---
1700- THIS RN CALLED MD GUERRERO AFTER RECEIVING PHONE CALL FROM TELE REGARDING POSSIBLE S T ELEVATION. MD GUERRERO GAVE VERBAL FOR STAT EKG. PT STATED HE HAS "A LITTLE" CHEST PAIN, MD TO ORDER TROPS WELL.
--- NOTE | 2025-05-03 18:13 | NUR ---
1740- REPORT GIVEN TO PATTERNMAKER HELPERFERNANDA WAGNER. ALL QUESTIONS ANSWERED. PT BROUGHT DOWN TO U AT 1545.
--- NOTE | 2025-05-03 18:15 | NUR ---
1400- THIS RN NOTIFIED MD GUERRERO PT'S HR WAS IN THE 80'S THIS AM AND YESTERDAY AND NOW HE IS TACHYCARDIC. PT'S BREATHING IS LABORED.
--- NOTE | 2025-05-03 18:23 | NUR ---
TX SUMMARY THE PT TRANSFERED FROM [facility] TO [facility] 08. THE ROOM WAS MITIGATED PER CHARTING BEFORE THE PT ARRIVED TO THE UNIT. SHORT CALL LIGHT IN PLACE. KIRAN 1:1 SITTER PRESENT IN THE ROOM. CARDIAC: THE PT DENIES ANY CHEST PAIN. ON TELE ST 100'S. BP STABLE. EKG COMPLETED PRIOR TO TRANSFER AND TROPONINS NEGATIVE. BNP PENDING. RESP: THE PT ARRIVED ON 6L OXYMIZER. HE WAS TURNED UP TO 7L TO HELP MAINTAIN SP02 >92%. RESP RATE 22. LUNG SOUNDS WERE CLEAR AND DIM IN THE BASES. THE PT HAD AUDIABLE WET SECRETIONS IN HIS THROAT. THE PT WAS ABLE TO CLEAR HIS THROAT. THICK YELLOW SPUTUM NOTED VIA SUCTION. SECRETIONS CLEARED AND PT BREATHING WITH MORE RELIEF. GI/: PT ARRIVED IN A SOILED BREIF. PT CLEANED AND MALE WICKING SYSTEM SET UP TO SUCTION. NEURO: PUPILS 2MM SLUGGISH BUT REACTIVE. WHEN ASKING THE PT ORIENTATION QUESTIONS HE HAD SLOW OR DELAYED RESPONSES, BUT ANSWERED EVERYTHING APPROPRAITELY. THE PT DID REPEAT SOME ANSWERS. NO FACIAL DROOP NOTED. THE PT IS A 2P MAX ASSIST FOR TURNING IN THE BED. SI: ROOM MITIGATED. MITIGATION CHARTED. PT STATES HE ALWAYS HAS THOUGHTS OF HARMING HIMSELF, BUT DOES NOT HAVE A CURRENT PLAN OR IDEAS ON HOW TO DO IT. 1:1 SITTER IN THE ROOM. BLUE [employer] BAG WITH BELONGINGS LOCKED IN THE CLOSET. BATHROOM LOCKED. CIWA: SCORE-3 SEE NOTES FOR UPDATES. THE PT CAME WITH A SOILED BREIF AND HE WAS CLEANED UP WITH 2P ASSIST AND A MALE WICKING SYSTEM WAS SET UP.
[2025-05-03 20:23] VITALS: BP 108/73
[2025-05-03 23:22] VITALS: BP 94/71
[2025-05-04 04:06] VITALS: BP 108/71
[2025-05-04 04:19] LABS: BASOPHILS ABSOLUTE AUTO 0.01 K/mm3 (0.00-0.23); BASOPHILS PERCENT AUTO 0 % (0-2); EOSINOPHILS ABSOLUTE AUTO 0.00 K/mm3 (0.00-0.68); EOSINOPHILS PERCENT AUTO 0 % (0-6); Hematocrit 30.2 % (37.0-53.0); Hemoglobin 10.0 g/dL (13.5-17.5); IMMATURE GRAN ABSOLUTE AUTO 0.03 K/mm3 (0.00-0.10); IMMATURE GRAN PERCENT AUTO 0 % (0-1); LYMPHOCYTES ABSOLUTE AUTO 0.28 K/mm3 (0.84-5.20); LYMPHOCYTES PERCENT AUTO 3 % (21-46); MONOCYTES ABSOLUTE AUTO 0.35 K/mm3 (0.16-1.47); MONOCYTES PERCENT AUTO 4 % (4-13); Mean Corpuscular HGB Conc 33.1 g/dL (31.5-36.5); Mean Corpuscular Volume 93 fL (80-100); NEUTROPHILS ABSOLUTE AUTO 7.86 K/mm3 (1.96-9.15); NEUTROPHILS PERCENT AUTO 92 % (41-73); NRBC ABSOLUTE 0.00 K/mm3 (0.00-0.02); NRBC Auto 0.0 /100 WBC (0.0-0.2); Platelet Count 241 K/mm3 (150-400); RDW Coefficient Variation 14.3 % (11.7-14.2); RDW Standard Deviation 49.1 fL (35.1-46.3)
[2025-05-04 04:39] LABS: Anion Gap 7.0 mmol/L (3-11); Blood Urea Nitrogen 18.0 mg/dL (8-24); CO2, Blood 31.0 mmol/L (21-32); Calcium, Blood 9.1 mg/dL (8.5-10.1); Chloride, Blood 99.0 mmol/L (98-108); Creatinine, Blood 0.94 mg/dL (0.60-1.20); Glucose, Blood 174.0 mg/dL (70-99); Potassium, Blood 4.1 mmol/L (3.5-5.5); Sodium, Blood 133.0 mmol/L (136-145)
--- NOTE | 2025-05-04 05:53 | NUR ---
SHIFT SUMMARY PT REMAINS ALERT HOWEVER DISORIENTED PERIODICALLY TO PERSON/PLACE. FOR MOST OF THE SHIFT PT DISORIENTED TO PLACE, SITUATION AND PERSON. VERY PLEASANTLY CONFUSED AND COOPERATIVE. CIWA MAX OF 8 AT START OF SHIFT, 25 OF LIBRIUM GIVEN. AFTERWARDS PT SCORED BELOW A 5 ON CIWA SCALE. VSS ON 4L NC THROUGHOUT NIGHT >90%. PT HAVING PRODUCTIVE COUGH WITH MODERATE GREEN SPUTUM PRODUCTION. PT EDUCATED ON FLUTTER VALVE AND USED THROUGHOUT NIGHT. ON TELE PT REMAINS NSR 60s-90s. HAD ONE EPISODE OF 8 SECOND SVT. VITALS WERE STABLE AT THE TIME AND PT DID NOT REPORT ANY CHEST PAIN OR PRESSURE. PT RESTING COMFORTABLY THROUGHOUT NIGHT. BED BATH GIVEN WITH COMPLETE BED CHANGE. PT REMAINS WITH 1:1 SITTER D/T HIGH SI. WILL CONTINUE WITH PLAN OF CARE.
[2025-05-04 07:22] VITALS: BP 111/69
[2025-05-04 11:15] VITALS: BP 91/65
--- NOTE | 2025-05-04 13:26 | NUR ---
MORNING SUMMARY THE PT IS A&OX4, AND IS ABLE TO MAKE HIS NEEDS KNOWN. HE IS STILL HIGH SI AND HAS A 1:1 SITTER IN THE ROOM. THE PT STATES HE ALWAYS HAS THOUGHTS OF SELF HARM BUT DOES NOT HAVE ANY PLANS AND HE DOES NOT PLAN ON ACTING ON IT. THE PT WORKED WITH PHYSICAL THERAPY AND IS A 1P ASSIST W/ FWW. THE PT IS BACK TO BEING MEDICAL STATUS WITH TELE. ON TELE HE HAS BEEN SR W/ BBB 60'S-80'S. BP STABLE. HE HAS BEEN ON 3-4L NC WITH SP02> 93%. THE PT DOES NO C/O SOB TODAY AND STATES HE FEELS ALOT BETTER THEN THE PREVIOUS DAY. THE PT DOES HAVE A PRODUCTIVE COUGH THAT IS YELLOW/GREEN IN COLOR. SPUTUM SAMPLE WAS SENT TO PHARMACY. MALE WICKING SET UP TO SUCTION. SEE NOTES FOR UPDATES.
[2025-05-04 15:06] VITALS: BP 99/74
--- NOTE | 2025-05-04 15:23 | NUR ---
DR. ORTEGA CAME TO BEDSIDE AND SAW THE PT. NO NEW ORDERS. PT REMAINS HIGH SI.
[2025-05-04 19:35] VITALS: BP 109/76
[2025-05-04] MEDS ORDERED: Polyethylene Glycol 3350 17 gm PO PRN (23:45)
[2025-05-04 23:53] VITALS: BP 117/63
[2025-05-05 03:25] VITALS: BP 124/81
[2025-05-05 03:37] LABS: BASOPHILS ABSOLUTE AUTO 0.01 K/mm3 (0.00-0.23); BASOPHILS PERCENT AUTO 0 % (0-2); EOSINOPHILS ABSOLUTE AUTO 0.00 K/mm3 (0.00-0.68); EOSINOPHILS PERCENT AUTO 0 % (0-6); Hematocrit 29.2 % (37.0-53.0); Hemoglobin 9.8 g/dL (13.5-17.5); IMMATURE GRAN ABSOLUTE AUTO 0.11 K/mm3 (0.00-0.10); IMMATURE GRAN PERCENT AUTO 1 % (0-1); LYMPHOCYTES ABSOLUTE AUTO 0.51 K/mm3 (0.84-5.20); LYMPHOCYTES PERCENT AUTO 4 % (21-46); MONOCYTES ABSOLUTE AUTO 0.36 K/mm3 (0.16-1.47); MONOCYTES PERCENT AUTO 3 % (4-13); Mean Corpuscular HGB Conc 33.6 g/dL (31.5-36.5); Mean Corpuscular Volume 91 fL (80-100); NEUTROPHILS ABSOLUTE AUTO 11.47 K/mm3 (1.96-9.15); NEUTROPHILS PERCENT AUTO 92 % (41-73); NRBC ABSOLUTE 0.00 K/mm3 (0.00-0.02); NRBC Auto 0.0 /100 WBC (0.0-0.2); Platelet Count 238 K/mm3 (150-400); RDW Coefficient Variation 14.4 % (11.7-14.2); RDW Standard Deviation 48.0 fL (35.1-46.3)
[2025-05-05 04:17] LABS: Anion Gap 10.0 mmol/L (3-11); Blood Urea Nitrogen 26.0 mg/dL (8-24); CO2, Blood 28.0 mmol/L (21-32); Calcium, Blood 9.0 mg/dL (8.5-10.1); Chloride, Blood 95.0 mmol/L (98-108); Creatinine, Blood 0.91 mg/dL (0.60-1.20); Glucose, Blood 143.0 mg/dL (70-99); Potassium, Blood 4.2 mmol/L (3.5-5.5); Sodium, Blood 129.0 mmol/L (136-145)
--- NOTE | 2025-05-05 05:12 | NUR ---
SHIFT SUMMARY PT REMAINED A&OX4. VSS ON 4L NC >90%. SOB WITH EXERTION. NO PAIN NOTED THROUGHOUT NIGHT. PT WAS ABLE TO REST COMFORTABLY. VOIDING APPROPRIATELY THROUGH MALE PUREWICK. 1:1 SITTER AT BEDSIDE THROUGHOUT NIGHT. WILL CONTINUE WITH PLAN OF CARE.
[2025-05-05 07:45] VITALS: BP 138/92
[2025-05-05 12:44] VITALS: BP 98/65
--- NOTE | 2025-05-05 14:36 | NUR ---
ASSUMPTION ASSUMED CARE OF PT @0700. AXO4. HIHH SI - 1:1 SITTER PRESENT AT ALL TIMES - SI PRECAUTIONS IN PLACE. VSS. PT PLEASANT AND COOPERATIVE. STATES SI IS A CONSISTENT ISSUE FOR HIM SINCE CHILDHOOD. STATES NO CURRENT INTENTION IN HOSPITAL BUT WOULD HAVE INTENTIONS OUT OF HOSPITAL.
[2025-05-05 15:32] VITALS: BP 117/86
--- NOTE | 2025-05-05 17:10 | NUR ---
SUMMARY SEE ASSUMPTION NOTE. NO CHANGES FROM ASSUMPTION. AXO4. VSS. 1:1 SITTER IN ROOM AT ALL TIMES. REMAINS ON HIGH SI PRECAUTIONS. PLEASANT AND COOPERATIVE. HAS MALE PUREWICK IN LACE - STARTED PO DIURETICS THIS SHIFT, TOLERATING WELL. SHORT CALL LIGHT WITHIN REACH.
[2025-05-05 20:08] VITALS: BP 132/86
--- NOTE | 2025-05-05 21:18 | NUR ---
REPORT CALLED TO PREMA MICHAEL. PT TRANSFERRED TO [id number]. ALL PATIENT BELONGINGS TRANSFERRED WITH PATIENT. PT TRANSFERRED IN WHEELCHAIR WITH NO ACUTE DISTRESS. 1:1 SITTER WITH PATIENT.
[2025-05-05 23:50] VITALS: BP 133/69
[2025-05-06] VITALS (7 sets, daily range): BP systolic 98–141; BP diastolic 70–84
--- NOTE | 2025-05-06 05:04 | NUR ---
PT A&O X4, NO CURRENT SUICIDE IDEATIONS, VS WNL, NO WITHDRAWL. REMAINS ON O2 @ 3L/NC. L/S WITH BOUBACAR T/O, PLAN IN TO TRANSFER TO TX IN [place] FOR INPATIENT PSYCH. USES CALL SYSTEM WITH ASSIST, SITTER AT BEDSIDE.
[2025-05-06 05:37] LABS: BASOPHILS ABSOLUTE AUTO 0.02 K/mm3 (0.00-0.23); BASOPHILS PERCENT AUTO 0 % (0-2); EOSINOPHILS ABSOLUTE AUTO 0.00 K/mm3 (0.00-0.68); EOSINOPHILS PERCENT AUTO 0 % (0-6); Hematocrit 31.5 % (37.0-53.0); Hemoglobin 10.5 g/dL (13.5-17.5); IMMATURE GRAN ABSOLUTE AUTO 0.10 K/mm3 (0.00-0.10); IMMATURE GRAN PERCENT AUTO 1 % (0-1); LYMPHOCYTES ABSOLUTE AUTO 0.72 K/mm3 (0.84-5.20); LYMPHOCYTES PERCENT AUTO 6 % (21-46); MONOCYTES ABSOLUTE AUTO 0.92 K/mm3 (0.16-1.47); MONOCYTES PERCENT AUTO 7 % (4-13); Mean Corpuscular HGB Conc 33.3 g/dL (31.5-36.5); Mean Corpuscular Volume 93 fL (80-100); NEUTROPHILS ABSOLUTE AUTO 11.02 K/mm3 (1.96-9.15); NEUTROPHILS PERCENT AUTO 86 % (41-73); NRBC ABSOLUTE 0.00 K/mm3 (0.00-0.02); NRBC Auto 0.0 /100 WBC (0.0-0.2); Platelet Count 248 K/mm3 (150-400); RDW Coefficient Variation 14.5 % (11.7-14.2); RDW Standard Deviation 49.2 fL (35.1-46.3)
[2025-05-06 06:09] LABS: Anion Gap 6.0 mmol/L (3-11); Blood Urea Nitrogen 29.0 mg/dL (8-24); CO2, Blood 31.0 mmol/L (21-32); Calcium, Blood 9.1 mg/dL (8.5-10.1); Chloride, Blood 100.0 mmol/L (98-108); Creatinine, Blood 0.87 mg/dL (0.60-1.20); Glucose, Blood 120.0 mg/dL (70-99); Potassium, Blood 4.0 mmol/L (3.5-5.5); Sodium, Blood 133.0 mmol/L (136-145)
[2025-05-06] MEDS ORDERED: Albuterol HFA200 ACT/6.7 GM INH INH PRN (08:05)
[2025-05-06] MEDS ORDERED: Folic Acid 1 MG TAB PO SCH (09:00)
--- NOTE | 2025-05-06 10:31 | NUR ---
SPOKE TO DR TOVAR- PT HAS TELE AND IV ABX, ASKED IF ABX CAN BE CHANGED TO PO AND TELE DC'D. SHE WILL REVIEW. NO NEW ORDERS AT THIS TIME.
--- NOTE | 2025-05-06 15:53 | NUR ---
SHIFT SUMMARY- PT ALERT AND ORIENTED, 1P SBA ASSIST. PT HAS A 1:1 SITTER FOR SI HE WAS ADMITTED AFTER AN OVERDOSE. PT IS CURRENTLY ON 3L VIA NC, WHICH IS HIS HOME O2 DOSE, PUREWICK IS IN PLACE D/T THE PT RECIEVING PO LASIX THIS MORNING. TELE DC'D AND AN ORDER FOR NO IV ACCESS WAS PLACED. SPUTUM CULTURE CAME BACK TODAY POSSITIVE FOR MRSA. 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 PT IS CURRENTLY IN BED, CALL LIGHT IN REACH NO S&S OF DISTRESS NOTED.
--- NOTE | 2025-05-06 16:37 | NUR ---
SI RISK ASSESSMENT LOW SCORE DOES NOT SEEM ACCURATE Pt states he doesn't have to think about the plan, it's what "I've always plkanned to do. Pills and alcohol"
--- NOTE | 2025-05-07 02:54 | NUR ---
pt a&o x4 at begining of shift, now much more confused and sitting up in bed humming loudly. vs wnl, o2 @ 3L/nc. pt not communicating well, cwa score increased as more anxious, sweating, ativan administered at 0108 began with 1mg waited approximately 1.5 hrs then scored 9 still and administered another 1mg po. pt remains on purwik with good output. sitter present.
[2025-05-07 04:25] VITALS: BP 126/78
[2025-05-07 07:08] VITALS: BP 128/81
--- NOTE | 2025-05-07 11:38 | NUR ---
SPOKE TO DR TOVAR SPOKE TO ON AM ROUNDS. PT WAS OBTUNDED AT THE START OF THE SHIFT. HE WAS MEDICATED FOR HIGH CIWA SCORE LAST NIGHT. HE SLEEPS OFTEN WITH HIS EYES OPEN, SO WHEN STAFF TALK TO HIM HE LOOKS AT THEM BUT THEN BECOMES UNRESPONSIVE AGAIN RESPONDING IN [place]. HE INDICATED PAIN WHILE BEING CHANGED AND SL BUPRINORPHERIN WAS GIVEN IT DOES NOT HAVE TO BE SWALLOWED. DR MOURA PT AM MEDS WERE NOT GIVEN FOR ASPIRATION PRECAUTION.
[2025-05-07 15:26] VITALS: BP 127/92
--- NOTE | 2025-05-07 17:08 | NUR ---
SHIFT SUMMARY-- PT HAS BEEN OBTUNDED T/O THE SHIFT. HE HAS NOT WOKEN ENOUGH TO EAT BREAKFAST OR LUNCH. HE IS STARTING TO BE SLIGHTLY MORE WAKEFUL THIS EVENING AND MAY BE WILLING TO EAT SOME DINNER. HE DID NOT RECIEVE ANY SCHEDULED MEDS THAT WERE PO, WITH THE EXCEPTION OF HIS SL PAIN MEDS. PT HAS A PUREWICK IN PLACE THAT WAS CHANGED AT 1700 DUE TO A LEAK. PT IS PLEASEANT AND COOPERATIVE WITH CARE. HE SLEEPS WITH HIS EYES OPEN AND APPEARS TO INTERACT IN HIS DREAMS, REACHING AND GRABBING AT THINGS, AND MOANING CONSTANTLY. HE RELAXED ONCE A SLEEP MASK WAS PLACED OVER HIS EYES AND SEEMED TO REST FOR ABOUT 30 MINIUTES. PT IS IN BED, CALL LIGHT IN REACH NO S&S OF DISTRESS NOTED AT THIS TIME. 1:1 SITTER PRESENT THE PT IS HIGH SI. HIS PLAN IS PILLS AND ALCOHOL, PER HIS STATEMENT.
[2025-05-07 19:58] VITALS: BP 120/76
[2025-05-07 23:32] VITALS: BP 114/82
[2025-05-08 03:51] VITALS: BP 126/86
[2025-05-08 06:13] LABS: Hematocrit 31.4 % (37.0-53.0); Hemoglobin 10.3 g/dL (13.5-17.5); Mean Corpuscular HGB Conc 32.8 g/dL (31.5-36.5); Mean Corpuscular Volume 94 fL (80-100); NRBC ABSOLUTE 0.00 K/mm3 (0.00-0.02); NRBC Auto 0.0 /100 WBC (0.0-0.2); Platelet Count 241 K/mm3 (150-400); RDW Coefficient Variation 14.4 % (11.7-14.2); RDW Standard Deviation 49.8 fL (35.1-46.3)
[2025-05-08 06:32] LABS: Alanine Aminotransfer (ALT/SGP 646.0 U/L (12-78); Albumin, Blood 3.0 g/dL (3.4-5.0); Albumin/Globulin Ratio 0.8 (0.8-1.8); Anion Gap 5.0 mmol/L (3-11); Aspartate Aminotrans (AST/SGOT 87.0 U/L (12-37); Bilirubin, Total 0.6 mg/dL (0.1-1.0); Blood Urea Nitrogen 19.0 mg/dL (8-24); CO2, Blood 32.0 mmol/L (21-32); Calcium, Blood 8.6 mg/dL (8.5-10.1); Chloride, Blood 101.0 mmol/L (98-108); Creatinine, Blood 0.97 mg/dL (0.60-1.20); Globulin, Blood 3.6 g/dL (2.2-4.0); Glucose, Blood 96.0 mg/dL (70-99); Magnesium, Blood 2.4 mg/dL (1.6-2.4); Phosphorus, Blood 3.6 mg/dL (2.5-4.9); Potassium, Blood 4.2 mmol/L (3.5-5.5); Sodium, Blood 134.0 mmol/L (136-145); Total Protein, Blood 6.6 g/dL (6.4-8.2)
[2025-05-08 07:25] VITALS: BP 155/79
[2025-05-08] MEDS ORDERED: Tiotropium Bromide 2.5 MCG/ACT MIST INHAL (10 ACT/4 GM) INH SCH (11:20)
[2025-05-08] MEDS ORDERED: Formoterol/Mometasone MDI 5/200 mcg 13 GM INH SCH (11:25)
[2025-05-08 16:06] VITALS: BP 137/74
--- NOTE | 2025-05-08 16:55 | NUR ---
SHIFT SUMMARY: PATIENT A/OX3, PLEASANT AND COOPERATIVE c STAFF. PATIENT DENIES SI, CP/PRESSURE, SOB, N/V AND DIZZINESS. PATIENT HAS 1:1 SITTER FOR SAFETY. PATIENT ON 2-3L O2 VIA NC SATTING 95-98%. PATIENT WORK c PT TODAY, RECOMMENDING [facility]. PATIENT HAS GREAT APPETITE, MALE PUREWICK IN PLACED FOR INCONTINENT VOID. VITAL SIGNS REVIEWED. BED ALARM ON FOR SAFETY. CALL LIGHT IN REACH.
[2025-05-08 19:54] VITALS: BP 134/93
[2025-05-09 03:51] VITALS: BP 140/74
--- NOTE | 2025-05-09 05:32 | NUR ---
SHIFT SUMMARY PATIENT IS ALERT AND ORIENTED X3. PATIENT HAS HAD NO ACUTE EVENTS THIS SHIFT. VITAL SIGNS REVIEWED. PATIENT HAS BEEN PLEASENT AND COOPERATIVE WITH CARE. PATIENT HAS HAD NO COMPLAINTS OF SOB, NAUSEA, VOMITTING OR PAIN THIS SHIFT. PATIENT IS ON 3L NC.
[2025-05-09 05:50] LABS: Alanine Aminotransfer (ALT/SGP 492.0 U/L (12-78); Albumin, Blood 3.1 g/dL (3.4-5.0); Albumin/Globulin Ratio 0.9 (0.8-1.8); Anion Gap 6.0 mmol/L (3-11); Aspartate Aminotrans (AST/SGOT 58.0 U/L (12-37); Bilirubin, Total 1.2 mg/dL (0.1-1.0); Blood Urea Nitrogen 15.0 mg/dL (8-24); CO2, Blood 32.0 mmol/L (21-32); Calcium, Blood 8.7 mg/dL (8.5-10.1); Chloride, Blood 100.0 mmol/L (98-108); Creatinine, Blood 0.96 mg/dL (0.60-1.20); Globulin, Blood 3.4 g/dL (2.2-4.0); Glucose, Blood 114.0 mg/dL (70-99); Potassium, Blood 4.1 mmol/L (3.5-5.5); Sodium, Blood 134.0 mmol/L (136-145); Total Protein, Blood 6.5 g/dL (6.4-8.2)
[2025-05-09 07:41] VITALS: BP 155/73
[2025-05-09 15:54] VITALS: BP 143/72
[2025-05-09 17:01] LABS: Alanine Aminotransfer (ALT/SGP 436.0 U/L (12-78); Albumin, Blood 3.0 g/dL (3.4-5.0); Albumin/Globulin Ratio 0.9 (0.8-1.8); Anion Gap 3.0 mmol/L (3-11); Aspartate Aminotrans (AST/SGOT 52.0 U/L (12-37); Bilirubin, Total 0.5 mg/dL (0.1-1.0); Blood Urea Nitrogen 15.0 mg/dL (8-24); CO2, Blood 34.0 mmol/L (21-32); Calcium, Blood 8.9 mg/dL (8.5-10.1); Chloride, Blood 101.0 mmol/L (98-108); Creatinine, Blood 0.87 mg/dL (0.60-1.20); Globulin, Blood 3.2 g/dL (2.2-4.0); Glucose, Blood 125.0 mg/dL (70-99); Potassium, Blood 4.2 mmol/L (3.5-5.5); Sodium, Blood 134.0 mmol/L (136-145); Total Protein, Blood 6.2 g/dL (6.4-8.2)
--- NOTE | 2025-05-09 17:41 | NUR ---
SHIFT SUMMARY PATIENT A/OX3, ABLE TO MAKE NEEDS KNOWN. SLOW TO RESPOND, PLEASANT AND COOPERATIVE WITH CARE. IMPULSIVE AT TIMES, BED ALARM IN PLACE. 1:1 SITTER AT BEDSIDE FOR SI IDEATION. MALE PUREWICK IN PLACE. 3LPM SUPPLEMENTAL OXYGEN USE VIA NASAL CANNULA, WHICH IS PATIENT'S BASELINE. COMPLAINING OF GENERALIZED PAIN, SCHEDULED MEDICATION EFFECTIVE IN PAIN MANAGEMENT. 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 [place] PSYCH PAPERWORK NEEDING TO BE SIGNED BY DR. TOVAR TOMORROW FOR PSYCH PLACEMENT. NO OTHER CONCERNS AT THIS TIME.
[2025-05-09 20:11] VITALS: BP 123/65
[2025-05-10 02:13] VITALS: BP 134/80
--- NOTE | 2025-05-10 04:51 | NUR ---
SHIFT SUMMARY PT A&Ox3, DISORIENTED TO TIME. VSS ON 3LPM. PT ENDORSES SI, WITHOUT SPECIFIC PLANS. 1:1 COOK BARBECUE PRESENT THROUGHOUT SHIFT. UP TO BEDSIDE COMMODE WITH 1P ASSIST; FREQUENT CUES FOR BODY POSITIONING. DROPLET PRECAUTIONS IN PLACE. NO ACUTE CHANGES OVERNIGHT. PT DENIES SOB, NAUSEA OR OTHER COMPLAINTS.
[2025-05-10 08:44] VITALS: BP 143/68
[2025-05-10 09:13] LABS: Alanine Aminotransfer (ALT/SGP 329.0 U/L (12-78); Albumin, Blood 2.7 g/dL (3.4-5.0); Albumin/Globulin Ratio 0.9 (0.8-1.8); Anion Gap 3.0 mmol/L (3-11); Aspartate Aminotrans (AST/SGOT 37.0 U/L (12-37); Bilirubin, Total 0.5 mg/dL (0.1-1.0); Blood Urea Nitrogen 14.0 mg/dL (8-24); CO2, Blood 33.0 mmol/L (21-32); Calcium, Blood 8.6 mg/dL (8.5-10.1); Chloride, Blood 103.0 mmol/L (98-108); Creatinine, Blood 0.96 mg/dL (0.60-1.20); Globulin, Blood 3.1 g/dL (2.2-4.0); Glucose, Blood 100.0 mg/dL (70-99); Potassium, Blood 4.1 mmol/L (3.5-5.5); Sodium, Blood 135.0 mmol/L (136-145); Total Protein, Blood 5.8 g/dL (6.4-8.2)
[2025-05-10 12:53] VITALS: BP 143/68
[2025-05-10 15:30] VITALS: BP 132/76
--- NOTE | 2025-05-10 17:26 | NUR ---
SHIFT SUMMARY PATIENT A/OX2-3, ABLE TO MAKE NEEDS KNOWN. PLEASANT AND COOPERATIVE WITH STAFF. IMPULSIVE AT TIMES, BED ALARM AND CHAIR ALARM IN PLACE. PATIENT PARTICIPATING IN PHYSICAL THERAPY TODAY, 1 PERSON ASSIST-STAND BY ASSIST TO TRANSFER TO RECLINER. 1:1 SITTER AT BEDSIDE. SPO2 WNL ON 3 LPM SUPPLEMENTAL OXYGEN VIA NASAL CANNULA. PUREWICK REMOVED THIS MORNING, PATIENT ABLE TO USE THE URINAL WITH ASSISTANCE. PLAN WAS TO DISCHARGE TODAY TO [facility] IN [place]. REPORT WAS CALLED AND GIVEN TO PEBBLES, LATER FACILITY CALLED AGAIN TO STATE PATIENT WAS DENIED DUE TO MRSA IN SPUTUM AND OCCASIONAL INCONTINENCE D/T URGENCY. PENDING PLACEMENT, NO OTHER CONCERNS AT THIS TIME.
[2025-05-10 19:22] VITALS: BP 135/66
[2025-05-11 02:59] VITALS: BP 130/87
--- NOTE | 2025-05-11 05:07 | NUR ---
SHIFT SUMMARY PT A&Ox4, VSS ON 3L. PT REPORTS 04/27 CHRONIC PAIN IN BILATERAL SHOULDERS AND KNEES, MANAGED WITH SCHEDULED MEDS. PT STATES HE DOES HAVE SI, "READY TO BE DONE". 1:1 BEAN SNIPPER PRESENT THROUGHOUT SHIFT. UP TO CHAIR WITH SBA AND FWW. PT REPORTS "BUTT PAIN", OFFLOADING MODERATELY EFFECTIVE, BARRIER CREAM APPLIED TO TENDER, RED SKIN AT BUTTOCKS.
[2025-05-11 07:33] VITALS: BP 132/79
[2025-05-11 09:58] LABS: Alanine Aminotransfer (ALT/SGP 287.0 U/L (12-78); Albumin, Blood 3.1 g/dL (3.4-5.0); Albumin/Globulin Ratio 0.9 (0.8-1.8); Anion Gap 8.0 mmol/L (3-11); Aspartate Aminotrans (AST/SGOT 36.0 U/L (12-37); Bilirubin, Total 0.6 mg/dL (0.1-1.0); Blood Urea Nitrogen 14.0 mg/dL (8-24); CO2, Blood 28.0 mmol/L (21-32); Calcium, Blood 8.7 mg/dL (8.5-10.1); Chloride, Blood 101.0 mmol/L (98-108); Creatinine, Blood 0.86 mg/dL (0.60-1.20); Globulin, Blood 3.5 g/dL (2.2-4.0); Glucose, Blood 133.0 mg/dL (70-99); Potassium, Blood 4.0 mmol/L (3.5-5.5); Sodium, Blood 133.0 mmol/L (136-145); Total Protein, Blood 6.6 g/dL (6.4-8.2)
--- NOTE | 2025-05-11 15:19 | NUR ---
pt is A0x4. pt is admitted for SI. pt stated he has no plans on harmming himself in the hospital but has plans for when he is discharged. pt has had no c/o pain, chest pain or dizziness
[2025-05-11 16:28] VITALS: BP 140/81
[2025-05-11 19:20] VITALS: BP 117/72
[2025-05-12 02:57] VITALS: BP 118/78
--- NOTE | 2025-05-12 04:48 | NUR ---
SHIFT SUMMARY PT A&Ox4, VSS ON 3L. PT ENDORSES SI, DENIES HAVING SPECIFIC PLANS. 1:[address] PRESENT THROUGHOUT SHIFT. UP TO BEDSIDE FOR URINAL WITH STAND BY ASSIST, DIFFICULTY STARTING STREAM NOTED. NO ACUTE CHANGES OVERNIGHT. PT REPORTS HOPE THAT MRSA CLEARS, ALLOWING FOR [facility]. PT REPORTS 04/27 CHRONIC PAIN, MANAGED WITH SCHEDULED MEDICATIONS. DROPLET AND SAFETY PRECAUTIONS IN PLACE.
[2025-05-12 07:04] VITALS: BP 120/73
[2025-05-12 17:12] VITALS: BP 117/81
--- NOTE | 2025-05-12 17:13 | NUR ---
NO CHANGES IN PT STATUS. NO C/O PAIN OR SOB OR CHESTY PAIN.
[2025-05-12 19:35] VITALS: BP 99/72
[2025-05-13] MEDS ORDERED: Ipratropium/Albuterol SulF 2.5-0.5MG/3 ML Amp INH SCH (02:50)
[2025-05-13 03:08] VITALS: BP 111/70
--- NOTE | 2025-05-13 03:40 | NUR ---
SHIFT SUMMARY PT ALERT ORIENTED SEEMS MUCH MORE ANXIOUS HAVING A HARD TIME SLEEPING. HES BEEN UP AND DOWN MOST OF THE NIGHT. REMAINS ON O2 AT 3L VIA NC VSS. REMAINS ON ZYVOX ORDERED FOR MRSA PNEUMONIA. CONT OF URINE. USES URINAL BUT HAS A HARD TIME STARTING TO GO R/T HIS BPH. MEPILEX INTACT TO HIS BILAT HEELS. REMAINS ON DROPLET ISOLATION R/T MRSA. HE HAS A SITTER AT BEDSIDE DUE TO HIS SI ATTEMPT. HE STATES THAT HE WONT DO ANYTHING TO HURT HIMSELF WHILE HES HERE BUT HE WOULD IF HE WAS TO RETURN HOME. HE STATES THAT HE HAS NO PLAN FOR HERE AT THIS TIME. THERE LOOKING FOR PLACEMENT FOR HIM. HES IN BED AT THIS TIME WITH CALL LIGHT IN REACH
[2025-05-13 07:10] VITALS: BP 122/80
--- NOTE | 2025-05-13 17:40 | NUR ---
SHIFT SUMMARY: A&OX4 THIS SHIFT. NO ACUTE EVENTS. UP TO CHAIR MULTIPLE TIMES. 1:1 SITTER REMAINS AT BEDSIDE. DENIES SHORTNESS OF BREATH AT REST. ON 3L O2 VIA NASAL CANULA. O2 SATS >88%. DENIES CHEST PAIN. IN BED AT THIS TIME. BED IN THE LOWEST POSITION.
[2025-05-13 18:56] VITALS: BP 127/76
[2025-05-14 04:04] VITALS: BP 124/69
--- NOTE | 2025-05-14 06:23 | NUR ---
NO ACUTE CHANGES, CLEARLY MAKES NEEDS KNOWN, PLEASANT TO CARE, WAITING FOR PLACEMENT, LAUGHING AND TELLING JOKES, VOIDING PER BSU, CALL LIGHT WITH IN REACH, 1:1 AT BEDSIDE, WILL RLEAY TO PM RN
[2025-05-14 07:14] VITALS: BP 119/66
[2025-05-14 15:19] VITALS: BP 140/82
--- NOTE | 2025-05-14 18:10 | NUR ---
SHIFT SUMMARY: A&OX4 THIS SHIFT. AMBULATING IN ROOM WITH A SBA. 1:1 SITTER IN ROOM FOR SAFETY. NO ACUTE EVENTS THIS SHIFT. REMAINS ON 3L O2 WITH O2 SATS >88%. EDUCATED ON USE OF FLUTTER VALVE. SITTING ON EOB FOR DINNER. BED IN THE LOWEST POSITION. CALL LT NEAR.
[2025-05-14 20:54] VITALS: BP 135/66
[2025-05-15 03:39] VITALS: BP 123/66
--- NOTE | 2025-05-15 03:50 | NUR ---
SHIFT SUMMARY PATIENT A/O X4. PLEASANT AND COOPERATIVE THROUGHOUT SHIFT. NO ACUTE CHANGES. 1:1 SITTER AT BEDSIDE FOR SAFETY. VITAL SIGNS REMAINED STABLE. CONTINUED ON 3L VIA NC TO KEEP OXYGEN SATURATION ABOVE 90%. WILL CONTINUE TO MONITOR AND REPORT TO ONCOMING RN.
[2025-05-15 07:07] VITALS: BP 121/63
--- NOTE | 2025-05-15 08:29 | NUR ---
PT ASKED IF HE HAD THOUGHTS OF SUICIDE, HE STATES " I WILL ALWAYS HAVE THOUGHTS OF KILLING MYSELF, I DONT WANT TO LIVE ANYMORE. I HAD A ROUGH CHILDHOOD UPBRINGING/ I WON'T KILL MYSELF IN THE HOSPITAL, BUT THERES NO GUARANTEE WHEN I LEAVE HERE." RN OFFERED A LISTENING EAR, AND SUPPORT.
[2025-05-15 15:09] VITALS: BP 120/77
--- NOTE | 2025-05-15 15:56 | NUR ---
SUMMARY- PT A/O X4, USES CALL LIGHT APPROPRIATELY. 1 SBA TO CHAIR, SAT UP FOR BREAK AND LUNCH AND THAN TO BED. HAD SPONGE BATH, REFUSING SHOUER RELATED TO PTSD ISSUES. EXCORIATION/RASH TO JOCE/GLUT REGION, WITH SKIN SPLIT GLUT CREASE. APPLIED ZINC PASTE TO GLUT CREASE AND MICONAZOLE POWDER TO ALL OTHER RED RASHY AREAS. SKIN INTACT BUT PEALING. PT TOLERATING FOOD AND FLUIDS. STATED BM YESTERDAY. PT STATES HE DOESN'T HAVE ACTIVE SUICIDAL THOUGHTS AND WOULD NOT TAke HIS LIFE IN THE HOSPITAL, BUT STATES NO GUARANTEES ABOUT WHAT HE MAY DO OUTSIDE THE HOSPITAL. WILL REPORT TO LUZ MICHAEL.
[2025-05-15 19:58] VITALS: BP 119/64
[2025-05-15] MEDS ORDERED: Miconazole Nitrate 2% 85 GM PWD TOP SCH (21:00)
[2025-05-15] MEDS ORDERED: ZINC OXIDE/PETROLATUM, YELLOW 1 APPLIC/71 GM PASTE TOP SCH (21:00)
[2025-05-16 02:07] VITALS: BP 115/71
--- NOTE | 2025-05-16 04:27 | NUR ---
SHIFT SUMMARY PATIENT A/O X4- 1:1 SITTER THROUGHOUT SHIFT FOR SAFETY. PATIENT RESTED WELL. VITAL SIGNS REMAINED STABLE. PT UP TO BATHROOM WITH SBA. VOIDING WELL. NO ACUTE CHANGES THROUGHOUT SHIFT. WILL CONTINUE TO MONITOR AND REPORT TO ONCOMING RN.
[2025-05-16 07:43] VITALS: BP 123/75
[2025-05-16 15:29] VITALS: BP 113/70
--- NOTE | 2025-05-16 18:01 | NUR ---
SUMMARY- PT A/O X4, SBA TO CHAIR, AMBULATES GOOD STRENGTH, MILDLY UNSURE GAIT. UP IN CHAIR MOST OF THE DAY. TOLERATING FOOD AND FLUIDS. HAD A BM TODAY. CLEANSED JOCE AND GLUT, SPLIT TO CREASE HEALING WELL WITH ZINC PASTE, MICONOZOLE TO ALL OTHER RED AREAS, HEALING NICELY. CHRONIC PAIN IN SHOULDERS, KNEES AND BACK STATES PARTIAL RELEIF OF PAIN, BUT THAT HE IS USED TO DOUBLE THE DOSE OUTPATIENT. STILL AWAITING DIRECTOR GEOTHERMAL OPERATIONS PLACEMENT. CONT WITH 1:1SITTER FOR SAFETY. PT HAS BEEN CALM AND COOPERATIVE ALL SHIFT. STATES NO INTENTION CURRENTLY OF SUICIDE; BUT HE CANT SAY HE WOULDNT IN THE FUTUE. WILL REPORT TO NOC RN
[2025-05-16 20:07] VITALS: BP 111/74
[2025-05-17 04:14] VITALS: BP 126/81
--- NOTE | 2025-05-17 04:35 | NUR ---
SHIFT SUMMARY PATIENT A/O X4. SBA IN THE ROOM W/ FWW. VOIDING WELL. PAIN MANAGED WITH BUPRENORPHINE PER EMAR. PT STATES HE HAD A BOWEL MOVEMENT TODAY AND IS EATING WELL. PT CONTINUES TO HAVE 1:1 SITTER FOR SAFETY. PT STATES THAT HE HAS NO PLAN IN PLACE TO COMMIT SUICIDE WHILE HE IS IN THE HOSPITAL. NO ACUTE CHANGES THROUGHOUT SHIFT. WILL CONTINUE TO MONITOR AND REPORT TO ONCOMING RN.
[2025-05-17 06:03] LABS: Hematocrit 29.0 % (37.0-53.0); Hemoglobin 9.3 g/dL (13.5-17.5); Mean Corpuscular HGB Conc 32.1 g/dL (31.5-36.5); Mean Corpuscular Volume 93 fL (80-100); NRBC ABSOLUTE 0.00 K/mm3 (0.00-0.02); NRBC Auto 0.0 /100 WBC (0.0-0.2); Platelet Count 139 K/mm3 (150-400); RDW Coefficient Variation 13.6 % (11.7-14.2); RDW Standard Deviation 46.7 fL (35.1-46.3)
[2025-05-17 06:17] LABS: Albumin, Blood 3.4 g/dL (3.4-5.0); Anion Gap 6 mmol/L (3-11); Blood Urea Nitrogen 16 mg/dL (8-24); CO2, Blood 30 mmol/L (21-32); Calcium, Blood 9.1 mg/dL (8.5-10.1); Chloride, Blood 104 mmol/L (98-108); Creatinine, Blood 0.86 mg/dL (0.60-1.20); Glucose, Blood 101 mg/dL (70-99); Magnesium, Blood 2.2 mg/dL (1.6-2.4); Phosphorus, Blood 4.1 mg/dL (2.5-4.9); Potassium, Blood 4.1 mmol/L (3.5-5.5); Sodium, Blood 136 mmol/L (136-145)
[2025-05-17 08:00] VITALS: BP 140/77
--- NOTE | 2025-05-17 10:44 | NUR ---
PATIENT STATES HE HAS NO INTENTION OR HARMING HIMSLEF WHILE HOSPITALIZED, BUT DOES HAVE CONCERN ABOUT WHAT HE MAY DO IF HE GOES BACK HOME. STATES "I JUST DON'T WANT TO LIVE LIKE THIS ANYMORE." 1:1 SITTER AT BEDSIDE FOR PATIENTS SAFETY.
[2025-05-17 14:51] VITALS: BP 122/70
--- NOTE | 2025-05-17 17:21 | NUR ---
PATIENT A/OX4, UP WITH SBA TO RESTROOM. CONTINUES TO REPORT SI, BUT DENIES A PLAN. PATIENT IS NOW WANTING TO DC TO ASSISTED LIVING AND FEELS THAT RETURNING HOME WOULD BE UNSAFE FOR HIM. VSS, REMAINS ON 3LO2 WHICH IS BASELINE. TOLERATING DIET AND EATING WELL. CONITNENT OF BOWEL AND BLADDER. PLEASANT AND COOPERATIVE WITH CARE. 1:1 SITTER AT BEDSIDE FOR SAFETY. NO NEW CONCERNS THIS SHIFT.
[2025-05-17 19:45] VITALS: BP 124/75
--- NOTE | 2025-05-18 03:59 | NUR ---
SHIFT SUMMARY PT A&Ox3-4. COOPERATIVE OF CARE. PT SOMNOLENT AT START OF SHIFT. PT DENIED THOUGHTS OF SUICIDE AND STATED THAT THINGS SEEM TO BE "GOING IN THE RIGHT DIRECTION". REMAINS ON 3L OF OXYGEN, WHICH IS PT's BASELINE. PT ABLE TO SLEEP MOST OF THE NIGHT. 1:1 SITTER. VSS. BED IN LOWEST POSITION AND SHORT CALL LIGHT NEAR PT.
[2025-05-18 06:10] LABS: Hematocrit 28.3 % (37.0-53.0); Hemoglobin 9.3 g/dL (13.5-17.5); Mean Corpuscular HGB Conc 32.9 g/dL (31.5-36.5); Mean Corpuscular Volume 92 fL (80-100); NRBC ABSOLUTE 0.00 K/mm3 (0.00-0.02); NRBC Auto 0.0 /100 WBC (0.0-0.2); Platelet Count 128 K/mm3 (150-400); RDW Coefficient Variation 13.7 % (11.7-14.2); RDW Standard Deviation 45.9 fL (35.1-46.3)
[2025-05-18 06:15] VITALS: BP 118/74
[2025-05-18 06:32] LABS: Ferritin, Serum 210.0 ng/mL (26-388); Total Iron Binding Capacity 318.0 ug/dL (250-450)
[2025-05-18 07:00] VITALS: BP 120/85
[2025-05-18 15:46] VITALS: BP 110/76
--- NOTE | 2025-05-18 18:07 | NUR ---
PATIENT NO LOW SI PRECAUTIONS AND NO LONGER HAS A 1:1 SITTER. CALM AND COOPERATIVE WITH CARE THIS SHIFT. AWAITING EVENING SITTER PLACEMENT. NO NEW CONCERNS THIS SHIFT.
[2025-05-18 19:43] VITALS: BP 113/77
--- NOTE | 2025-05-19 01:26 | NUR ---
ORDER UPDATE THIS RN MISTAKENLY DC'd PT'S CODE STATUS WHILE DISCONTINUING A MEDICATION ORDER. NEW ORDER PLACED, BACK TO PT's PREVIOUS CODE STATUS, FULL CODE.
[2025-05-19] MEDS ORDERED: Ketorolac Tromethamine 30mg Vial IV ONE (02:00)
--- NOTE | 2025-05-19 05:00 | NUR ---
SHIFT SUMMARY PT A&Ox4 AND PLEASANT. PT C/O PAIN THAT WAS "ALL OVER" AROUND 0130. ONE TIME ORDER GIVEN FOR TORADOL PO, WITH GOOD EFFECT. OTHERWISE, NO ACUTE CHANGES. PT CALLS APPROPRIATLY. VSS. BED ALARM ON DURING THE NIGHT FOR SOME IMPULSIVENESS. BED IN LOWEST POSITION AND CALL LIGHT IN REACH.
[2025-05-19 05:27] VITALS: BP 117/64
[2025-05-19 07:35] VITALS: BP 126/66
[2025-05-19 16:14] VITALS: BP 121/83
--- NOTE | 2025-05-19 18:17 | NUR ---
SUMMARY- AAOX4. CALM AND COOPERATIVE THIS SHIFT. SBA TO RESTROOM. PT WEANED TO RA WHILE AWAKE THIS SHIFT. NO ACUTE EVENTS THIS DAY SHIFT. EMAR PAIN MEDS WELL CONTROLLED GENERAL PAIN/BODY ACHES.
[2025-05-19 19:39] VITALS: BP 96/66
[2025-05-20 04:30] VITALS: BP 105/73
--- NOTE | 2025-05-20 05:49 | NUR ---
TRACK MOVING MACHINE OPERATOR SUMMARY PT A/OX4 BUT FORGETFUL. PLEASANT AND COOPERATIVE. PT WAS ABLE TO BE ON ROOM AIR MOST OF THE DAY YESTERDAY BUT REQUIRING 2LPM AT NIGHT WHEN SLEEPING. PT HAS A WOUND TO RLE. PT STATES HE PULLED HIS SKIN OFF AND NOW HAS A SKIN TEAR. WOUND IS APROX 2.5 INCHES LONG WITH SOME EXUDATE FROM THE WOUND. THE RLE IS MORE SWOLLEN THAN THE LEFT. PULSE IS PALPABLE AND PT DENIES INCREASED PAIN. APPEARS TO BE INCREASED REDNESS TO THE LIMB AND AROUND THE WOUND. CALLED DR BHATIA FOR WOUND CARE ORDERS. ADVISED WOULD UPDATE ONCOMING NURSE FOR DAY SHIFT AND REQUEST FOR ATTENDING DR TO OBSERVE THE WOUND. PT SLEPT INTERMITTANTLY AND NEEDED TO SIT UP TO EDGE OF THE BED A FEW TIMES THE NIGHT. PT NEEDED REMINDERS TO LEAVE OXYGEN ON. PT COOPERATIVE. REGULAR INTERVAL ROUNDING T/O THE NIGHT. CALL LIGHT ACCESSIBLE. CARE WILL CONTINUE UNTIL REPORT GIVEN TO ONCOMING NURSE.
[2025-05-20 07:11] VITALS: BP 126/76
[2025-05-20 15:30] VITALS: BP 119/78
--- NOTE | 2025-05-20 18:07 | NUR ---
DAY SUMMARY PT A&OX4, FORGETFUL, PLEASANT & COOPERATIVE W/CARES, SCHED MEDS FOR CHRONIC PAIN- PT STATES PAIN IS WELL CONTROLLED, UP TO CHAIR T/O SHIFT, GOOD PO INTAKE, VSS, WILL CONT TO MONITOR
[2025-05-20 20:35] VITALS: BP 111/75
[2025-05-21 05:27] VITALS: BP 121/74
--- NOTE | 2025-05-21 05:55 | NUR ---
SHIFT SUMMARY PT ADMITTED FOR TYLENOL TOXICITY. PT IS ALERT AND ORIENTED TIMES 4. PT HAS NO IV ORDER. PT DOES NOT REQUIRE SUPPLEMENTAL O2 . PT IS STAND BY ASSIST TO TOILET. PT IS ON CONTACT PRECAUTIONS FOR MRSA/SPUTUM. PT IS COOPERATIVE WITH CARE, TAKES MEDICATIONS WHOLE WITH WATER. PT HAS APPEARED TO SLEEP ON AND OFF THIS SHIFT. PT GOT UP FROM BED AND URINATED ON THE FLOOR. PT STATED HE WAS CONFUSED. MADE SURE URINAL WAS WITHIN REACH AT BEDSIDE. PT DENIED NEEDING BRIEF OR PULL UP. BED IN LOW POSITION, CALL LIGHT WITHIN REACH, RAILS TIMES 2.
[2025-05-21 07:07] VITALS: BP 129/81
--- NOTE | 2025-05-21 15:45 | NUR ---
DAY SUMMARY NO ACUTE CHANGES THIS SHIFT, NO C/O ANY KIND, VSS, DIALYSIS TODAY (1.5L REMOVED), BEDRESTING A THIS TIME, FAMILY AT BEDSIDE, CALL LIGHT IN REACH, WILL CONT TO MONITOR
--- NOTE | 2025-05-21 15:48 | NUR ---
DAY SUMMARY NO ACUTE CHANGES THIS SHIFT, NO C/O ANY KIND, VSS, UP IN CHAIR W/LEGS ELEVATED T/O MOST OF SHIFT, CALL LIGHT IN REACH, WILL CONT TO MONITOR
[2025-05-21 16:19] VITALS: BP 129/68
[2025-05-21 20:04] VITALS: BP 110/74
--- NOTE | 2025-05-22 03:15 | NUR ---
SHIFT SUMMARY: PT IS AOX4. DENIES ANY SUICIDAL IDEATIONS. AMBULATES INDEPENDENTLY WITH 3L OS O2. C/O CHRONIC PAIN, MEDICATED PER eMAR. CALL LIGHT IS WITHIN REACH. BED IS LOW AND LOCKED.
[2025-05-22 06:10] VITALS: BP 114/79
[2025-05-22 07:00] VITALS: BP 115/71
[2025-05-22 16:07] VITALS: BP 103/64
[2025-05-22 19:30] VITALS: BP 106/71
[2025-05-23 02:43] VITALS: BP 110/74
--- NOTE | 2025-05-23 04:49 | NUR ---
SHIFT SUMMARY PATIENT A/O X4 AND IND IN THE ROOM THROUGHOUT SHIFT. NO ACUTE CHANGES. VITAL SIGNS REMAINED STABLE. NO REPORT OF PAIN. VOIDING WELL AND REPORTS BOWEL MOVEMENT. WILL CONTINUE TO MONITOR AND REPORT TO ONCOMING RN.
[2025-05-23 08:03] VITALS: BP 113/70
[2025-05-23 15:49] VITALS: BP 120/71
--- NOTE | 2025-05-23 18:11 | NUR ---
SHIFT SUMMARY CLIENT IS AOX4. MEDICATION COMPLIANT. DRESSING ON RIGHT LOWER LEG CHANGED. REMAINS ON DROPLET PRECAUTIONS FOR MRSA. CLIENT HAS BEEN UP TO CHAIR MOST OF THE SHIFT. BED IS IN LOW POSITION AND CALL LIGHT IS WITHIN REACH.
[2025-05-23 19:23] VITALS: BP 110/73
[2025-05-24 03:09] VITALS: BP 122/82
--- NOTE | 2025-05-24 05:11 | NUR ---
SHIFT SUMMARY PATIENT A/O X4- FORGETFUL AT TIMES. COOPERATIVE AND PLEASANT WITH CARE. IND IN THE ROOM. VITAL SIGNS STABLE. NO ACUTE CHANGES THROUGHOUT THE SHIFT. USES CALL LIGHT APPROPRIATELY. WILL CONTINUE TO MONITOR AND REPORT TO ONCOMING RN.
[2025-05-24 07:18] VITALS: BP 126/85
[2025-05-24 15:55] VITALS: BP 116/82
[2025-05-24 20:58] VITALS: BP 107/78
--- NOTE | 2025-05-25 03:18 | NUR ---
SHIFT SUMMARY NO ACUTE EVENTS DURING THIS SHIFT. O2 @3L VIA NASAL CANNULA, O2 SAT'S>98%. OCCASIONAL CONGESTIVE COUGH NOTED. PT DENIES SOB, PAIN AND DISCOMFORT. PT DENIES SI/HI/AVH. PT AMBULATES INDEPENDENTLY W/I THE HOSPITAL ROOM. NO COMPLAINTS OR CONCERNS OFFERED. BED AT THE LOWEST POSITION, CALL LIGHT W/I REACH. PT IS ABLE TO MAKE HIS NEEDS KNOWN AND IS COOPERATIVE WITH CARE. PT REMAINS ON DROPLET ISO D/T DX MRSA/SPUTUM.
[2025-05-25 04:52] VITALS: BP 128/74
[2025-05-25 07:33] VITALS: BP 119/85
[2025-05-25 15:59] VITALS: BP 134/72
--- NOTE | 2025-05-25 18:30 | NUR ---
SHIFT SUMMARY PATIENT A/OX4, ABLE TO MAKE NEEDS KNOWN. PLEASANT AND COOPERATIVE WITH CARE. SLOW SPEECH INTERMITTENTLY. INDEPENDENT IN ROOM. WOUND CARE PROVIDED PER ORDERS. PLAN TO DISCHARGE TOMORROW TO HOME. KATELIN, PATIENT'S FRIEND/ROOMMATE WAS CONTACTED TODAY HE HAS KEYS TO THE PATIENT'S HOME. NO OTHER CONCERNS AT THIS TIME.
[2025-05-25 20:17] VITALS: BP 105/69
--- NOTE | 2025-05-26 02:51 | NUR ---
SHIFT SUMMARY NO ACUTE EVENTS DURING THIS SHIFT. O2 @2L VIA NASAL CANNULA, O2 SAT'S>97%. VSS. PT DENIES PAIN AND DISCOMFORT. INDEPENDENT W/I THE HOSPITAL ROOM. BED AT THE LOWEST POSITION, CALL LIGHT WITHIN REACH. PT IS A/O X4, ABLE TO MAKE HIS NEEDS KNOWN AND COOPERATIVE WITH CARE.
[2025-05-26 05:09] VITALS: BP 119/72
[2025-05-26 07:48] VITALS: BP 116/79
[2025-05-26] MEDS ORDERED: FURO20 PO (10:22)
[2025-05-26] MEDS ORDERED: FOLI1 PO (10:22)
[2025-05-26] MEDS ORDERED: GUAIFENESIN ER600 MG PO (10:22)
[2025-05-26] MEDS ORDERED: MICONAZOLE NITR85 GM TOP (10:23)
[2025-05-26] MEDS ORDERED: MUPIROCIN1 G1 TOP (10:24)
[2025-05-26] MEDS ORDERED: Critic-Aid142 GM TOP (10:28)
--- NOTE | 2025-05-26 14:31 | NUR ---
DISCHARGE REVIEWED WITH PT. HE VERBALIZED UNDERSTANDING MEDS AND ISNT. NO IV, NO TELE. PT PEND TO D/C WITH RIDE FROM FRIEND KATELIN. STATES HE ON WAY. PT TO DRESS SELF.
--- NOTE | 2025-05-26 15:03 | NUR ---
1455 PT DISCHARGED. TO DOOR BY AIDE.
== END 2025-05-26 15:33 | disposition home or self-care (01) | DRG 917 ==
LOC: ER 23:29 → PCU 23:30 → ERHOLD 23:30 → PCU 05-02 06:35 → MEDS 05-02 15:12 → PCU 05-02 15:13 → MEDS 05-02 15:20 → PCU 05-03 17:34 → MEDS 05-05 20:42
PROVIDERS: Emergency Medicine; Internal Medicine; Student in an Organized Health Care Education/Training Program; ADMIT Internal Medicine
DX: T39.1X2A Poisoning by 4-Aminophenol derivatives, intentional self-harm, initial encounter (principal); J15.212 Pneumonia due to Methicillin resistant Staphylococcus aureus; F33.2 Major depressive disorder, recurrent severe without psychotic features; J44.1 Chronic obstructive pulmonary disease with (acute) exacerbation; J44.0 Chronic obstructive pulmonary disease with (acute) lower respiratory infection; E87.1 Hypo-osmolality and hyponatremia; J96.11 Chronic respiratory failure with hypoxia; D68.62 Lupus anticoagulant syndrome; J44.9 Chronic obstructive pulmonary disease, unspecified; I10 Essential (primary) hypertension; I25.10 Atherosclerotic heart disease of native coronary artery without angina pectoris; G89.29 Other chronic pain; F10.20 Alcohol dependence, uncomplicated; S81.801A Unspecified open wound, right lower leg, initial encounter; F17.210 Nicotine dependence, cigarettes, uncomplicated; N40.0 Benign prostatic hyperplasia without lower urinary tract symptoms; E03.9 Hypothyroidism, unspecified; Z88.8 Allergy status to other drugs, medicaments and biological substances; Z79.82 Long term (current) use of aspirin; Z79.899 Other long term (current) drug therapy; Z96.612 Presence of left artificial shoulder joint; Z98.890 Other specified postprocedural states; Z79.51 Long term (current) use of inhaled steroids; Z91.51 Personal history of suicidal behavior; Z99.81 Dependence on supplemental oxygen; Z86.73 Personal history of transient ischemic attack (TIA), and cerebral infarction without residual deficits; F43.12 Post-traumatic stress disorder, chronic; D64.9 Anemia, unspecified; X58.XXXA Exposure to other specified factors, initial encounter
CPT/HCPCS: 36415; 71045; 80048; 80053; 80069; 80320; 82728; 82803; 82947; 83540; 83550; 83735; 83880; 84100; 84484; 85025; 85027; 87070; 87077; 87147; 87186; 87205; 93005; 93010; 94640; 94664; 94760; 94762; 96365; 96368; 96372; 97110; 97112; 97116; 97162; 97165; 97530; 97530-CQ; 97535; 99285-25; A9270; G0378; G0480; J0572; J0696; J1650; J1938; J2919; J3411; J7030

== ENCOUNTER 2025-06-10 18:47 | Inpatient (IN) | payer OTHER ==
[~2025-06-10] VITALS: Ht 182.9 cm; Wt 91.0 kg
[~2025-06-10 18:47] MED LIST changes: +Critic-Aid142 GM TOP; +FOLI1 PO; +FURO20 PO; +GUAIFENESIN ER600 MG PO; +MICONAZOLE NITR85 GM TOP; +MULTI-VITAMIN1 EAC2 PO; +MUPIROCIN1 G1 TOP; +Seroquel Xr50 MG PO; +Seroquel25 MG PO; +WIXELA 250-501 EAC1 INH
[2025-06-10 19:27] LABS: BASOPHILS ABSOLUTE AUTO 0.03 K/mm3 (0.00-0.23); BASOPHILS PERCENT AUTO 1 % (0-2); EOSINOPHILS ABSOLUTE AUTO 0.33 K/mm3 (0.00-0.68); EOSINOPHILS PERCENT AUTO 6 % (0-6); Hematocrit 27.6 % (37.0-53.0); Hemoglobin 8.9 g/dL (13.5-17.5); IMMATURE GRAN ABSOLUTE AUTO 0.03 K/mm3 (0.00-0.10); IMMATURE GRAN PERCENT AUTO 1 % (0-1); LYMPHOCYTES ABSOLUTE AUTO 0.98 K/mm3 (0.84-5.20); LYMPHOCYTES PERCENT AUTO 17 % (21-46); MONOCYTES ABSOLUTE AUTO 0.58 K/mm3 (0.16-1.47); MONOCYTES PERCENT AUTO 10 % (4-13); Mean Corpuscular HGB Conc 32.2 g/dL (31.5-36.5); Mean Corpuscular Volume 94 fL (80-100); NEUTROPHILS ABSOLUTE AUTO 3.93 K/mm3 (1.96-9.15); NEUTROPHILS PERCENT AUTO 67 % (41-73); NRBC ABSOLUTE 0.00 K/mm3 (0.00-0.02); NRBC Auto 0.0 /100 WBC (0.0-0.2); Platelet Count 163 K/mm3 (150-400); RDW Coefficient Variation 14.9 % (11.7-14.2); RDW Standard Deviation 51.4 fL (35.1-46.3)
[2025-06-10 19:50] LABS: Ethanol (Alcohol), Blood, Med 82.0 mg/dL; Salicylate 2.6 mg/dL (2.8-20.0); Thyroid Stimulating Hormone 1.31 uIU/mL (0.360-4.800)
[2025-06-10 19:54] LABS: Acetaminophen, Random 53.0 ug/mL (10.0-30.0); Alanine Aminotransfer (ALT/SGP 14.0 U/L (12-78); Albumin, Blood 2.9 g/dL (3.4-5.0); Albumin/Globulin Ratio 0.9 (0.8-1.8); Anion Gap 8.0 mmol/L (3-11); Aspartate Aminotrans (AST/SGOT 13.0 U/L (12-37); Bilirubin, Total 0.2 mg/dL (0.1-1.0); Blood Urea Nitrogen 5.0 mg/dL (8-24); CO2, Blood 27.0 mmol/L (21-32); Calcium, Blood 8.3 mg/dL (8.5-10.1); Chloride, Blood 103.0 mmol/L (98-108); Creatinine, Blood 0.75 mg/dL (0.60-1.20); Globulin, Blood 3.1 g/dL (2.2-4.0); Glucose, Blood 104.0 mg/dL (70-99); Potassium, Blood 4.1 mmol/L (3.5-5.5); Sodium, Blood 134.0 mmol/L (136-145); Total Protein, Blood 6.0 g/dL (6.4-8.2)
[2025-06-10] MEDS ORDERED: Acetylcysteine (Pharmacy Consult) IV PRN (20:15)
[2025-06-10] MEDS ORDERED: Tiotropium Bromide 2.5 MCG/ACT MIST INHAL (10 ACT/4 GM) INH SCH (21:05)
[2025-06-10] MEDS ORDERED: Albuterol 2.5 MG/3 ML VIAL INH PRN (21:05)
[2025-06-10] MEDS ORDERED: Ondansetron HCl 2 MG / ML 2ML Vial IV PRN (21:05)
[2025-06-10] MEDS ORDERED: Formoterol/Mometasone MDI 5/200 mcg 13 GM INH SCH (21:45)
[2025-06-10 22:00] VITALS: BP 113/74
[2025-06-10 22:15] VITALS: BP 149/76
[2025-06-10 22:30] VITALS: BP 137/88
[2025-06-10 22:31] LABS: Acetaminophen, Random 26.7 ug/mL (10.0-30.0); Salicylate 1.7 mg/dL (2.8-20.0)
[2025-06-10 23:15] VITALS: BP 135/68
[2025-06-10 23:30] VITALS: BP 120/91
[2025-06-10 23:45] VITALS: BP 128/76
[2025-06-11] VITALS (31 sets, daily range): BP systolic 107–166; BP diastolic 63–87
[2025-06-11 03:51] LABS: Hematocrit 32.5 % (37.0-53.0); Hemoglobin 10.4 g/dL (13.5-17.5); Mean Corpuscular HGB Conc 32.0 g/dL (31.5-36.5); Mean Corpuscular Volume 94 fL (80-100); NRBC ABSOLUTE 0.00 K/mm3 (0.00-0.02); NRBC Auto 0.0 /100 WBC (0.0-0.2); Platelet Count 149 K/mm3 (150-400); RDW Coefficient Variation 14.8 % (11.7-14.2); RDW Standard Deviation 50.7 fL (35.1-46.3)
[2025-06-11 04:12] LABS: Alanine Aminotransfer (ALT/SGP 21.0 U/L (12-78); Albumin, Blood 2.8 g/dL (3.4-5.0); Albumin/Globulin Ratio 0.8 (0.8-1.8); Anion Gap 10.0 mmol/L (3-11); Aspartate Aminotrans (AST/SGOT 19.0 U/L (12-37); Bilirubin, Total 0.6 mg/dL (0.1-1.0); Blood Urea Nitrogen 5.0 mg/dL (8-24); CO2, Blood 28.0 mmol/L (21-32); Calcium, Blood 8.3 mg/dL (8.5-10.1); Chloride, Blood 102.0 mmol/L (98-108); Creatinine, Blood 0.68 mg/dL (0.60-1.20); Globulin, Blood 3.3 g/dL (2.2-4.0); Glucose, Blood 108.0 mg/dL (70-99); Magnesium, Blood 2.0 mg/dL (1.6-2.4); Potassium, Blood 4.5 mmol/L (3.5-5.5); Sodium, Blood 135.0 mmol/L (136-145); Total Protein, Blood 6.1 g/dL (6.4-8.2)
--- NOTE | 2025-06-11 05:57 | NUR ---
SHIFT SUMMERY PT IS ALERT AND ORIENTED X4, W/SOME CONFUSION AT TIMES. HE IS VERY EASY TO REORIENT. HE HAS A MALE PUREWICK CATHETER. HE HAS HAD 2 BM THIS SHIFT. HE IS VERY WEAK. BILATERAL LOWER EXTREMITIES RED AND SWOLLEN. HE IS ON 3L NC. HE HAS BEEN HEMODYNAMICALLY STABLE. POISON CONTROL UPDATED BY ANAMARIA MICHAEL CHARGE NURSE. LABS ORDERED PER RECOMMENDATIONS. NAC DRIP INFUSING PER MD ORDER. PT HAS BEEN PLEASANT AND COOPERATIVE WITH CARE.
[2025-06-11] MEDS ORDERED: Multivitamins 1 Tab PO SCH (09:00)
[2025-06-11] MEDS ORDERED: Folic Acid 1 MG TAB PO SCH (09:00)
[2025-06-11] MEDS ORDERED: Enoxaparin 40 MG/0.4 ML SYR SC SCH (09:00)
--- NOTE | 2025-06-11 09:14 | NUR ---
ASSUMED CARE RECEIVED REPORT FROM [facility] NURSE. PT A&0X4, FOLLOWS COMMANDS AND USES CALL LIGHT APPROPRIATELY. PT COOPERATIVE AND AGREEABLE. 3L O2 VIA NC BASELINE. PT DENIES CHEST PAIN. MINIMAL COUGH WITH COARSE LUNG SOUNDS AUSCULTATED IN ALL LOBES. BLE RED AND +1 EDEMA. PATIENT SAYS HIS LEGS JUST FEEL "HOT." EXTERNAL CATHETER IN PLACE AND ATTACHED TO SUCTION. CALL LIGHT WITHIN REACH.
--- NOTE | 2025-06-11 14:21 | NUR ---
SI REASSESSMENT PT STATES THAT "HE HAS HAD A HARD LIFE AND IS TIRED OF LIVING." WHEN ASKED IF HE HAS A PLAN, HE REPEATS THAT "I WOULD NEVER DO SOMETHING HERE BUT I THINK ABOUT ENDING MY LIFE."
[2025-06-11 15:21] LABS: Prothrombin Time Results 12.7 Sec (9.7-11.5)
[2025-06-11 15:26] LABS: Acetaminophen, Random <2.0 ug/mL (10.0-30.0)
[2025-06-11 15:30] LABS: Alanine Aminotransfer (ALT/SGP 16 U/L (12-78); Albumin, Blood 2.7 g/dL (3.4-5.0); Albumin/Globulin Ratio 0.9 (0.8-1.8); Aspartate Aminotrans (AST/SGOT 11 U/L (12-37); Bilirubin, Direct <0.1 mg/dL (0.0-0.3); Bilirubin, Indirect Unable to Calculate mg/dL (0.1-0.7); Bilirubin, Total 0.3 mg/dL (0.1-1.0); Globulin, Blood 3.1 g/dL (2.2-4.0); Total Protein, Blood 5.8 g/dL (6.4-8.2)
[2025-06-11] MEDS ORDERED: Nystatin 100,000 Unit/ML Susp 5 ML UDC MT SCH (17:00)
--- NOTE | 2025-06-11 18:09 | NUR ---
SHIFT SUMMARY PT IS A&0X4, FOLLOWS COMMANDS, AND USES CALL LIGHT APPROPRIATELY. PT STATES HE IS "JUST TIRED OF LIVING" AND ASKED IF HE HAS A PLAN HE REPEATED "I WOULD NEVER DO SOMETHING HERE." PATIENT IS AGREEABLE. PLACED AN ORDER FOR SPIRITUAL CARE. PT DENIES SOB, O2 VIA NC AT 2L. DIMINISHED LUNG SOUNDS AUSCULTATED IN LOWER LOBES. REDNESS NOTED IN BLE, PATIENT DENIES PAIN. DR SRINIVASAN ORDERED A POST RESIDUAL BLADDER SCAN X3. PT HAS A MALE PUREWICK CONNECTED TO SUCTION, ASKED PATIENT IF HE WAS ABLE TO TELL WHEN HE HAD TO URINATE, WAS NEVER ABLE TO COMMUNICATE WHEN HE HAD TO URINATE, WAS UNABLE TO PERFORM BLADDER SCANS. LIVER LABS IMPROVED AND POISON CONTROL CASE WAS CLOSED AT 1600.
--- NOTE | 2025-06-11 21:39 | NUR ---
TRANSFER TO MEDICAL FLOOR GAVE REPORT TO HARRIETT MICHAEL @ 2056, AND TRANSFERRED CARE TO HARRIETT RN ROOM 351 @2124.
[2025-06-12 04:55] VITALS: BP 131/78
--- NOTE | 2025-06-12 05:03 | NUR ---
SHIFT SUMMARY 75 YR M TRANSFERED FROM ICU TO MEDICAL FLOOR THIS SHIFT. FULL CODE. NO ACUTE CHANGES THIS SHIFT. PT HAS SLEPT SINCE HIS ARRIVAL TO MED FLOOR. 1:1 SITTER FOR SI. PT HAS MALE PUREWIK IN PLACE THAT IS WORKING WELL. SI INTERVENTION DONE Q4 WITH NO INDICATION FOR IMMEDIATE CONCERN. NO CHANGES TO REPORT. BED IN LOW POSITION AND CALL LIGHT IN REACH.
[2025-06-12 05:16] LABS: BASOPHILS ABSOLUTE AUTO 0.02 K/mm3 (0.00-0.23); BASOPHILS PERCENT AUTO 0 % (0-2); EOSINOPHILS ABSOLUTE AUTO 0.20 K/mm3 (0.00-0.68); EOSINOPHILS PERCENT AUTO 4 % (0-6); Hematocrit 28.0 % (37.0-53.0); Hemoglobin 9.1 g/dL (13.5-17.5); IMMATURE GRAN ABSOLUTE AUTO 0.03 K/mm3 (0.00-0.10); IMMATURE GRAN PERCENT AUTO 1 % (0-1); LYMPHOCYTES ABSOLUTE AUTO 0.73 K/mm3 (0.84-5.20); LYMPHOCYTES PERCENT AUTO 15 % (21-46); MONOCYTES ABSOLUTE AUTO 0.45 K/mm3 (0.16-1.47); MONOCYTES PERCENT AUTO 9 % (4-13); Mean Corpuscular HGB Conc 32.5 g/dL (31.5-36.5); Mean Corpuscular Volume 93 fL (80-100); NEUTROPHILS ABSOLUTE AUTO 3.37 K/mm3 (1.96-9.15); NEUTROPHILS PERCENT AUTO 70 % (41-73); NRBC ABSOLUTE 0.00 K/mm3 (0.00-0.02); NRBC Auto 0.0 /100 WBC (0.0-0.2); Platelet Count 152 K/mm3 (150-400); RDW Coefficient Variation 14.8 % (11.7-14.2); RDW Standard Deviation 50.5 fL (35.1-46.3)
[2025-06-12 06:05] LABS: Alanine Aminotransfer (ALT/SGP 12.0 U/L (12-78); Albumin, Blood 2.6 g/dL (3.4-5.0); Albumin/Globulin Ratio 0.9 (0.8-1.8); Anion Gap 6.0 mmol/L (3-11); Aspartate Aminotrans (AST/SGOT 10.0 U/L (12-37); Bilirubin, Total 0.3 mg/dL (0.1-1.0); Blood Urea Nitrogen 5.0 mg/dL (8-24); CO2, Blood 31.0 mmol/L (21-32); Calcium, Blood 8.6 mg/dL (8.5-10.1); Chloride, Blood 104.0 mmol/L (98-108); Creatinine, Blood 0.82 mg/dL (0.60-1.20); Globulin, Blood 2.9 g/dL (2.2-4.0); Glucose, Blood 107.0 mg/dL (70-99); Potassium, Blood 3.8 mmol/L (3.5-5.5); Sodium, Blood 137.0 mmol/L (136-145); Total Protein, Blood 5.5 g/dL (6.4-8.2)
[2025-06-12 07:27] VITALS: BP 147/77
[2025-06-12] MEDS ORDERED: DULoxetine HCL 30 MG Cap DR PO SCH (14:00)
[2025-06-12] MEDS ORDERED: Buprenorphine HCL/Naloxone HCL 2-0.5MG 1 EA SL SCH (16:00)
[2025-06-12 16:32] VITALS: BP 126/72
--- NOTE | 2025-06-12 16:47 | NUR ---
Upon receiving a referral for spiritual care, I visited the patient. The patient was well engaged in conversation. I asked about life outside of the hospital and he said that all he did was drink. I asked about his drinking and he politely asked me to leave the room. I will continue to remain available.
--- NOTE | 2025-06-12 16:50 | NUR ---
SHIFT SUMMARY NO ACUTE CHANGES, A/Ox4, ABLE TO MAKE NEEDS KNOWN, USES CALL SYSTEM APPROPRIATELY. PT CONTINUES TO REPORT THOUGHTS OF SUICIDE. DENIES PLAN TO FOLLOW THROUGH WHILE HOSPITALIZED. RESTARTED ON HIS SUBOXONE FOR PAIN MANAGEMENT. GOOD APPEITE. PUREWICK IN PLACE - CHANGED ON NOC SHIFT AND DUE TO BE CHANGED ON NOC SHIFT. ON 2 L/MIN VIA NC AT BASELINE. PT DENIES ANY CONCERNS OR DISCOMFORT T/O SHIFT. PT CURRENTLY RESTING IN BED, BED IN LOWEST POSITION AND CALL LIGHT LUCILLE REACH. 1:[address] ENCOURAGED PT TO AMBULATE AND GET OOB TODAY; PT REFUSED BUT AGREED TO DANGLE AT BEDSIDE FOR MEALS.
[2025-06-12 20:11] VITALS: BP 108/74
--- NOTE | 2025-06-13 05:19 | NUR ---
SHIFT SUMMARY 75 YR M ADMITTED FOR SI. FULL CODE. NO ACUTE CHANGES THIS SHIFT. PT STAYED AWAKE UNTIL APPROX 0430 STATING THAT HE WAS NOT TIRED AND DID NOT WANT TO SLEEP. HE IS VERY PLEASANT AND ENJOYS ENGAGING IN CONVERSATION. PUREWIK WAS REMOVED THIS SHIFT DUE TO LEAKING AND PT HAS BEEN USING A URINAL. PT STATED THAT HE STILL HAS PLANS TO COMMIT SUICIDE BUT THAT HE WOULD NOT ATTEMPT IT WHILE IN THE HOSPITAL BECAUSE HE WOULD "NOT DO THAT TO US". HE WAS ADAMENT ABOUT THIS. HE CONTINUES TO HAVE A 1:1 SITTER. NO OTHER CHANGES TO REPORT. BED IN LOW POSITION AND CALL LIGHT IN REACH.
[2025-06-13 06:45] VITALS: BP 140/90
[2025-06-13 07:40] VITALS: BP 122/80
[2025-06-13 09:09] LABS: BASOPHILS ABSOLUTE AUTO 0.04 K/mm3 (0.00-0.23); BASOPHILS PERCENT AUTO 1 % (0-2); EOSINOPHILS ABSOLUTE AUTO 0.20 K/mm3 (0.00-0.68); EOSINOPHILS PERCENT AUTO 3 % (0-6); Hematocrit 32.4 % (37.0-53.0); Hemoglobin 10.5 g/dL (13.5-17.5); IMMATURE GRAN ABSOLUTE AUTO 0.04 K/mm3 (0.00-0.10); IMMATURE GRAN PERCENT AUTO 1 % (0-1); LYMPHOCYTES ABSOLUTE AUTO 0.83 K/mm3 (0.84-5.20); LYMPHOCYTES PERCENT AUTO 14 % (21-46); MONOCYTES ABSOLUTE AUTO 0.55 K/mm3 (0.16-1.47); MONOCYTES PERCENT AUTO 9 % (4-13); Mean Corpuscular HGB Conc 32.4 g/dL (31.5-36.5); Mean Corpuscular Volume 95 fL (80-100); NEUTROPHILS ABSOLUTE AUTO 4.46 K/mm3 (1.96-9.15); NEUTROPHILS PERCENT AUTO 73 % (41-73); NRBC ABSOLUTE 0.00 K/mm3 (0.00-0.02); NRBC Auto 0.0 /100 WBC (0.0-0.2); Platelet Count 178 K/mm3 (150-400); RDW Coefficient Variation 14.9 % (11.7-14.2); RDW Standard Deviation 50.8 fL (35.1-46.3)
[2025-06-13 09:31] LABS: Alanine Aminotransfer (ALT/SGP 13.0 U/L (12-78); Albumin, Blood 3.3 g/dL (3.4-5.0); Albumin/Globulin Ratio 1.0 (0.8-1.8); Anion Gap 4.0 mmol/L (3-11); Aspartate Aminotrans (AST/SGOT 17.0 U/L (12-37); Bilirubin, Total 0.3 mg/dL (0.1-1.0); Blood Urea Nitrogen 8.0 mg/dL (8-24); CO2, Blood 30.0 mmol/L (21-32); Calcium, Blood 9.2 mg/dL (8.5-10.1); Chloride, Blood 104.0 mmol/L (98-108); Creatinine, Blood 0.84 mg/dL (0.60-1.20); Globulin, Blood 3.4 g/dL (2.2-4.0); Glucose, Blood 104.0 mg/dL (70-99); Potassium, Blood 4.0 mmol/L (3.5-5.5); Sodium, Blood 134.0 mmol/L (136-145); Total Protein, Blood 6.7 g/dL (6.4-8.2)
[2025-06-13 14:52] VITALS: BP 132/76
--- NOTE | 2025-06-13 16:48 | NUR ---
SHIFT SUMMARY NO ACUTE CHANGES, SBA IN ROOM. USING URINAL INDEPENDENTLY. 1:[address] FOR HIGH SI RISK. PT REPORTS CONTINUED THOUGHTS OF SI BUT NO PLAN FOR ACTION DURING HOSPITAL STAY. A/Ox4, ABLE TO MAKE NEEDS KNOWN. AWAITING PLACEMENT. SUBOXONE ADMINISTERED PER EMAR FOR PAIN MANAGEMENT. PT CURRENTLY RESTING IN BED WITH BED IN LOWEST POSITION. SHORT CALL LIGHT IN ROOM, 1:1 SITTER PRESENT.
[2025-06-13 17:42] LABS: CORONAVIRUS COVID-19 AG Negative (NEGATIVE)
[2025-06-13 19:27] VITALS: BP 118/72
[2025-06-14 03:29] VITALS: BP 139/72
--- NOTE | 2025-06-14 05:29 | NUR ---
SHIFT SUMMARY 75 YR M ADMITTED FOR SI. FULL CODE. NO ACUTE CHANGES THIS SHIFT. PT IS PLEASANT AND COOPERATIVE WITH CARE AND STAFF. PT USES URINAL WHEN AWAKE BUT IS INCONTINENT WHEN SLEEPING. 1:1 SITTER IN ROOM. BED IN LOW POSITION AND CALL LIGHT IN REACH.
[2025-06-14 07:53] VITALS: BP 131/81
[2025-06-14 14:54] VITALS: BP 140/74
--- NOTE | 2025-06-14 17:22 | NUR ---
PT ON SUICIDE WATCH ALL DAY. 1:1 SITTER. PT HAD NO C/O PAIN SOB OR CHEST PAIN. PT HAS NO QUESTIONS OR CONCERNS AT THIS TIME
[2025-06-14 19:17] VITALS: BP 129/82
[2025-06-15 03:32] VITALS: BP 132/85
--- NOTE | 2025-06-15 06:06 | NUR ---
MANAGER [employer] SUMMARY PT A&OX4, VSS, EXCEPT SLIGHTLY ELEVATED BP. PT HAS BEEN ASLEEP ON AND OFF THIS SHIFT. CHEST RISE/RESPIRATIONS NOTED. 1:1 SITTER REMAINS AT BESIDE W/ DIRECT LINE OF SIGHT TO PT PT REMAINS HIGH RISK FOR SI. PT STATES HAS THOUGHTS OF HURTING SELF, BUT STATES "WOULD NEVER DO IT HERE." WHEN ASKED ABOUT PLAN, PT STATES HE DOES, BUT WHEN ASKED TO DESCRIBE, NO PLAN TO CARRY OUT STATED. PT REMAINS ON 2L NC W/ SATS >=92%. PLEASANT AND COOPERATIVE W/ CARE. BED RAILS UP X 2, BED IN LOWEST POSITION, BED WHEELS LOCKED, PERSONAL BELONGINGS AND SHORT CALL LIGHT WITHIN REACH. 1:1 SITTER AT BEDSIDE FOR SAFETY.
[2025-06-15 07:43] VITALS: BP 137/81
--- NOTE | 2025-06-15 09:00 | NUR ---
NOTE REPORTS "ALWAYS HAVING THOUGHTS OF KILLING SELF. WOULDN'T WANT TO ACT ON IT IN THE HOSPITAL TO GIVE SOMEONE ELSE THE IDEA." 1 ON [address] SUICIDE PRECAUTIONS IN PLACE.
--- NOTE | 2025-06-15 09:51 | NUR ---
NOTE PT REPORTED "SOMEONE MENTIONED INCREASING LASIX." PT HAS BLE EDEMA W REDNESS. PT HAS WOUND ON L GALVEZ, MEPILEX ON PLACE. PT HAS ORDER FOR ANTIEMBOLIC STOCKINGS. PT REPORTS "HURTS LEGS." REPORTED ALL TO DR. URIAS. DR. URIAS ASSESSED PT. DR. URIAS REPORTED "WILL INCREASE LASIX, OK FOR NO ANTIEMBOLIC STOCKINGS, MAKE SURE LEGS ELEVATED." PT LEGS CURRENTLY ELAVATED.
--- NOTE | 2025-06-15 10:09 | NUR ---
NOTE PERSON FROM [facility] CALLED THIS RN TO REPORT "[facility] CAN NOT ADMIT OVER WEEKEND DUE TO O2 REQUIREMENTS AND STAFFING. RESUBMIT PACKET ON THURSDAY PLEASE." THIS RN WILL REPORT TO CLINICAL INFORMATICIST.
[2025-06-15 14:49] VITALS: BP 137/81
[2025-06-15 15:56] VITALS: BP 129/92
[2025-06-15 17:07] VITALS: BP 137/81
[2025-06-15 17:08] VITALS: BP 137/81
--- NOTE | 2025-06-15 18:50 | NUR ---
SHIFT SUMMARY PT A&OX4. PT ADMITTED DUE TO TYLENOL OVERDOSE. VSS. PT IS SBA. SUICIDE SAFETY AND MITIGATION AND SUICIDE SAFETY PLAN COMPLETE. SI PRECAUTIONS IN PLACE. 1 ON 1 SITTER. NEW MEPILEX APPLIED TO L GALVEZ ALONG WITH THIN LAYER OF ORDERED OINTMENT," CALLED OLGA HEAD OF DRAMA AT [place], SHE REPORTED "ALREADY GOT REPORT FROM SELENA NELSON RN." PT IS SBA. PT IN BED, BED IN LOWEST POSITION, CALL LIGHT IN REACH. AWAITING FOR TRANSPORT. [facility] CALL[facility] 1845 TO REPORT TRANSPORT IS RUNNING BEHIND. WILL BE THERE AROUND 1900.
--- NOTE | 2025-06-15 19:47 | NUR ---
DISCHARGE NOTE - TRANSFER NOTE [facility] AMBULANCE CREW AT BEDSIDE TO TAKE PT TO "[facility]" IN [place] FOR FURTHER TREATMENT PER MD ORDERS - SEE MD NOTATIONS FOR DETAILS. PT ALERT AND COOPERATIVE. ON O2 AT 2-3L/MIN PER NC. NO C/O VOICED. PAPERWORK IN HANDS OF CREW. PT DISCHARGED WITH AMBULANCE CREW AT [facility].
== END 2025-06-15 19:37 | disposition short-term general hospital (02) | DRG 918 ==
LOC: ER 18:47 → ICUE 21:00 → MEDS 21:00 → EDBEDREQ 21:18 → ICUE 21:45 → MEDS 06-11 21:30 → ENPENDDIS 06-15 12:39 → MEDS 06-15 19:37
PROVIDERS: Emergency Medicine; Internal Medicine; Nurse Practitioner Acute Care; ADMIT Internal Medicine
DX: T39.1X2A Poisoning by 4-Aminophenol derivatives, intentional self-harm, initial encounter (principal); I50.32 Chronic diastolic (congestive) heart failure; J96.11 Chronic respiratory failure with hypoxia; R45.851 Suicidal ideations; B37.0 Candidal stomatitis; I11.0 Hypertensive heart disease with heart failure; Z66 Do not resuscitate; Z99.81 Dependence on supplemental oxygen; F31.9 Bipolar disorder, unspecified; J44.9 Chronic obstructive pulmonary disease, unspecified; G89.29 Other chronic pain; F43.10 Post-traumatic stress disorder, unspecified; E03.9 Hypothyroidism, unspecified; I25.10 Atherosclerotic heart disease of native coronary artery without angina pectoris; N40.0 Benign prostatic hyperplasia without lower urinary tract symptoms; F17.210 Nicotine dependence, cigarettes, uncomplicated; F10.20 Alcohol dependence, uncomplicated; Z96.612 Presence of left artificial shoulder joint; Z88.8 Allergy status to other drugs, medicaments and biological substances; Z98.890 Other specified postprocedural states; Z79.899 Other long term (current) drug therapy; Y90.4 Blood alcohol level of 80-99 mg/100 ml
CPT/HCPCS: 36415; 80053; 80076; 80320; 83735; 83880; 84439; 84443; 85025; 85027; 85610; 87426-QW; 93005; 93010; 93306; 94640; 94664; 94760; 94762; 99285-25; A9270; G0480; J0132; J0572; J1650; J2405; J7060; J7070

== ENCOUNTER 2025-08-30 05:49 | Observation (INO) | payer OTHER ==
[~2025-08-30] VITALS: Ht 180.3 cm; Wt 81.7 kg
[2025-08-30 07:05] LABS: BASOPHILS ABSOLUTE AUTO 0.02 K/mm3 (0.00-0.23); BASOPHILS PERCENT AUTO 0 % (0-2); EOSINOPHILS ABSOLUTE AUTO 0.18 K/mm3 (0.00-0.68); EOSINOPHILS PERCENT AUTO 3 % (0-6); Hematocrit 33.9 % (37.0-53.0); Hemoglobin 10.9 g/dL (13.5-17.5); IMMATURE GRAN ABSOLUTE AUTO 0.02 K/mm3 (0.00-0.10); IMMATURE GRAN PERCENT AUTO 0 % (0-1); LYMPHOCYTES ABSOLUTE AUTO 0.41 K/mm3 (0.84-5.20); LYMPHOCYTES PERCENT AUTO 8 % (21-46); MONOCYTES ABSOLUTE AUTO 0.57 K/mm3 (0.16-1.47); MONOCYTES PERCENT AUTO 11 % (4-13); Mean Corpuscular HGB Conc 32.2 g/dL (31.5-36.5); Mean Corpuscular Volume 96 fL (80-100); NEUTROPHILS ABSOLUTE AUTO 4.20 K/mm3 (1.96-9.15); NEUTROPHILS PERCENT AUTO 78 % (41-73); NRBC ABSOLUTE 0.00 K/mm3 (0.00-0.02); NRBC Auto 0.0 /100 WBC (0.0-0.2); Platelet Count 222 K/mm3 (150-400); RDW Coefficient Variation 14.6 % (11.7-14.2); RDW Standard Deviation 51.8 fL (35.1-46.3)
[2025-08-30 07:29] LABS: Alanine Aminotransfer (ALT/SGP 25.0 U/L (12-78); Albumin, Blood 3.4 g/dL (3.4-5.0); Albumin/Globulin Ratio 1.0 (0.8-1.8); Anion Gap 10.0 mmol/L (3-11); Aspartate Aminotrans (AST/SGOT 28.0 U/L (12-37); Bilirubin, Total 0.7 mg/dL (0.1-1.0); Blood Urea Nitrogen 5.0 mg/dL (8-24); CO2, Blood 28.0 mmol/L (21-32); Calcium, Blood 9.3 mg/dL (8.5-10.1); Chloride, Blood 100.0 mmol/L (98-108); Creatinine, Blood 0.65 mg/dL (0.60-1.20); Globulin, Blood 3.3 g/dL (2.2-4.0); Glucose, Blood 149.0 mg/dL (70-99); Potassium, Blood 4.2 mmol/L (3.5-5.5); Sodium, Blood 134.0 mmol/L (136-145); Total Protein, Blood 6.7 g/dL (6.4-8.2)
[2025-08-30] MEDS ORDERED: CefTRIAXone Sodium 2,000 MG in NS 100 ML IV ONE (07:45)
[2025-08-30] MEDS ORDERED: NICOTINE LOZENGE2 MG MM (08:33)
[2025-08-30] MEDS ORDERED: CEPH500 PO (10:37)
[2025-08-30] MEDS ORDERED: Ondansetron HCl 2 MG / ML 2ML Vial IV PRN (16:50)
[2025-08-30] MEDS ORDERED: Tiotropium Bromide 2.5 MCG/ACT MIST INHAL (10 ACT/4 GM) INH SCH (16:55)
[2025-08-30] MEDS ORDERED: Furosemide 10 MG / ML 2ML Vial IV ONE (17:00)
[2025-08-30] MEDS ORDERED: Albuterol 2.5 MG/3 ML VIAL INH PRN (17:00)
[2025-08-30] MEDS ORDERED: FLU VACC TS2025(65UP)/MF59C/PF 45 MCG/0.5 ML SYRINGE IM SCH (17:10)
[2025-08-30] MEDS ORDERED: Formoterol/Mometasone MDI 5/100 mcg 13 GM INH SCH (17:15)
[2025-08-30 20:34] LABS: Acetaminophen, Random <2.0 ug/mL (10.0-30.0); Magnesium, Blood 2.1 mg/dL (1.6-2.4); Salicylate 3.4 mg/dL (2.8-20.0)
[2025-08-30] MEDS ORDERED: Buprenorphine HCL/Naloxone HCL 2-0.5MG 1 EA SL SCH (21:00)
[2025-08-30] MEDS ORDERED: Heparin Sodium,Porcine 5,000 UNIT/0.5 ML SDV SC SCH (21:00)
[2025-08-30] MEDS ORDERED: Lactobacil 2-S.Thermo-Bifido 1 1 Cap PO SCH (21:00)
[2025-08-30 21:54] VITALS: BP 102/69
--- NOTE | 2025-08-30 23:54 | NUR ---
LATE ENTRY 2047 PT HIGH SI RISK DISCUSSED WITH HOSPITALIST, DISCUSSED WITH CHARGE 1:1 SITTER CALLED IN
[2025-08-31 03:51] VITALS: BP 134/80
--- NOTE | 2025-08-31 05:31 | NUR ---
PT HAS BEEN RESTLESS T/O THIS SHIFT TOOK MEDICATIONS WITHOUT DIFFICULTY. 1:1 SITTER AT BEDSIDE. PT REPORTED HE WAS NOT SURE IF HE HAD TAKEN TYLENOL PRIOR TO ADMISSION TO COMMIT SUICIDE, HE REPORTED HE MAY HAVE BECAUSE THAT WAS HIS PLAN. PT HAS BEEN PLEASANT AND COOPERATIVE T/O THSI SHIFT. PT HAS SIGNIFICANT CHRONIC PAIN, DISCUSSED WITH HOSPITALIST AND MEDICATION GIVEN RX.
[2025-08-31 07:18] VITALS: BP 140/85
[2025-08-31] MEDS ORDERED: DULoxetine HCL 30 MG Cap DR PO SCH (09:00)
[2025-08-31] MEDS ORDERED: Multivitamins 1 Tab PO SCH (09:00)
[2025-08-31] MEDS ORDERED: Folic Acid 1 MG TAB PO SCH (09:00)
[2025-08-31 15:41] VITALS: BP 146/82
[2025-08-31 19:37] VITALS: BP 120/78
[2025-09-01 03:29] VITALS: BP 120/79
--- NOTE | 2025-09-01 03:30 | NUR ---
SHIFT SUMMARY PT IS A&OX4. PLEASANT AND COOPERATIVE WITH CARE. VSS ON 3L NC SATS 97%. 3L IS HIS BASELINE. HE REMAINS ON SABOXONE FOR PAIN CONTROL.. REMAINS ON KEFLEX BID FOR LLE CELLULITIS.HIS BLE REMAIN RED. NO ETOH WITHDRAWLS THIS SHIFT. HE REMAINS WITH A 1:1 SITTER DUE TO A HIGH SI RISK. HE HAS A MALE PUREWICK DRAINING YELLOW URINE. TAKES MEDS WHOLE WITH WATER. BED IN LOWEST POSITION, CALL LIGHT WITHIN REACH. CALLS APPROPRIATELY AND IS ABLE TO ADVOCATE NEEDS EFFECTIVELY.
[2025-09-01 07:18] VITALS: BP 136/83
--- NOTE | 2025-09-01 11:35 | NUR ---
"Spiritual Care | Nurse Request Pt. is awake in bed when he welcomes my visit. A 1:1 sitter is present. Pt. is pleasant, and a brief life review is faciliitated. Pt. displayed evidence of being encouraged by the visit, but declined any other spiritual care. The Pt. verbalized gratitude fo the visit and shook this manager learning's hand before I exited."
[2025-09-01 14:53] VITALS: BP 142/81
--- NOTE | 2025-09-01 18:00 | NUR ---
NO ACUTE CHANGES, CLEARLY MAKES NEEDS KNOWN, 1;1 FOR HIGH SI, REPORTED TO DR NOWAK TO CALL PATIENT ROOMATE MARSHA AND EDUCATED ZEYAD TO ASK CASE LILLI TO CALL KATELIN TOMORROW ALSO, REPORTED TO DR NOWAK THAT THE PATIENTS LONG-TERM IS SICK WITH COUGHING AND ROOM MATE KATELNI CONCERNED ABOUT PATIENT COUGH AND A SPUTUMN SAMPLE, PATIENT TAKING PO ANTIBIOTICS, STILL RECOMENDED HIGH SI PER PROTOCOL, PHONE AT BEDSIDE WITH 1:1 IN ROOM, WILL RELAY TO PM FERNANDA
[2025-09-01 19:41] VITALS: BP 158/82
[2025-09-02 03:15] VITALS: BP 143/72
--- NOTE | 2025-09-02 04:50 | NUR ---
PT STILL IN HIGH SUICIDE RISK, HAS PLAN AND METHOD WELL THOUGHTS, HOWEVER EXPRESSED TO THIS RN THAT HE "WOULDN'T DO ANYTHING HERE BECAUSE THAT'D MAKE A MESS FOR ALL OF YOU." PT RETAINS 1:1 SITTER. UNEVENTFUL EVENING OF UNINTERRUPTED REST.
[2025-09-02 07:35] VITALS: BP 153/79
[2025-09-02 15:01] VITALS: BP 132/80
--- NOTE | 2025-09-02 18:10 | NUR ---
NO ACUTE CHANGES, DISCHARGE PLANNING TO BE ADDRESSED AGAIN ON THURSDAY, 1:1, PATIENT PLEASANT AND COOPERATIVE TO CARE, CALL LIGHT WITH IN REACH
[2025-09-02 20:04] VITALS: BP 145/74
[2025-09-03 03:45] VITALS: BP 146/85
--- NOTE | 2025-09-03 06:16 | NUR ---
NO ACUTE CHANGES PT STILL ON 1:1 SITTER
--- NOTE | 2025-09-03 06:20 | NUR ---
PT HAD UNEVENTFUL EVENING UNTIL ROUGHLY 0400 WHEN PT BECAME CONFUSED AND INCREASINGLY AGITATED, SECURITY CALLED FOR STANDBY. DOCTOR ORDERED 1 TIME ZYPREXA 5MG IM. PT MUCH MORE RELAXED AFTERWARDS. STILL ON CONT O2 MONITOR AT 95% ON NC. PT'S HAS BEEN HYPERTENSIVE WITH SYSTOLIC PRESSURES RANGING FROM 160-170.
[2025-09-03 07:16] VITALS: BP 145/77
--- NOTE | 2025-09-03 10:20 | NUR ---
PT STATES THAT HE HAS NO PLAN TO HURT HIMSELF INSIDE THE HOSPITAL BECAUSE "I DON'T WANT TO GIVE ANYONE ANY IDEAS." HE STATES THAT AT HOME HE WOULD USE TYLENOL AND ALCOHOL. RN ASKS IF PT PLANS TO COMPLETE THIS PLAN AT HOME, PT STATES, "I CAN'T LIVE IN HYPOTHETICALS, I CAN ONLY DEAL WITH THE HERE AND NOW." 1:1 NON-CLINICAL SITTER IS WITH PATIENT AT ALL TIMES.
[2025-09-03 15:09] VITALS: BP 142/82
--- NOTE | 2025-09-03 17:07 | NUR ---
DHARMESH HAS BEEN WITH A 1:1 NON CLINICAL SITTER THIS WHOLE SHIFT. PT STATES THAT HE HAS THOUGHTS OF SELF HARM, HE STATES HE HAS NO PLAN FOR IN THE HOSPITAL, BUT AT HOME HE MAY DRINK ALCOHOL, AND TAKE TYLENOL. HE IS NEUTRAL, WITHDRAWN. REPORTS 7/10 PAIN, STATES HE IS IN PAIN "ALL THE TIME" FOR YEARS. MALEPUREWICK IN PLACE. NO ACUTE CHANGES THIS SHIFT.
[2025-09-03 21:28] VITALS: BP 131/69
[2025-09-04 02:30] VITALS: BP 138/86
--- NOTE | 2025-09-04 05:20 | NUR ---
SHIFT SUMMARY 72 YR M ADMITTED ON 08/29/25 FOR SI. DNR. NO ACUTE CHANGES THIS SHIFT. PT HAS BEEN PLEASANT AND COOPERATIVE. HE STATES HE STILL HAS SELF HARM THOUGHTS BUT WONT DO IT IN THE HOSPITAL. PUREWIK IN PLACE AND WORKING WELL. PT STATED EARLY THIS A.M. THAT HE WAS HAVING TROUBLE URINATING BUT HIS OUPUT HAS BEEN WNL. HE STATED THAT HE WAS HAVING SOME PAIN IN HIS LOWER ABDOMEN WHEN TRYING TO URINATE, BUT WAS STILL ABLE TO GO. PT HAS 1:1 NON CLINICAL SITTER. ROOM IS MITIGATED FOR SI. BED IN LOW POSITION AND CALL LIGHT IN REACH.
--- NOTE | 2025-09-04 07:25 | NUR ---
PT STATES HE THINKS ABOUT HARMING HIMSELF BUT NOT WHILE HE IS HERE IN THE HOSPITAL.
[2025-09-04 08:05] VITALS: BP 144/78
[2025-09-04] MEDS ORDERED: Miconazole Nitrate 2% 85 GM PWD TOP SCH (09:00)
[2025-09-04] MEDS ORDERED: CEPH500 PO (14:27)
[2025-09-04] MEDS ORDERED: FURO20 PO (14:28)
[2025-09-04] MEDS ORDERED: JARDIANCE10 MG PO (14:28)
[2025-09-04] MEDS ORDERED: VISBIOME 112.51 EACH PO (14:29)
[2025-09-04] MEDS ORDERED: B-1100 M1 PO (14:30)
--- NOTE | 2025-09-04 18:45 | NUR ---
DISCHARGE/SHIFT SUMMARY: PATIENT A+O X3 AND ABLE TO MAKE NEEDS KNOWN THROUGHOUT THIS DAY. 1:1 CLINICAL SITTER AT BEDSIDE UNTIL DISCHARGE. PATIENT HAD WAXING THROUGHTS OF HARM DURING THIS SHIFT. DR. GUERRERO NOTIFIED OF THIS CHANGE. THIS NURSE WAS NOTIFIED LATER ON BY THIS DOCTOR TO CONTINUE ON WITH THE DISCHARGE. LENCHO, THIS GENTLEMANS SPONSER, WAS CONTACTED WITH DISHCARGE PLANS. MR. BLANCO LEFT BY WHEELCHAIR AND WAS PROVIDED ALL OF HIS STUFF.
== END 2025-09-04 17:45 | disposition home or self-care (01) ==
LOC: ER 05:49 → MEDS 05:50 → ENPENDDIS 09-04 13:25 → MEDS 09-04 17:45
PROVIDERS: Emergency Medicine; Nurse Practitioner Acute Care; ADMIT Student in an Organized Health Care Education/Training Program
DX: F33.2 Major depressive disorder, recurrent severe without psychotic features (principal); R45.851 Suicidal ideations; F43.12 Post-traumatic stress disorder, chronic; I25.10 Atherosclerotic heart disease of native coronary artery without angina pectoris; J44.9 Chronic obstructive pulmonary disease, unspecified; F17.210 Nicotine dependence, cigarettes, uncomplicated; L03.116 Cellulitis of left lower limb; L03.115 Cellulitis of right lower limb; F10.20 Alcohol dependence, uncomplicated; I50.30 Unspecified diastolic (congestive) heart failure; J96.11 Chronic respiratory failure with hypoxia; Z88.8 Allergy status to other drugs, medicaments and biological substances
CPT/HCPCS: 71045; 80053; 83735; 83880; 84484; 85025; 93005; 93010; 94640; 94664; 94760; 96365; 96372; 96375; 99285-25; A9270; G0378; G0480; J0572; J0696; J1644; J1938

== ENCOUNTER 2025-09-25 19:42 | Inpatient (IN) | payer OTHER ==
[~2025-09-25] VITALS: Ht 180.3 cm; Wt 87.3 kg
[~2025-09-25 19:42] MED LIST changes: +CEPH500 PO; +JARDIANCE10 MG PO; +VISBIOME 112.51 EACH PO
[2025-09-25 20:14] LABS: BASOPHILS ABSOLUTE AUTO 0.03 K/mm3 (0.00-0.23); BASOPHILS PERCENT AUTO 0 % (0-2); EOSINOPHILS ABSOLUTE AUTO 0.18 K/mm3 (0.00-0.68); EOSINOPHILS PERCENT AUTO 3 % (0-6); Hematocrit 32.1 % (37.0-53.0); Hemoglobin 10.5 g/dL (13.5-17.5); IMMATURE GRAN ABSOLUTE AUTO 0.01 K/mm3 (0.00-0.10); IMMATURE GRAN PERCENT AUTO 0 % (0-1); LYMPHOCYTES ABSOLUTE AUTO 0.42 K/mm3 (0.84-5.20); LYMPHOCYTES PERCENT AUTO 6 % (21-46); MONOCYTES ABSOLUTE AUTO 0.67 K/mm3 (0.16-1.47); MONOCYTES PERCENT AUTO 10 % (4-13); Mean Corpuscular HGB Conc 32.7 g/dL (31.5-36.5); Mean Corpuscular Volume 94 fL (80-100); NEUTROPHILS ABSOLUTE AUTO 5.39 K/mm3 (1.96-9.15); NEUTROPHILS PERCENT AUTO 81 % (41-73); NRBC ABSOLUTE 0.00 K/mm3 (0.00-0.02); NRBC Auto 0.0 /100 WBC (0.0-0.2); Platelet Count 194 K/mm3 (150-400); RDW Coefficient Variation 14.0 % (11.7-14.2); RDW Standard Deviation 48.1 fL (35.1-46.3)
[2025-09-25] MEDS ORDERED: Acetaminophen650 M1 PO (20:14)
[2025-09-25] MEDS ORDERED: ZYRTEC10 M2 PO (20:14)
[2025-09-25] MEDS ORDERED: ALBU90OI INH (20:14)
[2025-09-25] MEDS ORDERED: BUPRENORPHINE HC2 MG SL (20:14)
[2025-09-25] MEDS ORDERED: FLUT1DIS5 INH (20:15)
[2025-09-25] MEDS ORDERED: FINA5 PO (20:15)
[2025-09-25] MEDS ORDERED: B-1100 M1 PO (20:16)
[2025-09-25] MEDS ORDERED: MAGNESIUM OXID500 MG PO (20:16)
[2025-09-25] MEDS ORDERED: QUET25 PO (20:16)
[2025-09-25] MEDS ORDERED: FOLI1 PO (20:16)
[2025-09-25] MEDS ORDERED: TAMS.4ER PO (20:16)
[2025-09-25] MEDS ORDERED: GUAI600T33 PO (20:17)
[2025-09-25] MEDS ORDERED: TIOT18 INH (20:17)
[2025-09-25 20:37] LABS: Alanine Aminotransfer (ALT/SGP 20.0 U/L (12-78); Albumin, Blood 3.5 g/dL (3.4-5.0); Albumin/Globulin Ratio 1.1 (0.8-1.8); Anion Gap 6.0 mmol/L (3-11); Aspartate Aminotrans (AST/SGOT 23.0 U/L (12-37); Bilirubin, Total 0.6 mg/dL (0.1-1.0); Blood Urea Nitrogen 6.0 mg/dL (8-24); CO2, Blood 29.0 mmol/L (21-32); Calcium, Blood 9.0 mg/dL (8.5-10.1); Chloride, Blood 101.0 mmol/L (98-108); Creatinine, Blood 0.8 mg/dL (0.60-1.20); Globulin, Blood 3.3 g/dL (2.2-4.0); Glucose, Blood 112.0 mg/dL (70-99); Potassium, Blood 4.4 mmol/L (3.5-5.5); Sodium, Blood 132.0 mmol/L (136-145); Total Protein, Blood 6.8 g/dL (6.4-8.2)
[2025-09-25 22:12] LABS: Influenza A, PCR NEGATIVE (NEGATIVE); Influenza B, PCR NEGATIVE (NEGATIVE); Resp Syncytial Virus, PCR NEGATIVE (NEGATIVE); SARS-Cov-2 (COVID-19) PCR, MMC NEGATIVE (NEGATIVE)
[2025-09-25] MEDS ORDERED: Ondansetron HCl 2 MG / ML 2ML Vial IV PRN (22:40)
[2025-09-25] MEDS ORDERED: Ipratropium/Albuterol SulF 2.5-0.5MG/3 ML Amp INH PRN (22:40)
[2025-09-25] MEDS ORDERED: FLU VACC TS2025(65UP)/MF59C/PF 45 MCG/0.5 ML SYRINGE IM SCH (22:40)
[2025-09-25] MEDS ORDERED: Enoxaparin 40 MG/0.4 ML SYR SC SCH (23:00)
[2025-09-25 23:18] VITALS: BP 122/90
[2025-09-25] MEDS ORDERED: NS 250 ML IV PRN (23:35)
[2025-09-26] MEDS ORDERED: Tiotropium Bromide 2.5 MCG/ACT MIST INHAL (10 ACT/4 GM) INH SCH (00:15)
[2025-09-26] MEDS ORDERED: Albuterol HFA200 ACT/6.7 GM INH INH PRN (00:15)
[2025-09-26] MEDS ORDERED: Formoterol/Mometasone MDI 5/200 mcg 13 GM INH SCH (00:15)
[2025-09-26 04:02] VITALS: BP 134/92
[2025-09-26 05:55] LABS: BASOPHILS ABSOLUTE AUTO 0.01 K/mm3 (0.00-0.23); BASOPHILS PERCENT AUTO 0 % (0-2); EOSINOPHILS ABSOLUTE AUTO 0.00 K/mm3 (0.00-0.68); EOSINOPHILS PERCENT AUTO 0 % (0-6); Hematocrit 34.6 % (37.0-53.0); Hemoglobin 11.1 g/dL (13.5-17.5); IMMATURE GRAN ABSOLUTE AUTO 0.00 K/mm3 (0.00-0.10); IMMATURE GRAN PERCENT AUTO 0 % (0-1); LYMPHOCYTES ABSOLUTE AUTO 0.36 K/mm3 (0.84-5.20); LYMPHOCYTES PERCENT AUTO 7 % (21-46); MONOCYTES ABSOLUTE AUTO 0.12 K/mm3 (0.16-1.47); MONOCYTES PERCENT AUTO 2 % (4-13); Mean Corpuscular HGB Conc 32.1 g/dL (31.5-36.5); Mean Corpuscular Volume 95 fL (80-100); NEUTROPHILS ABSOLUTE AUTO 4.47 K/mm3 (1.96-9.15); NEUTROPHILS PERCENT AUTO 90 % (41-73); NRBC ABSOLUTE 0.00 K/mm3 (0.00-0.02); NRBC Auto 0.0 /100 WBC (0.0-0.2); Platelet Count 191 K/mm3 (150-400); RDW Coefficient Variation 13.8 % (11.7-14.2); RDW Standard Deviation 48.7 fL (35.1-46.3)
[2025-09-26 06:21] LABS: Alanine Aminotransfer (ALT/SGP 19.0 U/L (12-78); Albumin, Blood 3.3 g/dL (3.4-5.0); Albumin/Globulin Ratio 0.9 (0.8-1.8); Anion Gap 8.0 mmol/L (3-11); Aspartate Aminotrans (AST/SGOT 17.0 U/L (12-37); Bilirubin, Total 0.6 mg/dL (0.1-1.0); Blood Urea Nitrogen 8.0 mg/dL (8-24); CO2, Blood 29.0 mmol/L (21-32); Calcium, Blood 8.7 mg/dL (8.5-10.1); Chloride, Blood 102.0 mmol/L (98-108); Creatinine, Blood 0.73 mg/dL (0.60-1.20); Globulin, Blood 3.5 g/dL (2.2-4.0); Glucose, Blood 141.0 mg/dL (70-99); Potassium, Blood 4.5 mmol/L (3.5-5.5); Sodium, Blood 134.0 mmol/L (136-145); Total Protein, Blood 6.8 g/dL (6.4-8.2)
--- NOTE | 2025-09-26 06:27 | NUR ---
Shift Summary Pt admitted to this unit for COPD exasperation. He is on 4L O2 NC which is his baseline (3-4L). Coarse lung sounds with wet productive cough. Sputum sample sent to lab. Pt is on moderate SI precautions, he states he would never harm himself while here and he feels safe here. He is 1 assist stand at the bedside to void in urinal. He is AOx4, cooperative with care.
[2025-09-26] MEDS ORDERED: Ipratropium/Albuterol SulF 2.5-0.5MG/3 ML Amp INH SCH (07:05)
[2025-09-26 07:15] VITALS: BP 135/89
[2025-09-26] MEDS ORDERED: Folic Acid 1 MG TAB PO SCH (09:00)
[2025-09-26] MEDS ORDERED: Ipratropium/Albuterol SulF 2.5-0.5MG/3 ML Amp INH PRN (10:55)
[2025-09-26 16:37] VITALS: BP 111/87
[2025-09-26 19:35] VITALS: BP 110/77
--- NOTE | 2025-09-26 19:52 | NUR ---
END OF SHIFT SUMMARY: A&Ox2-4 WITH COGNITION WAXING AND WANING T/O SHIFT. PLEASANT AND COOPERATIVE WITH CARE, BUT HAVING INTERMITTENT CONFUSION. BREATHING EVEN AND UNLABORED @ 2LPM/NC @ REST; DYSPNIC c ACTIVITY. FORGETS TO LEAVE O2 ON; AT ONE POINT WAS WALKING ON OTHER SIDE OF UNIT WITHOUT OXYGEN. CONTINENT OF BOWEL AND BLADDER; LBM TODAY. TOLERATING DIET. AMBULATES c SBA/FWW. MEDS WHOLE c FLUIDS. MEDICALLY STABLE FOR DC BUT REPORTS SI. PSYCH CONSULT PENDING UNTIL TOMORROW DUE TO PSYCH PATIENT LOAD. APPLIED LOTION TO DRY, SCALING, CRACKING BLEs AND COVERED c KERLIX. AWAITING WOUND CARE ORDERS FROM PROVIDER. BED IN LOWEST POSITION, CALL LIGHT WITHIN REACH, ALL NEEDS MET. REPORT TO ONCOMING NURSE.
[2025-09-27 03:40] VITALS: BP 136/85
--- NOTE | 2025-09-27 06:27 | NUR ---
Shift Summary Pt had an episode this AM around 0620 where he remembered who I was but didn't remember where he was or why he was here. I explained his situation and he understood but he still doesn't remember coming to [facility]. Pt is otherwise alert and oriented, 1 SBA using the urinal at the bedside. No c/o of pain or nausea. He is on 3L O2 NC which is his baseline and rcving RT treatments. With any exertion he quickly becomes short of breath and does a grunting type breathing. Lung sounds are moist and he has an occasional productive cough.
[2025-09-27 08:28] VITALS: BP 145/81
[2025-09-27] MEDS ORDERED: Buprenorphine HCL/Naloxone HCL 2-0.5MG 1 EA SL SCH (14:00)
[2025-09-27 15:09] VITALS: BP 123/79
[2025-09-27 19:06] VITALS: BP 123/77
--- NOTE | 2025-09-27 19:10 | NUR ---
PATIENT A/O X4 THIS SHIFT, UP INDEPENDENTLY IN ROOM. VSS, ON 3LO2 VIA NC WHICH IS HIS BASELINE. DR SALAZAR IN TO SEE PATIENT TODAY AND ORDERS PLACED FOR INPATIENT PSYCH FACILITY. PATIENT REPORTS HE HAS NO THOUGHTS OF HARMING HIMSELF WHILE HOSPITALIZED. SUBOXONE RESTARTED TODAY. COG SCREEN ORDERED, BUT OT WAS UNABLE TO DO IT TODAY BECUASE PATIENT DIDN'T HAVE HIS GLASSES. FRIEND TO BRING GLASSES IN TOMORROW. NO OTHER NEW CONCERNS THIS SHIFT.
[2025-09-28 03:27] VITALS: BP 148/91
--- NOTE | 2025-09-28 04:00 | NUR ---
SHIFT SUMMARY PATIENT HAD NO ACUTE CHANGES. ALERT ORIENTED AND ONE ASSIST TO BR. DENIES CHEST PAIN, SOB, AND N/V. VSS/AFEBRILE. ON 3L O2 NC AND BASELINE. PIV INTACT. NO SI IDEATION. CALL LIGHT IN REACH. BED IN LOWEST POSITION. WILL CONTINUE TO MONITOR UNTIL DAY SHIFT NURSE ASSUMES CARE.
[2025-09-28 07:08] VITALS: BP 137/81
--- NOTE | 2025-09-28 13:50 | NUR ---
ASSUMED CARE AND COMFORT OF THIS PATIENT WHILE PRIMARY RN ABRAM ON LUNCH. PATIENT UP TO BATHROOM WITHOUT ASSIST. RETURNS TO BED AND IS CURRENTLY SPEAKING ON PHONE WITH FRIEND. KRISTY IS CONCERNED ABOUT HIS WALLETT. THIS RN LOOKS IN CLOSET IN LOCKED BOX AND IN DRAWERS IN ROOM AND IN MED DRAWER OUTSIDE OF ROOM WITHOUT GOOD RESULTS. WILL FOLLOW UP WITH PRIMARY RN WHEN SHE RETURNS AND PATIENT WILL FOLLOW UP WITH HIS FAMILY TO SEE IF IT IS AT HIS HOME.
[2025-09-28 14:38] VITALS: BP 126/84
--- NOTE | 2025-09-28 16:30 | NUR ---
PT ALERT AND ORIENTED X4, 1P STANDBY ASSIST WITH FWW, CURRENTLY 3L NC SATS GREATER THAN 94%, PT USES 3L O2 AT BASELINE. MODERATE LEVEL SUICIDE SCALE- EVERY 4 HOURS ASSESSMENTS PER PROTOCOL. SEROQUEL PO DOSE STARTED NIGHTLY BY PROVIDER- PER PT TRAZADONE IS NOT EFFECTIVE. PO STEROIDS SCHEDULED. ONGOING PROCESS FOR PLACEMENT TO [facility]FACILITY. CALL LIGHT IN REACH, BED IN LOWEST POSITION, BEDSIDE TABLE IN REACH, PT CALLS AT ALL TIMES FOR ASSISTANCE.
[2025-09-28 19:21] VITALS: BP 126/83
[2025-09-29 03:41] VITALS: BP 151/94
--- NOTE | 2025-09-29 04:33 | NUR ---
SHIFT SUMMARY AXO X3 CONFUSED 1-2 X'S COMING OUT OF ROOM LOOKING FOR BR AND REDIRECTED. DENIES CHEST PAIN, SOB, AND N/V. VSS/AFEBRILE. ON 3L O2 NC. PIV INTACT. RT IN FOR BREATHING TX. SLEPT MOST OF THE SHIFT. CALL LIGHT IN REACH. BED IN LOWEST POSITION. WILL CONTINUE TO MONITOR UNTIL DAY SHIFT NURSE ASSUMES CARE.
[2025-09-29 07:14] VITALS: BP 151/86
[2025-09-29 14:59] VITALS: BP 134/88
[2025-09-29 17:06] VITALS: BP 134/88
--- NOTE | 2025-09-29 17:26 | NUR ---
PT A/OX4. HE REPORTS HAVING CONFUSION AT TIMES. HE IS PLEASANT AND COOPERATIVE WITH CARE. USES CALL LIGHT APPROPRIATELY. INDEPENDENT IN ROOM. PT IS ON 3L O2 NC WHICH IS HIS BASELINE. CURRENTLY WAITING FOR [facility] TRANSFER. PT IS LAYING IN BED CURRENTLY WATCHING TELEVISION. BED IS IN THE LOWEST POSITION AND CALL LIGHT IS IN REACH. NO ACUTE NEEDS AT THIS TIME.
[2025-09-29 19:44] VITALS: BP 120/77
--- NOTE | 2025-09-30 04:57 | NUR ---
SHIFT SUMMARY OVERNIGHT DOES HAVE 1 EPISODE OF STRESS INCONTINENCE +/- SITUATIONAL CONFUSION URINATING ON FLOOR. PT IS ASSISTED TO RESTROOM 1 PERSON STANDBY ASSIST WITHOUT FWW, AND ABLE TO URINATE STANDING WITHOUT DIFFICULTY AND RETURNS TO BED. MAINTAINS EUPNEA ON 3L NC BASELINE. EXUDRY AND NETTTING TO LLE CELLULITIS CHANGED. PATENT IV LAC. COUGHING UP SMALL AMOUNT OF WHITE-YELLOW THICK SPUTUM. TOLERATING INCREASED SEROQUEL DOSE WELL. PT AMENABLE TO [place] TRANSFER TO ACUTE PSYCHIATRIC UNIT AT [facility] TODAY ~10 AM. DOES EXPRESS TO THIS RN THAT HE HAS PTSD WITH ANY SOUNDS OF GUNSHOTS OR SPEAKING OF SHOOTINGS. NOTED TO SCORE 22/30 ON [facility] COG EVAL WITH DR SALAZAR YESTERDAY 09/29.
[2025-09-30 07:20] VITALS: BP 151/85
[2025-09-30 14:48] VITALS: BP 139/99
--- NOTE | 2025-09-30 16:54 | NUR ---
PT IS A/OX3-4. PLEASANT AND COOPERATIVE WITH CARE. PT DID HAVE SOME CONFUSION THIS MORNING ASKING STAFF "WHERE AM I, WHAT IS GOING ON?". PT WAS EASILY REORIENTED TO SURROUNDINGS AND CURRENT SITUATION. CURRENT PLAN IS FOR INPATIENT PSYCH PLACEMENT. PT DISPLAYED NO SI EVENTS THIS SHIFT. PT IS CURRENTLY SITTING CHAIR WATCHING TELEVISION. NO ACUTE NEEDS AT THIS TIME.
[2025-09-30 19:38] VITALS: BP 134/80
[2025-10-01 04:17] VITALS: BP 155/94
--- NOTE | 2025-10-01 06:14 | NUR ---
PT IS AOX4 AND ABLE TO MAKE NEEDS KNOWN. CARE TAKEN OVER AT 0330. NO ACUTE CHANGES SINCE CHANGE IN PRIMARY NURSE,
[2025-10-01 07:38] VITALS: BP 149/86
[2025-10-01 15:17] VITALS: BP 132/97
--- NOTE | 2025-10-01 17:01 | NUR ---
SHIFT SUMMARY: A&OX4 THROUGHOUT SHIFT. PLEASANT AND COOPERATIVE WITH CARE. SI PRECAUTIONS REMOVED DUE TO PT BEING LOW RISK. NO ACUTE EVENTS/CHANGES THIS SHIFT. REMAINS ON 3L O2 WITH O2 SATS >90%. BREATHING EQUAL AND NONLABORED. SITTING IN CHAIR AT THIS TIME. CALL LT WITHIN REACH. AWAITING INPATIENT PSYCH BED.
[2025-10-01 19:38] VITALS: BP 147/88
--- NOTE | 2025-10-02 04:34 | NUR ---
SHIFT SUMMARY 75 YR M ADMITTED ON 09/27/25. FULL CODE. NO ACUTE CHANGES THIS SHIFT. PT HAD BOUTS OF CONFUSION BUT HAS OTHERWISE BEEN A&O X 4. HE DID NOT WANT TO LAY IN HIS BED SO HE WAS SITTING UP IN THE CHAIR FOR A COUPLE OF HOURS. HE WAS OFFERED A RECLINER AND GLADLY ACCEPTED IT. ONCE HE GOT COMFORTABLE HE WENT TO SLEEP AND SLEPT THROUGHOUT THE NIGHT. HE HAS BEEN PLEASANT AND COOPERATIVE. PLAN IS FOR PT WITH INPATIENT PSYCHE. PT CURRENTLY ASLEEP IN RECLINER WITH CALL LIGHT IN REACH.
[2025-10-02 05:43] VITALS: BP 121/74
[2025-10-02 06:52] LABS: BASOPHILS ABSOLUTE AUTO 0.04 K/mm3 (0.00-0.23); BASOPHILS PERCENT AUTO 1 % (0-2); EOSINOPHILS ABSOLUTE AUTO 0.43 K/mm3 (0.00-0.68); EOSINOPHILS PERCENT AUTO 6 % (0-6); Hematocrit 35.0 % (37.0-53.0); Hemoglobin 11.3 g/dL (13.5-17.5); IMMATURE GRAN ABSOLUTE AUTO 0.15 K/mm3 (0.00-0.10); IMMATURE GRAN PERCENT AUTO 2 % (0-1); LYMPHOCYTES ABSOLUTE AUTO 1.63 K/mm3 (0.84-5.20); LYMPHOCYTES PERCENT AUTO 22 % (21-46); MONOCYTES ABSOLUTE AUTO 0.75 K/mm3 (0.16-1.47); MONOCYTES PERCENT AUTO 10 % (4-13); Mean Corpuscular HGB Conc 32.3 g/dL (31.5-36.5); Mean Corpuscular Volume 95 fL (80-100); NEUTROPHILS ABSOLUTE AUTO 4.36 K/mm3 (1.96-9.15); NEUTROPHILS PERCENT AUTO 59 % (41-73); NRBC ABSOLUTE 0.00 K/mm3 (0.00-0.02); NRBC Auto 0.0 /100 WBC (0.0-0.2); Platelet Count 261 K/mm3 (150-400); RDW Coefficient Variation 14.1 % (11.7-14.2); RDW Standard Deviation 49.4 fL (35.1-46.3)
[2025-10-02 07:08] LABS: Anion Gap 7.0 mmol/L (3-11); Blood Urea Nitrogen 21.0 mg/dL (8-24); CO2, Blood 31.0 mmol/L (21-32); Calcium, Blood 9.1 mg/dL (8.5-10.1); Chloride, Blood 101.0 mmol/L (98-108); Creatinine, Blood 1.08 mg/dL (0.60-1.20); Glucose, Blood 100.0 mg/dL (70-99); Potassium, Blood 4.0 mmol/L (3.5-5.5); Sodium, Blood 135.0 mmol/L (136-145)
[2025-10-02 07:26] VITALS: BP 129/79
[2025-10-02 16:22] VITALS: BP 138/86
--- NOTE | 2025-10-02 17:04 | NUR ---
SHIFT SUMMARY PT AOX4, COOPERATIVE, ABLE TO MAKE NEEDS KNOWN. PT IS IND IN ROOM, ON 3L O2 CURRENLTY. TOLERATING MEDICATIONS. [facility]OSED [facility] THE [facility] 10[facility]03 AT APPROX 0915. NO OTHER ACUTE EVENTS TOOK PLACE THIS SHIFT. BED IN LOWEST POSITION, CALL LIGHT WITHIN REACH.
[2025-10-02 19:23] VITALS: BP 117/71
[2025-10-03 04:47] VITALS: BP 122/82
--- NOTE | 2025-10-03 04:53 | NUR ---
SHIFT SUMMARY 75 YR M ADMITTED ON 09/27/25. FULL CODE. NO ACUTE CHANGES THIS SHIFT. HOWEVER, PT DID GET UP IN THE MIDDLE OF THE NIGHT TO USE THE RESTROOM AND WAS NOT ABLE TO MAKE IT ON TIME. HE URINATED ON THE FLOOR AND WAS RESISTANT TO ASSISTANCE IN CLEANING HIM UP. WITH GENTLE ENCOURAGEMENT HE RELUCTANTLY ALLOWED STAFF TO CHANGE HIS CLOTHS AND CLEAN HIM UP. EVS WAS CALLED TO MOP THE FLOOR. PT PREFERS SITTING ON THE EDGE OF THE BED TO LYING DOWN. PLAN IS FOR TRANSFER TO [facility] THIS A.M. BED IS IN LOW POSITION AND CALL LIGHT IN REACH.
[2025-10-03 07:34] VITALS: BP 128/82
--- NOTE | 2025-10-03 09:35 | NUR ---
DISCHARGE 919 PT AOX4, COOPERATIVE, ABLE TO MAKE NEEDS KNOWN. PT TRANSFERRED OUT BY TRANSPORT VIA GURNEY. IND INROOM, ON APPROX 3L O2 CURRENLTY. TOELRATES MEDICATIONS. THIS RN ATTEMPTED TO CALL [facility] FOR GIVE REPORT, WAS UNABLE TO TALK WITH RN OR ANYBODY ELSE TO GIVE REPORT. AWAITING POSSIBLE CALL BACK FOR REPORT.
== END 2025-10-03 09:21 | DRG 191 ==
LOC: ER 19:42 → ERHOLD 19:43 → MEDS 19:43 → ENPENDDIS 09-28 13:36 → DELPENDDIS 09-28 13:36 → ENPENDDIS 10-02 14:03 → MEDS 10-03 09:21
PROVIDERS: Emergency Medicine; ADMIT Internal Medicine
DX: J44.1 Chronic obstructive pulmonary disease with (acute) exacerbation (principal); I50.32 Chronic diastolic (congestive) heart failure; J96.11 Chronic respiratory failure with hypoxia; L03.116 Cellulitis of left lower limb; R45.851 Suicidal ideations; F31.9 Bipolar disorder, unspecified; F17.210 Nicotine dependence, cigarettes, uncomplicated; D64.9 Anemia, unspecified; N40.0 Benign prostatic hyperplasia without lower urinary tract symptoms; I11.0 Hypertensive heart disease with heart failure; F43.10 Post-traumatic stress disorder, unspecified; I87.8 Other specified disorders of veins; F10.20 Alcohol dependence, uncomplicated; Z91.51 Personal history of suicidal behavior; Z88.8 Allergy status to other drugs, medicaments and biological substances
CPT/HCPCS: 36415; 71045; 80048; 80053; 83880; 84484; 85025; 87070; 87147; 87637; 93005; 93010; 94640; 94664; 94760; 96372; 96374; 96375; 96376; 97129; 97165; 99285-25; A9270; G0378; J0456; J0572; J1650; J2919; J7050; J7512